=== PATIENT | female | born 1945 | race Caucasian/White ===

== ENCOUNTER → 2017-02-06 | Outpatient (CLI) | payer OTHER ==
[~2017-02-06] MED LIST: ACET-1138 PO; ACET-1487 PO; AMLO5TAB2 PO; ATOR-24 PO; BUPRTAB PO; BUPRTAB51 PO; CALC600T9 PO; CHOL2000 PO; DONE1TAB11 PO; ESCI10TA17 PO; GLUC10007 PO; GLUCTAB7 PO; IBUP-103 PO; LAMO200T38 PO; LDDP5 TD; LEVO125T57 PO; LSN5 PO; METR0.7514 PV; MULT-506 PO; NCYSR50 PO; POTA-331 PO; PRLSR20 PO; RBX750 PO; RXC5 PO; SPIR50TA2 PO; TRAZ50TA35 PO
[2017-02-06 12:46] LABS: ALT/SGPT 30 U/L (12-78); BLOOD UREA NITROGEN 23 mg/dl (7-18); BUN/CREATININE RATIO 20.9 (10-20); CALCIUM 9.5 mg/dl (8.5-10.1); CARBON DIOXIDE 28 mmol/L (21-32); CHLORIDE 104 mmol/L (98-107); CHOLESTEROL 176 mg/dl (0-200); GLUCOSE 92 mg/dl (70-99); SODIUM 140 mmol/L (136-145); TRIGLYCERIDES 84 mg/dl (0-150); VERY LOW DENSITY LIPOPROT CALC 17 mg/dl
[2017-02-06 12:57] LABS: ALB/GLOB RATIO 1.1 (0.9-2); ALKALINE PHOSPHATASE 100 U/L (45-117); AST/SGOT 19 U/L (15-37); CHOLESTEROL/HDL RATIO 3.2; HDL CHOLESTEROL 55 mg/dl; LDL CHOLESTEROL CALCULATED 104 mg/dl
--- NOTE | 2017-02-13 08:12 | CODING QUERY MEDICAL NECESSITY ---
SUPPORTING DIAGNOSIS NEEDED Dr. Reyna, A supporting diagnosis is required for the test/procedure performed on this patient in order for us to be reimbursed by the patient's insurance. Please provide a supporting diagnosis for the following test/procedure listed below next to the test name along with your signature. *If there is no additional diagnosis for this patient that would support the following test/procedure please document that below next to the test/procedure. Test(s)/Procedure(s) that require a supporting diagnosis: * ([id number]) VITAMIN D ASSAY DIAGNOSIS: DATE OF SERVICE: 02/06/17 Provider Signature: Date: Thank you [facility] Information Management Once completed, please kindly fax back to [phone] For questions please call [phone]
== END | disposition home or self-care (01) ==
LOC: C.LABPVFM 09:37
PROVIDERS: ATTEND Family Medicine
DX: I10 Essential (primary) hypertension (principal); E78.5 Hyperlipidemia, unspecified; E03.9 Hypothyroidism, unspecified; K21.0 Gastro-esophageal reflux disease with esophagitis; F32.9 Major depressive disorder, single episode, unspecified; E55.9 Vitamin D deficiency, unspecified

== ENCOUNTER → 2017-06-01 | Outpatient (CLI) | payer OTHER | END | disposition home or self-care (01) | LOC: C.LABPVFM 12:27 | PROVIDERS: ATTEND Nurse Practitioner | DX: N39.0 Urinary tract infection, site not specified (principal) ==

== ENCOUNTER 2017-06-25 06:58 | Inpatient (IN) | payer OTHER ==
[2017-06-15 09:54] VITALS: BMI 48.0
--- NOTE | 2017-06-15 10:33 | PAT Medication Instructions ---
Service Date Jun 15, 2017. Current Home Medication List Acetaminophen (Tylenol Arthritis Ext Rel), 1,300 MG PO TID PRN for RN Amlodipine Besylate (Norvasc), 5 MG PO QAM Atorvastatin (Lipitor), 40 MG PO HS Bupropion Hcl (Wellbutrin Xl), 150 MG PO QAM Bupropion Hcl (Wellbutrin Xl), 300 MG PO QAM Calcium Carbonate-Vitamin D (Calcium + D), 600 MG PO QPM Cholecalciferol (Vitamin D3), 1 CAP PO QPM Donepezil Hydrochloride (Donepezil Hcl), 1 TAB PO QAM Escitalopram (Lexapro), 15 MG PO QAM Qkfjrustesn-Gmtfmpmzjkq-Nov C- (Glucosamine Chondroitin), 1 TAB PO BID Ibuprofen Tab (Advil), 400 MG PO BID Lamotrigine (Lamictal), 200 MG PO HS Levothyroxine (Levoxyl), 0.125 MG PO QAM Multivitamin (Multivitamin), 1 TAB PO QAM Omeprazole (Prilosec), 20 MG PO BID Spironolactone (Aldactone), 50 MG PO BID Trazodone Hcl (Trazodone), 50 MG PO HS Medication Instructions For Your Scheduled Surgery Ibuprofen Tab (Advil), 400 MG PO BID (check with surgeon for instructions) - Hold the following medications starting 06/15/17: Skvlkurtfvd-Ikdrvjkhqhi-Vik C- (Glucosamine Chondroitin), 1 TAB PO BID - Hold the following medications the morning of surgery: Spironolactone (Aldactone), 50 MG PO BID Multivitamin (Multivitamin), 1 TAB PO QAM - Take the following medications the morning of surgery with a sip of water: Omeprazole (Prilosec), 20 MG PO BID Levothyroxine (Levoxyl), 0.125 MG PO QAM Escitalopram (Lexapro), 15 MG PO QAM Bupropion Hcl (Wellbutrin Xl), 150 MG PO QAM Bupropion Hcl (Wellbutrin Xl), 300 MG PO QAM Amlodipine Besylate (Norvasc), 5 MG PO QAM Acetaminophen (Tylenol Arthritis Ext Rel), 1,300 MG PO TID PRN for RN (if needed ) Donepezil Hydrochloride (Donepezil Hcl), 1 TAB PO QAM - Take the following medications as scheduled the night before surgery: Spironolactone (Aldactone), 50 MG PO BID Trazodone Hcl (Trazodone), 50 MG PO HS Omeprazole (Prilosec), 20 MG PO BID Calcium Carbonate-Vitamin D (Calcium + D), 600 MG PO QPM Cholecalciferol (Vitamin D3), 1 CAP PO QPM Atorvastatin (Lipitor), 40 MG PO HS Acetaminophen (Tylenol Arthritis Ext Rel), 1,300 MG PO TID PRN for RN (if needed ) Lamotrigine (Lamictal), 200 MG PO HS If you have any questions please call us at [phone] or [phone] or [phone]
[2017-06-15 11:30] LABS: BASO % 0.9 %; BASO ABS # 0.07 K/uL (0-0.2); COMPLETE YES; EOS % 2.2 %; HEMATOCRIT 40.4 % (37-47); IG% 0.3 %; LYMPH % 31.1 %; LYMPH ABS # 2.44 K/uL (1.2-3.4); MEAN CELL VOLUME 93.7 fL (80-100); MEAN CORPUSCULAR HEMOGLOBIN 31.8 pg (25-34); MEAN CORPUSCULAR HGB CONC 33.9 g/dl (32-36); MEAN PLATELET VOLUME 10.4 fL (7.4-10.4); MONO % 7.8 %; NEUT % 57.7 %; PLATELET COUNT 260 K/uL (130-400); RED BLOOD COUNT 4.31 M/uL (4.2-5.4); WHITE BLOOD COUNT 7.85 K/uL (4.8-10.8)
--- NOTE | 2017-06-15 11:31 | DIAGNOSTIC IMAGING REPORT ---
CHEST PREADMISSION(PA/LAT) CLINICAL HISTORY: Preoperative chest COMPARISON STUDY: 03/23/2016 FINDINGS: The cardiac and mediastinal contours are normal. There is no evidence of focal pulmonary consolidation. There is no evidence of failure. No pleural effusions are visualized.[ There are postsurgical changes of a reverse total right shoulder arthroplasty. IMPRESSION: No active disease in the chest. Electronically signed by: Broderick Knox M.D. 06/15/2017 11:29 AM Dictated Date/Time: 06/15/2017 11:29 AM
[2017-06-15 11:33] LABS: URINE APPEARANCE CLOUDY (CLEAR); URINE BILIRUBIN NEG (NEG); URINE COLOR YELLOW; URINE EPITHELIAL CELL AUTO >30 /lpf (0-5); URINE NITRITE NEG (NEG); URINE SPECIFIC GRAVITY 1.026 (1.000-1.030); UROBILINOGEN NEG (NEG)
[2017-06-15 11:36] LABS: MANUAL MICROSCOPIC REQUIRED? NO; REVIEW REQ? NO
[2017-06-15 11:42] LABS: INR 0.9 (0.9-1.1); PARTIAL THROMBOPLASTIN RATIO 1.1; PROTHROMBIN TIME (PATIENT) 9.9 SECONDS (9.0-12.0)
[2017-06-15 11:48] LABS: BUN/CREATININE RATIO 21.2 (10-20); CALCIUM 9.2 mg/dl (8.5-10.1); CREATININE 1.2 mg/dl (0.60-1.20); POTASSIUM 4.7 mmol/L (3.5-5.1)
--- NOTE | 2017-06-21 09:37 | HISTORY & PHYSICAL EXAMINATION ---
DATE OF ADMISSION: 06/25/2017 CHIEF COMPLAINT: Cuff arthropathy of the left shoulder. HISTORY OF PRESENT ILLNESS: Sara is a pleasant 72-year-old female whom I did a right reverse shoulder arthroplasty on in May 2014. She did very well with that. Unfortunately, she had been noticing pain and weakness in her left shoulder similar symptoms to her contralateral side. X-rays were diagnostic for cuff arthropathy of the shoulder. After failing extensive conservative treatment, she elected to proceed with reverse shoulder arthroplasty. PAST MEDICAL HISTORY: Significant for hyperlipidemia, hypertension, sleep apnea, chronic kidney disease stage III, GERD, depression, osteoarthritis, hypothyroidism, insomnia. SURGICAL HISTORY: Significant for total knee arthroplasty by Dr. Siu and a history of a hysterectomy and a reverse right shoulder arthroplasty in May [address] Lizarraga. SOCIAL HISTORY: Denies any tobacco, alcohol or IV drug use. ALLERGIES: None. MEDICATIONS: Include Norvasc 5 mg daily, Lipitor 40 mg at night, Wellbutrin 450 mg in the morning, calcium 600 mg daily, vitamin D3 2000 units daily, donepezil 1 tab daily, Lexapro 15 mg daily, Lamictal 200 mg at night, Levoxyl 0.125 mg daily, Prilosec 20 mg twice a day, Aldactone 50 mg twice a day, trazodone 50 mg at night. FAMILY HISTORY: Noncontributory. SOCIAL HISTORY: She is , lives alone. She has 2 kids. Denies any tobacco, alcohol or IV drug use. She has little activity. REVIEW OF SYSTEMS: She complains of left shoulder pain and weakness. All other pertinent review of systems are negative. PHYSICAL EXAMINATION: GENERAL: She is awake, alert and orient x3. She is in no apparent distress. She is very pleasant. HEAD, EYES, EARS, NOSE, AND THROAT: Pupils are equal, round and reactive to light. Extraocular motion intact. Oral mucosa is pink and moist. HEART: Regular rate per radial pulse. LUNGS: Katherine symmetrically bilaterally with no audible breath sounds. ABDOMEN: Soft, nontender, nondistended. MUSCULOSKELETAL: On physical examination of the left shoulder, she has significantly decreased range of motion with about 90 degrees of forward elevation, 80 degrees of abduction. Passively I can get a little bit further. She has a lot of pain. She has diffuse tenderness to palpation throughout her shoulder. She has 3/5 strength to full can testing and 3/5 strength with external rotation. Negative belly press test and negative bear hug test. X-rays of the shoulder do show osteoarthritis with a small inferior osteophyte formation. The humeral head is generally well located in the glenoid but there is a lot of blunting of the greater tuberosity indicative of a large cuff tear. IMPRESSION: Cuff arthropathy of the left shoulder. PLAN: We will proceed with a Biomet comprehensive reverse left total shoulder arthroplasty. Postoperatively, she will be placed in an arm sling and kept overnight for postoperative medical management.
[2017-06-25] VITALS (7 sets, daily range): BP systolic 101–188; BP diastolic 66–81; PULSE 54–73; TEMP 36.4–36.9; O2SAT 90–97; Ht 154.9 cm; Wt 114.2 kg
[~2017-06-25] VITALS: Ht 154.9 cm; Wt 114.2 kg
[~2017-06-25 06:58] MED LIST changes: -ACET-1138 PO; +ACETAMINOPHEN 500 MG TAB PO SCH; +CEFAZOLIN 2000 MG/60 ML D5W 60 ML IV SCH; -GLUC10007 PO; +LACTATED RINGER'S 1000ML 1,000 ML IV SCH; +LACTATED RINGER'S 1000ML IV SCH; -LDDP5 TD; -LSN5 PO; -METR0.7514 PV; -NCYSR50 PO; -POTA-331 PO; -RBX750 PO; +ROPIVACAINE 5MG/ML 30 ML 150 MG, BUPIVACAINE/EPINEPHR 0.5% MPF 30 ML, KETOROLAC TROMETH... INFIL SCH; -RXC5 PO
[2017-06-25] MEDS ORDERED: HYDROmorphone INJ 2 MG/ML SYR/VIAL IV PRN (07:30)
[2017-06-25] MEDS ORDERED: ATROPINE SULFATE 0.1 MG/ML 5ML SYR IV PRN (07:30)
[2017-06-25] MEDS ORDERED: PHENYLEPHRINE 100MCG/ML 5ML SYR IV PRN (07:30)
[2017-06-25] MEDS ORDERED: ONDANSETRON INJ 2 MG/ML 2 ML VIAL IV PRN ×2 (07:30→11:45)
[2017-06-25] MEDS ORDERED: LABETALOL HCL IV 5 MG/ML 20ML IV PRN (07:30)
[2017-06-25] MEDS ORDERED: MEPERIDINE HCL 25 MG/ML CARP IV PRN (07:30)
[2017-06-25] MEDS ORDERED: EpHEDrine SULFATE INJ 50 MG/ML AMP IV PRN (07:30)
[2017-06-25] MEDS ORDERED: FENTANYL CITRATE INJ 50 MCG/1 ML 2 ML VIAL IV PRN (07:30)
[2017-06-25] MEDS ORDERED: NALOXONE HCL 0.4 MG/1 ML VIAL/CARP IV PRN ×2 (07:30→11:45)
[2017-06-25] MEDS ORDERED: FLUMAZENIL 0.1 MG/1 ML 10 ML VIAL IV PRN (07:30)
[2017-06-25] MEDS ORDERED: ROPIVACAINE 0.5% 5 MG/ML 30 ML VIAL ONE (07:51)
[2017-06-25] MEDS ORDERED: CLONIDINE HCL 100 MCG/ML SYRINGE ONE (07:52)
[2017-06-25] MEDS ORDERED: BUPIVACAINE/EPINEPHRINE 0.25% 10 ML VIAL ONE (07:52)
[2017-06-25] MEDS ORDERED: ROCURONIUM BROMIDE 10 MG/ML 5 ML VIAL IV ONE (08:41)
[2017-06-25] MEDS ORDERED: LIDOCAINE HCL 2% 2 ML VIAL (20MG/ML) ONE (08:41)
[2017-06-25] MEDS ORDERED: NEOSTIGMINE METHYLSULFATE 5 MG/5 ML SYR ONE (08:41)
[2017-06-25] MEDS ORDERED: PROPOFOL IV EMULSION 10 MG/ML 20 ML VIAL IV ONE (08:41)
[2017-06-25] MEDS ORDERED: ONDANSETRON INJ 2 MG/ML 2 ML VIAL ONE (08:41)
[2017-06-25] MEDS ORDERED: MIDAZOLAM HCL 1 MG/ML 2ML VIAL ONE ×2 (08:41→08:42)
[2017-06-25] MEDS ORDERED: GLYCOPYRROLATE INJ 0.2 MG/ML VIAL ONE (08:41)
[2017-06-25] MEDS ORDERED: DEXAMETHASONE SOD INJ 4 MG/ML VIAL ONE (08:41)
[2017-06-25] MEDS ORDERED: FENTANYL CITRATE INJ 50 MCG/1 ML 2 ML VIAL ONE ×2 (08:42→10:39)
--- NOTE | 2017-06-25 09:24 | History & Physical Bridge Note ---
H&P Re-Evaluation Bridge Note: I have examined the patient, reviewed the History & Physical and in the interval since the performance of the History & Physical I have noted the following changes of clinical significance: No changes noted
[2017-06-25] MEDS ORDERED: BACITRACIN 50000 UNIT VIAL ONE (09:40)
[2017-06-25] MEDS ORDERED: ORTHO JOINT ANESTHETIC ONE (09:40)
--- NOTE | 2017-06-25 11:31 | [facility] Post Operative Brief Note ---
Immediate Operative Summary Operative Date Jun 25, 2017. Pre-Operative Diagnosis Cuff Arthropathy Left Shoulder Post-Operative Diagnosis Cuff Arthropathy Left Shoulder Procedure(s) Performed Left Reverse Total Shoulder Arthroplasty--Uncemented Surgeon Dr. Lizarraga Electromechanical Assembler Surgeon(s) SHEEBA Mendes Estimated Blood Loss 250 ml Findings as above Specimens A. Portion of Left Humeral Head Complication(s) None Disposition Recovery Room / PACU
[2017-06-25] MEDS ORDERED: MAGNESIUM HYDROXIDE SUSP 30 ML UDC PO PRN (11:45)
[2017-06-25] MEDS ORDERED: BISACODYL 10 MG SUPP PR PRN (11:45)
[2017-06-25] MEDS ORDERED: OXYCODONE HCL IR 5 MG TAB (IMMEDIATE RELEASE) PO PRN (11:45)
[2017-06-25] MEDS ORDERED: MoRPHine SULFATE 2 MG/ML CARP IV PRN (11:45)
[2017-06-25] MEDS ORDERED: METOCLOPRAMIDE HCL INJ 5 MG/ML 2 ML VIAL IV PRN (11:45)
[2017-06-25] MEDS ORDERED: SOD PHOSPHATE/SOD BIPHOSPHATE ENEMA 132 ML BTL PR PRN (11:45)
--- NOTE | 2017-06-25 11:53 | OPERATIVE REPORT ---
DATE OF OPERATION: 06/25/2017 PREOPERATIVE DIAGNOSIS: Rotator cuff arthropathy of the left shoulder. POSTOPERATIVE DIAGNOSIS: Same. PROCEDURE: Left reverse total shoulder arthroplasty. SURGEON: Dr. Oscar Lizarraga. TEMPLATE STORAGE CLERK: Jorge Mahoney PA-C, whose assistance was necessary for retraction and positioning the arm. ANESTHESIA: General with a left interscalene nerve block. COMPLICATIONS: None. CONDITION: Stable to PACU. INDICATIONS: Sara is a pleasant 72-year-old female who we did a right reverse shoulder arthroplasty on 2013. She has done well with that. Unfortunately, she has developed cuff arthropathy of the left shoulder. After failing extensive conservative treatment, she elected to undergo a left reverse shoulder arthroplasty. DESCRIPTION OF PROCEDURE: On 06/25/2017, she arrived at [facility] for the above procedure. She was seen in the preoperative holding area and the operative extremity was identified and signed. She was given a preoperative antibiotic and a left interscalene nerve block. She was taken back to the operating room, laid on the table in the supine position and put under general anesthesia. She was then put into the beachchair position. The left shoulder was prepped and draped in sterile fashion. Time-out was done and the patient and operative extremity was properly identified. A deltopectoral approach was used. Dissection was taken down through the fascia and the anterior shoulder was exposed. The long head of the biceps tendon was already ruptured. The subscapularis was completely ruptured and there was an absent supraspinatus. The infraspinatus was intact. The shoulder was dislocated out of the wound. Sequential reaming up to a size 9 reamer was done. Off that reamer, a proximal humeral resection guide was placed and the proximal humerus was resected at 135 degrees of inclination and 20 degrees of retroversion. The glenoid was then exposed. Time was spent doing a complete circumferential capsular and labral release. The guide was placed in the bottom portion of the glenoid and a guidepin was placed at 10 degrees of inclination. A 25-mm mini baseplate was then reamed and impacted into place. A single 40-mm central screw was placed followed by a superior and inferior locking screw. A 36-mm standard eccentric glenosphere was then impacted into place. The proximal humerus was once again exposed. Sequential broaching up to a size 9 broach was done. Off that broach, a standard humeral tray was trialed, the shoulder was reduced, brought through a full range of motion and felt to be stable. The broach was removed. The final size 9 implant was impacted into place and the humeral bearing was snapped onto the humeral tray and the ring lock mechanism was engaged. The humeral tray was then placed on the humeral stem. The shoulder was reduced, brought through a full range of motion and felt to be stable. There was no subscapularis to reattach. The wound was irrigated with 3 liters of normal saline solution with bacitracin. Surrounding soft tissues were injected with orthopedic pain control cocktail. A drain was placed. Skin was then closed with 2-0 Vicryl, 0 Prolene suture and a Prineo dressing. She was then placed in a large arm sling, extubated, transferred to a litter and taken to the postanesthesia care unit in stable condition. She tolerated the procedure well. IMPLANTS USED: I used a Biomet comprehensive reverse shoulder arthroplasty system with a size 25-mm mini baseplate with a 40-mm central screw, 2 peripheral locking screws, a 9-mm mini stem, and a 36-mm standard eccentric glenosphere. No cement was used during the case. I attest to the content of the Intraoperative Record and any orders documented therein. Any exception s are noted below.
--- NOTE | 2017-06-25 12:47 | DIAGNOSTIC IMAGING REPORT ---
LEFT SHOULDER MIN 2 VIEWS ROUTINE HISTORY: 72 years-old Female Post shoulder surgery COMPARISON: Left shoulder radiographs 06/11/2017 TECHNIQUE: 3 views of the left shoulder were obtained postoperatively FINDINGS: There has been recent total reverse shoulder arthroplasty on the left. Fixation screws into the glenoid appear to be intact. Alignment is satisfactory without periprosthetic fracture or malalignment. Expected postsurgical soft tissue swelling and deep tissue air is seen about the shoulder with a surgical drain in place. Degenerative changes with marginal spurring are seen within the AC joint. There is left lung mukherjee appear hypoinflated with hazy left basilar opacity suggesting atelectasis. Degenerative changes are also seen throughout the cervical spine. IMPRESSION: Status post total reverse left shoulder arthroplasty without complication identified. The above report was generated using voice recognition software. It may contain grammatical, syntax or spelling errors. Electronically signed by: Cm Jiménez M.D. 06/25/2017 12:45 PM Dictated Date/Time: 06/25/2017 12:43 PM
--- NOTE | 2017-06-25 12:47 | Anesthesiology Progress Note ---
Anesthesia Post Op Note Date & Time Jun 25, 2017 at 12:47 Vital Signs Pain Intensity: 0 Vital Signs Past 12 Hours Date Time Temp Pulse Resp B/P (MAP) Pulse Ox O2 Delivery O2 Flow Rate FiO2 06/25/17 11:55 36 80 16 155/99 98 Mask 10 06/25/17 09:46 62 14 161/95 (117) 99 Mask 10 06/25/17 07:22 36.4 67 18 188/80 (116) 97 Room Air 06/25/17 07:22 36.4 67 18 188/80 (116) 97 Room Air Notes Mental Status: alert / awake / arousable, participated in evaluation Pt Amnestic to Procedure: Yes Nausea / Vomiting: adequately controlled Pain: adequately controlled Airway Patency, RR, SpO2: stable & adequate BP & HR: stable & adequate Hydration State: stable & adequate Anesthetic Complications: no major complications apparent
[2017-06-25] MEDS: POTASSIUM CHLORIDE INJ 10 MEQ in SODIUM CHLORIDE 0.9% 1000ML 1,000 ML IV SCH (15:06)
[2017-06-25] MEDS ORDERED: NURSING VERBAL MED ORDER ONE (15:15)
[2017-06-25] MEDS ORDERED: COUGH DROP (SUGAR FREE) LOZ 24 LOZ/1 BOX PO PRN (15:30)
[2017-06-25] MEDS: ACETAMINOPHEN IV 1,000 MG in EMPTY BAG 0 ML IV SCH (16:07)
[2017-06-25] MEDS: KETOROLAC TROMETHAMINE 15 MG/ML VIAL IV. SCH (16:09)
[2017-06-25] MEDS: SPIRONOLACTONE 100 MG TAB PO SCH (17:40)
[2017-06-25] MEDS: CEFAZOLIN IV 2,000 MG in DEXTROSE 5% 50ML 50 ML IV SCH (17:41)
[2017-06-25] MEDS ORDERED: SENNA 8.6 MG TAB PO SCH (21:00)
[2017-06-25] MEDS ORDERED: CHOLECALCIFEROL 1000 INTER.UNIT TAB PO SCH (21:00)
[2017-06-25] MEDS ORDERED: CALCIUM 600MG + VIT D 400 IU TAB PO SCH (21:00)
[2017-06-25] MEDS ORDERED: ATORVASTATIN 40 MG TAB PO SCH (21:00)
[2017-06-25] MEDS ORDERED: TRAZODONE HCL 50 MG TAB PO SCH (21:00)
[2017-06-26] MEDS: DOCUSATE SODIUM 100 MG CAP PO SCH ×2 (00:32→08:55)
[2017-06-26] MEDS: KETOROLAC TROMETHAMINE 15 MG/ML VIAL IV. SCH ×3 (00:34→10:26)
[2017-06-26] MEDS: ACETAMINOPHEN IV 1,000 MG in EMPTY BAG 0 ML IV SCH ×2 (00:34→08:48)
[2017-06-26] MEDS: POTASSIUM CHLORIDE INJ 10 MEQ in SODIUM CHLORIDE 0.9% 1000ML 1,000 ML IV SCH ×2 (00:35→10:30)
[2017-06-26] MEDS: CEFAZOLIN IV 2,000 MG in DEXTROSE 5% 50ML 50 ML IV SCH (02:11)
[2017-06-26 03:00] VITALS: BP 120/68; PULSE 68; TEMP 36.6; O2SAT 99
[2017-06-26 05:52] LABS: HEMATOCRIT 31.2 % (37-47); MEAN CORPUSCULAR HEMOGLOBIN 31.9 pg (25-34); MEAN CORPUSCULAR HGB CONC 34.6 g/dl (32-36); MEAN PLATELET VOLUME 10.5 fL (7.4-10.4); PLATELET COUNT 228 K/uL (130-400); RED BLOOD COUNT 3.39 M/uL (4.2-5.4); WHITE BLOOD COUNT 12.54 K/uL (4.8-10.8)
[2017-06-26] MEDS ORDERED: LEVOTHYROXINE 125 MCG TAB PO SCH (06:00)
[2017-06-26 06:35] LABS: BUN/CREATININE RATIO 23.9 (10-20); CALCIUM 8.1 mg/dl (8.5-10.1); CREATININE 1.2 mg/dl (0.60-1.20); POTASSIUM 4.1 mmol/L (3.5-5.1)
[2017-06-26] MEDS ORDERED: RXC5 PO (06:56)
--- NOTE | 2017-06-26 06:57 | Discharge Instructions ---
Discharge Instructions Date of Service Jun 26, 2017. Admission Reason for Admission: Left Shoulder Full Thickness Rotator Cuff Tear Discharge Discharge Diagnosis / Problem: Left reverse total shoulder Discharge Goals Goal(s): Decrease discomfort, Improve function Activity Recommendations Activity Limitations: as noted below . Instructions / Follow-Up Instructions / Follow-Up Activity and Therapy Recommendations: * Wear your sling for 3 weeks, unless otherwise instructed. You may remove your sling to shower and to dress, but otherwise, you should be in your sling at all times, including while sleeping * The shoulder replacement is very stable and you can use your hand while in the sling * Physical Therapy should start about 3-5 days from your day of surgery. Therapy will last about 8-12 weeks * You were shown a series of exercises in the hospital. Do these exercises daily including the exercises you were shown in physical therapy. Medications: * Narcotic You will likely be sent home from the hospital with a prescription for the narcotic pain medication that worked best throughout your stay. * Other medications may be prescribed for specific circumstances. If you have any questions, please call the office at . * Resume previous home medications unless otherwise instructed Dressing Care: You will likely have a Prineo dressing covering your incision. This looks like a glued on clear mesh dressing. Do not remove this dressing until you follow- up in my office in 2-3 weeks. Its pretty hard to peel it off. You may leave the Prineo dressing uncovered or cover it if it is draining a little bit. No further dressing care is required Showering: You may shower 3 days from the day of surgery. Leave the Prineo dressing intact and let the soapy shower water run over it. Do not scrub or soak the dressing or the incision. Things To Watch For: * Drainage from the incision site that occurs more than one week after your surgery. * Increased redness at the incision site. * Fever above 102 degrees Fahrenheit. * Unusual chest pain or shortness of breath. * Call [facility] at with any of the above problems Follow-Up Visit: Follow-up with Dr. Lizarraga 2-3 weeks after your day of surgery. An appointment was probably scheduled when you signed-up for surgery in the office. If you have any questions call Office Instructions: More detailed instructions as well as Frequently Asked Questions were provided in a folder by our office when you signed-up for surgery. Please review these instructions when you get home. If you have any further questions or concerns, please feel free to call the office at [phone] Current Hospital Diet Patient's current hospital diet: Regular Diet Discharge Diet Recommended Diet: Regular Diet Procedures Procedures Performed: Left Reverse Total Shoulder Arthroplasty--Uncemented Pending Studies Studies pending at discharge: no Medical Emergencies . Who to Call and When: Medical Emergencies: If at any time you feel your situation is an emergency, please call 911 immediately. . Non-Emergent Contact Non-Emergency issues call your: Surgeon Call Non-Emergent contact if: wound has increased drainage, wound has increased redness . "Provider Documentation" section prepared by Oscar Lizarraga. . VTE Core Measure Inpt VTE Proph given/why not?: Treatment not indicated
--- NOTE | 2017-06-26 07:15 | PROGRESS NOTE ---
DATE: 06/26/2017 CHIEF COMPLAINT: Status post reverse left shoulder arthroplasty postop day #1. PROGRESS: Sara was seen and examined at bedside today. Overall, she is doing fairly well. She does not have much pain in her left shoulder. She says she still has some tingling in her fingers, but she has full motion. No other complaints. PHYSICAL EXAMINATION: LEFT SHOULDER: The dressing is clean and dry and the drain is to suction. She is wearing her arm sling as instructed. Her radial, median and ulnar nerves were checked and intact at her wrist. Her axillary nerve was not definitively checked yet. LABORATORY DATA: She has an H&H today of 10.8 and 31.2. Her glucose is 122. VITAL SIGNS: All stable on room air and she is wearing a BIPAP at night and she is voiding on her own. IMAGING: X-rays postoperatively of the left shoulder show the prosthesis to be in anatomical alignment without any evidence of fracture, dislocation or loosening. IMPRESSION: Status post reverse left shoulder arthroplasty postop day #1. PLAN: At this point, she is doing well and happy with her progress. She will be seen by physical therapy today to do hand, wrist, elbow and pendulum exercises. The nursing staff can change the dressing and pull the drain. Will discharge her to home later this morning.
[2017-06-26 07:28] VITALS: BP 126/67; PULSE 55; TEMP 36.6; O2SAT 93
--- NOTE | 2017-06-26 07:33 | DISCHARGE SUMMARY ---
DISCHARGE DIAGNOSIS: Rotator cuff arthropathy of the left shoulder. PROCEDURE: Left reverse shoulder arthroplasty on 06/25/[address] Oscar Lizarraga. DISCHARGE INSTRUCTIONS: 1. Oxycodone 5-10 mg every 4 hours as needed for pain. 2. Tylenol 650 mg 3 times a day as needed. 3. Norvasc 5 mg daily. 4. Lipitor 40 mg at night. 5. Wellbutrin 450 mg daily. 6. Calcium 600 mg daily. 7. Vitamin D 2000 units daily. 8. Donepezil 5 mg daily. 9. Lexapro 50 mg daily. 10. Advil 400 mg twice a day as needed. 11. Lamictal 200 mg at night. 12. Levoxyl 0.125 mg daily. 13. Daily multivitamin. 14. Prilosec 20 mg twice a day. 15. Aldactone 50 mg twice a day. 16. Trazodone 50 mg at night. 17. Left arm sling for 3 weeks. 18. Follow up with Dr. Lizarraga in 2 weeks. 19. Call the office of Dr. Lizarraga with any questions or concerns. HOSPITAL COURSE: Sara is a pleasant 72-year-old female who presented to my office with chronic pain and weakness of her left shoulder. X-rays and clinical examination were diagnostic for rotator cuff arthropathy of the left shoulder. After failing conservative treatment, she elected to undergo a reverse shoulder arthroplasty. On 06/25/2017 she arrived at [facility] and underwent a reverse left shoulder arthroplasty without complications. She had a general anesthetic and a left interscalene nerve block. Postoperatively, she was discharged to general orthopedic floor. Her hospital course was uneventful. On postop day #1 her H&H was stable at 10.8 and 31.2. She was neurovascularly intact. She worked well with physical therapy. The nursing staff changed the dressing and pulled the drain. Subsequently discharged her to home with the above instructions.
[2017-06-26] MEDS: SPIRONOLACTONE 100 MG TAB PO SCH (08:54)
[2017-06-26] MEDS ORDERED: MULTIVITAMIN TAB PO SCH (09:00)
[2017-06-26] MEDS ORDERED: ESCITALOPRAM OXALATE 10 MG TAB PO SCH (09:00)
[2017-06-26] MEDS ORDERED: BuPROPion XL 150 MG TABCR PO SCH (09:00)
[2017-06-26] MEDS ORDERED: BuPROPion XL 300 MG TABCR PO SCH (09:00)
[2017-06-26] MEDS ORDERED: AMLODIPINE BESYLATE 5 MG TAB PO SCH (09:00)
[2017-06-26] MEDS ORDERED: PANTOprazole SOD 40 MG TAB PO SCH (09:00)
[2017-06-26] MEDS ORDERED: DONEPEZIL HCL 5 MG TAB PO SCH (09:00)
[2017-06-26 10:39] VITALS: BP 126/67; PULSE 55; TEMP 36.6; O2SAT 93
[2017-06-26 11:20] VITALS: BP 129/51; PULSE 67; TEMP 37.2; O2SAT 95
== END 2017-06-26 13:30 | disposition home or self-care (01) | DRG 483 ==
LOC: C.ACU 06:58 → C.3E 11:36 → ENRESERV 12:30
PROVIDERS: ADMIT Orthopaedic Surgery; ATTEND Orthopaedic Surgery
PROC: 0RRK00Z Replacement of Left Shoulder Joint with Reverse Ball and Socket Synthetic Substitute, Open Approach (ICD-10-PCS; principal; 2017-06-25 09:40)
DX: M75.102 Unspecified rotator cuff tear or rupture of left shoulder, not specified as traumatic (principal); I12.9 Hypertensive chronic kidney disease with stage 1 through stage 4 chronic kidney disease, or unspecified chronic kidney disease; N18.3 Chronic kidney disease, stage 3 (moderate); E78.5 Hyperlipidemia, unspecified; E03.9 Hypothyroidism, unspecified; K21.9 Gastro-esophageal reflux disease without esophagitis; G47.30 Sleep apnea, unspecified; G47.00 Insomnia, unspecified; F32.9 Major depressive disorder, single episode, unspecified; Z96.611 Presence of right artificial shoulder joint; Z96.659 Presence of unspecified artificial knee joint; Z79.899 Other long term (current) drug therapy

== ENCOUNTER → 2017-12-04 | Outpatient (CLI) | payer OTHER ==
[~2017-12-04] VITALS: Ht 154.9 cm; Wt 245.1 kg
[~2017-12-04] MED LIST changes: -ACETAMINOPHEN 500 MG TAB PO SCH; -CEFAZOLIN 2000 MG/60 ML D5W 60 ML IV SCH; -LACTATED RINGER'S 1000ML 1,000 ML IV SCH; -LACTATED RINGER'S 1000ML IV SCH; +LAMO200T35 PO; -LAMO200T38 PO; -ROPIVACAINE 5MG/ML 30 ML 150 MG, BUPIVACAINE/EPINEPHR 0.5% MPF 30 ML, KETOROLAC TROMETH... INFIL SCH; +RXC5 PO
[2017-12-04 15:13] VITALS: BP 164/87; PULSE 88; Ht 154.9 cm; Wt 245.1 kg
== END | disposition home or self-care (01) ==
LOC: C.NEUR 14:25
PROVIDERS: ATTEND Internal Medicine Pulmonary Disease
DX: G47.33 Obstructive sleep apnea (adult) (pediatric) (principal); R10.31 Right lower quadrant pain; M19.90 Unspecified osteoarthritis, unspecified site; R26.89 Other abnormalities of gait and mobility; F03.90 Unspecified dementia, unspecified severity, without behavioral disturbance, psychotic disturbance, mood disturbance, and anxiety; R42 Dizziness and giddiness; K21.9 Gastro-esophageal reflux disease without esophagitis; R32 Unspecified urinary incontinence; E55.9 Vitamin D deficiency, unspecified; N39.0 Urinary tract infection, site not specified; Z79.899 Other long term (current) drug therapy

== ENCOUNTER → 2018-02-12 | Outpatient (CLI) | payer OTHER ==
[~2018-02-12] MED LIST changes: -DONE1TAB11 PO; +DONE5TAB26 PO
[2018-02-12 14:39] LABS: ALBUMIN 3.8 gm/dl (3.4-5.0); ALT/SGPT 27 U/L (12-78); AST/SGOT 17 U/L (15-37); BLOOD UREA NITROGEN 23 mg/dl (7-18); CALCIUM 9.4 mg/dl (8.5-10.1); CARBON DIOXIDE 28 mmol/L (21-32); CREATININE 1.33 mg/dl (0.60-1.20); GLUCOSE 95 mg/dl (70-99); POTASSIUM 3.8 mmol/L (3.5-5.1); SODIUM 138 mmol/L (136-145)
[2018-02-12 14:51] LABS: ALKALINE PHOSPHATASE 110 U/L (45-117)
[2018-02-14 11:40] LABS: ANA SCREEN TC 249X NEGATIVE (NEGATIVE)
== END | disposition home or self-care (01) ==
LOC: C.LABPVFM 11:41
PROVIDERS: ATTEND Family Medicine
DX: M19.90 Unspecified osteoarthritis, unspecified site (principal); I10 Essential (primary) hypertension; E03.9 Hypothyroidism, unspecified; K21.0 Gastro-esophageal reflux disease with esophagitis; F32.9 Major depressive disorder, single episode, unspecified; E55.9 Vitamin D deficiency, unspecified; E83.42 Hypomagnesemia

== ENCOUNTER → 2018-03-07 | Outpatient (CLI) | payer OTHER ==
--- NOTE | 2018-03-07 12:21 | DIAGNOSTIC IMAGING REPORT ---
L HAND MIN 3 VIEWS ROUTINE, R HAND MIN 3 VIEWS ROUTINE HISTORY: 73 years-old Female M15.9, M79.641 chronic bilateral hand pain COMPARISON: None available TECHNIQUE: 3 views of the bilateral hands FINDINGS: LEFT: Severe joint space narrowing is noted within the first carpometacarpal, first through third metacarpophalangeal and within several interphalangeal joints, notably within the second and third digits with associated subcortical cystic changes and marginal osteophytosis. Mild subluxation of the second and third PIP joints. Subcortical lucencies involving the metacarpophalangeal and interphalangeal joints may reflect subcortical cystic changes or erosive pathology. No acute fracture identified. RIGHT: Severe joint space narrowing is noted with the first carpal metacarpal and second through fourth digit interphalangeal joints with moderate joint space narrowing and marginal spurring about the metacarpophalangeal joints. Subcortical lucencies are noted within these distributions as well. No acute fracture. IMPRESSION: 1. No acute fracture or dislocation identified. 2. Left greater than right multidigit joint space narrowing with subchondral sclerosis, marginal osteophytosis and subcortical cystic changes suggest advanced osteoarthritis. Subarticular and marginal subcortical lucencies within several of the digits are noted, likely also reflecting subcortical cystic changes with subtle erosions associated with erosive osteoarthritis thought to be less likely. The above report was generated using voice recognition software. It may contain grammatical, syntax or spelling errors. Electronically signed by: Cm Jiménez M.D. 03/07/2018 12:20 PM Dictated Date/Time: 03/07/2018 12:15 PM
[2018-03-07 13:42] LABS: URIC ACID 4.9 mg/dl (2.6-7.2)
== END | disposition home or self-care (01) ==
LOC: C.LAB1850 11:11
PROVIDERS: ATTEND Internal Medicine Rheumatology
DX: M15.9 Polyosteoarthritis, unspecified (principal); M79.641 Pain in right hand; M79.642 Pain in left hand; N18.3 Chronic kidney disease, stage 3 (moderate)

== ENCOUNTER 2020-07-07 06:02 | Inpatient (IN) ==
[2020-07-07] MEDS ORDERED: ONDANSETRON INJ 2 MG/ML 2 ML VIAL IV STA (06:21)
[2020-07-07] MEDS ORDERED: ACETAMINOPHEN 500 MG TAB PO STA (06:21)
[2020-07-07] MEDS ORDERED: PIPERACILLIN/TAZOBACTAM 4.5 GM/120 ML BAG IV ONE (06:28)
[2020-07-07] MEDS ORDERED: PIPERACILL/TAZOBAC CONSULT ACTIVE PRN (06:28)
[2020-07-07] MEDS ORDERED: SODIUM CHLORIDE 0.9% 1000ML 1,000 ML IV SCH (06:30)
--- NOTE | 2020-07-07 06:41 | XRay Report ---
XR chest 1V portable HISTORY: 75 years-old Female weakness acute weakness COMPARISON: Chest radiograph 06/18/2019, CTA chest 06/19/2019 TECHNIQUE: Portable AP view of the chest FINDINGS: Cardiac silhouette is upper limits of normal in size. Ill-defined right suprahilar opacity is likely secondary to summation density. The previously described pulmonary nodules are better seen on compari son CTA of the chest. There is no pneumothorax, pleural effusion, overt pulmonary edema or airspace c onsolidation typical for pneumonia. Degenerative changes of the spine. Reverse bilateral shoulder tot al joint arthroplasties. IMPRESSION: No acute process. ACT 112: Negative or not required by law. The above report was generated using voice recognition software. It may contain grammatical, syntax o r spelling errors. Electronically signed by: Cm Jiménez M.D. 07/07/2020 6:40 AM
[2020-07-07 06:43] LABS: Basophils # (auto) 0.05 K/uL (0-0.2); Basophils % (auto) 0.3 %; Hematocrit (blood only) 41.2 % (37-47); Hemoglobin 13.9 g/dL (12.0-16.0); Immature Granulocytes # (auto) 0.09 K/uL (0.00-0.02); Immature Granulocytes % (auto) 0.5 %; Lymphocytes # (auto) 2.01 K/uL (1.2-3.4); Lymphocytes % (auto) 10.4 %; Mean Corpuscular Hemoglobin 31.4 pg (25-34); Mean Corpuscular Hgb Conc 33.7 g/dL (32-36); Mean Platelet Volume 10.3 fL (7.4-10.4); Monocytes # (auto) 2.11 K/uL (0.11-0.59); Monocytes % (auto) 10.9 %; Neutrophils # (auto) 15.15 K/uL (1.4-6.5); Neutrophils % (auto) 77.9 %; Platelet Count 282 K/uL (130-400); RDW Coefficient of Variation 13.4 % (11.5-14.5); RDW Standard Deviation 46.2 fL (36.4-46.3); Red Blood Count 4.43 M/uL (4.2-5.4); White Blood Count 19.41 K/uL (4.8-10.8)
[2020-07-07 06:47] LABS: Appearance Urine Turbid (Clear); Bacteria Urine Automated 4+ (Negative); Bilirubin Urine Negative (Negative); Blood Urine 2+ (Negative); Color Urine Dark Yellow; Epithelial Cell Urine Auto >30 /lpf (0-5); Glucose Urine UA Negative (Negative); Ketones Urine Trace (Negative); Leukocyte Esterase Urine 3+ (Negative); Nitrite Urine Positive (Negative); Protein Urine 2+ (Negative); Specific Gravity Urine 1.019 (1.000-1.030); Urobilinogen Urine Negative (Negative); WBC Urine Automated >30 /hpf (0-5)
--- NOTE | 2020-07-07 06:48 | Emergency Department Note ---
Impression & Plan Acute pyelonephritis, Weakness, Nausea, Fever, Hypomagnesemia ED Provider Note NAME: DEBBIE THOMPSON AGE: 75 SEX: F : 1945 ARRIVES VIA: Ambulance INFORMANT: Patient, the prehospital personnel ED PROVIDER(S): Norris Mayer DO CHIEF COMPLAINT: Weakness HPI: The patient is a 75-year-old female who presented to the emergency department via ambulance for generalized weakness. The patient states that she went to get out of bed and had a fall where she slipped down onto her bottom. She states that she did not hurt herself. She called the ambulance last evening for similar episode because she thought she just needed help getting in the bed. The patient presents to the emergency department again this morning after calling 911. The patient was found to be febrile upon arrival to the emergency department. She complains of nausea and chills. She states that she did not check her temperature but thought she had a subjective fever. She denies having any headache or cough. She denies having any recent traveling or COVID-19 exposures. The patient's daughter states that she has had similar episodes in the past with UTI. She denies any lower extremity swelling or redness. She denies having any headache or loss of consciousness. ROS: See above HPI for pertinent positives & negatives. A total of 10 systems reviewed and were otherwise negative. PAST MEDICAL HISTORY: See Below PAST SURGICAL HISTORY: See Below FAMILY HISTORY: See Below SOCIAL HISTORY: See Below HOME MEDICATIONS: See Below ALLERGIES: See Below VITALS: See Below PHYSICAL EXAMINATION: GENERAL: The patient is awake and alert. She is somewhat anxious appearing but overall comfortable. EYES: The conjunctivae are clear. The pupils are round and reactive. EARS, NOSE, MOUTH AND THROAT: The nose is without any evidence of any deformity. Mucous membranes are moist. Tongue is midline. NECK: The neck is nontender and supple. RESPIRATORY: Diminished breath sounds are noted in the right base. There is no tachypnea or conversational dyspnea. CARDIOVASCULAR: Tachycardic rate with regular rhythm was noted. There is no definite murmur. GASTROINTESTINAL: The abdomen was mildly distended but soft. There is no specific guarding rigidity. MUSCULOSKELETAL/EXTREMITIES: There is no evidence of gross deformity full range of motion is noted in the hips and shoulders. SKIN: There is no obvious evidence of any rash. Pedal edema was noted bilaterally. NEUROLOGIC: Patient is awake alert and oriented x3. Strength was symmetric. MEDICAL DECISION MAKING: The patient is a 75-year-old female who presented to the emergency department for an evaluation of generalized weakness after trying to get out of bed and sliding to the ground. She was found to have a fever. Her work-up appears to be consistent with urinary tract infection. She continues to have significant nausea. She was treated with IV fluids IV antiemetics Tylenol and IV antibiotics. She was reevaluated. She was feeling somewhat improved but given her findings I feel she may require further inpatient management with IV antibiotics. I discussed the patient's laboratory and radiographic studies with her. I discussed her case with the on-call [facility] hospitalist. Previous cultures were reviewed. She did have a previous urine infection with an organism resistant to Rocephin. She was given Zosyn in the emergency department. Triage Nursing notes reviewed. Prior medical records reviewed Vital Signs: reviewed and remarkable for elevated blood pressure and fever. Differential diagnosis: Infection, dehydration, metabolic abnormality, hypo/hyperglycemia, electrolyte disturbance, anemia, hypoxia, cardiac sources, intracerebral event, toxicologic, neurologic, as well as other pathologies. ER treatment provided: See below Diagnostics interpreted by me: ECG: EKG was obtained in the emergency department. My interpretation is normal sinus rhythm at 84 bpm. There is no ectopy. LVH was noted by voltage criteria. This was compared to a tracing from 06/18/2019. No significant changes were noted. Cardiac Monitoring: An order was placed for continuous cardiac monitoring. The monitor shows a rate of 95 bpm with sinus rhythm. Laboratory studies: As stated above and show below. Imaging studies: See below Consultation(s): 5120: I discussed this case with Dr. Morgan who is on-call for the [facility]. ED COURSE: Procedures: none PDMP:reviewed and no issues Critical Care: None Past Med/Surg History Medical History Hernia, incisional History of kidney stones Hypokalemia Hypomagnesemia Hypophosphatemia Osteoarthritis Surgical History History of bilateral cataract extraction History of bilateral tubal ligation History of colon surgery abscess removal @ [facility] History of colonoscopy History of cystoscopy History of dilatation and curettage History of repair of left rotator cuff History of repair of right rotator cuff History of total hysterectomy with bilateral salpingo-oophorectomy (BSO) History of total left knee replacement (TKR) History of total right knee replacement (TKR) History of wisdom tooth extraction Hx of cholecystectomy Family History Father Family history of diabetes mellitus Myocardial infarction Grandmother (Paternal) Family history of diabetes mellitus Other Cancer Coronary heart disease Family history non-contributory No family history of adverse response to anesthesia Social History Smoking Status: Never smoker Second Hand Exposure: Yes ( smoked); Hx Alcohol Use: No Hx Substance Use: No Preferred Language: Citizen Of [place] Communication Ability: Effective Configurator Required: No Beliefs That Will Affect Care: None marital status: / Current Living Situation: Alone current occupational status: retired Feels Safe at Home: Yes caffeine: Yes Dental Care, Regularly: Yes Physical Activity Frequency: Does not Exercise Seatbelt Use: always Sunscreen Use: No Allergies Allergies Allergy/AdvReac Type Severity Reaction Status Date / Time baclofen Allergy Mild FLUSHED Verified 07/07/20 06:45 FACE Home Meds Home Medications Medication Instructions Recorded Confirmed bupropion HCl 150 mg PO QAM 12/01/18 07/07/20 multivitamin 1 tab PO QAM 12/01/18 07/07/20 cholecalciferol (vitamin D3) 25 2,000 units PO QPM cap 04/08/19 07/07/20 mcg (1,000 unit) capsule omega-3 fatty acids 1,000 mg 1,000 mg PO QPM 07/16/19 07/07/20 capsule lamotrigine 200 mg tablet 200 mg PO HS tab 09/18/19 07/07/20 bupropion HCl 300 mg PO QAM 11/28/19 07/07/20 escitalopram oxalate 10 mg PO DAILY 07/07/20 07/07/20 nystatin 1 applic TOPICAL UD 07/07/20 07/07/20 oxybutynin chloride 5 mg PO HS 07/07/20 07/07/20 spironolactone 50 mg PO Q12 07/07/20 07/07/20 Previous Rx's Medication Instructions Recorded metoprolol tartrate 25 mg tablet 25 mg PO BID #180 tab 02/16/20 amlodipine 10 mg tablet 10 mg PO QAM #90 tab 02/24/20 atorvastatin 40 mg tablet 40 mg PO QAM #90 tab 02/24/20 levothyroxine 125 mcg tablet 125 mcg PO QAM #90 tab 02/24/20 quetiapine 25 mg tablet 25 mg PO DAILY #30 tab 04/27/20 donepezil 5 mg tablet 5 mg PO QPM #90 tab 05/24/20 pantoprazole 40 mg tablet,delayed 40 mg PO BID #60 tab 06/01/20 release Results & Data (ED) Vital Signs Vital Signs - 24 hr 07/07/20 06:02 07/07/20 06:50 07/07/20 06:52 Temperature 38.4 C H Temperature Source Oral Pulse Rate 91 H Pulse Rate [Right Finger] 82 Pulse Rhythm Regular Pulse Strength Normal Respiratory Rate 22 18 Respiratory Effort / Characteristics Spontaneous Non-Labored Spontaneous Respiratory Depth Normal Normal Respiratory Pattern Regular Blood Pressure 164/97 H Blood Pressure [Right Arm] 164/97 H Blood Pressure Mean 119 Blood Pressure Mean [Right Arm] 119 Blood Pressure Position Sitting Blood Pressure Position [Right Arm] Lying Pulse Oximetry 92 89 L 95 Oxygen Delivery Method Room Air Room Air Nasal Cannula Oxygen Flow Rate 2 Sepsis Recent Fever Within 48 Hours Yes Sepsis New/Unexplained Change in Mental Status No Sepsis Action Taken by Nursing No Action Required 07/07/20 07:51 Temperature 37.7 C H Temperature Source Oral Pulse Rate Pulse Rate [Right Finger] 83 Pulse Rhythm Pulse Strength Respiratory Rate 20 Respiratory Effort / Characteristics Respiratory Depth Respiratory Pattern Blood Pressure Blood Pressure [Right Arm] 149/81 H Blood Pressure Mean Blood Pressure Mean [Right Arm] 103 Blood Pressure Position Blood Pressure Position [Right Arm] Pulse Oximetry 93 Oxygen Delivery Method Room Air Oxygen Flow Rate Sepsis Recent Fever Within 48 Hours Sepsis New/Unexplained Change in Mental Status Sepsis Action Taken by [place] Medications Current Medication List: was personally reviewed by me Laboratory Data Attestation: I reviewed the patient's lab results. Result diagrams: 07/07/20 06:25 07/07/20 06:25 Lab Results 07/07/20 07/07/20 07/07/20 Range/Units 06:25 06:25 06:25 WBC 19.41 H (4.8-10.8) K/uL RBC 4.43 (4.2-5.4) M/uL Hgb 13.9 (12.0-16.0) g/dL Hct 41.2 (37-47) % MCV 93.0 (80-100) fL MCH 31.4 (25-34) pg MCHC 33.7 (32-36) g/dL RDW Std Deviation 46.2 (36.4-46.3) fL RDW Coeff of Randy 13.4 (11.5-14.5) % Plt Count 282 (130-400) K/uL MPV 10.3 (7.4-10.4) fL Immature Gran % (Auto) 0.5 % Neut % (Auto) 77.9 % Lymph % (Auto) 10.4 % [place] % (Auto) 10.9 % Eos % (Auto) 0.0 % Baso % (Auto) 0.3 % Neut # (Auto) 15.15 H (1.4-6.5) K/uL Lymph # (Auto) 2.01 (1.2-3.4) K/uL [place] # (Auto) 2.11 H (0.11-0.59) K/uL Eos # (Auto) 0.00 (0-0.5) K/uL Baso # (Auto) 0.05 (0-0.2) K/uL Immature Gran # (Auto) 0.09 H (0.00-0.02) K/uL ESR 80 H (0-21) mm/hr PT (9.0-12.0) Seconds INR (0.9-1.1) APTT (21.0-31.0) Seconds PTT Ratio Sodium 132 L (136-145) mmol/L Potassium 3.9 (3.5-5.1) mmol/L Chloride 98 (98-107) mmol/L Carbon Dioxide 26 (21-32) mmol/L Anion Gap 8.0 (3-11) BUN 20 H (7-18) mg/dl Creatinine 1.43 H (0.6-1.2) mg/dl Est Cr Clr Drug Dosing 39.2 ml/min Est GFR ( Amer) 40.8 Est GFR (Non-Af Amer) 35.2 BUN/Creatinine Ratio 14.0 (10-20) Glucose 127 H (70-99) mg/dl Calcium 9.3 (8.5-10.1) mg/dl Magnesium 1.6 L (1.8-2.4) mg/dl Total Bilirubin 1.6 H (0.2-1) mg/dl Direct Bilirubin 0.4 H (0-0.2) mg/dl AST 15 (15-37) U/L ALT 24 (12-78) U/L Alkaline Phosphatase 132 H (45-117) U/L Troponin I < 0.015 (0-0.045) ng/ml C-Reactive Protein 13.40 H (0-0.29) mg/dl Total Protein 8.2 (6.4-8.2) gm/dl Albumin 3.2 L (3.4-5.0) gm/dl Globulin 5.0 H (2.5-4.0) gm/dl Albumin/Globulin Ratio 0.6 L (0.9-2) TSH 1.480 (0.300-4.500) uIu/ml Urine Color Urine Appearance (Clear) Urine pH (4.5-7.5) Ur Specific [place] (1.000-1.030) Urine Protein (Negative) Urine Glucose (UA) (Negative) Urine Ketones (Negative) Urine Blood (Negative) Urine Nitrite (Negative) Urine Bilirubin (Negative) Urine Urobilinogen (Negative) Ur Leukocyte Esterase (Negative) Urine WBC (Auto) (0-5) /hpf Urine RBC (Auto) (0-4) /hpf U Hyaline Cast (Auto) (0-5) /lpf U Epithel Cells (Auto) (0-5) /lpf Urine Bacteria (Auto) (Negative) 07/07/20 07/07/20 Range/Units 06:25 06:25 WBC (4.8-10.8) K/uL RBC (4.2-5.4) M/uL Hgb (12.0-16.0) g/dL Hct (37-47) % MCV (80-100) fL MCH (25-34) pg MCHC (32-36) g/dL RDW Std Deviation (36.4-46.3) fL RDW Coeff of Randy (11.5-14.5) % Plt Count (130-400) K/uL MPV (7.4-10.4) fL Immature Gran % (Auto) % Neut % (Auto) % Lymph % (Auto) % [place] % (Auto) % Eos % (Auto) % Baso % (Auto) % Neut # (Auto) (1.4-6.5) K/uL Lymph # (Auto) (1.2-3.4) K/uL [place] # (Auto) (0.11-0.59) K/uL Eos # (Auto) (0-0.5) K/uL Baso # (Auto) (0-0.2) K/uL Immature Gran # (Auto) (0.00-0.02) K/uL ESR (0-21) mm/hr PT 11.3 (9.0-12.0) Seconds INR 1.1 (0.9-1.1) APTT 37.9 H (21.0-31.0) Seconds PTT Ratio 1.4 Sodium (136-145) mmol/L Potassium (3.5-5.1) mmol/L Chloride (98-107) mmol/L Carbon Dioxide (21-32) mmol/L Anion Gap (3-11) BUN (7-18) mg/dl Creatinine (0.6-1.2) mg/dl Est Cr Clr Drug Dosing ml/min Est GFR ( Amer) Est GFR (Non-Af Amer) BUN/Creatinine Ratio (10-20) Glucose (70-99) mg/dl Calcium (8.5-10.1) mg/dl Magnesium (1.8-2.4) mg/dl Total Bilirubin (0.2-1) mg/dl Direct Bilirubin (0-0.2) mg/dl AST (15-37) U/L ALT (12-78) U/L Alkaline Phosphatase (45-117) U/L Troponin I (0-0.045) ng/ml C-Reactive Protein (0-0.29) mg/dl Total Protein (6.4-8.2) gm/dl Albumin (3.4-5.0) gm/dl Globulin (2.5-4.0) gm/dl Albumin/Globulin Ratio (0.9-2) TSH (0.300-4.500) uIu/ml Urine Color Dark Yellow Urine Appearance Turbid A (Clear) Urine pH 5.0 (4.5-7.5) Ur Specific [place] 1.019 (1.000-1.030) Urine Protein 2+ H (Negative) Urine Glucose (UA) Negative (Negative) Urine Ketones Trace H (Negative) Urine Blood 2+ H (Negative) Urine Nitrite Positive A (Negative) Urine Bilirubin Negative (Negative) Urine Urobilinogen Negative (Negative) Ur Leukocyte Esterase 3+ H (Negative) Urine WBC (Auto) >30 H (0-5) /hpf Urine RBC (Auto) 5-10 H (0-4) /hpf U Hyaline Cast (Auto) 1-5 (0-5) /lpf U Epithel Cells (Auto) >30 H (0-5) /lpf Urine Bacteria (Auto) 4+ H (Negative) Administered Medications Miscellaneous Information (Piperacill/Tazobac Consult Active) 1 ea N/A UD PRN PRN Reason: Consult Stop: 08/06/20 06:27 Last Admin: 07/07/20 06:50 Dose: 1 ea Documented by: [id number] Discontinued Medications Acetaminophen (Acetaminophen 500 Mg Tab) 1,000 mg PO NOW STA Stop: 07/07/20 06:22 Last Admin: 07/07/20 06:37 Dose: 1,000 mg Documented by: [id number] Sodium Chloride (Nss 1000ml) 1,000 mls @ 999 mls/hr IV .Q1H1M NOHEMY Stop: 07/07/20 07:30 Last Infusion: 07/07/20 07:18 Dose: 0 mls/hr Documented by: [id number] Admin: 07/07/20 06:37 Dose: 999 mls/hr Documented by: [id number] Piperacillin Sod/Tazobactam Sod (Zosyn) 4.5 gm in 120 mls @ 240 mls/hr IV NOW ONE Stop: 07/07/20 06:57 Last Infusion: 07/07/20 07:18 Dose: 0 mls/hr Documented by: [id number] Admin: 07/07/20 06:50 Dose: 240 mls/hr Documented by: [id number] Ondansetron HCl (Ondansetron Inj 2 Mg/Ml 2 Ml Vial) 4 mg IV NOW STA Stop: 07/07/20 06:22 Last Admin: 07/07/20 06:37 Dose: 4 mg Documented by: [id number] Imaging Data Radiologist's Impression: XR chest 1V portable HISTORY: 75 years-old Female weakness acute weakness COMPARISON: Chest radiograph 06/18/2019, CTA chest 06/19/2019 TECHNIQUE: Portable AP view of the chest FINDINGS: Cardiac silhouette is upper limits of normal in size. Ill-defined right suprahilar opacity is likely secondary to summation density. The previously described pulmonary nodules are better seen on comparison CTA of the chest. There is no pneumothorax, pleural effusion, overt pulmonary edema or airspace consolidation typical for pneumonia. Degenerative changes of the spine. Reverse bilateral shoulder total joint arthroplasties. IMPRESSION: No acute process. ACT 112: Negative or not required by law. The above report was generated using voice recognition software. It may contain grammatical, syntax or spelling errors. Electronically signed by: Cm Jiménez M.D. 07/07/2020 6:40 AM Dictated: 07/07/20638 Transcribed: 07/07/20638 CT SCAN OF THE ABDOMEN AND PELVIS WITHOUT CONTRAST CLINICAL HISTORY: Fever COMPARISON STUDY: 06/19/2019 TECHNIQUE: CT scan of the abdomen and pelvis was performed from the lung bases to the proximal femurs. Images are reviewed in the axial, sagittal, and coronal planes. IV contrast was not administered for this examination. A dose lowering technique was utilized adhering to the principles of ALARA. CT DOSE: 1538.29 mGy.cm FINDINGS: Lower chest: There are minor right basilar atelectatic changes. There is small hiatal hernia Liver: The unenhanced liver is normal in size, contour, and attenuation. There is no intrahepatic biliary ductal dilatation. Gallbladder: Surgically absent Spleen: Normal in size and attenuation. Pancreas: Unremarkable. Adrenal glands: Unremarkable. Kidneys: No renal, ureteral, or bladder calculi are visualized. There is 77 mm lower pole left renal cyst. Bowel: There are no transition zones indicate bowel obstruction. There is colonic diverticulosis. There is no evidence of acute diverticulitis. The appendix appears normal. Peritoneum: There is no intraperitoneal free air or abdominal ascites. Vasculature: The abdominal aorta is normal in course and caliber. Adenopathy: None. Pelvic viscera: The uterus is surgically absent. Skeletal structures: No destructive lesions are visualized. There is bilateral L5 spondylolysis. There is grade 2/4 spondylolisthesis of L5 on S1. There are multilevel degenerative changes present in the cervical spine with multilevel spinal stenosis. There is ankylosis of the thoracic spine. IMPRESSION: 1. No evidence of bowel obstruction. No evidence of free air 2. No evidence of acute appendicitis. No evidence of acute diverticulitis. 3. No renal, ureteral, or bladder calculi identified 4. Large left renal cyst 5. Surgically absent gallbladder and uterus ACT 112: Negative or not required by law. Electronically signed by: Broderick Knox M.D. 07/07/2020 7:55 AM Dictated: 07/07/20750 Transcribed: 07/07/20750 Blood Pressure Blood Pressure Findings: Elevated blood pressure Blood Pressure Disposition: further management by hospitalist Discharge Plan Visit Data Chief Complaint: Fall Stated Complaint: FALL ED Provider: Norris Mayer Discharge Problem: Acute pyelonephritis, Weakness, Nausea, Fever, Hypomagnesemia Patient Disposition: Being Evaluated by Hospitalist Condition: Good Forms Stand Alone Forms: [facility] goCatch Prescriptions Prescriptions: No Action metoprolol tartrate 25 mg tablet 25 mg PO BID Qty: 180 RF: 1 amlodipine 10 mg tablet 10 mg PO QAM Qty: 90 RF: 0 atorvastatin 40 mg tablet 40 mg PO QAM Qty: 90 RF: 0 levothyroxine 125 mcg tablet 125 mcg PO QAM Qty: 90 RF: 0 donepezil 5 mg tablet 5 mg PO QPM Qty: 90 RF: 1 pantoprazole 40 mg tablet,delayed release (DR/EC) 40 mg PO BID Qty: 60 RF: 0 lamotrigine 200 mg tablet 200 mg PO HS RF: 0 quetiapine [Seroquel] 25 mg tablet 25 mg PO DAILY Qty: 30 RF: 2 cholecalciferol (vitamin D3) [Vitamin D3] 1,000 unit capsule 2,000 units PO QPM RF: 0 omega-3 fatty acids [Fish Oil Concentrate] 1,000 mg capsule 1,000 mg PO QPM RF: 0 multivitamin Tablet 1 tab PO QAM RF: 0 bupropion HCl 150 mg tablet extended release 24 hr 150 mg PO QAM RF: 0 bupropion HCl 300 mg tablet extended release 24 hr 300 mg PO QAM RF: 0 escitalopram oxalate 10 mg tablet 10 mg PO DAILY RF: 0 oxybutynin chloride 5 mg tablet 5 mg PO HS RF: 0 nystatin 100,000 unit/gram cream 1 applic TOPICAL UD RF: 0 spironolactone 50 mg tablet 50 mg PO Q12 RF: 0 Referrals Referrals: Alexy Mathur DO [Primary Care Provider] - Discharge Problem: Fever Qualifiers: Fever type: unspecified Qualified Code(s): R50.9 - Fever, unspecified
[2020-07-07 06:53] LABS: INR 1.1 (0.9-1.1); Partial Thromboplastin Ratio 1.4; Partial Thromboplastin Time 37.9 Seconds (21.0-31.0); Prothrombin Time 11.3 Seconds (9.0-12.0)
[2020-07-07 07:00] LABS: Albumin Level 3.2 gm/dl (3.4-5.0); Bilirubin Direct 0.4 mg/dl (0-0.2); Blood Urea Nitrogen 20 mg/dl (7-18); Calcium 9.3 mg/dl (8.5-10.1); Carbon Dioxide 26 mmol/L (21-32); Chloride 98 mmol/L (98-107); Creatinine Clr Calc Pharmacy 39.2 ml/min; Est GFR (African American) 40.8; Est GFR (Non-African American) 35.2; Glucose 127 mg/dl (70-99); Magnesium 1.6 mg/dl (1.8-2.4); Potassium 3.9 mmol/L (3.5-5.1); Sodium 132 mmol/L (136-145)
[2020-07-07 07:09] LABS: Alanine Aminotransferase 24 U/L (12-78); Albumin Globulin Ratio 0.6 (0.9-2); Alkaline Phosphatase 132 U/L (45-117); Aspartate Aminotransferase 15 U/L (15-37); Bilirubin,Total 1.6 mg/dl (0.2-1); Total Protein 8.2 gm/dl (6.4-8.2); Troponin I < 0.015 ng/ml (0-0.045)
--- NOTE | 2020-07-07 07:56 | CT Scan Report ---
CT SCAN OF THE ABDOMEN AND PELVIS WITHOUT CONTRAST CLINICAL HISTORY: Fever COMPARISON STUDY: 06/19/2019 TECHNIQUE: CT scan of the abdomen and pelvis was performed from the lung bases to the proximal femurs . Images are reviewed in the axial, sagittal, and coronal planes. IV contrast was not administered fo r this examination. A dose lowering technique was utilized adhering to the principles of ALARA. CT DOSE: 1538.29 mGy.cm FINDINGS: Lower chest: There are minor right basilar atelectatic changes. There is small hiatal hernia Liver: The unenhanced liver is normal in size, contour, and attenuation. There is no intrahepatic portillo iary ductal dilatation. Gallbladder: Surgically absent Spleen: Normal in size and attenuation. Pancreas: Unremarkable. Adrenal glands: Unremarkable. Kidneys: No renal, ureteral, or bladder calculi are visualized. There is 77 mm lower pole left renal cyst. Bowel: There are no transition zones indicate bowel obstruction. There is colonic diverticulosis. The re is no evidence of acute diverticulitis. The appendix appears normal. Peritoneum: There is no intraperitoneal free air or abdominal ascites. Vasculature: The abdominal aorta is normal in course and caliber. Adenopathy: None. Pelvic viscera: The uterus is surgically absent. Skeletal structures: No destructive lesions are visualized. There is bilateral L5 spondylolysis. Ther e is grade 2/4 spondylolisthesis of L5 on S1. There are multilevel degenerative changes present in th e cervical spine with multilevel spinal stenosis. There is ankylosis of the thoracic spine. IMPRESSION: 1. No evidence of bowel obstruction. No evidence of free air 2. No evidence of acute appendicitis. No evidence of acute diverticulitis. 3. No renal, ureteral, or bladder calculi identified 4. Large left renal cyst 5. Surgically absent gallbladder and uterus ACT 112: Negative or not required by law. Electronically signed by: Broderick Knox M.D. 07/07/2020 7:55 AM
[2020-07-07] MEDS: MAGNESIUM SULFATE / D5W 1 GM/100 ML BAG IV SCH ×2 (08:21→09:49)
[2020-07-07] MEDS ORDERED: ONDANSETRON INJ 2 MG/ML 2 ML VIAL IV PRN (08:54)
[2020-07-07] MEDS ORDERED: QUETIAPINE FUMARATE 25 MG TABLET PO SCH (09:00)
[2020-07-07] MEDS: SODIUM CHLORIDE 0.9% 1000ML 1,000 ML IV SCH ×2 (09:49→22:44)
[2020-07-07] MEDS: METOPROLOL TARTRATE 25 MG TAB PO SCH ×2 (11:17→20:31)
[2020-07-07] MEDS: LEVOTHYROXINE SODIUM 125 MCG TABLET PO SCH (11:17)
[2020-07-07] MEDS: BuPROPion XL 150 MG TABCR PO SCH (11:18)
[2020-07-07] MEDS: BuPROPion XL 300 MG TABCR PO SCH (11:18)
[2020-07-07] MEDS: PANTOprazole 40 MG TAB PO SCH ×2 (11:19→20:33)
[2020-07-07] MEDS: NYSTATIN CR 15 GM TUBE EXT SCH ×2 (11:19→20:32)
[2020-07-07] MEDS: ESCITALOPRAM OXALATE 10 MG TAB PO SCH (11:19)
--- NOTE | 2020-07-07 11:37 | History & Physical Report ---
Date of Service July 07, 2020 Assessment & Plan (1) Acute pyelonephritis: Patient found to have complicated UTI and started on Zosyn (day #1) Await culture No gross hematuria No abdominal pain Admit patient to medical telemetry and monitor for SIRS (2) SIRS (systemic inflammatory response syndrome): Patient presents with urinary tract infection Febrile with a T-max of 38.4 Tachycardic Hypertensive Elevated ESR and CRP Urine cultures pending Blood cultures are pending Continue treatment with Zosyn and IV fluids Follow on medical telemetry Follow supportively (3) Moderate obstructive sleep apnea: Patient states that she is on CPAP nightly with no supplemental oxygen bleeding. She believes that her setting is a 5 cm of water but is unsure Equipment currently at [facility] patient for service for the past 2 weeks We will continue CPAP while inpatient using [employer] equipment (4) Hypothyroidism: Acquired hypothyroidism Continue levothyroxine TSH 1.48 (5) Acid reflux disease: Continue PPI No current symptoms (6) HTN (hypertension): Treat underlying pyelonephritis Continue usual home meds Dobutamine stress echo 07/2019 * Negative for induced ischemia * Resting echo showed moderate concentric left ventricular hypertrophy * Preserved left ventricular ejection fraction of 60% with no evidence of wall motion abnormalities Follow on telemetry (7) Electrolyte imbalance: Na+ 132 * Continue gentle IV hydration MG 1.6 * 2 g of magnesium sulfate administered K+ 3.9 Follow serial labs (8) DVT prophylaxis: Continue heparin subcutaneously 7500 units every 8 hours Please refer to Dr. Morgan's addendum for further recommendations Admission and Anticipated Discharge Date Admission Date: July 07, 2020 History of Present Illness Primary Care Provider: Alexy Mathur DO Attending: Dr. Morgan This is a 75-year-old female with a past medical history including hypertension, obstructive sleep apnea, hyperlipidemia, morbid obesity, acquired hypothyroidism, GERD, chronic diarrhea, rectocele, urinary incontinence, lumbar discitis history, depression, depression/anxiety. She was in her normal state of health until yesterday when she began having increased weakness. She had 2 falls last night and called EMS for both. The first time she refused transport and just needed help in the bed. The second fall she slid onto her bottom with no injury but called 911 and was transported to the emergency department for further evaluation treatment. On examination she was found to have pyelonephritis and SIRS. Blood pressure was elevated as well as patient being tachycardic. She had a fever with a T-max of 38.4. Urinalysis revealed turbid urine with a specific gravity of 1.019. She also had 2+ urine protein trace ketones 2+ blood, positive nitrate, and positive esterase. Urine white blood cells were greater than 30 with elevated urine bacteria. Patient was started on Zosyn. CT abdomen pelvis showed no acute findings. Patient did receive IV hydration in the emergency department. She was seen in room 262-2 and states that she feels significantly improved. Patient denies any syncope or presyncope. She had no lightheadedness or dizziness at the time of her fall. She has no significant cardiac disease or pulmonary disease other than her hypertension. She has no other acute complaints. Allergies Allergy/AdvReac Type Severity Reaction Status Date / Time baclofen Allergy Mild FLUSHED Verified 07/07/20 06:45 FACE Home Medications Home Medications Medication Instructions Recorded Confirmed Type bupropion HCl 150 mg PO QAM 12/01/18 07/07/20 History multivitamin 1 tab PO QAM 12/01/18 07/07/20 History cholecalciferol (vitamin D3) 25 2,000 units PO QPM cap 04/08/19 07/07/20 History mcg (1,000 unit) capsule omega-3 fatty acids 1,000 mg 1,000 mg PO QPM 07/16/19 07/07/20 History capsule lamotrigine 200 mg tablet 200 mg PO HS tab 09/18/19 07/07/20 History bupropion HCl 300 mg PO QAM 11/28/19 07/07/20 History metoprolol tartrate 25 mg tablet 25 mg PO BID #180 tab 02/16/20 07/07/20 Rx amlodipine 10 mg tablet 10 mg PO QAM #90 tab 02/24/20 07/07/20 Rx atorvastatin 40 mg tablet 40 mg PO QAM #90 tab 02/24/20 07/07/20 Rx levothyroxine 125 mcg tablet 125 mcg PO QAM #90 tab 02/24/20 07/07/20 Rx quetiapine 25 mg tablet 25 mg PO DAILY #30 tab 04/27/20 07/07/20 Rx donepezil 5 mg tablet 5 mg PO QPM #90 tab 05/24/20 07/07/20 Rx pantoprazole 40 mg tablet,delayed 40 mg PO BID #60 tab 06/01/20 07/07/20 Rx release escitalopram oxalate 10 mg PO DAILY 07/07/20 07/07/20 History nystatin 1 applic TOPICAL UD 07/07/20 07/07/20 History oxybutynin chloride 5 mg PO HS 07/07/20 07/07/20 History spironolactone 50 mg PO Q12 07/07/20 07/07/20 History Past Med/Surg History Medical History (Updated 07/07/20 @ 11:29 by Da Leavitt PA-C) Acid reflux disease Depression Hernia, incisional History of kidney stones Hyperlipemia Hypokalemia Hypomagnesemia Hypophosphatemia Hypothyroidism Moderate obstructive sleep apnea Morbid obesity Osteoarthritis Surgical History History of bilateral cataract extraction History of bilateral tubal ligation History of colon surgery abscess removal @ [facility] History of colonoscopy History of cystoscopy History of dilatation and curettage History of repair of left rotator cuff History of repair of right rotator cuff History of total hysterectomy with bilateral salpingo-oophorectomy (BSO) History of total left knee replacement (TKR) History of total right knee replacement (TKR) History of wisdom tooth extraction Hx of cholecystectomy Family History Father Family history of diabetes mellitus Myocardial infarction Grandmother (Paternal) Family history of diabetes mellitus Other Cancer Coronary heart disease Family history non-contributory No family history of adverse response to anesthesia Social History Smoking Status: Never smoker Second Hand Exposure: No; Do You Dip or Chew Tobacco: No; Tobacco Cessation Education Requested by Patient: No Hx Alcohol Use: No Hx Substance Use: No Preferred Language: Singaporean Communication Ability: Effective Wash House Supervisor Required: No Beliefs That Will Affect Care: None marital status: / Current Living Situation: Family Current Living Situation Comment: grandson lives with her current occupational status: retired Other Information That Helps Us Care for You: No Feels Safe at Home: Yes Safety Concerns: Feels Safe At This Time caffeine: Yes Dental Care, Regularly: Yes Physical Activity Frequency: Does not Exercise Seatbelt Use: always Sunscreen Use: No Review of Systems Review of Systems: All systems reviewed & are unremarkable except as noted in HPI & below Physical Exam Physical Exam: GENERAL : No acute distress EYES: No icterus, gaze conjugate NOSE: No evidence of epistaxis MOUTH: No lesions or candidiasis NECK: Supple LUNGS: CTA B/L, no wheezes, rales or rhonchi HEART: Regular, rate controlled ABDOMEN: Soft, NT, ND, BS Present EXTREMITIES: No LE edema, pedal pulses intact NEURO: A&OX3 Results & Data Results & Data ([facility]) Vital Signs (Past 12 Hours) Vital Signs Temp Pulse Pulse Resp BP BP Pulse Ox 07/07/20 11:15 37.0 C 77 18 162/72 H 96 07/07/20 08:54 37.0 C 92 H 78 20 160/66 H 93 07/07/20 07:51 37.7 C H 83 20 149/81 H 93 07/07/20 06:52 95 07/07/20 06:50 82 18 164/97 H 89 L 07/07/20 06:02 38.4 C H 91 H 22 164/97 H 92 Laboratory Results 07/07/20 06:25 07/07/20 06:25 INR 1.1 (0.9-1.1) 07/07/20 06:25 Diagnostic Findings XR chest 1V portable HISTORY: 75 years-old Female weakness acute weakness COMPARISON: Chest radiograph 06/18/2019, CTA chest 06/19/2019 TECHNIQUE: Portable AP view of the chest FINDINGS: Cardiac silhouette is upper limits of normal in size. Ill-defined right suprahilar opacity is likely secondary to summation density. The previously described pulmonary nodules are better seen on comparison CTA of the chest. There is no pneumothorax, pleural effusion, overt pulmonary edema or airspace c onsolidation typical for pneumonia. Degenerative changes of the spine. Reverse bilateral shoulder total joint arthroplasties. IMPRESSION: No acute process. ACT 112: Negative or not required by law. The above report was generated using voice recognition software. It may contain grammatical, syntax or spelling errors. Electronically signed by: Cm Jiménez M.D. 07/07/2020 6:[address] SCAN OF THE ABDOMEN AND PELVIS WITHOUT CONTRAST CLINICAL HISTORY: Fever COMPARISON STUDY: 06/19/2019 TECHNIQUE: CT scan of the abdomen and pelvis was performed from the lung bases to the proximal femurs. Images are reviewed in the axial, sagittal, and coronal planes. IV contrast was not administered for this examination. A dose lowering technique was utilized adhering to the principles of ALARA. CT DOSE: 1538.29 mGy.cm FINDINGS: Lower chest: There are minor right basilar atelectatic changes. There is small hiatal hernia Liver: The unenhanced liver is normal in size, contour, and attenuation. There is no intrahepatic biliary ductal dilatation. Gallbladder: Surgically absent Spleen: Normal in size and attenuation. Pancreas: Unremarkable. Adrenal glands: Unremarkable. Kidneys: No renal, ureteral, or bladder calculi are visualized. There is 77 mm lower pole left renal cyst. Bowel: There are no transition zones indicate bowel obstruction. There is colonic diverticulosis. There is no evidence of acute diverticulitis. The appendix appears normal. Peritoneum: There is no intraperitoneal free air or abdominal ascites. Vasculature: The abdominal aorta is normal in course and caliber. Adenopathy: None. Pelvic viscera: The uterus is surgically absent. Skeletal structures: No destructive lesions are visualized. There is bilateral L5 spondylolysis. There is grade 2/4 spondylolisthesis of L5 on S1. There are multilevel degenerative changes present in the cervical spine with multilevel spinal stenosis. There is ankylosis of the thoracic spine. IMPRESSION: 1. No evidence of bowel obstruction. No evidence of free air 2. No evidence of acute appendicitis. No evidence of acute diverticulitis. 3. No renal, ureteral, or bladder calculi identified 4. Large left renal cyst 5. Surgically absent gallbladder and uterus ACT 112: Negative or not required by law. Electronically signed by: Broderick Knox M.D. 07/07/2020 7:55 AM Code Status & VTE Plan VTE Prophylaxis Plan VTE Prophylaxis will be ordered: Yes Supervising Physician Co-Signing Physician Notes Patient seen and examined with Da ALY. I agree with his exam findings, review of systems, assessment and plan. I personally reviewed the lab work and imaging as well. patient feeling better this afternoon after IV fluids and Zosyn IV she did have a recurrent fever, responded to Tylenol eating and drinking a little bit explained that we would continue the Zosyn until urine, blood cultures back - UTI with sepsis, possible pyelonephritis Zosyn IV, NSS at 100cc/hr follow up urine and blood cultures BP elevated, no evidence of septic shock repeat lab work in the morning for full details see the H&P PG Care Time/CCT Total # of Minutes Spent Total Time Spent with Patient: Total time spent is greater than 50% in coordination of care (as documented) at patient's floor/unit and/or counseling patient: 50 minutes Coding Level of Care Code 04207 Initial Inpt Care Lvl 3 Diagnoses Acute pyelonephritis N10 SIRS (systemic inflammatory response syndrome) R65.10 Moderate obstructive sleep apnea G47.33 Hypothyroidism E03.9 Acid reflux disease K21.9 HTN (hypertension) I10 Electrolyte imbalance E87.8 DVT prophylaxis Z29.9
[2020-07-07] MEDS ORDERED: PIPERACILLIN/TAZOBACTAM 3.375 GM in DEXTROSE 5% 100 ML IV SCH (12:00)
[2020-07-07] MEDS: PIPERACILLIN/TAZOBACTAM 4.5 GM in DEXTROSE 5% 100 ML IV SCH ×2 (12:01→20:22)
[2020-07-07] MEDS: HEPARIN SOD 5,000 UNIT/0.5 ML VIAL SQ SCH ×2 (13:13→20:34)
[2020-07-07] MEDS: ACETAMINOPHEN 325 MG TAB PO PRN (15:55)
[2020-07-07] MEDS: lamoTRIgine 100 MG TAB PO SCH (20:31)
[2020-07-07] MEDS: DONEPEZIL HCL 5 MG TAB PO SCH (20:31)
[2020-07-07] MEDS: OXYBUTYNIN CHLORIDE 5 MG TAB PO SCH (20:33)
--- NOTE | 2020-07-07 22:47 | Electrocardiogram Report ---
Test Reason : Blood Pressure : / mmHG Vent. Rate : 088 BPM Atrial Rate : 088 BPM P-R Int : 130 ms QRS Dur : 084 ms QT Int : 374 ms P-R-T Axes : 010 060 007 degrees QTc Int : 452 ms Normal sinus rhythm Nonspecific ST abnormality Abnormal ECG When compared with ECG of 18-JUN-2019 21:36, Questionable change in QRS axis Confirmed by Ab Ramesh ([id number]) on 07/07/2020 10:46:34 PM Referred By: Confirmed By:Ab Ramesh
[2020-07-07] MEDS ORDERED: Nursing to Pharmacy Communication SCH (23:30)
[2020-07-08] MEDS: PIPERACILLIN/TAZOBACTAM 4.5 GM in DEXTROSE 5% 100 ML IV SCH ×3 (04:14→19:50)
[2020-07-08] MEDS: SODIUM CHLORIDE 0.9% 1000ML 1,000 ML IV SCH ×3 (05:05→23:33)
[2020-07-08 06:13] LABS: Basophils # (auto) 0.03 K/uL (0-0.2); Basophils % (auto) 0.2 %; Eosinophils # (auto) 0.01 K/uL (0-0.5); Eosinophils % (auto) 0.1 %; Hematocrit (blood only) 35.7 % (37-47); Hemoglobin 12.1 g/dL (12.0-16.0); Immature Granulocytes # (auto) 0.03 K/uL (0.00-0.02); Immature Granulocytes % (auto) 0.2 %; Lymphocytes # (auto) 1.93 K/uL (1.2-3.4); Lymphocytes % (auto) 14.1 %; Mean Corpuscular Hemoglobin 30.9 pg (25-34); Mean Corpuscular Hgb Conc 33.9 g/dL (32-36); Mean Corpuscular Volume 91.1 fL (80-100); Mean Platelet Volume 10.2 fL (7.4-10.4); Monocytes # (auto) 1.44 K/uL (0.11-0.59); Monocytes % (auto) 10.5 %; Neutrophils # (auto) 10.23 K/uL (1.4-6.5); Neutrophils % (auto) 74.9 %; Platelet Count 239 K/uL (130-400); RDW Coefficient of Variation 13.5 % (11.5-14.5); RDW Standard Deviation 44.7 fL (36.4-46.3); Red Blood Count 3.92 M/uL (4.2-5.4); White Blood Count 13.67 K/uL (4.8-10.8)
[2020-07-08] MEDS: HEPARIN SOD 5,000 UNIT/0.5 ML VIAL SQ SCH ×3 (06:31→21:27)
[2020-07-08] MEDS: LEVOTHYROXINE SODIUM 125 MCG TABLET PO SCH (06:31)
[2020-07-08 06:45] LABS: Albumin Level 2.6 gm/dl (3.4-5.0); BUN Creatinine Ratio 16.2 (10-20); Calcium 8.3 mg/dl (8.5-10.1); Creatinine Clr Calc Pharmacy 47.9 ml/min; Est GFR (African American) 52.1; Est GFR (Non-African American) 44.9; Potassium 3.7 mmol/L (3.5-5.1)
--- NOTE | 2020-07-08 06:46 | Electrocardiogram Report ---
Test Reason : Blood Pressure : / mmHG Vent. Rate : 084 BPM Atrial Rate : 084 BPM P-R Int : 154 ms QRS Dur : 074 ms QT Int : 374 ms P-R-T Axes : 051 004 049 degrees QTc Int : 441 ms Poor data quality, interpretation may be adversely affected Normal sinus rhythm Minimal voltage criteria for LVH, may be normal variant Nonspecific ST and T wave abnormality Abnormal ECG When compared with ECG of 07-JUL-2020 06:10, Questionable change in QRS axis Confirmed by Ab Ramesh ([id number]) on 07/08/2020 6:45:28 AM Referred By: REFERRED SELF Confirmed By:Ab Ramesh
[2020-07-08 06:48] LABS: Albumin Globulin Ratio 0.6 (0.9-2); Bilirubin,Total 1.2 mg/dl (0.2-1); Globulin 4.5 gm/dl (2.5-4.0); Total Protein 7.1 gm/dl (6.4-8.2)
[2020-07-08] MEDS: METOPROLOL TARTRATE 25 MG TAB PO SCH ×2 (07:58→19:56)
[2020-07-08] MEDS: ESCITALOPRAM OXALATE 10 MG TAB PO SCH (07:58)
[2020-07-08] MEDS: BuPROPion XL 300 MG TABCR PO SCH (07:59)
[2020-07-08] MEDS: PANTOprazole 40 MG TAB PO SCH ×2 (07:59→19:56)
[2020-07-08] MEDS: NYSTATIN CR 15 GM TUBE EXT SCH ×2 (07:59→19:54)
[2020-07-08] MEDS: BuPROPion XL 150 MG TABCR PO SCH (07:59)
--- NOTE | 2020-07-08 09:55 | Hospitalist Progress Note ---
Date of Service July 08, 2020 Assessment & Plan (1) Acute pyelonephritis: Patient with complicated UTI Started on Zosyn 07/07/2020 (day #2) Blood cultures x2 with no growth to date Urine culture with gram-negative bacilli * Await speciation and sensitivities No gross hematuria No abdominal pain Continue to monitor patient on medical telemetry secondary to positive urine culture and SIRS (2) SIRS (systemic inflammatory response syndrome): Patient presents with urinary tract infection Febrile with a T-max of 38.4 with most recent temperature being 38.2 C Tachycardia is resolved Continues with elevated systolic blood pressure -we will restart amlodipine Elevated ESR and CRP Urine cultures with gram-negative bacilli Blood cultures are negative for growth to date Continue treatment with Zosyn (day #2) Follow on medical telemetry (3) Moderate obstructive sleep apnea: Patient states that she is on CPAP nightly with no supplemental oxygen bleeding. Follows with Dr. Harper from sleep medicine. Settings are auto PEEP from 5 to 15 cm of water CPAP ordered here at 15 cmH2O HS Equipment currently at [facility] patient for service for the past 2 weeks Need to coordinate return of patient's home CPAP machine on discharge from [facility] patient (4) Hypothyroidism: Acquired hypothyroidism Continue levothyroxine at home dose TSH 1.48 (5) Acid reflux disease: Continue PPI No current symptoms (6) HTN (hypertension): Treat underlying pyelonephritis Restarted amlodipine 10 mg p.o. daily this morning Continue with home dose of Lopressor 25 mg p.o. twice daily No chest pain or tightness Dobutamine stress echo 07/2019 * Negative for induced ischemia * Resting echo showed moderate concentric left ventricular hypertrophy * Preserved left ventricular ejection fraction of 60% with no evidence of wall motion abnormalities Follow on telemetry (7) Electrolyte imbalance: Na+ 132 on admission and now 133 * Continue gentle IV hydration MG 1.6 on admission * Received 2 g of magnesium sulfate * Check repeat magnesium this morning K+ 3.97 Follow serial labs (8) Physical deconditioning: Secondary to acute illness Physical therapy evaluation yesterday with need for continued treatment Occupational Therapy assessment is pending Continue to encourage out of bed to chair Encourage ambulation as tolerated (9) DVT prophylaxis: Continue heparin subcutaneously 7500 units every 8 hours Please refer to Dr. Morgan's addendum for further recommendations Admission and Anticipated Discharge Date Admission Date: July 07, 2020 Subjective Attending: Dr. Morgan This is a 75-year-old female that was admitted 07/07/2020 weakness and falls. On evaluation in the emergency department she was found to have pyelonephritis. She continues to spike fevers and this morning had a T-max of 38.2 C. Blood cultures so far no growth to date. Urine culture is growing gram-negative bacilli. She is day 2 of Zosyn. She continues to be weak and this morning has some nausea but no vomiting. She has no abdominal pain. No chest pain. She is not aware of any arrhythmias or palpitations. Aside from the nausea and generalized weakness, she has no acute complaints. Review of Systems Review of Systems: All systems reviewed & are unremarkable except as noted in HPI & below Physical Exam Physical Exam: GENERAL : No acute distress EYES: No icterus, gaze conjugate NOSE: No evidence of epistaxis MOUTH: No lesions or candidiasis NECK: Supple LUNGS: CTA B/L, no wheezes, rales or rhonchi HEART: Regular, rate controlled ABDOMEN: Soft, NT, ND, BS Present EXTREMITIES: No LE edema, pedal pulses intact NEURO: A&OX3 Results & Data Results & Data ([facility]) Vital Signs (Past 12 Hours) Vital Signs Temp Pulse Pulse Resp BP Pulse Ox 07/08/20 07:27 77 07/08/20 07:18 38.2 C H 84 18 161/69 H 90 07/08/20 03:50 37.4 C 85 18 160/83 H 95 07/08/20 00:00 82 07/07/20 23:00 38.3 C H 73 18 175/70 H 97 Laboratory Results 07/08/20 05:47 07/08/20 05:47 Diagnostic Findings No additional diagnostic imaging since admission PG Care Time/CCT Total # of Minutes Spent Total Time Spent with Patient: Total time spent is greater than 50% in coordination of care (as documented) at patient's floor/unit and/or counseling patient: 25 minutes Coding Level of Care Code 24105 Subseq Hosp Care Lvl 2 Diagnoses Acute pyelonephritis N10 SIRS (systemic inflammatory response syndrome) R65.10 Moderate obstructive sleep apnea G47.33 Hypothyroidism E03.9 Acid reflux disease K21.9 HTN (hypertension) I10 Electrolyte imbalance E87.8 Physical deconditioning R53.81 DVT prophylaxis Z29.9 Time Spent (min) 25
[2020-07-08] MEDS: AMLODIPINE BESYLATE 5 MG TAB PO SCH (10:04)
[2020-07-08] MEDS: ACETAMINOPHEN 325 MG TAB PO PRN (19:51)
[2020-07-08] MEDS: OXYBUTYNIN CHLORIDE 5 MG TAB PO SCH (19:55)
[2020-07-08] MEDS: lamoTRIgine 100 MG TAB PO SCH (19:56)
[2020-07-08] MEDS: DONEPEZIL HCL 5 MG TAB PO SCH (19:56)
[2020-07-08] MEDS: QUETIAPINE FUMARATE 25 MG TABLET PO SCH (21:26)
[2020-07-09] MEDS: PIPERACILLIN/TAZOBACTAM 4.5 GM in DEXTROSE 5% 100 ML IV SCH (05:00)
[2020-07-09] MEDS: LEVOTHYROXINE SODIUM 125 MCG TABLET PO SCH (05:32)
[2020-07-09] MEDS: HEPARIN SOD 5,000 UNIT/0.5 ML VIAL SQ SCH ×3 (05:34→21:48)
[2020-07-09] MEDS: ESCITALOPRAM OXALATE 10 MG TAB PO SCH (07:33)
[2020-07-09] MEDS: AMLODIPINE BESYLATE 5 MG TAB PO SCH (07:33)
[2020-07-09] MEDS: PANTOprazole 40 MG TAB PO SCH ×2 (07:33→20:14)
[2020-07-09] MEDS: BuPROPion XL 300 MG TABCR PO SCH (07:33)
[2020-07-09] MEDS: METOPROLOL TARTRATE 25 MG TAB PO SCH ×2 (07:33→20:22)
[2020-07-09] MEDS: BuPROPion XL 150 MG TABCR PO SCH (07:33)
[2020-07-09] MEDS: NYSTATIN CR 15 GM TUBE EXT SCH ×2 (07:34→20:14)
[2020-07-09] MEDS: cefTRIAXone SODIUM 2,000 MG in DEXTROSE 5% 50 ML IV SCH (08:27)
--- NOTE | 2020-07-09 09:35 | Hospitalist Progress Note ---
Date of Service July 09, 2020 Assessment & Plan (1) Acute pyelonephritis: Patient with complicated UTI Started on Zosyn 07/07/2020 (day #3) Blood cultures x2 with no growth to date Urine culture with Klebsiella, only resistant to Nitrofurantoin will change Zosyn to Rocephin, plan for Keflex on discharge No gross hematuria No abdominal pain Continue to monitor patient on medical telemetry secondary to positive urine culture and SIRS WBC trending down, low grade temperature but no true fever (2) SIRS (systemic inflammatory response syndrome): Patient presents with urinary tract infection Febrile with a T-max of 38.4, now with low grade temp but no fever Tachycardia is resolved with fluids Urine cultures with Klebsiella Blood cultures are negative for growth to date Continue treatment with Zosyn (day #3) -- change to Rocephin (3) Moderate obstructive sleep apnea: Patient states that she is on CPAP nightly with no supplemental oxygen bleeding. Follows with Dr. Harper from sleep medicine. Settings are auto PEEP from 5 to 15 cm of water CPAP ordered here at 15 cmH2O HS Equipment currently at [facility] patient for service for the past 2 weeks Need to coordinate return of patient's home CPAP machine on discharge from [facility] patient (4) Hypothyroidism: Acquired hypothyroidism Continue levothyroxine at home dose TSH 1.48 (5) Acid reflux disease: Continue PPI No current symptoms (6) HTN (hypertension): Treat underlying pyelonephritis amlodipine 10 mg p.o. daily Continue with home dose of Lopressor 25 mg p.o. twice daily No chest pain or tightness Dobutamine stress echo 07/2019 * Negative for induced ischemia * Resting echo showed moderate concentric left ventricular hypertrophy * Preserved left ventricular ejection fraction of 60% with no evidence of wall motion abnormalities Follow on telemetry (7) Electrolyte imbalance: low sodium, low mag on admission replaced and now normal continue to follow (8) Physical deconditioning: Secondary to acute illness PT and OT recommend rehab patient plans on going to [facility] tomorrow (9) DVT prophylaxis: Continue heparin subcutaneously 7500 units every 8 hours Admission and Anticipated Discharge Date Admission Date: July 07, 2020 Subjective patient feeling better but still very fatigued she is feeling short of breath on exertion, not so much at rest she is trying to eat more reviewed labs, WBC coming down, Cr and electrolytes stable discussed with CM, she has been accepted to [facility], plan to go tomorrow Review of Systems Review of Systems: All systems reviewed & are unremarkable except as noted in Subjective Constitutional: + fatigue and + weakness; no fever, no chills and no sweats Respiratory: + dyspnea on exertion; no cough and no dyspnea Cardiovascular: no chest pain and no edema Gastrointestinal: + early satiety; no abdominal pain, no nausea, no vomiting, no constipation and no diarrhea/loose stools Physical Exam Constitutional: well developed, + obese and comfortable; no acute distress Eyes: PERRL, conjunctivae normal, anicteric sclerae ENMT: external ear and nose normal, oropharynx normal Neck: trachea midline, no thyromegaly Respiratory: normal respiratory effort, lungs clear to auscultation Auscultation: + diminished lung sounds (bases) Cardiovascular: RRR, no murmur, no edema Gastrointestinal (Abdomen): normal bowel sounds, soft, nontender, no hepatosplenomegaly Musculoskeletal: no cyanosis or clubbing, extremities motor strength 5/5 Skin: no rashes, warm and dry Neurologic: patellar DTR's 2+ bilat, sensation intact and PERRL, EOMI, accommodation nl, no face palsy, no dysarthria Psychiatric: A+Ox3, euthymic affect Lymphatic: no cervical or axillary lymphadenopathy Results & Data Results & Data ([facility]) Vital Signs (Past 12 Hours) Vital Signs Temp Pulse Pulse Pulse Resp BP BP 07/09/20 08:07 37.4 C 76 18 172/74 H 07/09/20 07:20 74 07/09/20 03:59 36.9 C 79 20 141/97 H 07/09/20 00:30 62 07/08/20 22:54 37 C 61 18 104/63 Pulse Ox 07/09/20 08:07 96 07/09/20 07:20 07/09/20 03:59 96 07/09/20 00:30 07/08/20 22:54 94 PG Care Time/CCT Total # of Minutes Spent Total Time Spent with Patient: Total time spent is greater than 50% in coordination of care (as documented) at patient's floor/unit and/or counseling patient: Coding Level of Care Code 12803 Subseq Hosp Care Lvl 2 Diagnoses Acute pyelonephritis N10 SIRS (systemic inflammatory response syndrome) R65.10 Moderate obstructive sleep apnea G47.33 Hypothyroidism E03.9 Acid reflux disease K21.9 HTN (hypertension) I10 Electrolyte imbalance E87.8 Physical deconditioning R53.81 DVT prophylaxis Z29.9
[2020-07-09 09:53] LABS: Basophils # (auto) 0.04 K/uL (0-0.2); Basophils % (auto) 0.3 %; Eosinophils # (auto) 0.04 K/uL (0-0.5); Eosinophils % (auto) 0.3 %; Hemoglobin 11.6 g/dL (12.0-16.0); Immature Granulocytes # (auto) 0.03 K/uL (0.00-0.02); Immature Granulocytes % (auto) 0.3 %; Lymphocytes # (auto) 1.29 K/uL (1.2-3.4); Mean Corpuscular Hemoglobin 31.2 pg (25-34); Mean Corpuscular Hgb Conc 34.1 g/dL (32-36); Mean Corpuscular Volume 91.4 fL (80-100); Mean Platelet Volume 9.9 fL (7.4-10.4); Monocytes # (auto) 1.27 K/uL (0.11-0.59); Monocytes % (auto) 10.8 %; Neutrophils % (auto) 77.3 %; Platelet Count 233 K/uL (130-400); RDW Coefficient of Variation 13.7 % (11.5-14.5); RDW Standard Deviation 45.4 fL (36.4-46.3); Red Blood Count 3.72 M/uL (4.2-5.4); White Blood Count 11.77 K/uL (4.8-10.8)
[2020-07-09 10:25] LABS: BUN Creatinine Ratio 15.2 (10-20); Calcium 8.5 mg/dl (8.5-10.1); Creatinine Clr Calc Pharmacy 49.7 ml/min; Est GFR (African American) 53.7; Est GFR (Non-African American) 46.3; Potassium 4.1 mmol/L (3.5-5.1)
[2020-07-09] MEDS: DONEPEZIL HCL 5 MG TAB PO SCH (20:15)
[2020-07-09] MEDS: OXYBUTYNIN CHLORIDE 5 MG TAB PO SCH (20:15)
[2020-07-09] MEDS: lamoTRIgine 100 MG TAB PO SCH (20:15)
[2020-07-09] MEDS: QUETIAPINE FUMARATE 25 MG TABLET PO SCH (21:48)
[2020-07-09] MEDS: ACETAMINOPHEN 325 MG TAB PO PRN (23:36)
[2020-07-10] MEDS: HEPARIN SOD 5,000 UNIT/0.5 ML VIAL SQ SCH (06:09)
[2020-07-10] MEDS: LEVOTHYROXINE SODIUM 125 MCG TABLET PO SCH (06:09)
[2020-07-10 08:12] LABS: Basophils # (auto) 0.05 K/uL (0-0.2); Basophils % (auto) 0.4 %; Eosinophils # (auto) 0.06 K/uL (0-0.5); Eosinophils % (auto) 0.5 %; Hematocrit (blood only) 35.9 % (37-47); Hemoglobin 11.7 g/dL (12.0-16.0); Immature Granulocytes # (auto) 0.07 K/uL (0.00-0.02); Immature Granulocytes % (auto) 0.6 %; Lymphocytes # (auto) 1.76 K/uL (1.2-3.4); Lymphocytes % (auto) 14.2 %; Mean Corpuscular Hemoglobin 30.1 pg (25-34); Mean Corpuscular Hgb Conc 32.6 g/dL (32-36); Mean Corpuscular Volume 92.3 fL (80-100); Mean Platelet Volume 9.9 fL (7.4-10.4); Monocytes # (auto) 1.54 K/uL (0.11-0.59); Monocytes % (auto) 12.4 %; Neutrophils # (auto) 8.95 K/uL (1.4-6.5); Neutrophils % (auto) 71.9 %; Platelet Count 285 K/uL (130-400); RDW Coefficient of Variation 13.9 % (11.5-14.5); RDW Standard Deviation 47.3 fL (36.4-46.3); Red Blood Count 3.89 M/uL (4.2-5.4); White Blood Count 12.43 K/uL (4.8-10.8)
[2020-07-10] MEDS: cefTRIAXone SODIUM 2,000 MG in DEXTROSE 5% 50 ML IV SCH (08:47)
[2020-07-10 08:48] LABS: BUN Creatinine Ratio 15.4 (10-20); Calcium 8.7 mg/dl (8.5-10.1); Creatinine Clr Calc Pharmacy 60.1 ml/min; Est GFR (African American) 67.8; Est GFR (Non-African American) 58.5; Potassium 3.8 mmol/L (3.5-5.1)
[2020-07-10] MEDS: METOPROLOL TARTRATE 25 MG TAB PO SCH (08:48)
[2020-07-10] MEDS: BuPROPion XL 150 MG TABCR PO SCH (08:48)
[2020-07-10] MEDS: PANTOprazole 40 MG TAB PO SCH (08:48)
[2020-07-10] MEDS: BuPROPion XL 300 MG TABCR PO SCH (08:48)
[2020-07-10] MEDS: ESCITALOPRAM OXALATE 10 MG TAB PO SCH (08:48)
[2020-07-10] MEDS: AMLODIPINE BESYLATE 5 MG TAB PO SCH (08:49)
[2020-07-10] MEDS: NYSTATIN CR 15 GM TUBE EXT SCH (09:23)
--- NOTE | 2020-07-11 20:32 | Discharge Summary ---
Date of Service July 10, 2020 Admission HPI Per Admitting Provider Attending: Dr. Morgan This is a 75-year-old female with a past medical history including hypertension, obstructive sleep apnea, hyperlipidemia, morbid obesity, acquired hypothyroidism, GERD, chronic diarrhea, rectocele, urinary incontinence, lumbar discitis history, depression, depression/anxiety. She was in her normal state of health until yesterday when she began having increased weakness. She had 2 falls last night and called EMS for both. The first time she refused transport and just needed help in the bed. The second fall she slid onto her bottom with no injury but called 911 and was transported to the emergency department for further evaluation treatment. On examination she was found to have pyelonephritis and SIRS. Blood pressure was elevated as well as patient being tachycardic. She had a fever with a T-max of 38.4. Urinalysis revealed turbid urine with a specific gravity of 1.019. She also had 2+ urine protein trace ketones 2+ blood, positive nitrate, and positive esteras e. Urine white blood cells were greater than 30 with elevated urine bacteria. Patient was started on Zosyn. CT abdomen pelvis showed no acute findings. Patient did receive IV hydration in the emergency department. She was seen in room 262-2 and states that she feels significantly improved. Patient denies any syncope or presyncope. She had no lightheadedness or dizziness at the time of her fall. She has no significant cardiac disease or pulmonary disease other than her hypertension. She has no other acute complaints. Principal Diagnosis Complicated UTI, suspected pyelonephritis, causing sepsis Discharge Exam Constitutional well developed, + obese and comfortable; no acute distress Eyes PERRL, conjunctivae normal, anicteric sclerae ENMT external ear and nose normal, oropharynx normal Neck trachea midline, no thyromegaly Respiratory normal respiratory effort, lungs clear to auscultation Auscultation: + diminished lung sounds (bases) Cardiovascular RRR, no murmur, no edema Gastrointestinal (Abdomen) normal bowel sounds, soft, nontender, no hepatosplenomegaly Musculoskeletal no cyanosis or clubbing, extremities motor strength 5/5 Skin no rashes, warm and dry Neurologic patellar DTR's 2+ bilat, sensation intact and PERRL, EOMI, accommodation nl, no face palsy, no dysarthria Psychiatric A+Ox3, euthymic affect Lymphatic no cervical or axillary lymphadenopathy Discharge Data Allergies Allergy/AdvReac Type Severity Reaction Status Date / Time baclofen Allergy Mild FLUSHED Verified 07/07/20 06:45 FACE Consultations 07/07/20 07:18 ED Decision to Admit Stat 07/07/20 08:54 Consult Case Management - Discharge Planning Routine Ordered Studies 07/07/20 06:21 CT abd pelvis wo con Stat Hospital Course (1) Acute pyelonephritis: Patient with complicated UTI, suspected pyelonephritis bases on intense systemic symptoms Started on Zosyn 07/07, changed to Rocephin on 07/09 Blood cultures x2 with no growth to date Urine culture with Klebsiella, only resistant to Nitrofurantoin will change to Keflex on discharge, complete 14 days total treatment No gross hematuria No abdominal pain WBC trending down although still slightly elevated, on differential PMN only in 70's no fever for over 24 hours discharge to [facility] on Keflex for rehab (2) SIRS (systemic inflammatory response syndrome): Patient presents with urinary tract infection Febrile with a T-max of 38.4, now with low grade temp but no fever Tachycardia is resolved with fluids Urine cultures with Klebsiella Blood cultures are negative for growth to date treated with Zosyn -- changed to Rocephin based on culture, now discharge on Keflex 500mg bid (3) Dyspnea: patient did have some mild hypoxia but on day of discharge she is 92% room air at rest can use oxygen as needed at [facility] lungs are clear on exam, CXR was clear on admission suspect combination of atelectasis, not using CPAP for several days and deconditioning provided patient with incentive spirometer, encouraged deep breathing (4) Moderate obstructive sleep apnea: Patient states that she is on CPAP nightly with no supplemental oxygen bleeding. Follows with Dr. Harper from sleep medicine. Settings are auto PEEP from 5 to 15 cm of water CPAP ordered here at 15 cmH2O HS Equipment currently at [facility] patient for service for the past 2 weeks Need to coordinate return of patient's home CPAP machine on discharge from [facility] patient (5) Hypothyroidism: Acquired hypothyroidism Continue levothyroxine at home dose TSH 1.48 (6) Acid reflux disease: Continue PPI No current symptoms (7) HTN (hypertension): Treat underlying pyelonephritis amlodipine 10 mg p.o. daily Continue with home dose of Lopressor 25 mg p.o. twice daily No chest pain or tightness Dobutamine stress echo 07/2019 * Negative for induced ischemia * Resting echo showed moderate concentric left ventricular hypertrophy * Preserved left ventricular ejection fraction of 60% with no evidence of wall motion abnormalities Follow on telemetry (8) Electrolyte imbalance: low sodium, low mag on admission replaced and now normal continue to follow (9) Physical deconditioning: Secondary to acute illness PT and OT recommend rehab patient plans on going to [facility] tomorrow (10) DVT prophylaxis: Continue heparin subcutaneously 7500 units every 8 hours Total Time Total Time Spent Total Time Spent (In Minutes): 32 minutes Total Time Includes: Examination of the Patient, Discharge Planning and Medication Reconciliation Discharge Plan Discharge Items Patient Disposition: Transfer Inpatient Rehab Fac Reason For Visit: UTI WITH SEPSIS Discharge Diagnosis: UTI with sepsis, Klebsiella on urine culture Hypertension Weakness/deconditioning Condition on Discharge: Good Goals: complete course of Keflex, 11 more days improve strength and mobility at rehab stay well hydrated, well nourished Activity: Resume your previous activity Non-emergency contact: Primary Care Provider Call non-emergency contact if: you have any medication questions, your symptoms worsen and you have a fever Follow-up/Referrals: Alexy Mathur DO [Primary Care Provider] - (one week after discharge from rehab) Diet: Regular Addtl Attending Provider Instructions: Medications: - CEPHALEXIN: 500mg twice a day for 11 more days to complete 14 days total for pyelonephritis and sepsis Sepsis due to pyelonephritis urine culture grew out Klebsiella, no resistance blood cultures show no growth at over 48 hours no fever for 24 hours treated with IV fluids, Zosyn initially, then transitioned to Rocephin based on culture will change to Keflex 500mg BID to complete 11 more days Patient weak, deconditioned, will need acute rehab to improve strength and get back to baseline Pending Studies at Discharge: No Stand-Alone Forms: My [facility] Skilled Items Patient informed of condition?: Yes DNR: No Discharge Level of Care: Acute rehab Communicable Disease: No Discharge Prognosis: Improving Lines: None Urinary Catheter: No Medications and DC Order Prescriptions: New cephalexin [Keflex] 500 mg capsule 500 mg PO BID 11 Days Qty: 22 RF: 0 Continued metoprolol tartrate 25 mg tablet 25 mg PO BID Qty: 180 RF: 1 amlodipine 10 mg tablet 10 mg PO QAM Qty: 90 RF: 0 atorvastatin 40 mg tablet 40 mg PO QAM Qty: 90 RF: 0 levothyroxine 125 mcg tablet 125 mcg PO QAM Qty: 90 RF: 0 donepezil 5 mg tablet 5 mg PO QPM Qty: 90 RF: 1 pantoprazole 40 mg tablet,delayed release (DR/EC) 40 mg PO BID Qty: 60 RF: 0 lamotrigine 200 mg tablet 200 mg PO HS RF: 0 quetiapine [Seroquel] 25 mg tablet 25 mg PO DAILY Qty: 30 RF: 2 cholecalciferol (vitamin D3) [Vitamin D3] 1,000 unit capsule 2,000 units PO QPM RF: 0 omega-3 fatty acids [Fish Oil Concentrate] 1,000 mg capsule 1,000 mg PO QPM RF: 0 multivitamin Tablet 1 tab PO QAM RF: 0 bupropion HCl 150 mg tablet extended release 24 hr 150 mg PO QAM RF: 0 bupropion HCl 300 mg tablet extended release 24 hr 300 mg PO QAM RF: 0 escitalopram oxalate 10 mg tablet 10 mg PO DAILY RF: 0 oxybutynin chloride 5 mg tablet 5 mg PO HS RF: 0 nystatin 100,000 unit/gram cream 1 applic TOPICAL UD RF: 0 spironolactone 50 mg tablet 50 mg PO Q12 RF: 0 Discharge Orders: Discharge Order (Routine); Ordered 07/10/20 Ordered By: Calvin Morgan Admission Data Admit Date/Time: 07/07/20 07:24 Attending Provider: Calvin Morgan Admit Provider: Calvin Morgan Primary Care Provider: Alexy Mathur Other Providers: [facility] ; Calvin Morgan Other Interventions: Discharge Summary Assessment (RN) Last Done: 07/10/20 12:54 Coding Level of Care Code D/C Day Management >30 mins Diagnoses Acute pyelonephritis N10 SIRS (systemic inflammatory response syndrome) R65.10 Dyspnea R06.00 Moderate obstructive sleep apnea G47.33 Hypothyroidism E03.9 Acid reflux disease K21.9 HTN (hypertension) I10 Electrolyte imbalance E87.8 Physical deconditioning R53.81 DVT prophylaxis Z29.9
== END 2020-07-10 13:06 | DRG 872 ==
LOC: ED 06:02 → 2W 07:24

== ENCOUNTER 2021-12-12 13:01 | Inpatient (IN) ==
[2021-12-12] MEDS ORDERED: ALBUTEROL HFA 8 GM INHALER INH ONE (13:29)
--- NOTE | 2021-12-12 13:58 | XRay Report ---
XR chest 1V portable CLINICAL HISTORY: cough. COMPARISON STUDY: 07/08/2020 TECHNIQUE: 1 view of the chest FINDINGS: Single frontal view of the chest demonstrates the cardiomediastinal silhouette to be within normal li mits. Patchy interstitial and alveolar opacities are present bilaterally. The findings are most dulce cteristic of a viral type pneumonitis. Covid 19 pneumonia should be excluded. There is no evidence fo r pleural effusion. There is no evidence for vascular congestion. There is no acute osseous pathology . IMPRESSION: Patchy interstitial and alveolar opacities bilaterally characteristic of a viral type pne umonitis and probable Covid 19 pneumonia. ACT 112: Negative or not required by law. Electronically signed by: Miller Lorenzo M.D. 12/12/2021 1:57 PM
[2021-12-12 14:24] LABS: Troponin I < 0.03 ng/ml (0-0.04)
[2021-12-12 14:30] LABS: Alanine Aminotransferase 18 U/L (7-52); Albumin Globulin Ratio 1.1 (0.9-2); Albumin Level 3.6 gm/dl (3.4-5.0); Alkaline Phosphatase 96 U/L (34-104); Anion Gap 9 (3-11); Aspartate Aminotransferase 25 U/L (13-39); Bilirubin,Total 0.9 mg/dl (0.2-1.0); Blood Urea Nitrogen 26 mg/dl (6-23); Carbon Dioxide 25 mmol/L (21-32); Chloride 103 mmol/L (98-107); Creatinine Clr Calc Pharmacy 43.2 ml/min; Est GFR (African American) 45.5 ml/min; Est GFR (Non-African American) 39.3 ml/min; Globulin 3.3 gm/dl (2.5-4.0); Glucose 108 mg/dl (70-99(Fasting)); Potassium 4.1 mmol/L (3.5-5.1); Sodium 137 mmol/L (136-145); Total Protein 6.9 gm/dl (6.0-8.3)
--- NOTE | 2021-12-12 14:42 | Emergency Department Note ---
History of Present Illness General Chief complaint: Cough Time Seen by Provider: 12/12/21 13:22 History of Present Illness 76-year-old female who presents to the ED with a chief complaint of a cough for about a week. The patient states that her cough is nonproductive. She has a little shortness of breath especially with exertion. Denies any other specific complaints. Home Medications Medication Instructions Recorded Confirmed Type bupropion HCl 150 mg 24 hr tablet, 150 mg PO QAM 12/01/18 11/18/21 History extended release multivitamin 1 tab PO QAM 12/01/18 11/18/21 History omega-3 fatty acids 1,000 mg 1,000 mg PO QPM 07/16/19 11/18/21 History capsule (Fish Oil Concentrate) lamotrigine 200 mg tablet 200 mg PO HS tab 09/18/19 11/18/21 History bupropion HCl 300 mg 24 hr tablet, 300 mg PO QAM 11/28/19 11/18/21 History extended release quetiapine 25 mg tablet (Seroquel) 25 mg PO DAILY #30 tab 04/27/20 11/18/21 Rx escitalopram oxalate 10 mg tablet 10 mg PO DAILY 07/07/20 11/18/21 History Lactobacillus acidoph-L.bulgaricus 1 tab PO BID tab 07/20/20 11/18/21 History 1 million cell tablet pantoprazole 40 mg tablet,delayed 40 mg PO BID #180 tab 10/21/20 11/18/21 Rx release atorvastatin 40 mg tablet 40 mg PO QAM #90 tab 01/13/21 11/18/21 Rx spironolactone 50 mg tablet 50 mg PO Q12 #180 tab 03/10/21 11/18/21 Rx cholecalciferol (vitamin D3) 25 5,000 unit PO QPM cap 06/06/21 11/18/21 History mcg (1,000 unit) capsule (Vitamin D3) donepezil 5 mg tablet 5 mg PO QPM #90 tab 08/17/21 11/18/21 Rx metoprolol tartrate 25 mg tablet 25 mg PO BID #180 tab 10/20/21 11/18/21 Rx nystatin 100,000 unit/gram topical 1 applic TOPICAL BID #4 tube 10/20/21 11/18/21 Rx cream oxybutynin chloride 5 mg tablet 5 mg PO BID PRN #180 tab 10/20/21 11/18/21 Rx amlodipine 10 mg tablet 10 mg PO HS #90 tab 10/24/21 11/18/21 Rx levothyroxine 125 mcg tablet 125 mcg PO QAM #90 tab 10/24/21 11/18/21 Rx cephalexin 500 mg capsule 500 mg PO BID #14 cap 11/18/21 11/18/21 Rx Allergies Allergy/AdvReac Type Severity Reaction Status Date / Time baclofen Allergy Mild FLUSHED Verified 11/18/21 13:34 FACE Past Med/Surg History Medical History Acid reflux disease Anxiety Depression Fever Hernia, incisional History of kidney stones Hyperlipemia Hypokalemia Hypomagnesemia Hypomagnesemia Hypophosphatemia Hypothyroidism Moderate obstructive sleep apnea Morbid obesity Nausea Osteoarthritis Surgical History History of bilateral cataract extraction History of bilateral tubal ligation History of colon surgery abscess removal @ [facility] History of colonoscopy History of cystoscopy History of dilatation and curettage History of repair of left rotator cuff History of repair of right rotator cuff History of total hysterectomy with bilateral salpingo-oophorectomy (BSO) History of total left knee replacement (TKR) History of total right knee replacement (TKR) History of wisdom tooth extraction Hx of cholecystectomy Family History Father Family history of diabetes mellitus Myocardial infarction Grandmother (Paternal) Family history of diabetes mellitus Other Cancer Coronary heart disease Family history non-contributory No family history of adverse response to anesthesia Denies family history of Ovarian cancer Prostate cancer Breast cancer Colorectal cancer Social History Smoking Status: Never smoker Second Hand Exposure: No; Hx Alcohol Use: No Hx Substance Use: No Preferred Language: [place] Communication Ability: Effective Cloth Shearer Required: No Beliefs That Will Affect Care: None marital status: / Current Living Situation: Family Current Living Situation Comment: grandson lives with her current occupational status: retired Feels Safe at Home: Yes caffeine: Yes Dental Care, Regularly: Yes Physical Activity Frequency: Does not Exercise Seatbelt Use: always Sunscreen Use: No Assistive Devices: Oxygen - Continuous and Walker Review of Systems A total of 10 systems reviewed and were otherwise negative Physical Exam Vital Signs Vital Signs - 24 hr 12/12/21 13:11 12/12/21 13:13 12/12/21 13:30 Temperature 36.9 C Temperature Source Oral Pulse Rate 72 67 72 Pulse Rate from SpO2 Sensor 67 73 Respiratory Rate 22 17 17 Blood Pressure 207/96 H 184/93 H Blood Pressure Mean 133 123 Pulse Oximetry 90 96 91 Oxygen Delivery Method Room Air Oxygen Flow Rate Sepsis Recent Fever Within 48 Hours No Sepsis New/Unexplained Change in Mental Status No Sepsis Action Taken by Nursing No Action Required 12/12/21 13:58 12/12/21 14:00 12/12/21 14:43 Temperature Temperature Source Pulse Rate 66 Pulse Rate from SpO2 Sensor 67 Respiratory Rate 13 Blood Pressure Blood Pressure Mean Pulse Oximetry 92 90 88 L Oxygen Delivery Method Room Air Room Air Room Air Oxygen Flow Rate Sepsis Recent Fever Within 48 Hours Sepsis New/Unexplained Change in Mental Status Sepsis Action Taken by Nursing 12/12/21 14:44 Temperature Temperature Source Pulse Rate Pulse Rate from SpO2 Sensor Respiratory Rate Blood Pressure Blood Pressure Mean Pulse Oximetry 93 Oxygen Delivery Method Nasal Cannula Oxygen Flow Rate 2 Sepsis Recent Fever Within 48 Hours Sepsis New/Unexplained Change in Mental Status Sepsis Action Taken by Nursing CONSTITUTIONAL/VITAL SIGNS: Reviewed / noted above. GENERAL: Non-toxic in appearance. INTEGUMENTARY: Warm, dry, and Kite. HEAD: Normocephalic. EYES: without scleral icterus or trauma. ENT/OROPHARYNX: clear and moist. LYMPHADENOPATHY/NECK: Is supple without lymphadenopathy or meningismus. RESPIRATORY: Rhonchi to auscultation bilaterally. Scattered expiratory wheeze. No increased work of breathing. CARDIOVASCULAR: Regular rate and rhythm. GI/ABDOMEN: Soft and nontender. No organomegaly or pulsatile mass. EXTREMITIES: Warm and well perfused. BACK: No CVA tenderness. NEUROLOGICAL: Intact without focal deficits. PSYCHIATRIC: normal affect. MUSCULOSKELETAL: Normally developed with good muscle tone. TRIAGE NURSING DOCUMENTATION REVIEWED. Course Administered Medications Discontinued Medications Albuterol (Albuterol Hfa 8 Gm Inhaler) 2 puffs INH NOW ONE Stop: 12/12/21 13:30 Last Admin: 12/12/21 14:22 Dose: 2 puffs Documented by: [id number] Medical Decision Making Differential Diagnosis The differential was considered includes acute myocardial infarction, acute coronary syndrome, myocarditis, pericarditis, pericardial effusions /tamponad, esophageal perforation, pulmonary embolism, pneumonia, pneumothorax, cardiomyopathy, congestive heart, anemia , COPD/asthma exacerbation. Medical Records Attestation: I reviewed the patient's medical records. Home Medications Current Medication List: was personally reviewed by me Laboratory Data Attestation: I reviewed the patient's lab results. Result diagrams: 12/12/21 13:50 Lab Results 12/12/21 12/12/21 Range/Units 13:50 13:50 Sodium 137 (136-145) mmol/L Potassium 4.1 (3.5-5.1) mmol/L Chloride 103 (98-107) mmol/L Carbon Dioxide 25 (21-32) mmol/L Anion Gap 9 (3-11) BUN 26 H (6-23) mg/dl Creatinine 1.30 H (0.6-1.2) mg/dl Est Cr Clr Drug Dosing 43.2 ml/min Est GFR ( Amer) 45.5 ml/min Est GFR (Non-Af Amer) 39.3 ml/min BUN/Creatinine Ratio 20.0 (10-20) Glucose 108 H (70-99(Fasting)) mg/dl Calcium 9.0 (8.5-10.1) mg/dl Total Bilirubin 0.9 (0.2-1.0) mg/dl AST 25 (13-39) U/L ALT 18 (7-52) U/L Alkaline Phosphatase 96 (34-104) U/L Troponin I < 0.03 (0-0.04) ng/ml Total Protein 6.9 (6.0-8.3) gm/dl Albumin 3.6 (3.4-5.0) gm/dl Globulin 3.3 (2.5-4.0) gm/dl Albumin/Globulin Ratio 1.1 (0.9-2) SARS-CoV-2, RNA, NAAT POSITIVE A* (NEGATIVE) Imaging Data Radiologist's Impression: Chest X-Ray 12/12/21 13:27 XR chest 1V portable CLINICAL HISTORY: cough. COMPARISON STUDY: 07/08/2020 TECHNIQUE: 1 view of the chest FINDINGS: Single frontal view of the chest demonstrates the cardiomediastinal silhouette to be within normal limits. Patchy interstitial and alveolar opacities are present bilaterally. The findings are most characteristic of a viral type pneumonitis. Covid 19 pneumonia should be excluded. There is no evidence for pleural effusion. There is no evidence for vascular congestion. There is no acute osseous pathology. IMPRESSION: Patchy interstitial and alveolar opacities bilaterally characteristic of a viral type pneumonitis and probable Covid 19 pneumonia. ACT 112: Negative or not required by law. Electronically signed by: Miller Lorenzo M.D. 12/12/2021 1:57 PM ECG Data Attestation: I personally reviewed and interpreted this ECG as follows: Additional Comments: Twelve-lead EKG: Per my interpretation there is a normal sinus rhythm at a rate of 65. No ST elevation. No PVCs. Normal QTC. MDM Narrative 76-year-old female presents with a cough for a week. She has a chest x-ray suggestive of bilateral viral type pneumonia. Her Covid test is positive. EKG shows normal sinus rhythm. Vital signs reveal room air oxygen saturations of 87%. Exam reveals bilateral rhonchi. Chest x-ray reveals bilateral pneumonia viral-like appearing. Covid test is positive. Chemistry panel did not reveal any concerning abnormalities. The patient was given some empiric IV antibiotics. She was given IV Decadron. She was given albuterol inhaler which she states made her cough worse. She will be seen by the hospitalist for further inpatient evaluation and care. The patient requires about 2 L of oxygen to maintain oxygen saturation in the low 90s. No current respiratory distress. Impression & Plan COVID-19, Hypoxia Discharge Plan Visit Data Chief Complaint: Cough ED Provider: Hill Morgan Discharge Problem: COVID-19, Hypoxia Patient Disposition: Being Evaluated by Hospitalist Forms Stand Alone Forms: My [facility] Prescriptions Prescriptions: No Action pantoprazole 40 mg tablet,delayed release (DR/EC) 40 mg PO BID Qty: 180 RF: 3 atorvastatin 40 mg tablet 40 mg PO QAM Qty: 90 RF: 3 spironolactone 50 mg tablet 50 mg PO Q12 Qty: 180 RF: 3 cholecalciferol (vitamin D3) [Vitamin D3] 25 mcg (1,000 unit) capsule 5,000 unit PO QPM RF: 0 donepezil 5 mg tablet 5 mg PO QPM Qty: 90 RF: 3 amlodipine 10 mg tablet 10 mg PO HS Qty: 90 RF: 3 levothyroxine 125 mcg tablet 125 mcg PO QAM Qty: 90 RF: 3 lamotrigine 200 mg tablet 200 mg PO HS RF: 0 cephalexin 500 mg capsule 500 mg PO BID Qty: 14 RF: 0 nystatin 100,000 unit/gram cream 1 applic TOPICAL BID Qty: 4 RF: 5 oxybutynin chloride 5 mg tablet 5 mg PO BID PRN (Reason: bladder spasms) Qty: 180 RF: 3 metoprolol tartrate 25 mg tablet 25 mg PO BID Qty: 180 RF: 3 quetiapine [Seroquel] 25 mg tablet 25 mg PO DAILY Qty: 30 RF: 2 omega-3 fatty acids [Fish Oil Concentrate] 1,000 mg capsule 1,000 mg PO QPM RF: 0 Lactobacillus acidoph-L.bulgar 1 million cell tablet 1 tab PO BID RF: 0 multivitamin Tablet 1 tab PO QAM RF: 0 bupropion HCl 150 mg tablet extended release 24 hr 150 mg PO QAM RF: 0 bupropion HCl 300 mg tablet extended release 24 hr 300 mg PO QAM RF: 0 escitalopram oxalate 10 mg tablet 10 mg PO DAILY RF: 0 Referrals Referrals: Alexy Mathur DO [Primary Care Provider] -
[2021-12-12] MEDS ORDERED: dexAMETHasone**PF** 10 MG/ML VIAL IV ONE (14:48)
[2021-12-12] MEDS ORDERED: cefTRIAXone SODIUM 1,000 MG/50 ML BAG IV STA (14:48)
[2021-12-12] MEDS ORDERED: AZITHROMYCIN 500 MG in DEXTROSE 5% 250 ML IV STA (14:48)
[2021-12-12 15:13] LABS: Basophils # (auto) 0.02 K/uL (0-0.2); Basophils % (auto) 0.2 %; Eosinophils # (auto) 0.02 K/uL (0-0.5); Eosinophils % (auto) 0.2 %; Hematocrit (blood only) 41.9 % (37-47); Hemoglobin 13.8 g/dL (12.0-16.0); Immature Granulocytes # (auto) 0.02 K/uL (0.00-0.02); Immature Granulocytes % (auto) 0.2 %; Lymphocytes # (auto) 1.46 K/uL (1.2-3.4); Lymphocytes % (auto) 14.2 %; Mean Corpuscular Hemoglobin 30.2 pg (25-34); Mean Corpuscular Hgb Conc 32.9 g/dL (32-36); Mean Corpuscular Volume 91.7 fL (80-100); Mean Platelet Volume 11.1 fL (7.4-10.4); Monocytes # (auto) 0.97 K/uL (0.11-0.59); Monocytes % (auto) 9.4 %; Neutrophils # (auto) 7.82 K/uL (1.4-6.5); Neutrophils % (auto) 75.8 %; Platelet Count 221 K/uL (130-400); RDW Coefficient of Variation 14.1 % (11.5-14.5); RDW Standard Deviation 47.3 fL (36.4-46.3); Red Blood Count 4.57 M/uL (4.2-5.4); White Blood Count 10.31 K/uL (4.8-10.8)
[2021-12-12] MEDS ORDERED: REMDESIVIR 200 MG in SODIUM CHLORIDE 0.9% 210 ML IV STA (15:32)
--- NOTE | 2021-12-12 15:43 | History & Physical Report ---
Date of Service December 12, 2021 Assessment & Plan (1) Acute respiratory failure with hypoxia: Plan: 2nd to COVID-19 pneumonia. Continue NC o2. Pulmonary toilet with flutter valve & incentive spirometry. Side positioning or prone positioning discussed. No evidence of complicating CHF at this time. (2) Pneumonia due to COVID-19 virus: Plan: Mild-moderate. Received dexamethasone 6mg IV x 1 in the ER. Will continue such upon admission for up to an additional 9 days. She is about 6-7 days into her illness; thus, she is a Remdesivir candidate. Remdesivir 200mg x 1 now, then 100mg daily x 4 more days. Check ast/alt/Cr daily while on Remdesivir. CRP is only mildly elevated, and O2 requirement is modest - thus, not a candidate for Baricitinib or Tocilizumab at the present time. Procal is negative; suspicion for bacterial superinfection is low - defer on abx. Patient has severe cough - start: * atrovent HFA only - 2 puffs q6h (patient states the albuterol made her feel worse - she received the albuterol in the ER - thus will stop) * tessalon pearles - 100mg TID scheduled * mucinex 1200mg BiD scheduled * if she needs additional cough suppression - hycodan or guaitussin ac prn * steroids (3) Moderate obstructive sleep apnea: Plan: Pt is on CPAP at home. I asked her family to retrieve such and bring to the hospital if possible. (4) Morbid obesity: Plan: BMI 48 (5) Anxiety and depression: Plan: Continue home meds EXCEPT wellbutrin. EMR shows she takes 450mg daily? Place on hold for now. Will need to contact her pharmacy tomorrow to verify her dose. The wellbutrin is not on the external medication history. (6) Hypothyroidism: Plan: TSH mildly high today. Was high on last check as well. Increase synthroid to 137mcg daily. Repeat TSH as outpatient in 6 weeks. (7) Acid reflux disease: Plan: Cont PPI (8) HTN (hypertension): Plan: Cont home meds - amlodipine, metoprolol, and aldactone. (9) Dementia: Plan: Cont aricept (10) Chronic renal failure, stage 3a: Plan: Baseline CrCl 40s BMP in am for stability (11) DVT prophylaxis: Plan: lovenox 40mg BID (given her morbid obesity will use higher dose) History of Present Illness Chief Complaint: cough Primary Care Provider: Alexy Mathur, 76yo female with history of JESSI on CPAP, morbid obesity, hypothyroidism, HTN, and dementia presents from home with ~7 days of severe cough, b/l eye irritation, loss of taste/smell, fatigue, mild dyspnea on exertion, wheezing, and fever. She is unvaccinated against COVID, although she had clinical COVID several months ago (during that previous illness she also lost her taste/smell). Granddaughter is at bedside and states "she has bronchitis every year about this time." While in the ER she had episodes of hypoxia to <90% and NC O2 was applied. Allergies Allergy/AdvReac Type Severity Reaction Status Date / Time baclofen Allergy Mild FLUSHED Verified 12/12/21 15:00 FACE Home Medications Medication Instructions Recorded Confirmed Type bupropion HCl 150 mg 24 hr tablet, 150 mg PO QAM 12/01/18 12/12/21 History extended release multivitamin 1 tab PO QAM 12/01/18 12/12/21 History lamotrigine 200 mg tablet 200 mg PO HS tab 09/18/19 12/12/21 History bupropion HCl 300 mg 24 hr tablet, 300 mg PO QAM 11/28/19 12/12/21 History extended release quetiapine 25 mg tablet (Seroquel) 25 mg PO DAILY #30 tab 04/27/20 12/12/21 Rx escitalopram oxalate 10 mg tablet 10 mg PO DAILY 07/07/20 12/12/21 History Lactobacillus acidoph-L.bulgaricus 1 tab PO BID tab 07/20/20 12/12/21 History 1 million cell tablet pantoprazole 40 mg tablet,delayed 40 mg PO BID #180 tab 10/21/20 12/12/21 Rx release atorvastatin 40 mg tablet 40 mg PO QAM #90 tab 01/13/21 12/12/21 Rx spironolactone 50 mg tablet 50 mg PO Q12 #180 tab 03/10/21 12/12/21 Rx cholecalciferol (vitamin D3) 25 5,000 unit PO QPM cap 06/06/21 12/12/21 History mcg (1,000 unit) capsule (Vitamin D3) donepezil 5 mg tablet 5 mg PO QPM #90 tab 08/17/21 12/12/21 Rx metoprolol tartrate 25 mg tablet 25 mg PO BID #180 tab 10/20/21 12/12/21 Rx nystatin 100,000 unit/gram topical 1 applic TOPICAL BID #4 tube 10/20/21 12/12/21 Rx cream oxybutynin chloride 5 mg tablet 5 mg PO BID PRN #180 tab 10/20/21 12/12/21 Rx amlodipine 10 mg tablet 10 mg PO HS #90 tab 10/24/21 12/12/21 Rx levothyroxine 125 mcg tablet 125 mcg PO QAM #90 tab 10/24/21 12/12/21 Rx omega-3 fatty acids 1,000 mg 1,000 mg PO DAILY 12/12/21 12/12/21 History capsule Past Med/Surg History Medical History Acid reflux disease Anxiety Depression Fever Hernia, incisional History of kidney stones Hyperlipemia Hypokalemia Hypomagnesemia Hypomagnesemia Hypophosphatemia Hypothyroidism Moderate obstructive sleep apnea Morbid obesity Nausea Osteoarthritis Surgical History History of bilateral cataract extraction History of bilateral tubal ligation History of colon surgery abscess removal @ [facility] History of colonoscopy History of cystoscopy History of dilatation and curettage History of repair of left rotator cuff History of repair of right rotator cuff History of total hysterectomy with bilateral salpingo-oophorectomy (BSO) History of total left knee replacement (TKR) History of total right knee replacement (TKR) History of wisdom tooth extraction Hx of cholecystectomy Family History Father , hepatocellular cancer? Family history of diabetes mellitus Myocardial infarction Cancer Grandmother (Paternal) Family history of diabetes mellitus Other Coronary heart disease Family history non-contributory No family history of adverse response to anesthesia Denies family history of Ovarian cancer Prostate cancer Breast cancer Colorectal cancer Social History (Updated 12/12/21 @ 23:37 by Irineo Pryor) Smoking Status: Never smoker Second Hand Exposure: No; Hx Alcohol Use: No Hx Substance Use: No Preferred Language: Peruvian Communication Ability: Effective Inspecting And Testing Lead Hand Required: No Beliefs That Will Affect Care: None marital status: / Current Living Situation: Alone current occupational status: retired How many Children do You have: 2 Feels Safe at Home: Yes Safety Concerns: Feels Safe At This Time caffeine: Yes Dental Care, Regularly: Yes Physical Activity Frequency: Does not Exercise Seatbelt Use: always Sunscreen Use: No Assistive Devices: Oxygen - Continuous and Walker Review of Systems Review of Systems: Gen - no fevers or chills; mild appetite loss; +fatigue eyes - no loss of vision, but eyes have been irritated for several days HENT - no ear pain, no sore throat; +loss of taste/smell CV - no chest pain or orthopnea pulm - no sputum; SEVERE cough; wheezing present; mild dyspnea on exertion GI - no vomiting or diarrhea - no dysuria musculo - some myalgias neuro - no focal motor weakness skin - no rash psych - denies mood changes lymph - denies presence of lymph nodes Physical Exam Physical Exam: gen - severe, bronchial sounding cough; no respiratory distress; awake, alert; obese eyes - PERRL mouth - MMM, no lesions neck - no obvious JVD heart - RRR, s1 s2, no murmur lungs - end-exp wheezes; bibasilar rales, much worse on left; no increased work of breathing abd - soft NT ND BS+ ext - <1+ edema, pulses 2+ b/l neuro - strength 5/5 x 4 exts psych - awake, alert, oriented to person/place skin - no generalized rash lymph - no cervical lymph nodes Results & Data Results & Data ([facility]) Vital Signs (Past 12 Hours) Vital Signs Temp Pulse Resp BP Pulse Ox 12/12/21 14:44 93 12/12/21 14:43 88 L 12/12/21 14:00 66 13 90 12/12/21 13:58 92 12/12/21 13:30 72 17 184/93 H 91 12/12/21 13:13 67 17 96 12/12/21 13:11 36.9 C 72 22 207/96 H 90 Laboratory Results Laboratory Results - last 24 hr 12/12/21 12/12/21 12/12/21 13:50 13:50 13:50 WBC 10.31 RBC 4.57 Hgb 13.8 Hct 41.9 MCV 91.7 MCH 30.2 MCHC 32.9 RDW Std Deviation 47.3 H RDW Coeff of Randy 14.1 Plt Count 221 MPV 11.1 H Immature Gran % (Auto) 0.2 Neut % (Auto) 75.8 Lymph % (Auto) 14.2 Kimble % (Auto) 9.4 Eos % (Auto) 0.2 Baso % (Auto) 0.2 Neut # (Auto) 7.82 H Lymph # (Auto) 1.46 Kimble # (Auto) 0.97 H Eos # (Auto) 0.02 Baso # (Auto) 0.02 Immature Gran # (Auto) 0.02 Sodium 137 Potassium 4.1 Chloride 103 Carbon Dioxide 25 Anion Gap 9 BUN 26 H Creatinine 1.30 H Est Cr Clr Drug Dosing 43.2 Est GFR ( Amer) 45.5 Est GFR (Non-Af Amer) 39.3 BUN/Creatinine Ratio 20.0 Glucose 108 H Calcium 9.0 Total Bilirubin 0.9 AST 25 ALT 18 Alkaline Phosphatase 96 Troponin I < 0.03 C-Reactive Protein Total Protein 6.9 Albumin 3.6 Globulin 3.3 Albumin/Globulin Ratio 1.1 Procalcitonin TSH SARS-CoV-2, RNA, NAAT POSITIVE A* 12/12/21 12/12/21 12/12/21 13:50 13:50 15:41 WBC RBC Hgb Hct MCV MCH MCHC RDW Std Deviation RDW Coeff of Randy Plt Count MPV Immature Gran % (Auto) Neut % (Auto) Lymph % (Auto) Kimble % (Auto) Eos % (Auto) Baso % (Auto) Neut # (Auto) Lymph # (Auto) Kimble # (Auto) Eos # (Auto) Baso # (Auto) Immature Gran # (Auto) Sodium Potassium Chloride Carbon Dioxide Anion Gap BUN Creatinine Est Cr Clr Drug Dosing Est GFR ( Amer) Est GFR (Non-Af Amer) BUN/Creatinine Ratio Glucose Calcium Total Bilirubin AST ALT Alkaline Phosphatase Troponin I C-Reactive Protein 2.03 H Cancelled Total Protein Albumin Globulin Albumin/Globulin Ratio Procalcitonin < 0.05 TSH SARS-CoV-2, RNA, NAAT 12/12/21 15:41 WBC RBC Hgb Hct MCV MCH MCHC RDW Std Deviation RDW Coeff of Randy Plt Count MPV Immature Gran % (Auto) Neut % (Auto) Lymph % (Auto) Kimble % (Auto) Eos % (Auto) Baso % (Auto) Neut # (Auto) Lymph # (Auto) Kimble # (Auto) Eos # (Auto) Baso # (Auto) Immature Gran # (Auto) Sodium Potassium Chloride Carbon Dioxide Anion Gap BUN Creatinine Est Cr Clr Drug Dosing Est GFR ( Amer) Est GFR (Non-Af Amer) BUN/Creatinine Ratio Glucose Calcium Total Bilirubin AST ALT Alkaline Phosphatase Troponin I C-Reactive Protein Total Protein Albumin Globulin Albumin/Globulin Ratio Procalcitonin TSH 7.032 H SARS-CoV-2, RNA, NAAT Diagnostic Findings Chest X-Ray 12/12/21 13:27 XR chest 1V portable CLINICAL HISTORY: cough. COMPARISON STUDY: 07/08/2020 TECHNIQUE: 1 view of the chest FINDINGS: Single frontal view of the chest demonstrates the cardiomediastinal silhouette to be within normal limits. Patchy interstitial and alveolar opacities are present bilaterally. The findings are most characteristic of a viral type pneumonitis. Covid 19 pneumonia should be excluded. There is no evidence for pleural effusion. There is no evidence for vascular congestion. There is no acute osseous pathology. IMPRESSION: Patchy interstitial and alveolar opacities bilaterally characteristic of a viral type pneumonitis and probable Covid 19 pneumonia. ACT 112: Negative or not required by law. Electronically signed by: Miller Lorenzo M.D. 12/12/2021 1:57 PM EKG - my reading - NSR, LVH by voltage criteria; ST flattening III, AVF; no other ST changes Code Status & VTE Plan Code Status conditional code VTE Prophylaxis Plan VTE Prophylaxis will be ordered: Yes PG Care Time/CCT Total # of Minutes Spent Total Time Spent with Patient: Total time spent is greater than 50% in coordination of care (as documented) at patient's floor/unit and/or counseling patient: Coding Level of Care Code 65541 Initial Inpt Care Lvl 3 Diagnoses Acute respiratory failure with hypoxia J96.01 Pneumonia due to COVID-19 virus U07.1; J12.82 Moderate obstructive sleep apnea G47.33 Morbid obesity E66.01 Anxiety and depression F41.9; F32.9 Hypothyroidism E03.9 Acid reflux disease K21.9 HTN (hypertension) I10 Dementia F03.90 DVT prophylaxis Z29.9 Chronic renal failure, stage 3a N18.31
[2021-12-12] MEDS ORDERED: NITROGLYCERIN SL 0.4 MG/TAB TAB SL PRN (18:41)
[2021-12-12] MEDS ORDERED: OXYBUTYNIN CHLORIDE 5 MG TAB PO PRN (18:41)
[2021-12-12] MEDS ORDERED: ACETAMINOPHEN 325 MG TAB PO PRN (18:41)
[2021-12-12] MEDS ORDERED: ONDANSETRON INJ 2 MG/ML 2 ML VIAL IV PRN (18:41)
[2021-12-12] MEDS: amLODIPine BESYLATE 5 MG TAB PO SCH (20:14)
[2021-12-12] MEDS: guaiFENesin 600 MG TABCR PO SCH (20:16)
[2021-12-12] MEDS: lamoTRIgine 100 MG TAB PO SCH (20:17)
[2021-12-12] MEDS: METOPROLOL TARTRATE 25 MG TAB PO SCH (20:18)
[2021-12-12] MEDS: PANTOprazole 40 MG TAB PO SCH (20:19)
[2021-12-12] MEDS: BENZONATATE 100 MG CAPSULE PO SCH (20:19)
[2021-12-12] MEDS: CHOLECALCIFEROL 5,000 UNITS 125 MCG TAB PO SCH (20:19)
[2021-12-12] MEDS: SPIRONOLACTONE 25 MG TAB PO SCH (20:19)
[2021-12-12] MEDS: ENOXAPARIN INJ 40 MG/0.4 ML SYR SQ SCH (20:20)
[2021-12-12] MEDS: ADVANCED PROBIOTIC 1250 MG CAPSULE PO SCH (20:20)
[2021-12-12] MEDS: NYSTATIN CR 15 GM TUBE EXT SCH (20:21)
[2021-12-12] MEDS: IPRATROPIUM BROMIDE HFA INHALER INH SCH ×2 (20:56→22:20)
[2021-12-12] MEDS ORDERED: HYDROcodone/HOMATROPINE SYRUP 5MG/1.5MG 5ML UDP PO PRN (21:30)
[2021-12-13] MEDS ORDERED: ALBUT/IPRATROP 3MG/0.5MG NEB 3 ML VIAL NEB STA (03:41)
[2021-12-13] MEDS: QUEtiapine FUMARATE 25 MG TABLET PO SCH ×2 (04:16→21:34)
[2021-12-13] MEDS: LEVOTHYROXINE SODIUM 137 MCG TABLET PO SCH (06:24)
[2021-12-13] MEDS ORDERED: LEVOTHYROXINE SODIUM 125 MCG TABLET PO SCH (06:30)
--- NOTE | 2021-12-13 06:45 | Electrocardiogram Report ---
Test Reason : Blood Pressure : / mmHG Vent. Rate : 065 BPM Atrial Rate : 065 BPM P-R Int : 166 ms QRS Dur : 080 ms QT Int : 428 ms P-R-T Axes : 050 000 035 degrees QTc Int : 445 ms Normal sinus rhythm Possible Left atrial enlargement Left ventricular hypertrophy Nonspecific T wave abnormality Abnormal ECG When compared with ECG of 07-JUL-2020 06:45, No significant change was found Confirmed by Ab Ramesh ([id number]) on 12/13/2021 6:44:42 AM Referred By: ED Confirmed By:Ab Ramesh
[2021-12-13 07:22] LABS: BUN Creatinine Ratio 24.3 (10-20); C Reactive Protein 2.78 mg/dl (0-0.5); Calcium 8.3 mg/dl (8.5-10.1); Creatinine Clr Calc Pharmacy 40.6 ml/min; Est GFR (African American) 43.1 ml/min; Est GFR (Non-African American) 37.2 ml/min
[2021-12-13] MEDS: IPRATROPIUM BROMIDE HFA INHALER INH SCH ×4 (07:30→19:08)
--- NOTE | 2021-12-13 08:22 | Hospitalist Progress Note ---
Date of Service December 13, 2021 Assessment & Plan (1) Acute respiratory failure with hypoxia: Plan: 2nd to COVID-19 pneumonia. Continue NC o2. Pulmonary toilet with flutter valve & incentive spirometry. Side positioning or prone positioning discussed. No evidence of complicating CHF at this time. (2) Pneumonia due to COVID-19 virus: Plan: Mild-moderate. Received dexamethasone 6mg IV x 1 in the ER. Will continue such upon admission for up to an additional 9 days. She is about 6-7 days into her illness; thus, she is a Remdesivir candidate. Remdesivir Check ast/alt/Cr daily while on Remdesivir. CRP is only mildly elevated, and O2 requirement is modest - thus, not a candidate for Baricitinib or Tocilizumab at the present time. Procal is negative; suspicion for bacterial superinfection is low - defer on abx. Patient has severe cough - start: * atrovent HFA only - 2 puffs q6h (patient states the albuterol made her feel worse - she received the albuterol in the ER - thus will stop) * tessalon pearles - 100mg TID scheduled * mucinex 1200mg BiD scheduled * if she needs additional cough suppression - hycodan or guaitussin ac prn * steroids (3) Moderate obstructive sleep apnea: Plan: Pt is on CPAP at home. I asked her family to retrieve such and bring to the hospital if possible. (4) Morbid obesity: Plan: BMI 48 (5) Anxiety and depression: Plan: Continue home meds EXCEPT wellbutrin. EMR shows she takes 450mg daily? Place on hold for now. Will need to contact her pharmacy tomorrow to verify her dose. The wellbutrin is not on the external medication history. (6) Hypothyroidism: Plan: TSH mildly high today. Was high on last check as well. Increase synthroid to 137mcg daily. Repeat TSH as outpatient in 6 weeks. (7) Acid reflux disease: Plan: Cont PPI (8) HTN (hypertension): Plan: Cont home meds - amlodipine, metoprolol, and aldactone. (9) Dementia: Plan: Cont aricept (10) Chronic renal failure, stage 3a: Plan: Baseline CrCl 40s BMP in am for stability (11) DVT prophylaxis: Plan: lovenox 40mg BID (given her morbid obesity will use higher dose) Admission and Anticipated Discharge Date Admission Date: December 12, 2021 Subjective this pt is pleasant, sleeping, has mild distress, some non productive coughing Review of Systems Review of Systems: Moderate distress and fatigue no headache, no visual changes no speech or swallowing issues no chest pain, pressure or palpitations Continue shortness of breath, nonproductive cough or wheezes no abdominal pain, nausea or vomiting, no diarrhea no dysuria, hematuria or frequency no focal joint pain or swelling no back pain, CVA tenderness or radicular pain no bruising, bleeding or rashes no focal signs of weakness or numbness or altered sensation no complaints of anxiety or depression.. Physical Exam Physical Exam: The patient appeared mild to moderate respiratory distress Vital signs as documented. Head exam is normocephalic atraumatic Neck is without JVD, thyromegaly, or carotid bruits. Lungs are coarse bilaterally in all lung mukherjee tachypnea Cardiac exam, Rhythm is regular.. No murmurs, rubs or gallops. Abdominal exam reveals normal bowel sounds, soft non tender, no masses Extremities are nonedematous and both pedal pulses are present Neurologic exam is alert and oriented, no focal loss of strength or sensation Skin is without bruises or rashes Psychologically is without concerns for anxiety or depression.. Results & Data Results & Data ([facility]) Vital Signs (Past 12 Hours) Vital Signs Temp Pulse Pulse Resp BP Pulse Ox 12/13/21 07:31 71 18 95 12/13/21 07:30 98.1 F 63 20 176/97 H 95 12/13/21 07:22 72 12/13/21 04:06 68 18 93 12/13/21 03:11 98.2 F 68 20 154/80 H 90 12/12/21 22:51 98.4 F 66 22 146/79 H 91 12/12/21 22:30 68 12/12/21 21:30 69 151/80 H PG Care Time/CCT Total # of Minutes Spent Total Time Spent with Patient: Total time spent is greater than 50% in coordination of care (as documented) at patient's floor/unit and/or counseling patient: Coding Level of Care Code 44135 Subseq Hosp Care Lvl 2 Diagnoses Acute respiratory failure with hypoxia J96.01 Pneumonia due to COVID-19 virus U07.1; J12.82 Moderate obstructive sleep apnea G47.33 Morbid obesity E66.01 Anxiety and depression F41.9; F32.9 Hypothyroidism E03.9 Acid reflux disease K21.9 HTN (hypertension) I10 Dementia F03.90 Chronic renal failure, stage 3a N18.31 DVT prophylaxis Z29.9
[2021-12-13] MEDS ORDERED: buPROPion XL 300 MG TABCR PO SCH (09:00)
[2021-12-13] MEDS ORDERED: buPROPion XL 150 MG TABCR PO SCH (09:00)
[2021-12-13] MEDS ORDERED: QUEtiapine FUMARATE 25 MG TABLET PO SCH (09:00)
[2021-12-13] MEDS: ATORVASTATIN 40 MG TAB PO SCH (09:29)
[2021-12-13] MEDS: MULTIVITAMIN TAB PO SCH (09:29)
[2021-12-13] MEDS: dexAMETHasone 6 MG in SYRINGE 0 ML IV SCH (09:29)
[2021-12-13] MEDS: METOPROLOL TARTRATE 25 MG TAB PO SCH ×2 (09:30→21:30)
[2021-12-13] MEDS: BENZONATATE 100 MG CAPSULE PO SCH ×3 (09:30→21:36)
[2021-12-13] MEDS: OMEGA-3 (PURIFIED FISH OIL) 1 GM CAP PO SCH (09:30)
[2021-12-13] MEDS: SPIRONOLACTONE 25 MG TAB PO SCH ×2 (09:30→21:37)
[2021-12-13] MEDS: ADVANCED PROBIOTIC 1250 MG CAPSULE PO SCH (09:30)
[2021-12-13] MEDS: PANTOprazole 40 MG TAB PO SCH ×2 (09:30→21:38)
[2021-12-13] MEDS: ESCITALOPRAM OXALATE 10 MG TAB PO SCH (09:30)
[2021-12-13] MEDS: ENOXAPARIN INJ 40 MG/0.4 ML SYR SQ SCH ×2 (09:31→21:33)
[2021-12-13] MEDS: guaiFENesin 600 MG TABCR PO SCH ×2 (09:31→21:35)
[2021-12-13] MEDS: NYSTATIN CR 15 GM TUBE EXT SCH ×2 (09:31→21:37)
[2021-12-13] MEDS: REMDESIVIR 100 MG in SODIUM CHLORIDE 0.9% 230 ML IV SCH (11:56)
[2021-12-13] MEDS: amLODIPine BESYLATE 5 MG TAB PO SCH (21:30)
[2021-12-13] MEDS: lamoTRIgine 100 MG TAB PO SCH (21:35)
[2021-12-13] MEDS: CHOLECALCIFEROL 5,000 UNITS 125 MCG TAB PO SCH (21:36)
[2021-12-14] MEDS: LEVOTHYROXINE SODIUM 137 MCG TABLET PO SCH (05:46)
[2021-12-14] MEDS ORDERED: IPRATROPIUM BROMIDE HFA INHALER INH PRN (07:25)
[2021-12-14] MEDS: METOPROLOL TARTRATE 25 MG TAB PO SCH ×2 (08:32→20:21)
--- NOTE | 2021-12-14 08:41 | Hospitalist Progress Note ---
Date of Service December 14, 2021 Assessment & Plan (1) Acute respiratory failure with hypoxia: Plan: 2nd to COVID-19 pneumonia. Continue NC o2. Pulmonary toilet with flutter valve & incentive spirometry. Side positioning or prone positioning discussed. No evidence of complicating CHF at this time. (2) Pneumonia due to COVID-19 virus: Plan: Mild-moderate. Received dexamethasone 6mg IV x 1 in the ER. Will continue such upon admission for up to an additional 9 days. She is about 6-7 days into her illness; thus, she is a Remdesivir candidate. Remdesivir CRP is only mildly elevated, and O2 requirement is modest - thus, not a candidate for Baricitinib or Tocilizumab at the present time. Procal is negative; suspicion for bacterial superinfection is low - defer on abx. no diuretics at this time Patient has severe cough - start: * tessalon pearles - 100mg TID scheduled * mucinex 1200mg BiD scheduled * if she needs additional cough suppression - hycodan or guaitussin ac prn * steroids (3) Moderate obstructive sleep apnea: Plan: Pt is on CPAP at home, family did bring to the hospital if possible. (4) Morbid obesity: Plan: BMI 48 (5) Anxiety and depression: Plan: Continue home meds EXCEPT wellbutrin. (6) Hypothyroidism: Plan: TSH mildly high today. Was high on last check as well. Increase synthroid to 137mcg daily. Repeat TSH as outpatient in 6 weeks. (7) Acid reflux disease: Plan: Cont PPI (8) HTN (hypertension): Plan: Cont home meds - amlodipine, metoprolol, and aldactone. (9) Dementia: Plan: Cont aricept (10) Chronic renal failure, stage 3a: Plan: Baseline CrCl 40s BMP in am for stability (11) DVT prophylaxis: Plan: lovenox 40mg BID (given her morbid obesity will use higher dose) Admission and Anticipated Discharge Date Admission Date: December 12, 2021 Subjective this pt is pleasant, is much more awake, she is very tired and weakened but not having significant hypoxia, but having coughing Review of Systems Review of Systems: Moderate distress and fatigue no headache, no visual changes no speech or swallowing issues no chest pain, pressure or palpitations Continue shortness of breath, nonproductive cough or wheezes no abdominal pain, nausea or vomiting, no diarrhea no dysuria, hematuria or frequency no focal joint pain or swelling no back pain, CVA tenderness or radicular pain no bruising, bleeding or rashes no focal signs of weakness or numbness or altered sensation no complaints of anxiety or depression.. Physical Exam Physical Exam: The patient appeared mild to moderate respiratory distress Vital signs as documented. Head exam is normocephalic atraumatic Neck is without JVD, thyromegaly, or carotid bruits. Lungs are coarse bilaterally in all lung mukherjee tachypnea Cardiac exam, Rhythm is regular.. No murmurs, rubs or gallops. Abdominal exam reveals normal bowel sounds, soft non tender, no masses Extremities are nonedematous and both pedal pulses are present Neurologic exam is alert and oriented, no focal loss of strength or sensation Skin is without bruises or rashes Psychologically is without concerns for anxiety or depression.. Results & Data Results & Data ([facility]) Vital Signs (Past 12 Hours) Vital Signs Temp Pulse Pulse Resp BP Pulse Ox 12/14/21 08:19 98.2 F 60 24 182/73 H 90 12/14/21 03:00 97.5 F L 48 L 24 158/88 H 92 12/14/21 00:33 61 12/13/21 23:00 98.1 F 68 20 136/72 92 PG Care Time/CCT Total # of Minutes Spent Total Time Spent with Patient: Total time spent is greater than 50% in coordination of care (as documented) at patient's floor/unit and/or counseling patient: Coding Level of Care Code 77019 Subseq Hosp Care Lvl 2 Diagnoses Acute respiratory failure with hypoxia J96.01 Pneumonia due to COVID-19 virus U07.1; J12.82 Moderate obstructive sleep apnea G47.33 Morbid obesity E66.01 Anxiety and depression F41.9; F32.9 Hypothyroidism E03.9 Acid reflux disease K21.9 HTN (hypertension) I10 Dementia F03.90 Chronic renal failure, stage 3a N18.31 DVT prophylaxis Z29.9
[2021-12-14] MEDS: BENZONATATE 100 MG CAPSULE PO SCH ×3 (09:09→20:16)
[2021-12-14] MEDS: OMEGA-3 (PURIFIED FISH OIL) 1 GM CAP PO SCH (09:10)
[2021-12-14] MEDS: ESCITALOPRAM OXALATE 10 MG TAB PO SCH (09:10)
[2021-12-14] MEDS: SPIRONOLACTONE 25 MG TAB PO SCH ×2 (09:10→20:14)
[2021-12-14] MEDS: MULTIVITAMIN TAB PO SCH (09:11)
[2021-12-14] MEDS: guaiFENesin 600 MG TABCR PO SCH ×2 (09:11→20:17)
[2021-12-14] MEDS: ATORVASTATIN 40 MG TAB PO SCH (09:12)
[2021-12-14] MEDS: PANTOprazole 40 MG TAB PO SCH ×2 (09:12→20:16)
[2021-12-14] MEDS: ADVANCED PROBIOTIC 1250 MG CAPSULE PO SCH (09:12)
[2021-12-14] MEDS: ENOXAPARIN INJ 40 MG/0.4 ML SYR SQ SCH ×2 (09:13→20:15)
[2021-12-14] MEDS: NYSTATIN CR 15 GM TUBE EXT SCH ×2 (09:13→20:17)
[2021-12-14] MEDS: dexAMETHasone 6 MG in SYRINGE 0 ML IV SCH (09:13)
[2021-12-14 09:51] LABS: Creatinine Clr Calc Pharmacy 37.9 ml/min; Est GFR (African American) 39.5 ml/min; Est GFR (Non-African American) 34.1 ml/min
[2021-12-14] MEDS: buPROPion XL 150 MG TABCR PO SCH (10:17)
[2021-12-14] MEDS: REMDESIVIR 100 MG in SODIUM CHLORIDE 0.9% 230 ML IV SCH (12:25)
[2021-12-14] MEDS: lamoTRIgine 100 MG TAB PO SCH (20:15)
[2021-12-14] MEDS: CHOLECALCIFEROL 5,000 UNITS 125 MCG TAB PO SCH (20:16)
[2021-12-14] MEDS: amLODIPine BESYLATE 5 MG TAB PO SCH (20:16)
[2021-12-14] MEDS: QUEtiapine FUMARATE 25 MG TABLET PO SCH (20:17)
[2021-12-15] MEDS: LEVOTHYROXINE SODIUM 137 MCG TABLET PO SCH (05:57)
[2021-12-15] MEDS: METOPROLOL TARTRATE 25 MG TAB PO SCH ×2 (07:49→20:14)
[2021-12-15 08:41] LABS: Creatinine Clr Calc Pharmacy 41.1 ml/min; Est GFR (African American) 43.9 ml/min; Est GFR (Non-African American) 37.9 ml/min
[2021-12-15] MEDS: BENZONATATE 100 MG CAPSULE PO SCH ×3 (08:48→20:15)
[2021-12-15] MEDS: ENOXAPARIN INJ 40 MG/0.4 ML SYR SQ SCH ×2 (08:48→20:10)
[2021-12-15] MEDS: buPROPion XL 150 MG TABCR PO SCH (08:49)
[2021-12-15] MEDS: OMEGA-3 (PURIFIED FISH OIL) 1 GM CAP PO SCH (08:49)
[2021-12-15] MEDS: MULTIVITAMIN TAB PO SCH (08:49)
[2021-12-15] MEDS: dexAMETHasone 6 MG in SYRINGE 0 ML IV SCH (08:50)
[2021-12-15] MEDS: ATORVASTATIN 40 MG TAB PO SCH (08:50)
[2021-12-15] MEDS: ADVANCED PROBIOTIC 1250 MG CAPSULE PO SCH (08:51)
[2021-12-15] MEDS: ESCITALOPRAM OXALATE 10 MG TAB PO SCH (08:52)
[2021-12-15] MEDS: guaiFENesin 600 MG TABCR PO SCH ×2 (08:52→20:12)
[2021-12-15] MEDS: SPIRONOLACTONE 25 MG TAB PO SCH ×2 (08:52→20:15)
[2021-12-15] MEDS: NYSTATIN CR 15 GM TUBE EXT SCH ×2 (08:53→20:16)
[2021-12-15] MEDS: PANTOprazole 40 MG TAB PO SCH ×2 (08:55→20:16)
[2021-12-15] MEDS: REMDESIVIR 100 MG in SODIUM CHLORIDE 0.9% 230 ML IV SCH (11:11)
--- NOTE | 2021-12-15 16:19 | Hospitalist Progress Note ---
Date of Service December 15, 2021 Assessment & Plan (1) Acute respiratory failure with hypoxia: Plan: 2nd to COVID-19 pneumonia. Continue NC o2. Pulmonary toilet with flutter valve & incentive spirometry. Side positioning or prone positioning discussed. No evidence of complicating CHF at this time. (2) Pneumonia due to COVID-19 virus: Plan: Mild-moderate. Received dexamethasone 6mg IV x 1 in the ER. Will continue such upon admission for up to an additional 9 days. She is about 6-7 days into her illness; thus, she is a Remdesivir candidate. Remdesivir CRP is only mildly elevated, and O2 requirement is modest - thus, not a candidate for Baricitinib or Tocilizumab at the present time. Procal is negative; suspicion for bacterial superinfection is low - defer on abx. no diuretics at this time Patient has severe cough - start: * tessalon pearles - 100mg TID scheduled * mucinex 1200mg BiD scheduled * if she needs additional cough suppression - hycodan or guaitussin ac prn * steroids (3) Moderate obstructive sleep apnea: Plan: Pt is on CPAP at home, family did bring to the hospital if possible. (4) Morbid obesity: Plan: BMI 48 (5) Anxiety and depression: Plan: Continue home meds EXCEPT wellbutrin. (6) Hypothyroidism: Plan: TSH mildly high today. Was high on last check as well. Increase synthroid to 137mcg daily. Repeat TSH as outpatient in 6 weeks. (7) Acid reflux disease: Plan: Cont PPI (8) HTN (hypertension): Plan: Cont home meds - amlodipine, metoprolol, and aldactone. (9) Dementia: Plan: Cont aricept (10) Chronic renal failure, stage 3a: Plan: Baseline CrCl 40s BMP in am for stability (11) DVT prophylaxis: Plan: lovenox 40mg BID (given her morbid obesity will use higher dose) Admission and Anticipated Discharge Date Admission Date: December 12, 2021 Subjective this pt is pleasant, is much more awake, continues with hypoxia, having coughing and significant fatigue. Review of Systems Review of Systems: Moderate distress and fatigue no headache, no visual changes no speech or swallowing issues no chest pain, pressure or palpitations Continue shortness of breath, nonproductive cough or wheezes no abdominal pain, nausea or vomiting, no diarrhea no dysuria, hematuria or frequency no focal joint pain or swelling no back pain, CVA tenderness or radicular pain no bruising, bleeding or rashes no focal signs of weakness or numbness or altered sensation no complaints of anxiety or depression.. Physical Exam Physical Exam: The patient appeared mild to moderate respiratory distress Vital signs as documented. Head exam is normocephalic atraumatic Neck is without JVD, thyromegaly, or carotid bruits. Lungs are coarse bilaterally in all lung mukherjee tachypnea Cardiac exam, Rhythm is regular.. No murmurs, rubs or gallops. Abdominal exam reveals normal bowel sounds, soft non tender, no masses Extremities are nonedematous and both pedal pulses are present Neurologic exam is alert and oriented, no focal loss of strength or sensation Skin is without bruises or rashes Psychologically is without concerns for anxiety or depression.. Results & Data Results & Data ([facility]) Vital Signs (Past 12 Hours) Vital Signs Temp Pulse Pulse Resp BP Pulse Ox 12/15/21 16:11 98.2 F 64 20 179/80 H 97 12/15/21 14:14 62 12/15/21 11:48 98.1 F 56 L 20 166/78 H 94 12/15/21 09:49 160/75 H 12/15/21 08:57 179/82 H 12/15/21 07:44 98.2 F 59 L 20 187/93 H 94 12/15/21 06:28 71 PG Care Time/CCT Total # of Minutes Spent Total Time Spent with Patient: Total time spent is greater than 50% in coordination of care (as documented) at patient's floor/unit and/or counseling patient: Coding Level of Care Code 47692 Subseq Hosp Care Lvl 2 Diagnoses Acute respiratory failure with hypoxia J96.01 Pneumonia due to COVID-19 virus U07.1; J12.82 Moderate obstructive sleep apnea G47.33 Morbid obesity E66.01 Anxiety and depression F41.9; F32.9 Hypothyroidism E03.9 Acid reflux disease K21.9 HTN (hypertension) I10 Dementia F03.90 Chronic renal failure, stage 3a N18.31 DVT prophylaxis Z29.9
[2021-12-15] MEDS: QUEtiapine FUMARATE 25 MG TABLET PO SCH (20:12)
[2021-12-15] MEDS: lamoTRIgine 100 MG TAB PO SCH (20:13)
[2021-12-15] MEDS: CHOLECALCIFEROL 5,000 UNITS 125 MCG TAB PO SCH (20:14)
[2021-12-15] MEDS: amLODIPine BESYLATE 5 MG TAB PO SCH (20:14)
[2021-12-16] MEDS ORDERED: hydrALAZINE HCL 20 MG/ML VIAL IV ONE (03:28)
[2021-12-16] MEDS: LEVOTHYROXINE SODIUM 137 MCG TABLET PO SCH (06:09)
[2021-12-16] MEDS: METOPROLOL TARTRATE 25 MG TAB PO SCH ×2 (07:16→20:37)
[2021-12-16] MEDS: NYSTATIN CR 15 GM TUBE EXT SCH ×2 (07:17→20:40)
[2021-12-16] MEDS: ESCITALOPRAM OXALATE 10 MG TAB PO SCH (09:19)
[2021-12-16] MEDS: OMEGA-3 (PURIFIED FISH OIL) 1 GM CAP PO SCH (09:19)
[2021-12-16] MEDS: buPROPion XL 150 MG TABCR PO SCH (09:19)
[2021-12-16] MEDS: guaiFENesin 600 MG TABCR PO SCH ×2 (09:19→20:38)
[2021-12-16] MEDS: ENOXAPARIN INJ 40 MG/0.4 ML SYR SQ SCH ×2 (09:20→20:38)
[2021-12-16] MEDS: MULTIVITAMIN TAB PO SCH (09:21)
[2021-12-16] MEDS: PANTOprazole 40 MG TAB PO SCH ×2 (09:21→20:36)
[2021-12-16] MEDS: SPIRONOLACTONE 25 MG TAB PO SCH ×2 (09:22→20:35)
[2021-12-16] MEDS: ADVANCED PROBIOTIC 1250 MG CAPSULE PO SCH (09:22)
[2021-12-16] MEDS: BENZONATATE 100 MG CAPSULE PO SCH ×3 (09:23→20:36)
[2021-12-16] MEDS: dexAMETHasone 6 MG in SYRINGE 0 ML IV SCH (09:23)
[2021-12-16] MEDS: ATORVASTATIN 40 MG TAB PO SCH (09:23)
[2021-12-16 09:35] LABS: Creatinine Clr Calc Pharmacy 43.1 ml/min; Est GFR (African American) 47.3 ml/min; Est GFR (Non-African American) 40.8 ml/min
[2021-12-16] MEDS: REMDESIVIR 100 MG in SODIUM CHLORIDE 0.9% 230 ML IV SCH (11:28)
[2021-12-16] MEDS: CHOLECALCIFEROL 5,000 UNITS 125 MCG TAB PO SCH (20:35)
[2021-12-16] MEDS: amLODIPine BESYLATE 5 MG TAB PO SCH (20:35)
[2021-12-16] MEDS: QUEtiapine FUMARATE 25 MG TABLET PO SCH (20:37)
[2021-12-16] MEDS: lamoTRIgine 100 MG TAB PO SCH (20:40)
[2021-12-17] MEDS: LEVOTHYROXINE SODIUM 137 MCG TABLET PO SCH (06:03)
[2021-12-17] MEDS: OMEGA-3 (PURIFIED FISH OIL) 1 GM CAP PO SCH (07:34)
[2021-12-17] MEDS: SPIRONOLACTONE 25 MG TAB PO SCH (07:34)
[2021-12-17] MEDS: ATORVASTATIN 40 MG TAB PO SCH (07:34)
[2021-12-17] MEDS: PANTOprazole 40 MG TAB PO SCH (07:34)
[2021-12-17] MEDS: ADVANCED PROBIOTIC 1250 MG CAPSULE PO SCH (07:34)
[2021-12-17] MEDS: MULTIVITAMIN TAB PO SCH (07:35)
[2021-12-17] MEDS: NYSTATIN CR 15 GM TUBE EXT SCH (07:35)
[2021-12-17] MEDS: METOPROLOL TARTRATE 25 MG TAB PO SCH (07:35)
[2021-12-17] MEDS: ESCITALOPRAM OXALATE 10 MG TAB PO SCH (07:35)
[2021-12-17] MEDS: buPROPion XL 150 MG TABCR PO SCH (07:35)
[2021-12-17] MEDS: ENOXAPARIN INJ 40 MG/0.4 ML SYR SQ SCH (07:35)
[2021-12-17] MEDS: BENZONATATE 100 MG CAPSULE PO SCH (07:35)
[2021-12-17] MEDS: guaiFENesin 600 MG TABCR PO SCH (07:35)
[2021-12-17 07:54] LABS: Creatinine Clr Calc Pharmacy 46.2 ml/min; Est GFR (African American) 52.2 ml/min; Est GFR (Non-African American) 45.1 ml/min
[2021-12-17] MEDS: dexAMETHasone 6 MG in SYRINGE 0 ML IV SCH (10:13)
--- NOTE | 2021-12-17 17:17 | Discharge Summary ---
Date of Service December 17, 2021 Admission HPI Per Admitting Provider 76yo female with history of JESSI on CPAP, morbid obesity, hypothyroidism, HTN, and dementia presents from home with ~7 days of severe cough, b/l eye irritation, loss of taste/smell, fatigue, mild dyspnea on exertion, wheezing, and fever. She is unvaccinated against COVID, although she had clinical COVID several months ago (during that previous illness she also lost her taste/smell). Granddaughter is at bedside and states "she has bronchitis every year about this time." While in the ER she had episodes of hypoxia to <90% and NC O2 was applied. Principal Diagnosis COVID-19 positive test (U07.1, COVID-19) with Acute Pneumonia (J12.89, Other viral pneumonia) (If respiratory failure or sepsis present, add as separate assessment) Acute hypoxic respiratory failure Discharge Exam The patient appeared stable Vital signs as documented. Lungs are basilar crackles Cardiac exam, Rhythm is regular.. No murmurs, rubs or gallops. Abdominal exam reveals normal bowel sounds, soft non tender, no masses Extremities are nonedematous and both pedal pulses are normal. Neurologic exam is alert and oriented, no focal loss of strength or sensation Skin is without bruises or rashes Psychologically is without concerns for anxiety or depression. Discharge Data Allergies Allergy/AdvReac Type Severity Reaction Status Date / Time baclofen Allergy Mild FLUSHED Verified 12/12/21 15:00 FACE Consultations 12/12/21 15:04 ED Decision to Admit Stat Hospital Course (1) Acute respiratory failure with hypoxia: 2nd to COVID-19 pneumonia. Patient on after 2 step suggest 2 L of oxygen with exertion not at rest (2) Pneumonia due to COVID-19 virus: Mild-moderate. Received dexamethasone 6mg IV oral dexamethasone for 10-day total course She is about 6-7 days into her illness; thus, she is a Remdesivir candidate. Remdesivir completed infusion CRP is only mildly elevated, and O2 requirement is modest - thus, not a candidate for Baricitinib or Tocilizumab at the present time. Procal is negative; suspicion for bacterial superinfection is low - defer on abx. no diuretics at this time Coughing is all but resolved she may use [id number] antitussive agents (3) Moderate obstructive sleep apnea: Pt is on CPAP at home, family did bring to the hospital if possible. (4) Morbid obesity: BMI 48 (5) Anxiety and depression: Continue home meds return to home dosing of Wellbutrin wellbutrin. (6) Hypothyroidism: TSH mildly high today. Was high on last check as well. Repeat TSH as outpatient in 6 weeks. TSH abnormalities could be from illness (7) Acid reflux disease: Cont PPI (8) HTN (hypertension): Cont home meds - amlodipine, metoprolol, and aldactone. (9) Dementia: Cont aricept (10) Chronic renal failure, stage 3a: Baseline CrCl 40s BMP in am for stability Total Time Total Time Spent Total Time Spent (In Minutes): It required greater than 30 minutes to prepare this patient for discharge Discharge Plan Discharge Items Patient Disposition: Home - Self-Care Reason For Visit: COVID-19 PNEUMONIA;ACUTE HYPOXIC RESPIRATORY FAILU Discharge Diagnosis: Covid pneumonia low oxygen level Activity: Per Instructions section Activity Comment: please increase oxygen slowly Non-emergency contact: Primary Care Provider Call non-emergency contact if: you have any medication questions, your symptoms worsen and you have a fever Follow-up/Referrals: Alexy Mathur DO [Primary Care Provider] - Diet: Regular Addtl Attending Provider Instructions: You have been diagnosed with covid infection, it would be recommended that you quarantine yourself for 10 days from your first test or first symptoms, and if at the 10th day you have no symptoms the you can come off quarantine but use common sense precautions. Quarantine means attempting to stay away from people who have not had an active covid infection in the past, and if you have to be around others to wear a mask even if you are indoors, do not share a room to sleep in with others until you are out of quarantine. If you still have symptoms at the 10th day, continue to quarantine until you are symptom free for 48 hours wear oxygen when you are up and walking around and as needed at rest follow up wiht your primary care doctor to help determine when you need to stop the oxygen Pending Studies at Discharge: No Stand-Alone Forms: My [facility] [employer], Smoking Cessation Medications and DC Order Prescriptions: New dexamethasone [Decadron] 6 mg tablet 6 mg PO DAILY Qty: 6 RF: 0 (DME) Oxygen Home Liters Per Minute See Rx Instructions .ROUTE Qty: 2 RF: 0 Continued pantoprazole 40 mg tablet,delayed release (DR/EC) 40 mg PO BID Qty: 180 RF: 3 atorvastatin 40 mg tablet 40 mg PO QAM Qty: 90 RF: 3 spironolactone 50 mg tablet 50 mg PO Q12 Qty: 180 RF: 3 cholecalciferol (vitamin D3) [Vitamin D3] 25 mcg (1,000 unit) capsule 5,000 unit PO QPM RF: 0 donepezil 5 mg tablet 5 mg PO QPM Qty: 90 RF: 3 amlodipine 10 mg tablet 10 mg PO HS Qty: 90 RF: 3 levothyroxine 125 mcg tablet 125 mcg PO QAM Qty: 90 RF: 3 lamotrigine 200 mg tablet 200 mg PO HS RF: 0 nystatin 100,000 unit/gram cream 1 applic TOPICAL BID Qty: 4 RF: 5 oxybutynin chloride 5 mg tablet 5 mg PO BID PRN (Reason: bladder spasms) Qty: 180 RF: 3 metoprolol tartrate 25 mg tablet 25 mg PO BID Qty: 180 RF: 3 quetiapine [Seroquel] 25 mg tablet 25 mg PO DAILY Qty: 30 RF: 2 Lactobacillus acidoph-L.bulgar 1 million cell tablet 1 tab PO BID RF: 0 multivitamin Tablet 1 tab PO QAM RF: 0 bupropion HCl 150 mg tablet extended release 24 hr 150 mg PO QAM RF: 0 bupropion HCl 300 mg tablet extended release 24 hr 300 mg PO QAM RF: 0 escitalopram oxalate 10 mg tablet 10 mg PO DAILY RF: 0 omega-3 fatty acids 1,000 mg Capsule 1,000 mg PO DAILY RF: 0 Discharge Orders: Discharge Order (Routine); Ordered 12/17/21 Ordered By: Eddie Coles/Other Patient Handouts: Understanding Oxygen Therapy, Using Oxygen Safely, Traveling with Oxygen, Using an Oxygen Tank at Home, Oxygen Supplemental Admission Data Admit Date/Time: 12/12/21 15:37 Attending Provider: Eddie Amezquita Admit Provider: Irineo Pryor Primary Care Provider: Alexy Mathur Other Providers: Irineo Pryor Other Interventions: *Hourly Rounding Last Done: 12/17/21 16:00 *Nursing Shift Assessment Last Done: 12/17/21 13:59 Discharge Summary Assessment (RN) Last Done: 12/17/21 13:59 Coding Level of Care Code D/C DAY MANAGEMENT >30 MINS Diagnoses Acute respiratory failure with hypoxia J96.01 Pneumonia due to COVID-19 virus U07.1; J12.82 Moderate obstructive sleep apnea G47.33 Morbid obesity E66.01 Anxiety and depression F41.9; F32.9 Hypothyroidism E03.9 Acid reflux disease K21.9 HTN (hypertension) I10 Dementia F03.90 Chronic renal failure, stage 3a N18.31
== END 2021-12-17 16:06 | disposition home or self-care (01) | DRG 177 ==
LOC: ED 13:01 → 2S 15:37 → SUATTDRO 15:37 → 2S 18:36
DX: J12.82 Pneumonia due to coronavirus disease 2019; F41.8 Other specified anxiety disorders; F03.90 Unspecified dementia, unspecified severity, without behavioral disturbance, psychotic disturbance, mood disturbance, and anxiety; K21.9 Gastro-esophageal reflux disease without esophagitis; Z83.3 Family history of diabetes mellitus; Z96.653 Presence of artificial knee joint, bilateral; I12.9 Hypertensive chronic kidney disease with stage 1 through stage 4 chronic kidney disease, or unspecified chronic kidney disease; Z79.890 Hormone replacement therapy; G47.33 Obstructive sleep apnea (adult) (pediatric); E03.9 Hypothyroidism, unspecified; E66.01 Morbid (severe) obesity due to excess calories; Z88.8 Allergy status to other drugs, medicaments and biological substances; U07.1 COVID-19; J96.01 Acute respiratory failure with hypoxia; Z68.42 Body mass index [BMI] 45.0-49.9, adult; N18.31 Chronic kidney disease, stage 3a

== ENCOUNTER 2023-03-19 00:25 | Inpatient (IN) ==
[2023-03-19] MEDS ORDERED: fentaNYL citrate PF 100 MCG/2 ML VIAL IV STA ×2 (00:34→01:31)
--- NOTE | 2023-03-19 00:51 | Emergency Department Note ---
History of Present Illness General Chief complaint: Fall Stated complaint: FALL/rt. ANKLE PAIN AND SWELLING History of Present Illness Maximum Pain Intensity: 8 78-year-old female presents emergency department via EMS reportedly she states that she was trying to get into her car she fell backwards landing on her right ankle. Patient did not hit her head. This occurred around 7 PM this evening. Patient states that she has been walking on her leg since the event. Patient then had increased pain at home and called EMS. Patient states pain is moderate increases with any motion of her ankle. There are no other mitigating or alleviating factors. There is no other reported trauma. Patient has seen Dr. Siu from orthopedics in the past. Home Medications Medication Instructions Recorded Confirmed Type bupropion HCl 150 mg 24 hr tablet, 150 mg PO QAM 12/01/18 03/19/23 History extended release multivitamin 1 tab PO QAM 12/01/18 03/19/23 History lamotrigine 200 mg tablet 200 mg PO HS 09/18/19 03/19/23 History bupropion HCl 300 mg 24 hr tablet, 300 mg PO QAM 11/28/19 03/19/23 History extended release quetiapine 25 mg tablet (Seroquel) 25 mg PO DAILY #30 tabs 04/27/20 03/19/23 Rx Lactobacillus acidoph-L.bulgaricus 1 tab PO BID 07/20/20 03/19/23 History 1 million cell tablet cholecalciferol (vitamin D3) 25 5,000 unit PO QPM 06/06/21 03/19/23 History mcg (1,000 unit) capsule (Vitamin D3) omega-3 fatty acids 1,000 mg 1,000 mg PO DAILY 12/12/21 03/19/23 History capsule escitalopram oxalate 10 mg tablet 10 mg PO DAILY #90 tabs 02/22/22 03/19/23 Rx amlodipine 10 mg tablet 10 mg PO HS #90 tabs 11/16/22 03/19/23 Rx atorvastatin 40 mg tablet 40 mg PO QAM #90 tabs 12/25/22 03/19/23 Rx metoprolol tartrate 25 mg tablet 25 mg PO BID #180 tabs 12/25/22 03/19/23 Rx donepezil 5 mg tablet 5 mg PO QPM #90 tabs 02/14/23 03/19/23 Rx spironolactone 50 mg tablet 50 mg PO Q12 #180 tabs 02/14/23 03/19/23 Rx pantoprazole 40 mg tablet,delayed 40 mg PO BID #180 tabs 03/06/23 03/19/23 Rx release levothyroxine 125 mcg tablet 125 mcg PO DAILY #90 tabs 03/14/23 03/19/23 Rx cranberry fruit 450 mg tablet 450 mg PO DAILY 03/19/23 03/19/23 History (cranberry) nystatin 100,000 unit/gram topical 1 applic topical BID PRN yeast 03/19/23 03/19/23 History cream oxybutynin chloride 5 mg tablet 5 mg PO BID 03/19/23 03/19/23 History Allergies Allergy/AdvReac Type Severity Reaction Status Date / Time baclofen Allergy Mild FLUSHED Verified 02/22/23 13:49 FACE Past Med/Surg History Medical History Electrolyte imbalance Fever Hernia, incisional History of kidney stones Hypokalemia Hypomagnesemia Hypophosphatemia Nausea Osteoarthritis Pneumonia due to COVID-19 virus SIRS (systemic inflammatory response syndrome) Surgical History History of bilateral cataract extraction History of bilateral tubal ligation History of colon surgery abscess removal @ [facility] History of colonoscopy History of cystoscopy History of dilatation and curettage History of repair of left rotator cuff History of repair of right rotator cuff History of total hysterectomy with bilateral salpingo-oophorectomy (BSO) History of total left knee replacement (TKR) History of total right knee replacement (TKR) History of wisdom tooth extraction Hx of cholecystectomy Family History Father , hepatocellular cancer? Family history of diabetes mellitus Myocardial infarction Cancer Grandmother (Paternal) Family history of diabetes mellitus Other Coronary heart disease Family history non-contributory No family history of adverse response to anesthesia Denies family history of Ovarian cancer Prostate cancer Breast cancer Colorectal cancer Social History Smoking Status: Never smoker Second Hand Exposure: No; Do You Dip or Chew Tobacco: No; Hx Alcohol Use: No Hx Substance Use: No Preferred Language: Citizen [place] Communication Ability: Effective Visual Impairment: Limited Hearing Ability: Normal Epoxy Specialist Required: No Beliefs That Will Affect Care: None marital status: / Current Living Situation: Alone current occupational status: retired How many Children do You have: 2 Feels Safe at Home: Yes Childhood Exposure to Second-Hand Smoke: No Diet: low salt caffeine: Yes during the past year weight has: remained stable Dental Care, Regularly: Yes Physical Activity Frequency: Does not Exercise Seatbelt Use: never Sunscreen Use: No Assistive Devices: Cane and Walker Review of Systems A total of 10 systems reviewed and were otherwise negative Musculoskeletal: + joint pain, + deformity and + limited range of motion Physical Exam Vital Signs Vital Signs - 24 hr 03/19/23 00:30 03/19/23 00:30 03/19/23 00:35 Temperature 36.9 C Temperature Source Temporal Artery Scan Pulse Rate 73 68 Pulse Rate [Finger] 70 Respiratory Rate 20 20 Respiratory Effort / Characteristics Non-Labored Spontaneous Respiratory Depth Normal Blood Pressure 177/82 H Blood Pressure [Right Arm] 177/82 H Blood Pressure Mean 113 Blood Pressure Mean [Right Arm] 113 Pulse Oximetry 97 97 96 Oxygen Delivery Method Room Air Room Air Sepsis Recent Fever Within 48 Hours No Sepsis New/Unexplained Change in Mental Status N/A Sepsis Action Taken by Nursing No Action Required 03/19/23 00:50 Temperature Temperature Source Pulse Rate 64 Pulse Rate [Finger] Respiratory Rate Respiratory Effort / Characteristics Respiratory Depth Blood Pressure Blood Pressure [Right Arm] Blood Pressure Mean Blood Pressure Mean [Right Arm] Pulse Oximetry Oxygen Delivery Method Sepsis Recent Fever Within 48 Hours Sepsis New/Unexplained Change in Mental Status Sepsis Action Taken by Nursing GENERAL: Patient is awake alert in no acute distress patient is resting comfortably and showing no signs of anxiety EYES: The conjunctivae are clear. The pupils are round and reactive. EARS, NOSE, MOUTH AND THROAT: The nose is without any evidence of any deformity. Mucous membranes are moist. Tongue is midline. NECK: The neck is nontender and supple. RESPIRATORY: Normal respiratory effort is noted there is no evidence of wheezing rhonchi or rales CARDIOVASCULAR: Regular rate and rhythm noted there no murmurs rubs or gallops normal S1 normal S2. GASTROINTESTINAL: The abdomen is soft. Abdomen is nontender. PELVIS: The Pelvis is stable. No tenderness to palpation is noted. BACK: No midline tenderness or or step-off noted range of motion in flexion extension as well as rotation no signs of muscle spasm noted MUSCULOSKELETAL/EXTREMITIES: There is no evidence of gross deformity full range of motion is noted in the hips and shoulders. Patient has an obvious deformity of the right ankle with ecchymosis and edema that circumferential. Patient has tenderness in the anterior ankle, patient is neurovascularly intact distally SKIN: There is no obvious evidence of any rash. There are no petechiae, pallor or cyanosis noted. NEUROLOGIC: Patient is awake alert and oriented x3 strength is symmetric Procedures Orthopedic Fracture Reduction Fracture #1: Time Out Performed: Yes Side: right Fracture Reduction Location: fibula and other (ankle) Analgesia: none Technique: direct manipulation Post Reduction X-rays Demonstrate: anatomical reduction Post-reduction neuro exam: intact Post-reduction vascular exam: intact Splint Applied: Yes Patient Tolerated Procedure: well Additional Comments: Patient was given IV fentanyl, patient had reduction of the by mouth fracture with mortise disruption. Patient was neurovascularly intact distally. Patient was placed in a splint by the drivability technician and was intact after the splint application Course Reevaluation(s) Reevaluation #1: Patient was given 2 doses of IV fentanyl, patient was placed in a splint by the drivability technician. Patient is in no current distress. Time: 02:20 Consultations Consultation #1: Case was discussed with the [facility] hospitalist for admission Time: 02:20 Administered Medications Discontinued Medications Fentanyl Citrate (Fentanyl Citrate Pf 100 Mcg/2 Ml Vial) 50 mcg IV NOW STA Stop: 03/19/23 00:35 Last Admin: 03/19/23 00:38 Dose: 50 mcg Documented By: SADIQ Fentanyl Citrate (Fentanyl Citrate Pf 100 Mcg/2 Ml Vial) 50 mcg IV NOW STA Stop: 03/19/23 01:32 Last Admin: 03/19/23 02:03 Dose: 50 mcg Documented By: SADIQ Medical Decision Making Medical Records Attestation: I reviewed the patient's medical records. Home Medications Current Medication List: was personally reviewed by me Laboratory Data Attestation: I reviewed the patient's lab results. 03/19/23 00:35 03/19/23 00:35 Lab Results 03/19/23 03/19/23 03/19/23 Range/Units 00:35 00:35 00:35 WBC 11.60 H (4.8-10.8) K/ul RBC 4.60 (4.20-5.40) M/uL Hgb 14.4 (12.0-16.0) g/dl Hct 42.2 (37.0-47.0) % MCV 91.7 (80.0-100.0) fL MCH 31.3 (25.0-34.0) pg MCHC 34.1 (32.0-36.0) g/dL RDW Std Deviation 44.3 (36.4-46.3) fL RDW Coeff of Randy 13.1 (11.5-14.5) % Plt Count 268 (130-400) K/uL MPV 10.7 (9.4-12.4) fL Immature Gran % (Auto) 0.2 % Neut % (Auto) 69.9 % Lymph % (Auto) 20.9 % Elliott % (Auto) 7.7 % Eos % (Auto) 0.5 % Baso % (Auto) 0.8 % Neut # (Auto) 8.11 H (1.40-6.50) K/uL Lymph # (Auto) 2.43 (1.2-3.4) K/uL Elliott # (Auto) 0.89 H (0.11-0.59) K/uL Eos # (Auto) 0.06 (0-0.50) K/uL Baso # (Auto) 0.09 (0-0.2) K/uL Immature Gran # (Auto) 0.02 (0.01-0.20) K/uL PT 10.3 (9.0-12.0) Seconds INR 0.9 (0.9-1.1) Sodium 137 (136-145) mmol/L Potassium 5.1 (3.5-5.1) mmol/L Chloride 104 (98-107) mmol/L Carbon Dioxide 24 (21-32) mmol/L Anion Gap 9 (3-11) BUN 36 H (6-23) mg/dl Creatinine 2.06 H (0.6-1.2) mg/dl Est Cr Clr Drug Dosing 26.2 ml/min Est GFR ( Amer) 25.7 ml/min Est GFR (Non-Af Amer) 22.2 ml/min BUN/Creatinine Ratio 17.5 (10-20) Glucose 150 H (70-99(Fasting)) mg/dl Calcium 9.2 (8.6-10.3) mg/dl Total Bilirubin 0.6 (0.2-1.0) mg/dl AST 20 (13-39) U/L ALT 22 (7-52) U/L Alkaline Phosphatase 115 H (34-104) U/L Total Protein 7.3 (6.0-8.3) gm/dl Albumin 4.0 (3.4-5.0) gm/dl Globulin 3.3 (2.5-4.0) gm/dl Albumin/Globulin Ratio 1.2 (0.9-2) Imaging Data Attestation: I personally reviewed and interpreted this imaging study as amaury ws: My Impression: Right foot and ankle x-rays interpreted by me positive for by mall fracture with mortise disruption; repeat x-ray after reduction there appears to be anatomical alignment of the mortise MDM Narrative Medical decision making differential diagnosis includes sprain strain contusion fracture fracture dislocation Plan is to check labs, x-ray Impression & Plan Bimalleolar fracture of right ankle, Fall Discharge Plan Visit Data Chief Complaint: Fall Stated Complaint: FALL/rt. ANKLE PAIN AND SWELLING ED Provider: Girish Green Discharge Problem: Bimalleolar fracture of right ankle, Fall Patient Disposition: Admitted As Inpatient Forms Stand Alone Forms: My [facility] Prescriptions Prescriptions: No Action cholecalciferol (vitamin D3) [Vitamin D3] 25 mcg (1,000 unit) capsule 5,000 unit PO QPM escitalopram oxalate 10 mg tablet 10 mg PO DAILY Qty: 90 3RF amlodipine 10 mg tablet 10 mg PO HS Qty: 90 3RF atorvastatin 40 mg tablet 40 mg PO QAM Qty: 90 0RF metoprolol tartrate 25 mg tablet 25 mg PO BID Qty: 180 0RF donepezil 5 mg tablet 5 mg PO QPM Qty: 90 3RF spironolactone 50 mg tablet 50 mg PO Q12 Qty: 180 3RF pantoprazole 40 mg tablet,delayed release (DR/EC) 40 mg PO BID Qty: 180 3RF levothyroxine 125 mcg tablet 125 mcg PO DAILY Qty: 90 3RF lamotrigine 200 mg tablet 200 mg PO HS quetiapine [Seroquel] 25 mg tablet 25 mg PO DAILY Qty: 30 2RF Lactobacillus acidoph-L.bulgar 1 million cell tablet 1 tab PO BID Rx Instructions: administer with food or milk multivitamin Tablet 1 tab PO QAM bupropion HCl 150 mg tablet extended release 24 hr 150 mg PO QAM bupropion HCl 300 mg tablet extended release 24 hr 300 mg PO QAM omega-3 fatty acids 1,000 mg Capsule 1,000 mg PO DAILY cranberry 450 mg Tablet 450 mg PO DAILY Rx Instructions: administer with a meal nystatin 100,000 unit/gram cream 1 applic TOPICAL BID PRN (Reason: yeast) oxybutynin chloride 5 mg tablet 5 mg PO BID Referrals Referrals: Alexy Mathur DO [Primary Care Provider] -
[2023-03-19 00:55] LABS: Basophils # (auto) 0.09 K/uL (0-0.2); Basophils % (auto) 0.8 %; Eosinophils # (auto) 0.06 K/uL (0-0.50); Eosinophils % (auto) 0.5 %; Hematocrit (blood only) 42.2 % (37.0-47.0); Hemoglobin 14.4 g/dl (12.0-16.0); Immature Granulocytes # (auto) 0.02 K/uL (0.01-0.20); Immature Granulocytes % (auto) 0.2 %; Lymphocytes # (auto) 2.43 K/uL (1.2-3.4); Lymphocytes % (auto) 20.9 %; Mean Corpuscular Hemoglobin 31.3 pg (25.0-34.0); Mean Corpuscular Hgb Conc 34.1 g/dL (32.0-36.0); Mean Corpuscular Volume 91.7 fL (80.0-100.0); Mean Platelet Volume 10.7 fL (9.4-12.4); Monocytes # (auto) 0.89 K/uL (0.11-0.59); Monocytes % (auto) 7.7 %; Neutrophils # (auto) 8.11 K/uL (1.40-6.50); Neutrophils % (auto) 69.9 %; Platelet Count 268 K/uL (130-400); RDW Coefficient of Variation 13.1 % (11.5-14.5); RDW Standard Deviation 44.3 fL (36.4-46.3)
[2023-03-19 01:30] LABS: INR 0.9 (0.9-1.1); Prothrombin Time 10.3 Seconds (9.0-12.0)
[2023-03-19 01:38] LABS: Albumin Globulin Ratio 1.2 (0.9-2); BUN Creatinine Ratio 17.5 (10-20); Bilirubin,Total 0.6 mg/dl (0.2-1.0); Calcium 9.2 mg/dl (8.6-10.3); Creatinine Clr Calc Pharmacy 26.2 ml/min; Est GFR (African American) 25.7 ml/min; Est GFR (Non-African American) 22.2 ml/min; Globulin 3.3 gm/dl (2.5-4.0); Total Protein 7.3 gm/dl (6.0-8.3)
[2023-03-19 01:40] LABS: Potassium 5.1 mmol/L (3.5-5.1)
--- NOTE | 2023-03-19 02:58 | Emergency Department Note ---
ED Visit Note I assisted my attending with the reduction of the ankle dislocation. With the knee flexed, the ankle was reduced with inline traction and postreduction films show improved alignment. Patient was splinted and admitted to the medical service. Neurovascular status was rechecked after procedure and is intact. Patient tolerated procedure well. .
[2023-03-19] MEDS: SODIUM CHLORIDE 0.9% 1000ML 1,000 ML IV SCH (03:58)
--- NOTE | 2023-03-19 04:09 | History & Physical Report ---
Date of Service March 19, 2023 Assessment & Plan (1) Bimalleolar fracture of right ankle: (2) Fall: (3) Chronic renal failure, stage 3a: (4) Anxiety and depression: (5) Acid reflux disease: (6) Hypothyroidism: (7) Moderate obstructive sleep apnea: (8) Hyperlipemia: (9) Morbid obesity: (10) HTN (hypertension): (11) Insomnia: Plan Closed bimalleolar fracture of right ankle- Reduced in the ED NPO except medications Acetaminophen 650 mg every 6 hours as needed for mild pain or fever Viola 5/325, 1 every 4 hours as needed for moderate pain Dilaudid 0.25 mg IV every 3 hours as needed for severe pain Zofran 4 mg IV every 6 hours as needed NSS at 80 mils per hour Consult orthopedic surgery Acute kidney injury on CKD stage IIIa- Creatinine 2.06 on admission, with base 1.84 Placed on normal saline at 80 mils per hour Hold spironolactone Recheck laboratories in a.m. Hypertension- Continue amlodipine, metoprolol tartrate Hold spironolactone Anxiety and depression/dementia- Continue bupropion, donepezil, escitalopram, lamotrigine and Seroquel Hyperlipidemia- Continue atorvastatin GERD- Continue pantoprazole Hypothyroidism- Continue levothyroxine History of Present Illness Chief Complaint: The patient reports that she was getting into her car, fell backwards, landing on her right ankle, developed some pain, but continued to walk on it for several hours, and when the pain became too severe, she came to the ED for assessment Primary Care Provider: Alexy Mathur DO The patient is an 78-year-old female with a past medical history including CKD stage IIIa, acute respiratory failure with hypoxia, UTI, orthostatic hypotension, anxiety and depression, GERD, hypothyroidism, moderate JESSI, hyperlipidemia, morbid obesity, hypertension, rectocele, lumbar discitis, insomnia, dementia, proteinuria and chronic lumbar pain. Patient presents to the emergency department as noted above. X-rays in emergency department showed a closed displaced bimalleolar left ankle fracture Allergies Allergy/AdvReac Type Severity Reaction Status Date / Time baclofen Allergy Mild FLUSHED Verified 02/22/23 13:49 FACE Home Medications Medication Instructions Recorded Confirmed Type bupropion HCl 150 mg 24 hr tablet, 150 mg PO QAM 12/01/18 03/19/23 History extended release multivitamin 1 tab PO QAM 12/01/18 03/19/23 History lamotrigine 200 mg tablet 200 mg PO HS 09/18/19 03/19/23 History bupropion HCl 300 mg 24 hr tablet, 300 mg PO QAM 11/28/19 03/19/23 History extended release quetiapine 25 mg tablet (Seroquel) 25 mg PO DAILY #30 tabs 04/27/20 03/19/23 Rx Lactobacillus acidoph-L.bulgaricus 1 tab PO BID 07/20/20 03/19/23 History 1 million cell tablet cholecalciferol (vitamin D3) 25 5,000 unit PO QPM 06/06/21 03/19/23 History mcg (1,000 unit) capsule (Vitamin D3) omega-3 fatty acids 1,000 mg 1,000 mg PO DAILY 12/12/21 03/19/23 History capsule escitalopram oxalate 10 mg tablet 10 mg PO DAILY #90 tabs 02/22/22 03/19/23 Rx amlodipine 10 mg tablet 10 mg PO HS #90 tabs 11/16/22 03/19/23 Rx atorvastatin 40 mg tablet 40 mg PO QAM #90 tabs 12/25/22 03/19/23 Rx metoprolol tartrate 25 mg tablet 25 mg PO BID #180 tabs 12/25/22 03/19/23 Rx donepezil 5 mg tablet 5 mg PO QPM #90 tabs 02/14/23 03/19/23 Rx spironolactone 50 mg tablet 50 mg PO Q12 #180 tabs 02/14/23 03/19/23 Rx pantoprazole 40 mg tablet,delayed 40 mg PO BID #180 tabs 03/06/23 03/19/23 Rx release levothyroxine 125 mcg tablet 125 mcg PO DAILY #90 tabs 03/14/23 03/19/23 Rx cranberry fruit 450 mg tablet 450 mg PO DAILY 03/19/23 03/19/23 History (cranberry) nystatin 100,000 unit/gram topical 1 applic topical BID PRN yeast 03/19/23 03/19/23 History cream oxybutynin chloride 5 mg tablet 5 mg PO BID 03/19/23 03/19/23 History Past Med/Surg History Medical History Electrolyte imbalance Fever Hernia, incisional History of kidney stones Hypokalemia Hypomagnesemia Hypophosphatemia Nausea Osteoarthritis Pneumonia due to COVID-19 virus SIRS (systemic inflammatory response syndrome) Surgical History History of bilateral cataract extraction History of bilateral tubal ligation History of colon surgery abscess removal @ [facility] History of colonoscopy History of cystoscopy History of dilatation and curettage History of repair of left rotator cuff History of repair of right rotator cuff History of total hysterectomy with bilateral salpingo-oophorectomy (BSO) History of total left knee replacement (TKR) History of total right knee replacement (TKR) History of wisdom tooth extraction Hx of cholecystectomy Family History Father , hepatocellular cancer? Family history of diabetes mellitus Myocardial infarction Cancer Grandmother (Paternal) Family history of diabetes mellitus Other Coronary heart disease Family history non-contributory No family history of adverse response to anesthesia Denies family history of Ovarian cancer Prostate cancer Breast cancer Colorectal cancer Social History Smoking Status: Never smoker Second Hand Exposure: No; Do You Dip or Chew Tobacco: No; Hx Alcohol Use: No Hx Substance Use: No Preferred Language: Greenlandic Communication Ability: Effective Visual Impairment: Limited Hearing Ability: Normal Swimming Instructor Required: No Beliefs That Will Affect Care: None marital status: / Current Living Situation: Alone current occupational status: retired How many Children do You have: 2 Feels Safe at Home: Yes Childhood Exposure to Second-Hand Smoke: No Diet: low salt caffeine: Yes during the past year weight has: remained stable Dental Care, Regularly: Yes Physical Activity Frequency: Does not Exercise Seatbelt Use: never Sunscreen Use: No Assistive Devices: Cane and Walker Review of Systems Review of Systems: The patient denies chest pain, palpitations, shortness of breath, dyspnea on exertion, cough, lower extremity swelling, sore throat, fevers, chills, sweats, weight change, fatigue, nausea, vomiting, diarrhea , constipation, abdominal pain, pelvic pain, blood in urine or stool, dysuria, urinary frequency or urgency, lightheadedness, dizziness, headache, memory loss, loss of consciousness, rash, abnormal bruising or bleeding, focal or generalized weakness, numbness or tingling in arms or left leg, generalized arthralgias or myalgias, neck pain, or night sweats. The review of systems is otherwise negative other than for that already noted above, and at least 10 systems have been reviewed. Physical Exam Physical Exam: The patient is awake, alert and oriented 3, well developed and well nourished, normocephalic and atraumatic, lying in bed and in no acute distress. HEENT--PERRL, EOMI, mucous membranes and oropharynx dry. Neck--supple. No JVD. No bruits. Thyroid normal, trachea midline, no adenopathy. Heart--normal S1 and S2. No murmurs, rubs or gallops. Lungs--clear bilaterally, no respiratory distress, no accessory muscle use. Abdomen--normal bowel sounds and soft. Nontender. Nondistended. Morbidly obese Extremities--no cyanosis or clubbing. Right ankle and leg below knee immobil ized Dermatologic--normal skin turgor, normal color, no abnormal lymph nodes, no rash. Neurologic--cranial nerves II through XII grossly intact. Rheumatologic--normal range of motion except for right lower extremity/ankle Psychiatric--normal affect. Results & Data Results & Data Vital Signs (Past 12 Hours) Vital Signs Temp Pulse Pulse Resp BP BP Pulse Ox 03/19/23 02:47 73 20 166/76 H 94 03/19/23 00:50 64 03/19/23 00:35 68 96 03/19/23 00:30 70 20 177/82 H 97 03/19/23 00:30 36.9 C 73 20 177/82 H 97 O2 Del Method 03/19/23 02:47 Room Air 03/19/23 00:50 03/19/23 00:35 03/19/23 00:30 Room Air 03/19/23 00:30 Room Air Laboratory Results Laboratory Results WBC 11.60 K/ul (4.8-10.8) H 03/19/23 00:35 RBC 4.60 M/uL (4.20-5.40) 03/19/23 00:35 Hgb 14.4 g/dl (12.0-16.0) 03/19/23 00:35 Hct 42.2 % (37.0-47.0) 03/19/23 00:35 MCV 91.7 fL (80.0-100.0) 03/19/23 00:35 MCH 31.3 pg (25.0-34.0) 03/19/23 00:35 MCHC 34.1 g/dL (32.0-36.0) 03/19/23 00:35 RDW Std Deviation 44.3 fL (36.4-46.3) 03/19/23 00:35 RDW Coeff of Randy 13.1 % (11.5-14.5) 03/19/23 00:35 Plt Count 268 K/uL (130-400) 03/19/23 00:35 MPV 10.7 fL (9.4-12.4) 03/19/23 00:35 Immature Gran % (Auto) 0.2 % 03/19/23 00:35 Neut % (Auto) 69.9 % 03/19/23 00:35 Lymph % (Auto) 20.9 % 03/19/23 00:35 [place] % (Auto) 7.7 % 03/19/23 00:35 Eos % (Auto) 0.5 % 03/19/23 00:35 Baso % (Auto) 0.8 % 03/19/23 00:35 Neut # (Auto) 8.11 K/uL (1.40-6.50) H 03/19/23 00:35 Lymph # (Auto) 2.43 K/uL (1.2-3.4) 03/19/23 00:35 [place] # (Auto) 0.89 K/uL (0.11-0.59) H 03/19/23 00:35 Eos # (Auto) 0.06 K/uL (0-0.50) 03/19/23 00:35 Baso # (Auto) 0.09 K/uL (0-0.2) 03/19/23 00:35 Immature Gran # (Auto) 0.02 K/uL (0.01-0.20) 03/19/23 00:35 PT 10.3 Seconds (9.0-12.0) 03/19/23 00:35 INR 0.9 (0.9-1.1) 03/19/23 00:35 Sodium 137 mmol/L (136-145) 03/19/23 00:35 Potassium 5.1 mmol/L (3.5-5.1) 03/19/23 00:35 Chloride 104 mmol/L (98-107) 03/19/23 00:35 Carbon Dioxide 24 mmol/L (21-32) 03/19/23 00:35 Anion Gap 9 (3-11) 03/19/23 00:35 BUN 36 mg/dl (6-23) H 03/19/23 00:35 Creatinine 2.06 mg/dl (0.6-1.2) H 03/19/23 00:35 Est Cr Clr Drug Dosing 26.2 ml/min 03/19/23 00:35 Est GFR ( Amer) 25.7 ml/min 03/19/23 00:35 Est GFR (Non-Af Amer) 22.2 ml/min 03/19/23 00:35 BUN/Creatinine Ratio 17.5 (10-20) 03/19/23 00:35 Glucose 150 mg/dl (70-99(Fasting)) H 03/19/23 00:35 Calcium 9.2 mg/dl (8.6-10.3) 03/19/23 00:35 Total Bilirubin 0.6 mg/dl (0.2-1.0) 03/19/23 00:35 AST 20 U/L (13-39) 03/19/23 00:35 ALT 22 U/L (7-52) 03/19/23 00:35 Alkaline Phosphatase 115 U/L (34-104) H 03/19/23 00:35 Total Protein 7.3 gm/dl (6.0-8.3) 03/19/23 00:35 Albumin 4.0 gm/dl (3.4-5.0) 03/19/23 00:35 Globulin 3.3 gm/dl (2.5-4.0) 03/19/23 00:35 Albumin/Globulin Ratio 1.2 (0.9-2) 03/19/23 00:35 SARS-CoV-2, RNA, NAAT NEGATIVE (NEGATIVE) 03/19/23 02:02 Code Status & VTE Plan Code Status Full code VTE Prophylaxis Plan VTE Prophylaxis will be ordered: Yes PG Care Time/CCT Total # of Minutes Spent Total Time Spent with Patient: Total time spent is greater than 50% in coordination of care (as documented) at patient's floor/unit and/or counseling patient: Coding Level of Care Code 45237 INT INP/OBS CARE 3/75MIN Diagnoses Bimalleolar fracture of right ankle S82.841A Fall W19.XXXA Chronic renal failure, stage 3a N18.31 Anxiety and depression F41.9; F32.9 Acid reflux disease K21.9 Hypothyroidism E03.9 Moderate obstructive sleep apnea G47.33 Hyperlipemia E78.5 Morbid obesity E66.01 HTN (hypertension) I10 Insomnia G47.00
[2023-03-19] MEDS ORDERED: HYDROmorphone INJ 0.5 MG/0.5 ML SYR IV PRN (04:50)
[2023-03-19] MEDS: LEVOTHYROXINE SODIUM 125 MCG TABLET PO SCH (06:04)
--- NOTE | 2023-03-19 07:25 | XRay Report ---
RIGHT ANKLE 2 VIEWS CLINICAL HISTORY: Right ankle injury and deformity. FINDINGS: Crosstable AP and lateral views of the right ankle are obtained. No prior studies are avail able for comparison at the time of dictation. The skeletal structures are osteopenic. There is a comm inuted and displaced spiral fracture of the distal fibula with overriding of fragments. The largest f ragments are displaced laterally by up to 5 mm. There is also fracture at the articular surface of th e distal tibia with displaced bony fragments. There is dislocation of the ankle joint. The talus is d islocated laterally by approximately 2 cm and dorsally by approximately 1 cm. There is an associated joint effusion, with significant soft tissue edema around the ankle. There are large dorsal and plant ar heel spurs. Calcification is seen along the distal Achilles tendon. There is degenerative spurring along the dorsal aspect of the tarsal bones. IMPRESSION: Fracture/dislocation at the right ankle joint as above. Electronically signed by: Da Bhardwaj M.D. 03/19/2023 7:23 AM
--- NOTE | 2023-03-19 07:38 | XRay Report ---
RIGHT FOOT 2 VIEWS CLINICAL HISTORY: Right foot injury. FINDINGS: Crosstable AP and lateral views of the right foot are obtained. No prior studies are availa ble for comparison at the time of dictation. The skeletal structures are osteopenic. There are distal tibial and fibular fractures with dislocation at the ankle joint. No additional fracture is seen thr oughout the right foot. Moderate osteoarthritic change is seen throughout the foot. There are large d orsal and plantar heel spurs. Calcification is seen along the course of the Achilles tendon. Spurring is noted along the dorsal aspect of the tarsal bones. Diffuse soft tissue edema is present throughou t the foot and ankle. IMPRESSION: 1. Fracture/dislocation at the ankle joint. 2. No additional fracture is seen throughout the foot. 3. Osteopenia with arthritic change and large heel spurs as above. Electronically signed by: Da Bhardwaj M.D. 03/19/2023 7:36 AM
--- NOTE | 2023-03-19 08:02 | XRay Report ---
RIGHT ANKLE 2 VIEWS CLINICAL HISTORY: Postreduction examination. FINDINGS: AP and crosstable lateral views of the right ankle are compared to study performed earlier the same day 03/19/2023. The examination is performed through a splint, obscuring fine bony detail. Th e skeletal structures are osteopenic. Alignment at the dislocated ankle joint as significantly improv ed. There is only minimal residual anterior subluxation of the talus. Again seen is a mildly displace d and comminuted spiral fracture of the distal fibular shaft. Fragments are offset by about 2 4 mm. T here is also fracture of the distal tibia at the articular surface with displaced fragments. There is a joint effusion. Significant soft tissue edema is seen around the ankle. Large heel spurs are again noted. IMPRESSION: Significant improved postreduction alignment of distal tibial and fibular fractures as ab ove. Electronically signed by: Da Bhardwaj M.D. 03/19/2023 7:59 AM
--- NOTE | 2023-03-19 08:30 | Orthopedic Consultation ---
Date of Service March 19, 2023 Assessment & Plan (1) Bimalleolar fracture of right ankle: We discussed diagnosis and treatment options at bedside. I recommended open reduction internal fixation of the right ankle. She understands the risk, benefits, and alternatives to procedure elected to proceed. Questions were answered. Time was spent scribing the procedure and postop expectations. The decision was made to proceed with surgery. She is currently NPO. We plan on doing the procedure later this afternoon. History of Present Illness Reason for Consultation: Right bimalleolar ankle fracture. Requesting Physician: . Attending Physician: Dejan Frances MD Sara is a pleasant 78-year-old female who was getting out of her car yesterday when she fell backwards. She twisted her right ankle. She was able to walk on it for a little bit but the ankle pain became too severe. She came to the emergency room and radiographs demonstrated a displaced bimalleolar ankle fracture. She had a closed reduction in the emergency room. She was admitted to the medical service. Orthopedics was consulted to evaluate and treat.. Allergies Allergy/AdvReac Type Severity Reaction Status Date / Time baclofen Allergy Mild FLUSHED Verified 02/22/23 13:49 FACE Home Medications Medication Instructions Recorded Confirmed Type bupropion HCl 150 mg 24 hr tablet, 150 mg PO QAM 12/01/18 03/19/23 History extended release multivitamin 1 tab PO QAM 12/01/18 03/19/23 History lamotrigine 200 mg tablet 200 mg PO HS 09/18/19 03/19/23 History bupropion HCl 300 mg 24 hr tablet, 300 mg PO QAM 11/28/19 03/19/23 History extended release quetiapine 25 mg tablet (Seroquel) 25 mg PO DAILY #30 tabs 04/27/20 03/19/23 Rx Lactobacillus acidoph-L.bulgaricus 1 tab PO BID 07/20/20 03/19/23 History 1 million cell tablet cholecalciferol (vitamin D3) 25 5,000 unit PO QPM 06/06/21 03/19/23 History mcg (1,000 unit) capsule (Vitamin D3) omega-3 fatty acids 1,000 mg 1,000 mg PO DAILY 12/12/21 03/19/23 History capsule escitalopram oxalate 10 mg tablet 10 mg PO DAILY #90 tabs 02/22/22 03/19/23 Rx amlodipine 10 mg tablet 10 mg PO HS #90 tabs 11/16/22 03/19/23 Rx atorvastatin 40 mg tablet 40 mg PO QAM #90 tabs 12/25/22 03/19/23 Rx metoprolol tartrate 25 mg tablet 25 mg PO BID #180 tabs 12/25/22 03/19/23 Rx donepezil 5 mg tablet 5 mg PO QPM #90 tabs 02/14/23 03/19/23 Rx spironolactone 50 mg tablet 50 mg PO Q12 #180 tabs 02/14/23 03/19/23 Rx pantoprazole 40 mg tablet,delayed 40 mg PO BID #180 tabs 03/06/23 03/19/23 Rx release levothyroxine 125 mcg tablet 125 mcg PO DAILY #90 tabs 03/14/23 03/19/23 Rx cranberry fruit 450 mg tablet 450 mg PO DAILY 03/19/23 03/19/23 History (cranberry) nystatin 100,000 unit/gram topical 1 applic topical BID PRN yeast 03/19/23 03/19/23 History cream oxybutynin chloride 5 mg tablet 5 mg PO BID 03/19/23 03/19/23 History Past Med/Surg History Medical History Electrolyte imbalance Fever Hernia, incisional History of kidney stones Hypokalemia Hypomagnesemia Hypophosphatemia Nausea Osteoarthritis Pneumonia due to COVID-19 virus SIRS (systemic inflammatory response syndrome) Surgical History History of bilateral cataract extraction History of bilateral tubal ligation History of colon surgery abscess removal @ [facility] History of colonoscopy History of cystoscopy History of dilatation and curettage History of repair of left rotator cuff History of repair of right rotator cuff History of total hysterectomy with bilateral salpingo-oophorectomy (BSO) History of total left knee replacement (TKR) History of total right knee replacement (TKR) History of wisdom tooth extraction Hx of cholecystectomy Family History Father , hepatocellular cancer? Family history of diabetes mellitus Myocardial infarction Cancer Grandmother (Paternal) Family history of diabetes mellitus Other Coronary heart disease Family history non-contributory No family history of adverse response to anesthesia Denies family history of Ovarian cancer Prostate cancer Breast cancer Colorectal cancer Social History Smoking Status: Never smoker Second Hand Exposure: No; Do You Dip or Chew Tobacco: No; Hx Alcohol Use: No Hx Substance Use: No Preferred Language: Greek Communication Ability: Effective Visual Impairment: Limited Hearing Ability: Normal Flight Engineer Performance Qualified Required: No Beliefs That Will Affect Care: None marital status: / Current Living Situation: Alone current occupational status: retired How many Children do You have: 2 Feels Safe at Home: Yes Childhood Exposure to Second-Hand Smoke: No Diet: low salt caffeine: Yes during the past year weight has: remained stable Dental Care, Regularly: Yes Physical Activity Frequency: Does not Exercise Seatbelt Use: never Sunscreen Use: No Assistive Devices: Cane Review of Systems All systems reviewed & are unremarkable except as noted in HPI & below. Physical Exam On physical examination of the right ankle, she has a trauma splint in place. She has active motion of her toes.. Constitutional WD/WN, vitals as above Eyes PERRL, conjunctivae normal, anicteric sclerae ENMT external ear and nose normal, oropharynx normal Neck trachea midline, no thyromegaly Respiratory normal respiratory effort, lungs clear to auscultation Cardiovascular RRR, no murmur, no edema Gastrointestinal (Abdomen) normal bowel sounds, soft, nontender, no hepatosplenomegaly Skin no rashes, warm and dry Psychiatric A+Ox3, euthymic affect Results & Data Results & Data Laboratory Results . Diagnostic Findings X-rays of the right ankle show a bimalleolar right ankle fracture. There is a very small fracture of the tip of the medial malleolus. There is a displaced fracture of the distal fibula.. PG Care Time/CCT Total # of Minutes Spent Total Time Spent with Patient: Total time spent is greater than 50% in coordination of care (as documented) at patient's floor/unit and/or counseling patient: Coding Level of Care Code 46805 IN/OBS CONSULT LVL 4,60M (57 - DECISION FOR SURGERY) Diagnoses Bimalleolar fracture of right ankle S82.841A
[2023-03-19] MEDS: oxyBUTYnin chloride 5 MG TAB PO SCH ×2 (08:43→21:48)
[2023-03-19] MEDS: ATORVASTATIN 40 MG TAB PO SCH (08:43)
[2023-03-19] MEDS: buPROPion XL 300 MG TABCR PO SCH (08:43)
[2023-03-19] MEDS: METOPROLOL TARTRATE 25 MG TAB PO SCH ×2 (08:44→21:50)
[2023-03-19] MEDS: ESCITALOPRAM OXALATE 10 MG TAB PO SCH (08:44)
[2023-03-19] MEDS: buPROPion XL 150 MG TABCR PO SCH (08:44)
[2023-03-19] MEDS: QUEtiapine FUMARATE 25 MG TABLET PO SCH (08:45)
[2023-03-19] MEDS: PANTOprazole 40 MG TAB PO SCH ×2 (08:45→21:48)
[2023-03-19] MEDS ORDERED: HEPARIN SOD 5,000 UNIT/0.5 ML VIAL SQ SCH (09:00)
--- NOTE | 2023-03-19 10:43 | Anesthesiology Consultation ---
Date of Service March 19, 2023 Assessment & Plan (1) Encounter for pre-operative examination: Chart Review Chart Review: Acceptable Risk for Surgery and Patient NOT seen in Pre Admission Testing Consults Requested none History Surgery Operation Date: 03/19/23 14:30 Proposed Procedures p Left Open Reduction Internal Fixation [place] - Oscar Lizarraga, Height/Weight Height: 5 ft Weight: 118.8 kg Allergies Allergy/AdvReac Type Severity Reaction Status Date / Time baclofen Allergy Mild FLUSHED Verified 02/22/23 13:49 FACE Medications Home Medications Medication Instructions Recorded Confirmed Last Taken bupropion HCl 150 mg 24 hr tablet, 150 mg PO QAM 12/01/18 03/19/23 12/11/21 extended release multivitamin 1 tab PO QAM 12/01/18 03/19/23 12/11/21 lamotrigine 200 mg tablet 200 mg PO HS 09/18/19 03/19/23 12/11/21 bupropion HCl 300 mg 24 hr tablet, 300 mg PO QAM 11/28/19 03/19/23 12/11/21 extended release quetiapine 25 mg tablet (Seroquel) 25 mg PO DAILY #30 tabs 04/27/20 03/19/23 12/11/21 Lactobacillus acidoph-L.bulgaricus 1 tab PO BID 07/20/20 03/19/23 12/11/21 1 million cell tablet cholecalciferol (vitamin D3) 25 5,000 unit PO QPM 06/06/21 03/19/23 12/11/21 mcg (1,000 unit) capsule (Vitamin D3) omega-3 fatty acids 1,000 mg 1,000 mg PO DAILY 12/12/21 03/19/23 12/11/21 capsule amlodipine 10 mg tablet 10 mg PO HS #90 tabs 11/16/22 03/19/23 Unknown atorvastatin 40 mg tablet 40 mg PO QAM #90 tabs 12/25/22 03/19/23 Unknown metoprolol tartrate 25 mg tablet 25 mg PO BID #180 tabs 12/25/22 03/19/23 Unknown donepezil 5 mg tablet 5 mg PO QPM #90 tabs 02/14/23 03/19/23 Unknown spironolactone 50 mg tablet 50 mg PO Q12 #180 tabs 02/14/23 03/19/23 Unknown pantoprazole 40 mg tablet,delayed 40 mg PO BID #180 tabs 03/06/23 03/19/23 Unknown release levothyroxine 125 mcg tablet 125 mcg PO DAILY #90 tabs 03/14/23 03/19/23 Unknown cranberry fruit 450 mg tablet 450 mg PO DAILY 03/19/23 03/19/23 Unknown (cranberry) escitalopram oxalate 10 mg tablet 10 mg PO DAILY #90 tabs 03/19/23 Unknown nystatin 100,000 unit/gram topical 1 applic topical BID PRN yeast 03/19/23 03/19/23 Unknown cream oxybutynin chloride 5 mg tablet 5 mg PO BID 03/19/23 03/19/23 Unknown Active Medications Generic Name Dose Route Start Last Admin Trade Name Freq PRN Reason Stop Dose Admin Atorvastatin Calcium 40 mg 03/19/23 09:00 03/19/23 08:43 Atorvastatin 40 Mg Tab PO 04/18/23 08:59 40 mg QAM NOHEMY Administration Bupropion HCl 300 mg 03/19/23 09:00 03/19/23 08:43 Bupropion Xl 300 Mg Tabcr PO 04/18/23 08:59 300 mg QAM NOHEMY Administration Bupropion HCl 150 mg 03/19/23 09:00 03/19/23 08:44 Bupropion Xl 150 Mg Tabcr PO 04/18/23 08:59 150 mg QAM NOHEMY Administration Escitalopram Oxalate 10 mg 03/19/23 09:00 03/19/23 08:44 Escitalopram Oxalate 10 Mg Tab PO 04/18/23 08:59 10 mg DAILY NOHEMY Administration Heparin Sodium (Porcine) 7,500 units 03/19/23 09:00 03/19/23 08:39 Heparin Sod 5,000 Unit/0.5 Ml Vial SQ 04/18/23 08:59 7,500 units Q12 NOHEMY Administration Sodium Chloride 1,000 mls @ 80 mls/hr 03/19/23 03:15 03/19/23 03:58 Nss 1000ml IV 04/18/23 03:14 80 mls/hr .[id number] NOHEMY Administration Levothyroxine Sodium 125 mcg 03/19/23 06:30 03/19/23 06:04 Levothyroxine Sodium 125 Mcg Tablet PO 04/18/23 06:29 125 mcg DAILYBB NOHEMY Administration Metoprolol Tartrate 25 mg 03/19/23 09:00 03/19/23 08:44 Metoprolol Tartrate 25 Mg Tab PO 04/18/23 08:59 25 mg BID NOHEMY Administration Oxybutynin Chloride 5 mg 03/19/23 09:00 03/19/23 08:43 Oxybutynin Chloride 5 Mg Tab PO 04/18/23 08:59 5 mg BID NOHEMY Administration Pantoprazole Sodium 40 mg 03/19/23 09:00 03/19/23 08:45 Pantoprazole 40 Mg Tab PO 04/18/23 08:59 40 mg BID NOHEMY Administration Quetiapine Fumarate 25 mg 03/19/23 09:00 03/19/23 08:45 Quetiapine Fumarate 25 Mg Tablet PO 04/18/23 08:59 25 mg DAILY NOHEMY Administration Past Medical History Medical History Electrolyte imbalance Fever Hernia, incisional History of kidney stones Hypokalemia Hypomagnesemia Hypophosphatemia Nausea Osteoarthritis Pneumonia due to COVID-19 virus SIRS (systemic inflammatory response syndrome) Past Family History Family History Father , hepatocellular cancer? Family history of diabetes mellitus Myocardial infarction Cancer Grandmother (Paternal) Family history of diabetes mellitus Other Coronary heart disease Family history non-contributory No family history of adverse response to anesthesia Denies family history of Ovarian cancer Prostate cancer Breast cancer Colorectal cancer Past Surgical History Surgical History History of bilateral cataract extraction History of bilateral tubal ligation History of colon surgery abscess removal @ [facility] History of colonoscopy History of cystoscopy History of dilatation and curettage History of repair of left rotator cuff History of repair of right rotator cuff History of total hysterectomy with bilateral salpingo-oophorectomy (BSO) History of total left knee replacement (TKR) History of total right knee replacement (TKR) History of wisdom tooth extraction Hx of cholecystectomy Social History Smoking Status: Never smoker Do You Dip or Chew Tobacco: No Hx Alcohol Use: No Hx Substance Use: No substance use type: does not use Physical Exam Vital Signs Last Vital Signs Temp 97.7 F 03/19/23 07:08 Pulse 63 03/19/23 07:08 Resp 18 03/19/23 07:08 BP 156/78 H 03/19/23 07:08 Pulse Ox 95 03/19/23 07:08 O2 Del Method Room Air 03/19/23 07:08 Testing Laboratory Results 03/19/23 00:35 03/19/23 00:35 PT 10.3 Seconds (9.0-12.0) 03/19/23 00:35 INR 0.9 (0.9-1.1) 03/19/23 00:35 Electrocardiogram Date: 03/19/23 Findings: + NSR @ (57) Nonspecific T wave abnormality
[2023-03-19] MEDS ORDERED: ATROPINE SULFATE 0.1 MG/ML 10ML SYR IV PRN (14:28)
[2023-03-19] MEDS ORDERED: fentaNYL citrate PF 100 MCG/2 ML VIAL IV PRN (14:28)
[2023-03-19] MEDS ORDERED: PROMETHAZINE HCL 6.25 MG in SODIUM CHLORIDE 0.9% 50 ML IV PRN (14:28)
[2023-03-19] MEDS ORDERED: ePHEDrine sulfate 50 MG/ML AMP IV PRN (14:28)
[2023-03-19] MEDS ORDERED: ROPIVACAINE 0.5% 5 MG/ML 30 ML VIAL ONE (14:43)
[2023-03-19] MEDS ORDERED: fentaNYL citrate PF 100 MCG/2 ML VIAL ONE (15:14)
[2023-03-19] MEDS ORDERED: MIDAZOLAM HCL 1 MG/ML 2ML VIAL ONE (15:14)
[2023-03-19] MEDS ORDERED: ceFAZolin 2000MG 2,000 MG/15 ML SYR IV ONE (15:43)
[2023-03-19] MEDS ORDERED: ceFAZolin 2,000 MG/15 ML IV PUSH IV ONE (15:45)
--- NOTE | 2023-03-19 15:58 | Hospitalist Progress Note ---
Date of Service March 19, 2023 Assessment & Plan (1) Bimalleolar fracture of right ankle: Plan: Appreciate orthopedic consultation and recommendations. Pain control measures. Open reduction internal fixation later today, March 19. (2) Fall: Plan: Supportive care. Postoperative OT and PT assessments (3) Chronic renal failure, stage 3a: Plan: Monitor intake and output. Serial labs (4) Anxiety and depression: Plan: Stable. Continue current medical management (5) Acid reflux disease: Plan: Stable. Continue current medical management (6) Hypothyroidism: Plan: Stable. Continue thyroid replacement therapy (7) Moderate obstructive sleep apnea: Plan: Stable. No intervention necessary at this time (8) Hyperlipemia: Plan: Stable. Continue statin therapy (9) Morbid obesity: Plan: BMI greater than 30. Weight loss recommended (10) HTN (hypertension): Plan: Stable. Continue current medical management (11) Insomnia: Plan: Sedative hypnotic nightly as needed Plan Anticipate eventual discharge to home or rehab facility postoperatively. Admission and Anticipated Discharge Date Admission Date: March 19, 2023 Subjective Alert and oriented. No acute distress. Vital signs are stable. She is awaiting open reduction internal fixation left ankle fracture later today, March 19. Review of Systems Review of Systems: Constitutional-no fever or chills ENT-no blurred vision, no double vision, no epistaxis, no sore throat Respiratory-no cough, no wheezing, no shortness of breath Cardiac-no palpitations, no chest pain, no syncope GI-no nausea, vomiting, diarrhea, melena, hematochezia -no urinary retention, no urinary incontinence, no dysuria, no hematuria Musculoskeletal-mild left ankle discomfort from underlying fracture Skin-no bruising, no rashes, no pruritus Neuro-no isolated weakness, no paresthesia, no weakness Psych-no depression, no anxiety Physical Exam Physical Exam: General-alert and oriented x3, no fevers, no chills HEENT-head atraumatic and normocephalic, pupils equal and reactive to light, extraocular muscles intact Neck-no lymphadenopathy or thyromegaly, trachea midline Chest-clear to auscultation percussion. No rales wheezing or rhonchi Cardiac-regular rate and rhythm, normal S1 and S2 Abdomen-normal bowel sounds, nontender, no hepatosplenomegaly Extremities-left ankle fracture is immobilized Neuro-cranial nerves II through XII intact, motor and sensory function within normal limits, strength symmetrical , no focal deficits Psych-normal affect, normal mood Results & Data Results & Data Vital Signs (Past 12 Hours) Vital Signs Temp Pulse Resp BP Pulse Ox O2 Del Method 03/19/23 14:28 149/88 H 95 Room Air 03/19/23 14:17 36.8 C 58 L 16 Room Air 03/19/23 07:08 36.5 C 63 18 156/78 H 95 Room Air 03/19/23 04:56 36.7 C 72 14 170/79 H 96 Room Air 03/19/23 04:00 70 20 175/89 H 92 Room Air Laboratory Results 03/19/23 00:35 03/19/23 00:35 PG Care Time/CCT Total # of Minutes Spent Total Time Spent with Patient: Total time spent is greater than 50% in coordination of care (as documented) at patient's floor/unit and/or counseling patient: Coding Level of Care Code 90201 SUB INP/OBS CARE 3/50MIN Diagnoses Bimalleolar fracture of right ankle S82.841A Fall W19.XXXA Chronic renal failure, stage 3a N18.31 Anxiety and depression F41.9; F32.9 Acid reflux disease K21.9 Hypothyroidism E03.9 Moderate obstructive sleep apnea G47.33 Hyperlipemia E78.5 Morbid obesity E66.01 HTN (hypertension) I10 Insomnia G47.00
--- NOTE | 2023-03-19 16:44 | History & Physical Bridge Note ---
Date of Service March 19, 2023 History & Physical Bridge Note I have examined the patient, reviewed the History & Physical and in the interval since the performance of the History & Physical I have noted the following changes of clinical significance: no changes noted
[2023-03-19] MEDS ORDERED: BUPIVACAINE/EPINEPHRINE 0.5% MPF 1:200,000 30 ML VIAL ONE (17:01)
--- NOTE | 2023-03-19 17:02 | Electrocardiogram Report ---
Test Reason : Blood Pressure : / mmHG Vent. Rate : 057 BPM Atrial Rate : 057 BPM P-R Int : 176 ms QRS Dur : 088 ms QT Int : 468 ms P-R-T Axes : 062 009 085 degrees QTc Int : 455 ms Sinus bradycardia Nonspecific ST and T wave abnormality Abnormal ECG When compared with ECG of 19-MAR-2023 10:01, (unconfirmed) Previous ECG has undetermined rhythm, needs review Confirmed by Evin Ly ([id number]) on 03/19/2023 5:02:19 PM Referred By: REFERRED SELF Confirmed By:Khari Ly
[2023-03-19] MEDS ORDERED: ceFAZolin 330 MG/ML 1 GM VIAL ONE (17:37)
--- NOTE | 2023-03-19 18:27 | Operative Report ---
PG Post Operative Report Pre & Post Diagnosis Operation Date: 03/19/23 14:30 Pre-Op Diagnosis: Bimalleolar equivalent right ankle fracture Post-Op Diagnosis: Bimalleolar equivalent right ankle fracture I identified the patient and participated in the time-out.: Yes Procedure Operation Date: 03/19/23 14:30 Actual Procedures p Right Open Reduction Internal Fixation bimalleolar equivalent ankle fracture with fixation of the distal fibula (Right) - Oscar Lizarraga DO Surgeon Oscar Lizarraga DO [employer] Oscar Belle PA-C Estimated Blood Loss 10 Findings Consistent with Post-Op Diagnosis Specimens None Description of Procedure On March 19, 2023 Sara was brought down from her hospital room to the preoperative holding area. The operative extremity identified and signed. She was given a preoperative antibiotic and a nerve block. She was taken back to the operating room and laid on the table in supine position. She was put under general anesthesia. The right ankle was prepped and draped in sterile fashion. A timeout was done. The patient and the operative extremity was properly identified. A longitudinal incision was made over the distal fibula. Dissection was taken down through the fascia with care not to disrupt the intermediate branch of the peroneal nerve. The fibula and the fracture was exposed. Time was spent removing any incarcerated soft tissue. The fracture was then reduced with a reduction clamp. A Synthes 6 hole distal fibular locking plate was then placed. A locking screw was placed distally and proximally. Fluoroscopic images showed anatomic alignment of the fracture and good alignment of the plate. The ankle mortise is well-maintained. The remaining of the distal locking screws and proximal locking screws were placed under fluoroscopy to ensure appropriate length. Final fluoroscopic images showed anatomic alignment of the fracture and good alignment of the hardware. The wound was then irrigated. The skin was closed with 2-0 Vicryl and jaiden. She was then placed in a trauma splint. She was then extubated and transferred to a hospital bed. She was taken to the postanesthesia care unit in stable condition. She tolerated the procedure well. Oscar Belle PA-C, was present for the entire procedure. He was critical for patient positioning, prepping, draping, retraction exposure, wound closure and application of sterile dressing. I attest to the content of the Intraoperative Record and any orders documented therein. Any exceptions are noted below.
--- NOTE | 2023-03-19 19:22 | Anesthesiology Progress Note ---
Date of Service March 19, 2023 Anesthesia Post Procedure Vital Signs Vital Signs: Temp Pulse Pulse Pulse Resp BP BP 03/19/23 18:55 81 12 167/72 H 03/19/23 19:20 36.9 C 76 19 160/82 H 03/19/23 19:05 77 13 161/73 H 03/19/23 18:45 84 17 102/75 03/19/23 18:38 36.3 C L 88 10 L 181/101 H 03/19/23 14:28 149/88 H 03/19/23 14:17 36.8 C 58 L 16 03/19/23 07:08 36.5 C 63 18 156/78 H 03/19/23 04:56 36.7 C 72 14 170/79 H 03/19/23 04:00 70 20 175/89 H 03/19/23 02:47 73 20 166/76 H 03/19/23 00:50 64 03/19/23 00:35 68 03/19/23 00:30 70 20 177/82 H 03/19/23 00:30 36.9 C 73 20 177/82 H Pulse Ox O2 Del Method O2 Flow Rate 03/19/23 18:55 95 Room Air 03/19/23 19:20 94 Room Air 03/19/23 19:05 94 Room Air 03/19/23 18:45 97 Oxymask 3 03/19/23 18:38 100 Oxymask 5 03/19/23 14:28 95 Room Air 03/19/23 14:17 Room Air 03/19/23 07:08 95 Room Air 03/19/23 04:56 96 Room Air 03/19/23 04:00 92 Room Air 03/19/23 02:47 94 Room Air 03/19/23 00:50 03/19/23 00:35 96 03/19/23 00:30 97 Room Air 03/19/23 00:30 97 Room Air Pain Intensity Right Ankle: Pain Intensity: 0 Transfer of Care Handoff Completed per policy Notes Mental Status: alert / awake / arousable Patient Amnestic to Procedure: Yes Nausea / Vomiting: adequately controlled Pain: adequately controlled Airway Patency, RR, SpO2: stable & adequate BP & HR: stable & adequate Hydration State: stable & adequate Anesthetic Complications: no major complications apparent
[2023-03-19] MEDS: CHOLECALCIFEROL 5,000 UNITS 125 MCG TAB PO SCH (21:47)
[2023-03-19] MEDS: amLODIPine BESYLATE 5 MG TAB PO SCH (21:47)
[2023-03-19] MEDS: DONEPEZIL HCL 5 MG TAB PO SCH (21:49)
[2023-03-19] MEDS: lamoTRIgine 100 MG TAB PO SCH (21:50)
[2023-03-19] MEDS: APIXABAN 2.5 MG TAB PO SCH (21:50)
[2023-03-19] MEDS: MELATONIN 3 MG TAB PO PRN (21:54)
[2023-03-20] MEDS: LEVOTHYROXINE SODIUM 125 MCG TABLET PO SCH (05:35)
--- NOTE | 2023-03-20 07:11 | Orthopedic Progress Note ---
Date of Service March 20, 2023 Assessment & Plan (1) Bimalleolar fracture of right ankle: Overall she is doing fairly well. She is not having too much pain in the right ankle at this time. She is on Eliquis 2.5 mg twice a day for 6 weeks for DVT prophylaxis. She is to be nonweightbearing on her right ankle. She will be seen by physical therapy today. She is orthopedically stable for discharge when medically ready. Full orthopedic discharge instructions were placed in the discharge summary. Subjective Sara was seen and examined at bedside this morning. Overall she is doing fairly well. She is not having too much pain in the right ankle. Her right ankle is elevated. She has no complaints.. Review of Systems All systems reviewed & are unremarkable except as noted in HPI & below. Physical Exam On physical examination the right ankle, the trauma splint is clean and dry and intact. Her right ankle is elevated. She has active motion of her toes.. Results & Data Results & Data Laboratory Results . Diagnostic Findings . PG Care Time/CCT Total # of Minutes Spent Total Time Spent with Patient: Total time spent is greater than 50% in coordination of care (as documented) at patient's floor/unit and/or counseling patient: Coding Level of Care Code 75075 Post Operative Follow-Up Diagnoses Bimalleolar fracture of right ankle S82.841A
[2023-03-20] MEDS: SODIUM CHLORIDE 0.9% 1000ML 1,000 ML IV SCH ×2 (07:30→09:41)
[2023-03-20] MEDS: APIXABAN 2.5 MG TAB PO SCH ×2 (08:20→21:05)
[2023-03-20] MEDS: PANTOprazole 40 MG TAB PO SCH ×2 (08:20→21:07)
[2023-03-20] MEDS: oxyBUTYnin chloride 5 MG TAB PO SCH ×2 (08:20→21:07)
[2023-03-20] MEDS: METOPROLOL TARTRATE 25 MG TAB PO SCH ×2 (08:21→21:06)
[2023-03-20] MEDS: buPROPion XL 300 MG TABCR PO SCH (08:21)
[2023-03-20] MEDS: QUEtiapine FUMARATE 25 MG TABLET PO SCH (08:21)
[2023-03-20] MEDS: ATORVASTATIN 40 MG TAB PO SCH (08:21)
[2023-03-20] MEDS: ESCITALOPRAM OXALATE 10 MG TAB PO SCH (08:21)
[2023-03-20] MEDS: buPROPion XL 150 MG TABCR PO SCH (08:21)
[2023-03-20 08:39] LABS: Basophils # (auto) 0.08 K/uL (0-0.2); Basophils % (auto) 0.7 %; Eosinophils # (auto) 0.05 K/uL (0-0.50); Eosinophils % (auto) 0.5 %; Hematocrit (blood only) 38.7 % (37.0-47.0); Hemoglobin 13.3 g/dl (12.0-16.0); Immature Granulocytes # (auto) 0.03 K/uL (0.01-0.20); Immature Granulocytes % (auto) 0.3 %; Lymphocytes % (auto) 22.9 %; Mean Corpuscular Hemoglobin 31.6 pg (25.0-34.0); Mean Corpuscular Hgb Conc 34.4 g/dL (32.0-36.0); Mean Corpuscular Volume 91.9 fL (80.0-100.0); Mean Platelet Volume 10.8 fL (9.4-12.4); Monocytes # (auto) 1.23 K/uL (0.11-0.59); Monocytes % (auto) 11.3 %; Neutrophils # (auto) 7.03 K/uL (1.40-6.50); Neutrophils % (auto) 64.3 %; Platelet Count 228 K/uL (130-400); RDW Coefficient of Variation 13.2 % (11.5-14.5); RDW Standard Deviation 44.4 fL (36.4-46.3); Red Blood Count 4.21 M/uL (4.20-5.40); White Blood Count 10.92 K/ul (4.8-10.8)
[2023-03-20 08:59] LABS: BUN Creatinine Ratio 18.3 (10-20); Calcium 9.2 mg/dl (8.6-10.3); Creatinine Clr Calc Pharmacy 34.6 ml/min; Est GFR (African American) 36.8 ml/min; Est GFR (Non-African American) 31.8 ml/min; Potassium 4.9 mmol/L (3.5-5.1)
--- NOTE | 2023-03-20 10:00 | Fluoroscopy Report ---
FL ankle RT min 3V RTN CLINICAL HISTORY: RT ORIF TECHNIQUE: 3 views were obtained with the C-arm in the OR with the above procedure. Total fluoroscopy time was 18.3 seconds. Radiation dose was 0.52 mGy. Comparison: Comparison is made to ankle radiograph 03/19/2023 FINDINGS/IMPRESSION: Intraoperative images were obtained of open reduction internal fixation of the r ight ankle fracture. Please correlate with intraoperative fluoroscopy and operative report. ACT 112: Negative or not required by law. Electronically signed by: Calvin Blood M.D. 03/20/2023 9:58 AM
[2023-03-20] MEDS: HYDROCODONE/ACETAMOPHEN 5/325MG TAB PO PRN ×2 (11:56→17:08)
--- NOTE | 2023-03-20 15:48 | Hospitalist Progress Note ---
Date of Service March 20, 2023 Assessment & Plan (1) Bimalleolar fracture of right ankle: Plan: Appreciate orthopedic consultation and recommendations. Pain control measures. Open reduction internal fixation right ankle fracture completed on March 19. Postoperative day #1 (2) Fall: Plan: Supportive care. She is nonweightbearing on the right ankle fracture repair. She will need SNF placement (3) Chronic renal failure, stage 3a: Plan: Monitor intake and output. Serial labs. Mild acute exacerbation. We will follow (4) Anxiety and depression: Plan: Stable. Continue current medical management (5) Acid reflux disease: Plan: Stable. Continue current medical management (6) Hypothyroidism: Plan: Stable. Continue thyroid replacement therapy (7) Moderate obstructive sleep apnea: Plan: Stable. No intervention necessary at this time (8) Hyperlipemia: Plan: Stable. Continue statin therapy (9) Morbid obesity: Plan: BMI greater than 30. Weight loss recommended (10) HTN (hypertension): Plan: Stable. Continue current medical management (11) Insomnia: Plan: Sedative hypnotic nightly as needed Plan Probable discharge to [facility] care. Hopefully tomorrow, March 21 Admission and Anticipated Discharge Date Admission Date: March 19, 2023 Subjective Alert and oriented. No acute distress. She is nonweightbearing on the right ankle after open reduction internal fixation right ankle fracture. Postoperative day 1. She will need SNF placement. She is on Eliquis low-dose DVT prophylaxis Review of Systems Review of Systems: Constitutional-no fever or chills ENT-no blurred vision, no double vision, no epistaxis, no sore throat Respiratory-no cough, no wheezing, no shortness of breath Cardiac-no palpitations, no chest pain, no syncope GI-no nausea, vomiting, diarrhea, melena, hematochezia -no urinary retention, no urinary incontinence, no dysuria, no hematuria Musculoskeletal-mild right ankle discomfort postoperatively Skin-no bruising, no rashes, no pruritus Neuro-no isolated weakness, no paresthesia, no weakness Psych-no depression, no anxiety Physical Exam Physical Exam: General-alert and oriented x3, no fevers, no chills HEENT-head atraumatic and normocephalic, pupils equal and reactive to light, ext raocular muscles intact Neck-no lymphadenopathy or thyromegaly, trachea midline Chest-clear to auscultation percussion. No rales wheezing or rhonchi Cardiac-regular rate and rhythm, normal S1 and S2 Abdomen-normal bowel sounds, nontender, no hepatosplenomegaly Extremities-right ankle is wrapped and immobilized postoperatively Neuro-cranial nerves II through XII intact, motor and sensory function within normal limits, strength symmetrical , no focal deficits Psych-normal affect, normal mood Results & Data Results & Data Vital Signs (Past 12 Hours) Vital Signs Temp Pulse Resp BP Pulse Ox O2 Del Method O2 Flow Rate 03/20/23 15:38 36.8 C 66 16 137/66 95 Room Air 03/20/23 11:57 37.2 C 66 16 145/73 H 94 Room Air 03/20/23 07:45 Nasal Cannula 2 03/20/23 07:16 37.3 C 64 16 157/71 H 96 Room Air 03/20/23 04:51 37.2 C 63 18 133/73 98 Nasal Cannula Laboratory Results 03/20/23 07:52 03/20/23 07:52 PG Care Time/CCT Total # of Minutes Spent Total Time Spent with Patient: Total time spent is greater than 50% in coordination of care (as documented) at patient's floor/unit and/or counseling patient: Coding Level of Care Code 23273 SUB INP/OBS CARE 3/50MIN Diagnoses Bimalleolar fracture of right ankle S82.841A Fall W19.XXXA Chronic renal failure, stage 3a N18.31 Anxiety and depression F41.9; F32.9 Acid reflux disease K21.9 Hypothyroidism E03.9 Moderate obstructive sleep apnea G47.33 Hyperlipemia E78.5 Morbid obesity E66.01 HTN (hypertension) I10 Insomnia G47.00
[2023-03-20] MEDS: lamoTRIgine 100 MG TAB PO SCH (21:05)
[2023-03-20] MEDS: DONEPEZIL HCL 5 MG TAB PO SCH (21:06)
[2023-03-20] MEDS: amLODIPine BESYLATE 5 MG TAB PO SCH (21:06)
[2023-03-20] MEDS: CHOLECALCIFEROL 5,000 UNITS 125 MCG TAB PO SCH (21:06)
[2023-03-21] MEDS: LEVOTHYROXINE SODIUM 125 MCG TABLET PO SCH (06:08)
[2023-03-21] MEDS: oxyBUTYnin chloride 5 MG TAB PO SCH ×2 (09:01→21:13)
[2023-03-21] MEDS: PANTOprazole 40 MG TAB PO SCH ×2 (09:01→21:14)
[2023-03-21] MEDS: ATORVASTATIN 40 MG TAB PO SCH (09:01)
[2023-03-21] MEDS: buPROPion XL 150 MG TABCR PO SCH (09:01)
[2023-03-21] MEDS: APIXABAN 2.5 MG TAB PO SCH ×2 (09:01→21:13)
[2023-03-21] MEDS: buPROPion XL 300 MG TABCR PO SCH (09:01)
[2023-03-21] MEDS: METOPROLOL TARTRATE 25 MG TAB PO SCH ×2 (09:02→21:14)
[2023-03-21] MEDS: ESCITALOPRAM OXALATE 10 MG TAB PO SCH (09:02)
[2023-03-21] MEDS: QUEtiapine FUMARATE 25 MG TABLET PO SCH (09:02)
[2023-03-21 09:18] LABS: Basophils # (auto) 0.07 K/uL (0-0.2); Basophils % (auto) 0.6 %; Eosinophils # (auto) 0.08 K/uL (0-0.50); Eosinophils % (auto) 0.7 %; Hematocrit (blood only) 36.7 % (37.0-47.0); Hemoglobin 12.5 g/dl (12.0-16.0); Immature Granulocytes # (auto) 0.07 K/uL (0.01-0.20); Immature Granulocytes % (auto) 0.6 %; Lymphocytes # (auto) 3.07 K/uL (1.2-3.4); Mean Corpuscular Hemoglobin 31.3 pg (25.0-34.0); Mean Corpuscular Hgb Conc 34.1 g/dL (32.0-36.0); Mean Platelet Volume 10.7 fL (9.4-12.4); Monocytes # (auto) 1.43 K/uL (0.11-0.59); Monocytes % (auto) 13.1 %; Neutrophils # (auto) 6.23 K/uL (1.40-6.50); Platelet Count 217 K/uL (130-400); RDW Standard Deviation 43.6 fL (36.4-46.3); Red Blood Count 3.99 M/uL (4.20-5.40); White Blood Count 10.95 K/ul (4.8-10.8)
[2023-03-21 09:32] LABS: BUN Creatinine Ratio 20.1 (10-20); Calcium 9.3 mg/dl (8.6-10.3); Creatinine Clr Calc Pharmacy 38.1 ml/min; Est GFR (African American) 41.4 ml/min; Est GFR (Non-African American) 35.7 ml/min; Potassium 4.3 mmol/L (3.5-5.1)
--- NOTE | 2023-03-21 13:56 | Hospitalist Progress Note ---
Date of Service March 21, 2023 Assessment & Plan (1) Bimalleolar fracture of right ankle: Plan: Appreciate orthopedic consultation and recommendations. Pain control measures. Open reduction internal fixation right ankle fracture completed on March 19. Postoperative day #2. Healing uneventfully so far (2) Fall: Plan: Supportive care. She is nonweightbearing on the right ankle fracture repair. She will need SNF or IPR placement (3) Chronic renal failure, stage 3a: Plan: Monitor intake and output. Serial labs. Mild acute exacerbation on admission. Now resolved. Serial labs (4) Anxiety and depression: Plan: Stable. Continue current medical management (5) Acid reflux disease: Plan: Stable. Continue current medical management (6) Hypothyroidism: Plan: Stable. Continue thyroid replacement therapy (7) Moderate obstructive sleep apnea: Plan: Stable. No intervention necessary at this time (8) Hyperlipemia: Plan: Stable. Continue statin therapy (9) Morbid obesity: Plan: BMI greater than 30. Weight loss recommended (10) HTN (hypertension): Plan: Stable. Continue current medical management (11) Insomnia: Plan: Sedative hypnotic nightly as needed Plan Eventual discharge to SNF or IPR. Hopefully tomorrow, March 22 Admission and Anticipated Discharge Date Admission Date: March 19, 2023 Subjective Alert and oriented. No new problems. Postoperative day #2 after open reduction internal fixation of the right ankle fracture. Awaiting eventual discharge to either SNF or IPR hopefully tomorrow, March 22 Review of Systems Review of Systems: Constitutional-no fever or chills ENT-no blurred vision, no double vision, no epistaxis, no sore throat Respiratory-no cough, no wheezing, no shortness of breath Cardiac-no palpitations, no chest pain, no syncope GI-no nausea, vomiting, diarrhea, melena, hematochezia -no urinary retention, no urinary incontinence, no dysuria, no hematuria Musculoskeletal-mild right ankle discomfort postoperatively. Skin-no bruising, no rashes, no pruritus Neuro-no isolated weakness, no paresthesia, no weakness Psych-no depression, no anxiety Physical Exam Physical Exam: General-alert and oriented x3, no fevers, no chills HEENT-head atraumatic and normocephalic, pupils equal and reactive to light, extraocular muscles intact Neck-no lymphadenopathy or thyromegaly, trachea midline Chest-clear to auscultation percussion. No rales wheezing or rhonchi Cardiac-regular rate and rhythm, normal S1 and S2 Abdomen-normal bowel sounds, nontender, no hepatosplenomegaly Extremities-right ankle is wrapped and immobilized postoperatively Neuro-cranial nerves II through XII intact, motor and sensory function within normal limits, strength symmetrical , no focal deficits Psych-normal affect, normal mood Results & Data Results & Data Vital Signs (Past 12 Hours) Vital Signs Temp Pulse Resp BP Pulse Ox O2 Del Method 03/21/23 08:00 Room Air 03/21/23 07:38 36.9 C 71 16 154/68 H 93 CPAP Laboratory Results 03/21/23 08:25 03/21/23 08:25 PG Care Time/CCT Total # of Minutes Spent Total Time Spent with Patient: Total time spent is greater than 50% in coordination of care (as documented) at patient's floor/unit and/or counseling patient: Coding Level of Care Code 28891 SUB INP/OBS CARE 2/35MIN Diagnoses Bimalleolar fracture of right ankle S82.841A Fall W19.XXXA Chronic renal failure, stage 3a N18.31 Anxiety and depression F41.9; F32.9 Acid reflux disease K21.9 Hypothyroidism E03.9 Moderate obstructive sleep apnea G47.33 Hyperlipemia E78.5 Morbid obesity E66.01 HTN (hypertension) I10 Insomnia G47.00
[2023-03-21] MEDS: amLODIPine BESYLATE 5 MG TAB PO SCH (21:13)
[2023-03-21] MEDS: CHOLECALCIFEROL 5,000 UNITS 125 MCG TAB PO SCH (21:14)
[2023-03-21] MEDS: DONEPEZIL HCL 5 MG TAB PO SCH (21:14)
[2023-03-21] MEDS: lamoTRIgine 100 MG TAB PO SCH (21:15)
[2023-03-21] MEDS: MELATONIN 3 MG TAB PO PRN (23:07)
[2023-03-22] MEDS: LEVOTHYROXINE SODIUM 125 MCG TABLET PO SCH (06:02)
[2023-03-22] MEDS: ESCITALOPRAM OXALATE 10 MG TAB PO SCH (08:42)
[2023-03-22] MEDS: buPROPion XL 150 MG TABCR PO SCH (08:42)
[2023-03-22] MEDS: METOPROLOL TARTRATE 25 MG TAB PO SCH (08:42)
[2023-03-22] MEDS: oxyBUTYnin chloride 5 MG TAB PO SCH (08:43)
[2023-03-22] MEDS: QUEtiapine FUMARATE 25 MG TABLET PO SCH (08:43)
[2023-03-22] MEDS: APIXABAN 2.5 MG TAB PO SCH (08:43)
[2023-03-22] MEDS: PANTOprazole 40 MG TAB PO SCH (08:43)
[2023-03-22] MEDS: ATORVASTATIN 40 MG TAB PO SCH (08:43)
[2023-03-22] MEDS: buPROPion XL 300 MG TABCR PO SCH (08:43)
[2023-03-22 09:35] LABS: BUN Creatinine Ratio 19.3 (10-20); Calcium 9.4 mg/dl (8.6-10.3); Creatinine Clr Calc Pharmacy 35.3 ml/min; Est GFR (African American) 37.7 ml/min; Est GFR (Non-African American) 32.6 ml/min; Potassium 4.2 mmol/L (3.5-5.1)
--- NOTE | 2023-03-22 11:25 | Discharge Summary ---
Date of Service March 22, 2023 Admission HPI Per Admitting Provider The patient is an 78-year-old female with a past medical history including CKD stage IIIa, acute respiratory failure with hypoxia, UTI, orthostatic hypotension, anxiety and depression, GERD, hypothyroidism, moderate JESSI, hyperlipidemia, morbid obesity, hypertension, rectocele, lumbar discitis, insomnia, dementia, proteinuria and chronic lumbar pain. Patient presents to the emergency department as noted above. X-rays in emergency department showed a closed displaced bimalleolar left ankle fracture Principal Diagnosis Mechanical fall, right ankle fracture Discharge Exam General-alert and oriented x3, no fevers, no chills HEENT-head atraumatic and normocephalic, pupils equal and reactive to light, extraocular muscles intact Neck-no lymphadenopathy or thyromegaly, trachea midline Chest-clear to auscultation percussion. No rales wheezing or rhonchi Cardiac-regular rate and rhythm, normal S1 and S2 Abdomen-normal bowel sounds, nontender, no hepatosplenomegaly Extremities-right ankle is wrapped and immobilized postoperatively Neuro-cranial nerves II through XII intact, motor and sensory function within normal limits, strength symmetrical , no focal deficits Psych-normal affect, normal mood Discharge Data Allergies Allergy/AdvReac Type Severity Reaction Status Date / Time baclofen Allergy Mild FLUSHED Verified 02/22/23 13:49 FACE Procedures Performed Operation Date: 03/19/23 14:30 Actual Procedures p Right Open Reduction Internal Fixation Ankle(Right) - Oscar Lizarraga DO Ordered Studies 03/19/23 13:30 FL ankle RT min 3V RTN Routine 03/19/23 14:27 US - OR guided needle placemen Routine Hospital Course (1) Bimalleolar fracture of right ankle: Appreciate orthopedic consultation and recommendations. Pain control measures. Open reduction internal fixation right ankle fracture completed on March 19. Postoperative day #3. Healing uneventfully so far (2) Fall: Supportive care. She is nonweightbearing on the right ankle fracture repair. She will need SNF at discharge (3) Chronic renal failure, stage 3a: Monitor intake and output. Serial labs. Stable (4) Anxiety and depression: Stable. Continue current medical management (5) Acid reflux disease: Stable. Continue current medical management (6) Hypothyroidism: Stable. Continue thyroid replacement therapy (7) Moderate obstructive sleep apnea: Stable. No intervention necessary at this time (8) Hyperlipemia: Stable. Continue statin therapy (9) Morbid obesity: BMI greater than 30. Weight loss recommended (10) HTN (hypertension): Stable. Continue current medical management (11) Insomnia: Sedative hypnotic nightly as needed Plan Anticipate discharge to [facility] care later today, March 22 Total Time Total Time Spent Total Time Spent (In Minutes): 45 minutes Discharge Plan Discharge Items Patient Disposition: Transfer [facility] Living Fac Reason For Visit: RIGHT ANKLE FRACTURE Discharge Diagnosis: Mechanical fall, right ankle fracture Activity: As commented below Activity Comment: Nonweightbearing right ankle until cleared by orthopedics Non-emergency contact: Primary Care Provider Call non-emergency contact if: you have any medication questions and your symptoms worsen Follow-up/Referrals: Alexy Mathur DO [Primary Care Provider] - Diet: Regular and Heart Healthy Addtl Attending Provider Instructions: Nonweightbearing on the right ankle until cleared by orthopedics. You will remain on Eliquis for 6 weeks. Follow-up with orthopedic surgery in the office in 4 weeks Addtl Fur Nailer Provider Instructions: ORTHOPEDIC INSTRUCTIONS Activity Recommendations: Nonweightbearing on right leg Medications: Eliquis 2.5 mg twice a day for 6 weeks for DVT prophylaxis. Narcotic pain medications as needed for pain. Dressing Care: Keep the trauma splint clean and dry. Do not remove the splint. Showering: Do not shower with the splint in place. Please keep the splint dry. Follow-Up Visit: Follow-up with Dr. Lizarraga's PA (Oscar Belle) 2-3 weeks after your day of surgery. He will remove your jaiden and answer any questions. If you have any additional questions or concerns, Dr Lizarraga is usually in the office at the same time and will be available Please call the office to make an appointment for a time that works for you. Pending Studies at Discharge: No Stand-Alone Forms: My [facility] [employer] Skilled Items Patient informed of condition?: Yes DNR: Yes Discharge Level of Care: Skilled Communicable Disease: No Discharge Prognosis: Stable Lines: None Urinary Catheter: No Medications and DC Order Prescriptions: New hydrocodone-acetaminophen 5-325 mg Tablet 1 tab PO Q4H PRN (Reason: pain) Qty: 10 0RF melatonin 3 mg Tablet 3 mg PO HS PRNQty: 0 0RF Continued cholecalciferol (vitamin D3) [Vitamin D3] 25 mcg (1,000 unit) capsule 5,000 unit PO QPM amlodipine 10 mg tablet 10 mg PO HS Qty: 90 3RF atorvastatin 40 mg tablet 40 mg PO QAM Qty: 90 0RF metoprolol tartrate 25 mg tablet 25 mg PO BID Qty: 180 0RF donepezil 5 mg tablet 5 mg PO QPM Qty: 90 3RF spironolactone 50 mg tablet 50 mg PO Q12 Qty: 180 3RF pantoprazole 40 mg tablet,delayed release (DR/EC) 40 mg PO BID Qty: 180 3RF levothyroxine 125 mcg tablet 125 mcg PO DAILY Qty: 90 3RF escitalopram oxalate 10 mg tablet 10 mg PO DAILY Qty: 90 3RF lamotrigine 200 mg tablet 200 mg PO HS quetiapine [Seroquel] 25 mg tablet 25 mg PO DAILY Qty: 30 2RF Lactobacillus acidoph-L.bulgar 1 million cell tablet 1 tab PO BID Rx Instructions: administer with food or milk multivitamin Tablet 1 tab PO QAM bupropion HCl 150 mg tablet extended release 24 hr 150 mg PO QAM bupropion HCl 300 mg tablet extended release 24 hr 300 mg PO QAM omega-3 fatty acids 1,000 mg Capsule 1,000 mg PO DAILY cranberry 450 mg Tablet 450 mg PO DAILY Rx Instructions: administer with a meal nystatin 100,000 unit/gram cream 1 applic TOPICAL BID PRN (Reason: yeast) oxybutynin chloride 5 mg tablet 5 mg PO BID Discharge Orders: Discharge Order (Routine); Ordered 03/22/23 Ordered By: Dejan Frances Admission Data Admit Date/Time: 03/19/23 02:51 Attending Provider: Dejan Frances Admit Provider: Romulo Howell Primary Care Provider: Alexy Mathur Other Providers: [facility] ; [place] Coding Level of Care Code 19712 INP/OBS DISCH >30 MIN Diagnoses Bimalleolar fracture of right ankle S82.841A Fall W19.XXXA Chronic renal failure, stage 3a N18.31 Anxiety and depression F41.9; F32.9 Acid reflux disease K21.9 Hypothyroidism E03.9 Moderate obstructive sleep apnea G47.33 Hyperlipemia E78.5 Morbid obesity E66.01 HTN (hypertension) I10 Insomnia G47.00
== END 2023-03-22 16:08 | DRG 493 ==
LOC: ED 00:25 → 3N 02:51 → SUATTDRO 02:51 → 3N 04:22

== ENCOUNTER 2023-09-24 14:07 | Inpatient (IN) ==
--- NOTE | 2023-09-24 14:41 | Emergency Department Note ---
History of Present Illness General Chief complaint: Fall Stated complaint: FALL, RIGHT LOWER LEG PAIN Time Seen by Provider: 09/24/23 14:20 History of Present Illness Maximum Pain Intensity: 8 78-year-old female with who presents to the emergency department via EMS for evaluation status post fall. Patient reports chronic weakness in her right lower extremity from history of back problems and CVA and states she was getting into the car earlier this afternoon and was unable to lift her right leg up high enough causing her to fall backwards onto her buttocks. She denies hitting her head or loss of consciousness. She notes pain in her right lower leg/ankle. She reports fracturing this ankle in March. She denies back or hip pain, pain in the left lower extremity. She was able to get up and ambulate with assistance following the accident. Denies feeling dizzy/lightheaded prior to her fall, chest pain, shortness of breath, abdominal pain. Patient reports living alone and does not have anyone to care for her and feels that she will need rehab placement. She has not taken anything for her symptoms. Home Medications Medication Instructions Recorded Confirmed Type bupropion HCl 150 mg 24 hr tablet, 150 mg PO QAM 12/01/18 09/24/23 History extended release multivitamin 1 tab PO QAM 12/01/18 09/24/23 History bupropion HCl 300 mg 24 hr tablet, 300 mg PO QAM 11/28/19 09/24/23 History extended release cholecalciferol (vitamin D3) 25 5,000 unit PO QPM 06/06/21 09/24/23 History mcg (1,000 unit) capsule (Vitamin D3) omega-3 fatty acids 1,000 mg 1,000 mg PO QAM 12/12/21 09/24/23 History capsule amlodipine 10 mg tablet 10 mg PO HS #90 tabs 11/16/22 09/24/23 Rx donepezil 5 mg tablet 5 mg PO QPM #90 tabs 02/14/23 09/24/23 Rx spironolactone 50 mg tablet 50 mg PO Q12 #180 tabs 02/14/23 09/24/23 Rx pantoprazole 40 mg tablet,delayed 40 mg PO BID #180 tabs 03/06/23 09/24/23 Rx release cranberry fruit 450 mg tablet 450 mg PO QAM 03/19/23 09/24/23 History (cranberry) metoprolol tartrate 25 mg tablet 25 mg PO BID #180 tabs 06/04/23 09/24/23 Rx oxybutynin chloride 5 mg tablet 5 mg PO BID #180 tabs 06/04/23 09/24/23 Rx Saccharomyces boulardii 250 mg 250 mg PO BID #20 caps 06/29/23 09/24/23 Rx capsule (Florastor) atorvastatin 40 mg tablet 40 mg PO QAM #90 tabs 08/27/23 09/24/23 Rx nystatin 100,000 unit/gram topical 1 applic topical BID PRN yeast 08/27/23 09/24/23 Rx cream #120 grams escitalopram oxalate 10 mg tablet 10 mg PO QAM 09/24/23 09/24/23 History levothyroxine 125 mcg tablet 125 mcg PO QAM 09/24/23 09/24/23 History melatonin 3 mg tablet 3 mg PO HS PRN Sleep 09/24/23 09/24/23 History quetiapine 25 mg tablet (Seroquel) 25 mg PO HS 09/24/23 09/24/23 History Allergies Allergy/AdvReac Type Severity Reaction Status Date / Time baclofen Allergy Mild FLUSHED Verified 09/24/23 17:03 FACE Past Med/Surg History Medical History History of fracture of right ankle Chronic renal failure, stage 3a Pneumonia due to COVID-19 virus Anxiety and depression Electrolyte imbalance SIRS (systemic inflammatory response syndrome) Fever Nausea Osteoarthritis History of kidney stones Hyperlipemia Hernia, incisional Hypokalemia Hypomagnesemia Hypophosphatemia Insomnia Moderate obstructive sleep apnea Hypothyroidism Acid reflux disease HTN (hypertension) Surgical History History of total hysterectomy with bilateral salpingo-oophorectomy (BSO) History of dilatation and curettage History of bilateral tubal ligation History of repair of right rotator cuff History of repair of left rotator cuff History of total right knee replacement (TKR) History of total left knee replacement (TKR) History of cystoscopy History of colonoscopy History of wisdom tooth extraction History of bilateral cataract extraction History of colon surgery abscess removal @ [facility] Hx of cholecystectomy Family History Father , hepatocellular cancer? Family history of diabetes mellitus Myocardial infarction Cancer Grandmother (Paternal) Family history of diabetes mellitus Other Coronary heart disease Family history non-contributory No family history of adverse response to anesthesia Denies family history of Ovarian cancer Prostate cancer Breast cancer Colorectal cancer Social History Smoking Status: Never smoker Second Hand Exposure: No; Do You Dip or Chew Tobacco: No; Hx Alcohol Use: No Hx Substance Use: No Preferred Language: French Communication Ability: Effective Visual Impairment: Limited Hearing Ability: Normal Senior Sql Server Developer Required: No Beliefs That Will Affect Care: None marital status: / Current Living Situation: Alone current occupational status: retired How many Children do You have: 2 Feels Safe at Home: Yes Childhood Exposure to Second-Hand Smoke: No Diet: low salt caffeine: Yes during the past year weight has: remained stable Dental Care, Regularly: Yes Physical Activity Frequency: Does not Exercise Seatbelt Use: never Sunscreen Use: No Assistive Devices: Cane, Walker and Other Physical Exam Vital Signs Vital Signs - 24 hr 09/24/23 14:11 Pulse Rate 60 Respiratory Rate 18 Respiratory Effort / Characteristics Non-Labored Spontaneous Respiratory Depth Normal Respiratory Pattern Regular Blood Pressure 126/103 H Blood Pressure Mean 110 Pulse Oximetry 95 Oxygen Delivery Method Room Air Sepsis Recent Fever Within 48 Hours No Sepsis New/Unexplained Change in Mental Status N/A Sepsis Action Taken by Nursing No Action Required Constitutional: alert and oriented x3. no acute distress. nontoxic HEENT: normocephalic, atraumatic. No facial trauma. No scalp tenderness or hematoma. Normal conjunctiva.PERRLA. EOM's grossly intact. TMs pearly aguiar without effusion. Pharynx pink without exudate. Tonsils nonenlarged. Mucus membranes moist Neck: neck is supple, nontender. Midline C-spine nontender Respiratory: lungs are clear to auscultation without wheezes, rhonchi, or rales bilaterally. equal chest rise. normal respiratory effort, no accessory muscle use. Cardiovascular: normal heart sounds without murmur. regular rate and rhythm. GI: abdomen is soft, nontender. No palpable masses. No rebound tenderness or guarding. MSK: Mild tenderness to the right anterior distal huitron. No right hip, knee, ankle or foot tenderness. No open wounds, abrasions, ecchymosis, erythema. No midline thoracic or lumbar spinal tenderness. Left lower extremity unremarkable. Peripheral vascular: Lower extremities warm and well perfused with palpable pedal pulses. Brisk capillary refill of all digits. Sensation grossly intact Neuro: without focal neuro deficits. GCS 15. Answers questions poorly, follows commands. CNII-XII intact. Speech clear, tongue midline, without facial droop. Strength equal throughout all for extremities. Psych:appropriate mood and affect. Medical Decision Making Differential Diagnosis Fracture, subluxation, dislocation, contusion, ligamentous injury, neurovascular, compartment syndrome, rhabdomyolysis, as well as other pathologies. Laboratory Data 09/24/23 18:10 09/24/23 18:10 Imaging Data My Impression: Tib-fib x-ray per my interpretation demonstrates an acute trimalleolar ankle fracture Radiologist's Impression: Foot X-Ray 09/24/23 14:35 XR foot RT min 3V routine CLINICAL HISTORY: dorsal pain fall TECHNIQUE: 3 views of the right foot were obtained. Comparison: Comparison is made to right ankle radiographs 03/19/2023 FINDINGS: Plate and screw fixation hardware about the fibula is seen. Degenerative changes are seen. Achilles and plantar enthesophytes are seen with calcific densities associated. Soft tissue swelling is seen most prominent about the dorsal foot. IMPRESSION: Soft tissue swelling is seen about the dorsal foot without acute abnormalities. Degenerative changes are seen in the foot. ACT 112: Negative or not required by law. Electronically signed by: Calvin Blood M.D. 09/24/2023 3:05 PM Tibia/Fibula X-Ray 09/24/23 15:07 XR tibia fibula RT 2V CLINICAL HISTORY: fall. Right lower leg pain. COMPARISON STUDY: None. FINDINGS: Soft tissue edema/swelling seen within the right lower leg. There is an acute spiral fracture involving the distal shaft of the right fibula. This demonstrates up to 1 cm of lateral displacement. This results in deformity of the overlying cortical plate. Comminuted fractures of the medial malleolus is also noted. There is widening of the ankle mortise with up to 8 mm of lateral displacement/dislocation of the talus in relation to the distal tibia. The proximal tibia and proximal fibula appear intact. There is a right total knee arthroplasty noted. Plantar and posterior calcaneal spurs are present. Probable small fracture involving the posterior malleolus. IMPRESSION: There is an acute trimalleolar right ankle fracture with associated lateral dislocation/subluxation at the tibiotalar joint. ACT 112: Negative or not required by law. Electronically signed by: Daniel Bryant M.D. 09/24/2023 3:30 PM MDM Narrative 78-year-old female presents to the emergency department via EMS status post mechanical fall with right lower extremity pain. Review of pertinent visits and past medical history performed. Vital signs in ED stable, afebrile. Patient was seen and evaluated as above. She declined need for pain medication while in the ED. X-rays of the right foot and tip/fib were obtained and compared to x- rays obtained in March. Xrays demonstrate an acute trimalleolar ankle fracture with associated lateral dislocation/subluxation at the tibiotalar joint. Given complexity of fracture, case was discussed with patient's orthopedic surgeon, Dr. Lizarraga who performed her initial surgery in March. He reviewed imaging and advised additional surgery to repair her fracture. He recommended referral to Dr. Marquez, shade hanger for second opinion. Case was discussed with Dr. aMrquez and x-ray images were provided. Dr. Marquez came to evaluate patient at bedside and is planning surgery tomorrow morning. Patient lives alone and is requesting rehab placement. I discussed with hospitalist, Dr. Jara who graciously accepted patient to his service for further medical management. She was admitted in stable condition. Impression & Plan Closed trimalleolar fracture of ankle, Fall from slip, trip, or stumble Discharge Plan Visit Data Chief Complaint: Fall Stated Complaint: FALL, RIGHT LOWER LEG PAIN ED Provider: Levon Gonzalez ED Midlevel Provider: Aliyah Fay Discharge Problem: Closed trimalleolar fracture of ankle, Fall from slip, trip, or stumble Patient Disposition: Admitted As Inpatient Forms Stand Alone Forms: My [facility] [employer] Prescriptions Prescriptions: No Action cholecalciferol (vitamin D3) [Vitamin D3] 25 mcg (1,000 unit) capsule 5,000 unit PO QPM amlodipine 10 mg tablet 10 mg PO HS Qty: 90 3RF donepezil 5 mg tablet 5 mg PO QPM Qty: 90 3RF spironolactone 50 mg tablet 50 mg PO Q12 Qty: 180 3RF pantoprazole 40 mg tablet,delayed release (DR/EC) 40 mg PO BID Qty: 180 3RF metoprolol tartrate 25 mg tablet 25 mg PO BID Qty: 180 3RF oxybutynin chloride 5 mg tablet 5 mg PO BID Qty: 180 3RF nystatin 100,000 unit/gram cream 1 applic TOPICAL BID PRN (Reason: yeast) Qty: 120 5RF atorvastatin 40 mg tablet 40 mg PO QAM Qty: 90 3RF multivitamin Tablet 1 tab PO QAM bupropion HCl 150 mg tablet extended release 24 hr 150 mg PO QAM Rx Instructions: Take w/ 300mg tablet to equal 450mg by mouth once in the morning bupropion HCl 300 mg tablet extended release 24 hr 300 mg PO QAM Rx Instructions: Take w/ 150mg tablet to equal 450mg by mouth once in the morning omega-3 fatty acids 1,000 mg Capsule 1,000 mg PO QAM cranberry 450 mg Tablet 450 mg PO QAM Rx Instructions: administer with a meal Saccharomyces boulardii [Florastor] 250 mg capsule 250 mg PO BID Qty: 20 0RF Rx Instructions: swallow whole quetiapine [Seroquel] 25 mg tablet 25 mg PO HS melatonin 3 mg tablet 3 mg PO HS PRN (Reason: Sleep) levothyroxine 125 mcg tablet 125 mcg PO QAM escitalopram oxalate 10 mg tablet 10 mg PO QAM Referrals Referrals: Alexy Mathur DO [Primary Care Provider] -
--- NOTE | 2023-09-24 15:06 | XRay Report ---
XR foot RT min 3V routine CLINICAL HISTORY: dorsal pain fall TECHNIQUE: 3 views of the right foot were obtained. Comparison: Comparison is made to right ankle radiographs 03/19/2023 FINDINGS: Plate and screw fixation hardware about the fibula is seen. Degenerative changes are seen. Achilles a nd plantar enthesophytes are seen with calcific densities associated. Soft tissue swelling is seen mo st prominent about the dorsal foot. IMPRESSION: Soft tissue swelling is seen about the dorsal foot without acute abnormalities. Degenerative changes are seen in the foot. ACT 112: Negative or not required by law. Electronically signed by: Calvin Blood M.D. 09/24/2023 3:05 PM
--- NOTE | 2023-09-24 15:32 | XRay Report ---
XR tibia fibula RT 2V CLINICAL HISTORY: fall. Right lower leg pain. COMPARISON STUDY: None. FINDINGS: Soft tissue edema/swelling seen within the right lower leg. There is an acute spiral fractu re involving the distal shaft of the right fibula. This demonstrates up to 1 cm of lateral displaceme nt. This results in deformity of the overlying cortical plate. Comminuted fractures of the medial mal leolus is also noted. There is widening of the ankle mortise with up to 8 mm of lateral displacement/ dislocation of the talus in relation to the distal tibia. The proximal tibia and proximal fibula appe ar intact. There is a right total knee arthroplasty noted. Plantar and posterior calcaneal spurs are present. Probable small fracture involving the posterior malleolus. IMPRESSION: There is an acute trimalleolar right ankle fracture with associated lateral dislocation/ subluxation at the tibiotalar joint. ACT 112: Negative or not required by law. Electronically signed by: Daniel Bryant M.D. 09/24/2023 3:30 PM
--- NOTE | 2023-09-24 18:13 | History & Physical Report ---
Date of Service September 24, 2023 Assessment & Plan (1) Closed trimalleolar fracture of ankle: Plan: Patient's leg gave out while she was getting in the car, and she collapsed on her right ankle No LOC; not on blood thinners; no dizziness; reports her leg just "gave out" Hx of bimalleolar fracture and repair with Dr. Lizarraga on 03/19/2023 Tibial/fibula x-ray showed an acute trimalleolar right ankle fracture Ortho consulted Preop EKG, CXR, type and screen, labs ordered, pending N.p.o. at midnight Hold chemical DVT PPx for now Right LE nonweightbearing Acetaminophen 650 mg p.o. q6h as needed for pain Hold amlodipine and spironolactone tonight; can restart 09/24 Plan is to go to the OR with Dr. Sukhdeep Marquez (Podiatry) on 09/25 A.m. CBC, BMP (2) Anxiety and depression: Plan: Continue bupropion, escitalopram (3) HTN (hypertension): Plan: Continue metoprolol Restart amlodipine 09/25 (4) JESSI on CPAP: Plan: Patient declined CPAP; reports she has not been using in the past 6 months since her first ankle injury Plan Disposition: Obs -admit to [facility] Full code AHA diet (n.p.o. at midnight) Hold VTE PPx prior to surgery; reevaluate postop History of Present Illness Chief Complaint: Fall Primary Care Provider: Alexy Mathur DO Sara is an 78-year-old female with PMH of bimalleolar right ankle fracture, dementia, JESSI, and LBP. She presented for a fall with right ankle injury on 09/24. Patient was previously following with Dr. Lizarraga for a bimalleolar fracture that was fixed 6 months ago; however, tibia/tibial x-ray today showed new trimalleolar right ankle fracture associated with lateral dislocation/subluxation after the fall. Patient declines pain medication and reports she did not take anything at home for pain. Pain in the right ankle. Radiates from the ankle to the mid-way point between ankle and knee. She describes it as a dull achy pain that is worse with movement. 0/10 pain at present. She did not hear a "pop" when she fell. Patient exhibits mild hypertension on arrival; vitals otherwise stable. ROS: Patient endorses RLE pain/soreness, numbness/tingling from knee to ankle, and frequent urination. Patient denies fever, chills, night-sweats, CP, SOB, abdominal pain, burning with urination. No PMH of MT, DVT/PE, diabetes, cancer Allergies Allergy/AdvReac Type Severity Reaction Status Date / Time baclofen Allergy Mild FLUSHED Verified 09/24/23 17:03 FACE Home Medications Medication Instructions Recorded Confirmed Type bupropion HCl 150 mg 24 hr tablet, 150 mg PO QAM 12/01/18 09/24/23 History extended release multivitamin 1 tab PO QAM 12/01/18 09/24/23 History bupropion HCl 300 mg 24 hr tablet, 300 mg PO QAM 11/28/19 09/24/23 History extended release cholecalciferol (vitamin D3) 25 5,000 unit PO QPM 06/06/21 09/24/23 History mcg (1,000 unit) capsule (Vitamin D3) omega-3 fatty acids 1,000 mg 1,000 mg PO QAM 12/12/21 09/24/23 History capsule amlodipine 10 mg tablet 10 mg PO HS #90 tabs 11/16/22 09/24/23 Rx donepezil 5 mg tablet 5 mg PO QPM #90 tabs 02/14/23 09/24/23 Rx spironolactone 50 mg tablet 50 mg PO Q12 #180 tabs 02/14/23 09/24/23 Rx pantoprazole 40 mg tablet,delayed 40 mg PO BID #180 tabs 03/06/23 09/24/23 Rx release cranberry fruit 450 mg tablet 450 mg PO QAM 03/19/23 09/24/23 History (cranberry) metoprolol tartrate 25 mg tablet 25 mg PO BID #180 tabs 06/04/23 09/24/23 Rx oxybutynin chloride 5 mg tablet 5 mg PO BID #180 tabs 06/04/23 09/24/23 Rx Saccharomyces boulardii 250 mg 250 mg PO BID #20 caps 06/29/23 09/24/23 Rx capsule (Florastor) atorvastatin 40 mg tablet 40 mg PO QAM #90 tabs 08/27/23 09/24/23 Rx nystatin 100,000 unit/gram topical 1 applic topical BID PRN yeast 08/27/23 09/24/23 Rx cream #120 grams escitalopram oxalate 10 mg tablet 10 mg PO QAM 09/24/23 09/24/23 History levothyroxine 125 mcg tablet 125 mcg PO QAM 09/24/23 09/24/23 History melatonin 3 mg tablet 3 mg PO HS PRN Sleep 09/24/23 09/24/23 History quetiapine 25 mg tablet (Seroquel) 25 mg PO HS 09/24/23 09/24/23 History Past Med/Surg History Medical History (Updated 09/24/23 @ 18:58 by Daniel Connell PA-C) HTN (hypertension) Anxiety and depression History of fracture of right ankle Chronic renal failure, stage 3a Pneumonia due to COVID-19 virus Electrolyte imbalance SIRS (systemic inflammatory response syndrome) Fever Nausea Osteoarthritis History of kidney stones Hyperlipemia Hernia, incisional Hypokalemia Hypomagnesemia Hypophosphatemia Insomnia Moderate obstructive sleep apnea Hypothyroidism Acid reflux disease Surgical History History of total hysterectomy with bilateral salpingo-oophorectomy (BSO) History of dilatation and curettage History of bilateral tubal ligation History of repair of right rotator cuff History of repair of left rotator cuff History of total right knee replacement (TKR) History of total left knee replacement (TKR) History of cystoscopy History of colonoscopy History of wisdom tooth extraction History of bilateral cataract extraction History of colon surgery abscess removal @ [facility] Hx of cholecystectomy Family History Father , hepatocellular cancer? Family history of diabetes mellitus Myocardial infarction Cancer Grandmother (Paternal) Family history of diabetes mellitus Other Coronary heart disease Family history non-contributory No family history of adverse response to anesthesia Denies family history of Ovarian cancer Prostate cancer Breast cancer Colorectal cancer Social History Smoking Status: Never smoker Second Hand Exposure: No; Do You Dip or Chew Tobacco: No; Hx Alcohol Use: No Hx Substance Use: No Preferred Language: Azerbaijani Communication Ability: Effective Visual Impairment: Limited Hearing Ability: Normal Geomorphology Teacher Required: No Beliefs That Will Affect Care: None marital status: / Current Living Situation: Alone current occupational status: retired How many Children do You have: 2 Other Information That Helps Us Care for You: No Feels Safe at Home: Yes Safety Concerns: Feels Safe At This Time Childhood Exposure to Second-Hand Smoke: No Diet: low salt caffeine: Yes during the past year weight has: remained stable Dental Care, Regularly: Yes Physical Activity Frequency: Does not Exercise Seatbelt Use: never Sunscreen Use: No Assistive Devices: Glasses and Walker Assistive Devices Comment: reading glasses not with Review of Systems Review of Systems: See HPI above Physical Exam Physical Exam: General: no acute distress; non-toxic appearing; well-nourished; cooperative HEENT: normocephalic, atraumatic; no scleral icterus; PERRLA w/ EOMs intact; moist mucus membrane; vision and hearing grossly intact Neck: supple; no lymphadenopathy; trachea midline Skin: warm, dry without signs of tenting; no cyanosis; no rashes, bruising, lesions, or erythema noted CV: chest wall NTP; RRR; S1/S2 normal; no murmurs/rubs/gallops; pulses intact and symmetric at radial, DP, and PT Lungs: no acute respiratory distress; symmetrical chest wall expansion; clear breath sounds across all lung mukherjee w/o adventitious sounds; no wheezing ABD: Soft, NTP; BS present; no rebound/guarding; no ascites; no distention RLE: Decreased sensation on the dorsal aspect of the right foot; bruising on the right anterior ankle; indentation at the right lateral malleolus; patient demonstrates ability to wiggle toes, and bend at the ankle, and bend at the knee MSK: no tics or fasciculations; significant edema on the dorsal aspect of the feet B/L Neuro: A&Ox3; normal mood and affect; fluent speech; no focal deficits Results & Data Results & Data Vital Signs (Past 12 Hours) Vital Signs Pulse Resp BP Pulse Ox O2 Del Method 09/24/23 14:11 60 18 126/103 H 95 Room Air Laboratory Results Abnormal lab results 09/24/23 Range/Units 18:10 RDW Std Deviation 47.0 H (36.4-46.3) fL [place] # (Auto) 0.73 H (0.11-0.59) K/uL BUN 29 H (6-23) mg/dl Creatinine 1.73 H (0.6-1.2) mg/dl Glucose 100 H (70-99(Fasting)) mg/dl Diagnostic Findings Foot X-Ray 09/24/23 14:35 XR foot RT min 3V routine CLINICAL HISTORY: dorsal pain fall TECHNIQUE: 3 views of the right foot were obtained. Comparison: Comparison is made to right ankle radiographs 03/19/2023 FINDINGS: Plate and screw fixation hardware about the fibula is seen. Degenerative changes are seen. Achilles and plantar enthesophytes are seen with calcific densities associated. Soft tissue swelling is seen most prominent about the dorsal foot. IMPRESSION: Soft tissue swelling is seen about the dorsal foot without acute abnormalities. Degenerative changes are seen in the foot. ACT 112: Negative or not required by law. Electronically signed by: Calvin Blood M.D. 09/24/2023 3:05 PM Tibia/Fibula X-Ray 09/24/23 15:07 XR tibia fibula RT 2V CLINICAL HISTORY: fall. Right lower leg pain. COMPARISON STUDY: None. FINDINGS: Soft tissue edema/swelling seen within the right lower leg. There is an acute spiral fracture involving the distal shaft of the right fibula. This demonstrates up to 1 cm of lateral displacement. This results in deformity of the overlying cortical plate. Comminuted fractures of the medial malleolus is also noted. There is widening of the ankle mortise with up to 8 mm of lateral displacement/dislocation of the talus in relation to the distal tibia. The proximal tibia and proximal fibula appear intact. There is a right total knee arthroplasty noted. Plantar and posterior calcaneal spurs are present. Probable small fracture involving the posterior malleolus. IMPRESSION: There is an acute trimalleolar right ankle fracture with associated lateral dislocation/subluxation at the tibiotalar joint. ACT 112: Negative or not required by law. Electronically signed by: Daniel Bryant M.D. 09/24/2023 3:30 PM Code Status & VTE Plan Code Status Full code VTE Prophylaxis Plan VTE Prophylaxis will be ordered: No Supervising Physician Co-Signing Physician Notes I personally saw and examined the patient. I independently reviewed the labs, imaging, problem list, medication list, past medical history and family history. I verified all brandon points and agree with Daniel Connell PA-C with the following exceptions and/or additions: 78 year old female presents to the ER due to fall with right ankle pain. She reports longstanding right leg weakness due to prior radiculopathy from her back. She tried to get into her car standing on her right leg alone as she swung her left leg into the car and collapsed. Repeat ankle fracture on XR. ER provider discussed with Dr Lizarraga who recommend Dr Smith or Jimmy to see patient. O/E HS RRR, no murmurs, Chest CTAB, right ankle wrapped and not examined as already seen by podiatry earlier today per patient, b/l 1+ edema equal A/P Closed trimalleolar fracture - consult orthopedics, NPO after midnight, hold amlodipine and spironolactone pre-operatively Fall - appears mechanical from longstanding right leg weakness. No further workup of this required. PG Care Time/CCT Total # of Minutes Spent Total Time Spent with Patient: Total time spent is greater than 50% in coordination of care (as documented) at patient's floor/unit and/or counseling patient: Coding [place] [address] INT INP/OBS CARE 2/55MIN Patient Type Established Medical Decision Making Moderate Complexity Diagnoses Closed trimalleolar fracture of ankle S82.853A Anxiety and depression F41.9; F32.9 HTN (hypertension) I10 JESSI on CPAP G47.33
[2023-09-24 18:31] LABS: Basophils # (auto) 0.06 K/uL (0.00-0.20); Basophils % (auto) 0.6 %; Eosinophils # (auto) 0.07 K/uL (0.00-0.50); Eosinophils % (auto) 0.7 %; Hematocrit (blood only) 39.5 % (37.0-47.0); Hemoglobin 13.5 g/dl (12.0-16.0); Immature Granulocytes # (auto) 0.02 K/uL (0.01-0.20); Immature Granulocytes % (auto) 0.2 %; Lymphocytes # (auto) 2.59 K/uL (1.20-3.40); Lymphocytes % (auto) 27.1 %; Mean Corpuscular Hemoglobin 30.8 pg (25.0-34.0); Mean Corpuscular Hgb Conc 34.2 g/dL (32.0-36.0); Mean Corpuscular Volume 90.2 fL (80.0-100.0); Mean Platelet Volume 10.4 fL (9.4-12.4); Monocytes # (auto) 0.73 K/uL (0.11-0.59); Monocytes % (auto) 7.6 %; Neutrophils # (auto) 6.08 K/uL (1.40-6.50); Neutrophils % (auto) 63.8 %; Platelet Count 233 K/uL (130-400); Red Blood Count 4.38 M/uL (4.20-5.40); White Blood Count 9.55 K/ul (4.8-10.8)
[2023-09-24 18:49] LABS: Albumin Globulin Ratio 1.3 (0.9-2); BUN Creatinine Ratio 16.8 (10-20); Calcium 10.2 mg/dl (8.6-10.3); Creatinine Clr Calc Pharmacy 32.5 ml/min; Est GFR (African American) 31.8 ml/min; Est GFR (Non-African American) 27.4 ml/min; Globulin 3.1 gm/dl (2.5-4.0); Potassium 4.6 mmol/L (3.5-5.1); Total Protein 7.1 gm/dl (6.0-8.3)
--- NOTE | 2023-09-24 18:51 | XRay Report ---
XR chest 1V portable CLINICAL HISTORY: pre-op TECHNIQUE: Single frontal radiograph of the chest was obtained. Comparison: Comparison is made to chest radiograph 06/29/2023 FINDINGS: Bilateral stable total shoulder arthroplasties. Cardiomegaly is noted. The lungs are clear. No eviden ce of pleural effusion or pneumothorax. IMPRESSION: No acute chest disease. Cardiomegaly is noted. ACT 112: Negative or not required by law. Electronically signed by: Calvin Blood M.D. 09/24/2023 6:50 PM
[2023-09-24 19:06] LABS: Prothrombin Time 10.5 Seconds (9.0-12.0)
[2023-09-24 19:14] LABS: Magnesium 1.7 mg/dl (1.7-2.4)
--- NOTE | 2023-09-24 19:23 | Emergency Department Note ---
ED Visit Note I was consulted by the Advanced Practice Provider Roxane Fay PA-C. I saw the patient personally and performed a substantive portion of the visit. This includes aspects of the HPI, MDM, diagnostic interpretations, and disposition/plan. Patient presented after a fall and suffered a trimalleolar fracture. Patient was seen by Dr. Marquez. Patient does have pulses present and is pending operative fixation tomorrow. Patient admitted to the medicine service. .
[2023-09-24] MEDS ORDERED: ACETAMINOPHEN 325 MG TAB PO PRN (19:57)
[2023-09-24] MEDS ORDERED: amLODIPine BESYLATE 5 MG TAB PO SCH (21:00)
[2023-09-24] MEDS ORDERED: SPIRONOLACTONE 25 MG TAB PO SCH (21:00)
[2023-09-24] MEDS: oxyBUTYnin chloride 5 MG TAB PO SCH (23:09)
[2023-09-24] MEDS: PANTOprazole 40 MG TAB PO SCH (23:09)
[2023-09-24] MEDS: DONEPEZIL HCL 5 MG TAB PO SCH (23:10)
[2023-09-24] MEDS: SACCHAROMYCES BOULARDII 250 MG CAP PO SCH (23:10)
[2023-09-24] MEDS: QUEtiapine FUMARATE 25 MG TABLET PO SCH (23:10)
[2023-09-24] MEDS: METOPROLOL TARTRATE 25 MG TAB PO SCH (23:10)
[2023-09-25] MEDS: LACTATED RINGER'S 1,000 ML IV SCH ×2 (01:11→14:15)
[2023-09-25 05:53] LABS: Basophils # (auto) 0.07 K/uL (0.00-0.20); Basophils % (auto) 0.9 %; Eosinophils % (auto) 1.2 %; Hematocrit (blood only) 36.3 % (37.0-47.0); Hemoglobin 12.2 g/dl (12.0-16.0); Immature Granulocytes # (auto) 0.02 K/uL (0.01-0.20); Immature Granulocytes % (auto) 0.2 %; Lymphocytes # (auto) 3.07 K/uL (1.20-3.40); Lymphocytes % (auto) 37.3 %; Mean Corpuscular Hemoglobin 30.7 pg (25.0-34.0); Mean Corpuscular Hgb Conc 33.6 g/dL (32.0-36.0); Mean Corpuscular Volume 91.2 fL (80.0-100.0); Mean Platelet Volume 10.7 fL (9.4-12.4); Monocytes # (auto) 0.87 K/uL (0.11-0.59); Monocytes % (auto) 10.6 %; Neutrophils # (auto) 4.09 K/uL (1.40-6.50); Neutrophils % (auto) 49.8 %; Platelet Count 211 K/uL (130-400); RDW Standard Deviation 47.4 fL (36.4-46.3); Red Blood Count 3.98 M/uL (4.20-5.40); White Blood Count 8.22 K/ul (4.8-10.8)
[2023-09-25] MEDS: LEVOTHYROXINE SODIUM 125 MCG TABLET PO SCH (05:58)
[2023-09-25 06:48] LABS: Calcium 9.4 mg/dl (8.6-10.3); Potassium 4.3 mmol/L (3.5-5.1)
[2023-09-25 06:54] LABS: BUN Creatinine Ratio 18.9 (10-20); Creatinine Clr Calc Pharmacy 35.3 ml/min; Est GFR (African American) 35.2 ml/min; Est GFR (Non-African American) 30.3 ml/min
[2023-09-25] MEDS: SACCHAROMYCES BOULARDII 250 MG CAP PO SCH ×2 (09:25→20:22)
[2023-09-25] MEDS: buPROPion XL 150 MG TABCR PO SCH (09:25)
[2023-09-25] MEDS: ATORVASTATIN 40 MG TAB PO SCH (09:25)
[2023-09-25] MEDS: METOPROLOL TARTRATE 25 MG TAB PO SCH ×2 (09:26→20:22)
[2023-09-25] MEDS: buPROPion XL 300 MG TABCR PO SCH (09:26)
[2023-09-25] MEDS: ESCITALOPRAM OXALATE 10 MG TAB PO SCH (09:26)
[2023-09-25] MEDS: PANTOprazole 40 MG TAB PO SCH ×2 (09:27→20:22)
[2023-09-25] MEDS: oxyBUTYnin chloride 5 MG TAB PO SCH ×2 (09:27→20:22)
--- NOTE | 2023-09-25 09:28 | Hospitalist Progress Note ---
Date of Service September 25, 2023 Assessment & Plan (1) Closed trimalleolar fracture of ankle: Plan: - Patient's leg gave out while she was getting in the car, and she collapsed on her right ankle - No LOC or dizziness, no blood thinners - Hx of bimalleolar fracture and repair with Dr. Lizarraga on 03/19/2023 - Tibial/fibula x-ray showed an acute trimalleolar right ankle fracture - Ortho consulted - Plan is to go to the OR with Dr. Smith on 09/26 - N.p.o. at midnight - hold spironolactone Hold chemical DVT PPx for now - SCDs as tolerated Right LE nonweightbearing Acetaminophen 650 mg p.o. q6h as needed for pain A.m. CBC, BMP (2) Anxiety and depression: Plan: Continue bupropion, escitalopram (3) HTN (hypertension): Plan: Continue metoprolol Restart amlodipine 09/25 (4) JESSI on CPAP: Plan: Patient declined CPAP; reports has not been using in the past 6 months since her first ankle injury Plan Disposition: Obs -admit to [facility] Full code AHA diet (n.p.o. at midnight) Hold chemical VTE PPx prior to surgery; SCDs as tolerated Admission and Anticipated Discharge Date Admission Date: September 24, 2023 Supervising Physician Co-Signing Physician Notes Attending Attestation - Chart reviewed, care plan d/w SHEEBA Bales. I agree w/ the brandon components of her documentation. To OR tomorrow for ORIF of right ankle fracture. Vitals/labs remain stable. Irineo Pryor MD Subjective 1155 - Patient seen sitting in bed. Overall feeling well, pain in her Right ankle when she gets up/moves. Plan for OR tomorrow with Dr. Marquez. Tolerating diet well. Moving bowels without issues. Denies CP, SOB, nausea or vomiting. Review of Systems Review of Systems: All systems reviewed & are unremarkable except as noted in Subjective Physical Exam Constitutional: WD/WN, vitals as above ENMT: MMM Neck: trachea midline, no thyromegaly Respiratory: normal respiratory effort, lungs clear to auscultation Cardiovascular: RRR, no murmur, no edema Gastrointestinal (Abdomen): normal bowel sounds, soft, nontender, no hepatosplenomegaly Musculoskeletal: 1+ edema b/l lower extremities Psychiatric: A+Ox3, euthymic affect Results & Data Results & Data Vital Signs (Past 12 Hours) Vital Signs Temp Pulse Resp BP Pulse Ox O2 Del Method 09/25/23 09:01 Room Air 09/25/23 07:08 36.8 C 61 18 147/70 H 94 Room Air 09/24/23 23:05 68 18 132/63 95 Room Air 09/24/23 21:32 36.6 C 65 18 129/62 93 Room Air 09/24/23 21:30 Room Air 09/24/23 21:30 Room Air Laboratory Results Laboratory Results - last 24 hr 09/24/23 09/24/23 09/25/23 18:10 18:24 05:20 WBC 9.55 8.22 RBC 4.38 3.98 L Hgb 13.5 12.2 Hct 39.5 36.3 L MCV 90.2 91.2 MCH 30.8 30.7 MCHC 34.2 33.6 RDW Std Deviation 47.0 H 47.4 H RDW Coeff of Randy 14.0 14.0 Plt Count 233 211 MPV 10.4 10.7 Immature Gran % (Auto) 0.2 0.2 Neut % (Auto) 63.8 49.8 Lymph % (Auto) 27.1 37.3 [place] % (Auto) 7.6 10.6 Eos % (Auto) 0.7 1.2 Baso % (Auto) 0.6 0.9 Neut # (Auto) 6.08 4.09 Lymph # (Auto) 2.59 3.07 [place] # (Auto) 0.73 H 0.87 H Eos # (Auto) 0.07 0.10 Baso # (Auto) 0.06 0.07 Immature Gran # (Auto) 0.02 0.02 PT 10.5 INR 1.0 Sodium 139 139 Potassium 4.6 4.3 Chloride 105 105 Carbon Dioxide 26 26 Anion Gap 8 8 BUN 29 H 30 H Creatinine 1.73 H 1.59 H Est Cr Clr Drug Dosing 32.5 35.3 Est GFR ( Amer) 31.8 35.2 Est GFR (Non-Af Amer) 27.4 30.3 BUN/Creatinine Ratio 16.8 18.9 Glucose 100 H 86 Calcium 10.2 9.4 Magnesium 1.7 Total Bilirubin 1.0 AST 15 ALT 13 Alkaline Phosphatase 93 Total Protein 7.1 Albumin 4.0 Globulin 3.1 Albumin/Globulin Ratio 1.3 Blood Type O Positive Antibody Screen NEGATIVE Diagnostic Findings Foot X-Ray 09/24/23 14:35 XR foot RT min 3V routine CLINICAL HISTORY: dorsal pain fall TECHNIQUE: 3 views of the right foot were obtained. Comparison: Comparison is made to right ankle radiographs 03/19/2023 FINDINGS: Plate and screw fixation hardware about the fibula is seen. Degenerative changes are seen. Achilles and plantar enthesophytes are seen with calcific densities associated. Soft tissue swelling is seen most prominent about the dorsal foot. IMPRESSION: Soft tissue swelling is seen about the dorsal foot without acute abnormalities. Degenerative changes are seen in the foot. ACT 112: Negative or not required by law. Electronically signed by: Calvin Blood M.D. 09/24/2023 3:05 PM Tibia/Fibula X-Ray 09/24/23 15:07 XR tibia fibula RT 2V CLINICAL HISTORY: fall. Right lower leg pain. COMPARISON STUDY: None. FINDINGS: Soft tissue edema/swelling seen within the right lower leg. There is an acute spiral fracture involving the distal shaft of the right fibula. This demonstrates up to 1 cm of lateral displacement. This results in deformity of the overlying cortical plate. Comminuted fractures of the medial malleolus is also noted. There is widening of the ankle mortise with up to 8 mm of lateral displacement/dislocation of the talus in relation to the distal tibia. The proximal tibia and proximal fibula appear intact. There is a right total knee arthroplasty noted. Plantar and posterior calcaneal spurs are present. Probable small fracture involving the posterior malleolus. IMPRESSION: There is an acute trimalleolar right ankle fracture with associated lateral dislocation/subluxation at the tibiotalar joint. ACT 112: Negative or not required by law. Electronically signed by: Daniel Bryant M.D. 09/24/2023 3:30 PM Chest X-Ray 09/24/23 18:10 XR chest 1V portable CLINICAL HISTORY: pre-op TECHNIQUE: Single frontal radiograph of the chest was obtained. Comparison: Comparison is made to chest radiograph 06/29/2023 FINDINGS: Bilateral stable total shoulder arthroplasties. Cardiomegaly is noted. The lungs are clear. No evidence of pleural effusion or pneumothorax. IMPRESSION: No acute chest disease. Cardiomegaly is noted. ACT 112: Negative or not required by law. Electronically signed by: Calvin Blood M.D. 09/24/2023 6:50 PM PG Care Time/CCT Total # of Minutes Spent Total Time Spent with Patient: Total time spent is greater than 50% in coordination of care (as documented) at patient's floor/unit and/or counseling patient: Coding Level of Care Code 26521 SUB INP/OBS CARE 2/35MIN Diagnoses Closed trimalleolar fracture of ankle S82.853A Anxiety and depression F41.9; F32.9 HTN (hypertension) I10 JESSI on CPAP G47.33
[2023-09-25] MEDS: KETOCONAZOLE 2% CR 15 GM TUBE EXT PRN (14:57)
--- NOTE | 2023-09-25 19:06 | Orthopedic Consultation ---
Date of Consultation September 25, 2023 Assessment & Plan (1) Closed trimalleolar fracture of ankle: Patient will undergo ORIF right closed displaced trimalleolar ankle fracture dislocation, removal of hardware, autologous bone grafting at suspected nonunion site lateral malleolus, ORIF syndesmotic disruption. All potential risks, benefits, alternatives and rehab were discussed with the patient. Maintain n.p.o. after midnight. Ancef 2 g on-call to the OR tomorrow. Begin VTE prophylaxis postoperative day #1. PT/OT consultation postop day #1. Social service for discharge planning. Patient to be nonweightbearing right lower extremity for approximately 8 weeks. Thank you for the opportunity to consult in the care of this patient. Richard Smith DO [facility] [place] [phone] (2) Morbid obesity: (3) Fall from slip, trip, or stumble: History of Present Illness Reason for Consultation: Right closed trimalleolar ankle fracture dislocation. Syndesmotic disruption. Requesting Physician: Hospitalist service and Dr. Oscar Lizarraga. Attending Physician: Irineo Pryor MD History of Present Illness This pleasant 78-year-old female sustained a twisting fall on her right ankle when her right leg gave out due to chronic weakness. Patient went is unable to ambulate. She was transported to [facility] where she had x- rays to diagnose the fracture dislocation, she was stabilized and admitted to the hospitalist service for further care and management. Allergies Allergy/AdvReac Type Severity Reaction Status Date / Time baclofen Allergy Mild FLUSHED Verified 09/24/23 17:03 FACE Home Medications Medication Instructions Recorded Confirmed Type bupropion HCl 150 mg 24 hr tablet, 150 mg PO QAM 12/01/18 09/24/23 History extended release multivitamin 1 tab PO QAM 12/01/18 09/24/23 History bupropion HCl 300 mg 24 hr tablet, 300 mg PO QAM 11/28/19 09/24/23 History extended release cholecalciferol (vitamin D3) 25 5,000 unit PO QPM 06/06/21 09/24/23 History mcg (1,000 unit) capsule (Vitamin D3) omega-3 fatty acids 1,000 mg 1,000 mg PO QAM 12/12/21 09/24/23 History capsule amlodipine 10 mg tablet 10 mg PO HS #90 tabs 11/16/22 09/24/23 Rx donepezil 5 mg tablet 5 mg PO QPM #90 tabs 02/14/23 09/24/23 Rx spironolactone 50 mg tablet 50 mg PO Q12 #180 tabs 02/14/23 09/24/23 Rx pantoprazole 40 mg tablet,delayed 40 mg PO BID #180 tabs 03/06/23 09/24/23 Rx release cranberry fruit 450 mg tablet 450 mg PO QAM 03/19/23 09/24/23 History (cranberry) metoprolol tartrate 25 mg tablet 25 mg PO BID #180 tabs 06/04/23 09/24/23 Rx oxybutynin chloride 5 mg tablet 5 mg PO BID #180 tabs 06/04/23 09/24/23 Rx Saccharomyces boulardii 250 mg 250 mg PO BID #20 caps 06/29/23 09/24/23 Rx capsule (Florastor) atorvastatin 40 mg tablet 40 mg PO QAM #90 tabs 08/27/23 09/24/23 Rx nystatin 100,000 unit/gram topical 1 applic topical BID PRN yeast 08/27/23 09/24/23 Rx cream #120 grams escitalopram oxalate 10 mg tablet 10 mg PO QAM 09/24/23 09/24/23 History levothyroxine 125 mcg tablet 125 mcg PO QAM 09/24/23 09/24/23 History melatonin 3 mg tablet 3 mg PO HS PRN Sleep 09/24/23 09/24/23 History quetiapine 25 mg tablet (Seroquel) 25 mg PO HS 09/24/23 09/24/23 History Patient History Medical History (Updated 09/25/23 @ 19:01 by Richard Smith DO) HTN (hypertension) Anxiety and depression History of fracture of right ankle Chronic renal failure, stage 3a Pneumonia due to COVID-19 virus Electrolyte imbalance SIRS (systemic inflammatory response syndrome) Fever Nausea Osteoarthritis History of kidney stones Hyperlipemia Hernia, incisional Hypokalemia Hypomagnesemia Hypophosphatemia Insomnia Moderate obstructive sleep apnea Hypothyroidism Acid reflux disease Surgical History History of total hysterectomy with bilateral salpingo-oophorectomy (BSO) History of dilatation and curettage History of bilateral tubal ligation History of repair of right rotator cuff History of repair of left rotator cuff History of total right knee replacement (TKR) History of total left knee replacement (TKR) History of cystoscopy History of colonoscopy History of wisdom tooth extraction History of bilateral cataract extraction History of colon surgery abscess removal @ [facility] Hx of cholecystectomy Family History Father , hepatocellular cancer? Family history of diabetes mellitus Myocardial infarction Cancer Grandmother (Paternal) Family history of diabetes mellitus Other Coronary heart disease Family history non-contributory No family history of adverse response to anesthesia Denies family history of Ovarian cancer Prostate cancer Breast cancer Colorectal cancer Social History Smoking Status: Never smoker Second Hand Exposure: No; Do You Dip or Chew Tobacco: No; Hx Alcohol Use: No Hx Substance Use: No Preferred Language: Armenian Communication Ability: Effective Visual Impairment: Limited Hearing Ability: Normal Production Administrator Required: No Beliefs That Will Affect Care: None marital status: / Current Living Situation: Alone current occupational status: retired How many Children do You have: 2 Other Information That Helps Us Care for You: No Feels Safe at Home: Yes Safety Concerns: Feels Safe At This Time Childhood Exposure to Second-Hand Smoke: No Diet: low salt caffeine: Yes during the past year weight has: remained stable Dental Care, Regularly: Yes Physical Activity Frequency: Does not Exercise Seatbelt Use: never Sunscreen Use: No Assistive Devices: Cane, Walker and Other Assistive Devices Comment: reading glasses not with Physical Exam Constitutional: WD/WN, vitals as above Eyes: PERRL, conjunctivae normal, anicteric sclerae ENMT: external ear and nose normal, oropharynx normal Neck: trachea midline, no thyromegaly Respiratory: normal respiratory effort, lungs clear to auscultation Cardiovascular: Regular rate and rhythm. Chronic edema bilateral lower extremities. Limbs well perfused. Gastrointestinal (Abdomen): normal bowel sounds, soft, nontender, no hepatosplenomegaly Musculoskeletal: Right ankle with external rotation and valgus alignment. Tender to palpation at the lateral, medial and posterior malleoli. Ecchymosis medial and lateral ankle. Skin is intact, warm and dry. Pedal pulses are palpable. Sensation is intact bilateral lower extremities. Limited range of motion and strength silva ting due to pain and guarding right ankle. Skin: no rashes, warm and dry Neurologic: Post stroke features with right-sided weakness. No obvious dysarthria. Psychiatric: A+Ox3, euthymic affect Lymphatic: Chronic bilateral lower extremity edema. Results & Data Vital Signs (Past 12 Hours) Vital Signs Temp Pulse Resp BP Pulse Ox O2 Del Method 09/25/23 17:27 36.7 C 80 18 146/71 H 97 Room Air 09/25/23 09:01 Room Air 09/25/23 07:08 36.8 C 61 18 147/70 H 94 Room Air Diagnostic Findings Radiographs reviewed demonstrating segmental right fibula fracture with failure of hardware lateral malleolus. Concern for nonunion at original fracture site lateral malleolus. Acute Trimalleolar fracture dislocation with syndesmotic disruption. Degenerative arthritis noted at the ankle joint with marginal osteophytes, subchondral sclerosis. (1) Closed trimalleolar fracture of ankle Encounter type: initial encounter Laterality: right Qualified Code(s): S82.851A - Displaced trimalleolar fracture of right lower leg, initial encounter for closed fracture
[2023-09-25] MEDS: QUEtiapine FUMARATE 25 MG TABLET PO SCH (20:21)
[2023-09-25] MEDS: amLODIPine BESYLATE 5 MG TAB PO SCH (20:21)
[2023-09-25] MEDS: DONEPEZIL HCL 5 MG TAB PO SCH (20:22)
[2023-09-26] MEDS: LEVOTHYROXINE SODIUM 125 MCG TABLET PO SCH (05:23)
[2023-09-26 07:27] LABS: Hematocrit (blood only) 34.2 % (37.0-47.0); Hemoglobin 11.6 g/dl (12.0-16.0); Mean Corpuscular Hemoglobin 30.4 pg (25.0-34.0); Mean Corpuscular Hgb Conc 33.9 g/dL (32.0-36.0); Mean Corpuscular Volume 89.8 fL (80.0-100.0); Mean Platelet Volume 10.8 fL (9.4-12.4); Platelet Count 212 K/uL (130-400); RDW Coefficient of Variation 13.9 % (11.5-14.5); RDW Standard Deviation 45.9 fL (36.4-46.3); Red Blood Count 3.81 M/uL (4.20-5.40); White Blood Count 8.58 K/ul (4.8-10.8)
[2023-09-26] MEDS: COUGH DROP (SUGAR FREE) LOZ 24 LOZ/1 BOX BUCCAL PRN (07:28)
[2023-09-26] MEDS: ATORVASTATIN 40 MG TAB PO SCH (07:31)
[2023-09-26] MEDS: buPROPion XL 150 MG TABCR PO SCH (07:31)
[2023-09-26] MEDS: ESCITALOPRAM OXALATE 10 MG TAB PO SCH (07:31)
[2023-09-26] MEDS: buPROPion XL 300 MG TABCR PO SCH (07:31)
[2023-09-26] MEDS: METOPROLOL TARTRATE 25 MG TAB PO SCH ×2 (07:32→20:45)
[2023-09-26] MEDS: PANTOprazole 40 MG TAB PO SCH ×2 (07:32→20:45)
[2023-09-26] MEDS: SACCHAROMYCES BOULARDII 250 MG CAP PO SCH ×2 (07:32→20:45)
[2023-09-26] MEDS: oxyBUTYnin chloride 5 MG TAB PO SCH ×2 (07:32→20:45)
[2023-09-26 07:54] LABS: Albumin Globulin Ratio 1.3 (0.9-2); Albumin Level 3.6 gm/dl (3.4-5.0); BUN Creatinine Ratio 19.7 (10-20); Bilirubin,Total 0.8 mg/dl (0.2-1.0); Creatinine Clr Calc Pharmacy 32.5 ml/min; Est GFR (African American) 31.8 ml/min; Est GFR (Non-African American) 27.4 ml/min; Globulin 2.8 gm/dl (2.5-4.0); Potassium 4.2 mmol/L (3.5-5.1); Total Protein 6.4 gm/dl (6.0-8.3)
--- NOTE | 2023-09-26 12:00 | History & Physical Bridge Note ---
Date of Service September 26, 2023 History & Physical Bridge Note I have examined the patient, reviewed the History & Physical and in the interval since the performance of the History & Physical I have noted the following changes of clinical significance: no changes noted
--- NOTE | 2023-09-26 12:18 | Anesthesiology Consultation ---
Date of Service September 26, 2023 Assessment & Plan Chart Review Chart Review: Acceptable Risk for Surgery and Patient NOT seen in Pre Admission Testing Consults Requested none ASA ASA4 Proposed Anesthesia Anesthesia Type: General Regional Regional Laterality: Right Site: Popliteal and Adductor Canal History Surgery Operation Date: 09/26/23 11:15 Proposed Procedures p Right Open Reduction Internal Fixation Ankle - Richard Smith DO Height/Weight Height: 5 ft Weight: 130 kg Allergies Allergy/AdvReac Type Severity Reaction Status Date / Time baclofen Allergy Mild FLUSHED Verified 09/24/23 17:03 FACE Medications Home Medications Medication Instructions Recorded Confirmed Last Taken bupropion HCl 150 mg 24 hr tablet, 150 mg PO QAM 12/01/18 09/24/23 09/24/23 extended release multivitamin 1 tab PO QAM 12/01/18 09/24/23 09/24/23 bupropion HCl 300 mg 24 hr tablet, 300 mg PO QAM 11/28/19 09/24/23 09/24/23 extended release cholecalciferol (vitamin D3) 25 5,000 unit PO QPM 06/06/21 09/24/23 09/23/23 mcg (1,000 unit) capsule (Vitamin D3) omega-3 fatty acids 1,000 mg 1,000 mg PO QAM 12/12/21 09/24/23 09/24/23 capsule amlodipine 10 mg tablet 10 mg PO HS #90 tabs 11/16/22 09/24/23 09/23/23 donepezil 5 mg tablet 5 mg PO QPM #90 tabs 02/14/23 09/24/23 09/23/23 spironolactone 50 mg tablet 50 mg PO Q12 #180 tabs 02/14/23 09/24/23 09/24/23 pantoprazole 40 mg tablet,delayed 40 mg PO BID #180 tabs 03/06/23 09/24/23 09/24/23 release cranberry fruit 450 mg tablet 450 mg PO QAM 03/19/23 09/24/23 09/24/23 (cranberry) metoprolol tartrate 25 mg tablet 25 mg PO BID #180 tabs 06/04/23 09/24/23 09/24/23 oxybutynin chloride 5 mg tablet 5 mg PO BID #180 tabs 06/04/23 09/24/23 09/24/23 Saccharomyces boulardii 250 mg 250 mg PO BID #20 caps 06/29/23 09/24/23 09/24/23 capsule (Florastor) atorvastatin 40 mg tablet 40 mg PO QAM #90 tabs 08/27/23 09/24/23 09/24/23 nystatin 100,000 unit/gram topical 1 applic topical BID PRN yeast 08/27/23 09/24/23 Unknown cream #120 grams escitalopram oxalate 10 mg tablet 10 mg PO QAM 09/24/23 09/24/23 09/24/23 levothyroxine 125 mcg tablet 125 mcg PO QAM 09/24/23 09/24/23 09/24/23 melatonin 3 mg tablet 3 mg PO HS PRN Sleep 09/24/23 09/24/23 Unknown quetiapine 25 mg tablet (Seroquel) 25 mg PO HS 09/24/23 09/24/23 09/23/23 Active Medications Generic Name Dose Route Start Last Admin Trade Name Freq PRN Reason Stop Dose Admin Amlodipine Besylate 10 mg 09/25/23 21:00 09/25/23 20:21 Amlodipine Besylate 5 Mg Tab PO 10/25/23 20:59 10 mg HS NOHEMY Administration Atorvastatin Calcium 40 mg 09/25/23 09:00 09/26/23 07:31 Atorvastatin 40 Mg Tab PO 10/25/23 08:59 40 mg QAM NOHEMY Administration Bupropion HCl 150 mg 09/25/23 09:00 09/26/23 07:31 Bupropion Xl 150 Mg Tabcr PO 10/25/23 08:59 150 mg QAM NOHEMY Administration Bupropion HCl 300 mg 09/25/23 09:00 09/26/23 07:31 Bupropion Xl 300 Mg Tabcr PO 10/25/23 08:59 300 mg QAM NOHEMY Administration Donepezil HCl 5 mg 09/24/23 21:00 09/25/23 20:22 Donepezil Hcl 5 Mg Tab PO 10/24/23 20:59 5 mg QPM NOHEMY Administration Escitalopram Oxalate 10 mg 09/25/23 09:00 09/26/23 07:31 Escitalopram Oxalate 10 Mg Tab PO 10/25/23 08:59 10 mg QAM NOHEMY Administration Ketoconazole 1 appln 09/24/23 23:19 09/25/23 14:57 Ketoconazole 2% Cr 15 Gm Tube EXT 10/04/23 23:18 1 appln BID PRN Administration Fungal rash Levothyroxine Sodium 125 mcg 09/25/23 06:30 09/26/23 05:23 Levothyroxine Sodium 125 Mcg Tablet PO 10/25/23 06:29 125 mcg DAILYBB NOHEMY Administration Menthol 1 gay 09/25/23 22:48 09/26/23 07:28 Cough Drop (Sugar Free) Gay 24 Gay/1 Box BUCCAL 10/25/23 22:47 1 gay TID PRN Administration Sore Throat Metoprolol Tartrate 25 mg 09/24/23 21:00 09/26/23 07:32 Metoprolol Tartrate 25 Mg Tab PO 10/24/23 20:59 25 mg BID NOHEMY Administration Oxybutynin Chloride 5 mg 09/24/23 21:00 09/26/23 07:32 Oxybutynin Chloride 5 Mg Tab PO 10/24/23 20:59 5 mg BID NOHEMY Administration Pantoprazole Sodium 40 mg 09/24/23 21:00 09/26/23 07:32 Pantoprazole 40 Mg Tab PO 10/24/23 20:59 40 mg BID NOHEMY Administration Quetiapine Fumarate 25 mg 09/24/23 21:00 09/25/23 20:21 Quetiapine Fumarate 25 Mg Tablet PO 10/24/23 20:59 25 mg HS NOHEMY Administration Saccharomyces Boulardii 250 mg 09/24/23 21:00 09/26/23 07:32 Saccharomyces Boulardii 250 Mg Cap PO 10/24/23 20:59 250 mg BID NOHEMY Administration Past Medical History Medical History HTN (hypertension) Anxiety and depression History of fracture of right ankle Chronic renal failure, stage 3a Pneumonia due to COVID-19 virus Electrolyte imbalance SIRS (systemic inflammatory response syndrome) Fever Nausea Osteoarthritis History of kidney stones Hyperlipemia Hernia, incisional Hypokalemia Hypomagnesemia Hypophosphatemia Insomnia Moderate obstructive sleep apnea Hypothyroidism Acid reflux disease morbid obesity Exercise / Class Metabolic Activity II 4-5 Yardwork/Stairs/Walk up hill Past Family History Family History Father , hepatocellular cancer? Family history of diabetes mellitus Myocardial infarction Cancer Grandmother (Paternal) Family history of diabetes mellitus Other Coronary heart disease Family history non-contributory No family history of adverse response to anesthesia Denies family history of Ovarian cancer Prostate cancer Breast cancer Colorectal cancer Past Surgical History Surgical History History of total hysterectomy with bilateral salpingo-oophorectomy (BSO) History of dilatation and curettage History of bilateral tubal ligation History of repair of right rotator cuff History of repair of left rotator cuff History of total right knee replacement (TKR) History of total left knee replacement (TKR) History of cystoscopy History of colonoscopy History of wisdom tooth extraction History of bilateral cataract extraction History of colon surgery abscess removal @ [facility] Hx of cholecystectomy Past Anesthesia History No Hx of Anesthesia Complications and No Family Hx of Anesthesia Complications History of PONV No Hx of PONV and No Hx of Motion Sickness Social History Smoking Status: Never smoker Do You Dip or Chew Tobacco: No Hx Alcohol Use: No Hx Substance Use: No substance use type: does not use Physical Exam Vital Signs Last Vital Signs Temp 36.8 C 09/26/23 07:06 Pulse 68 09/26/23 07:06 Resp 18 09/26/23 07:06 BP 160/72 H 09/26/23 07:06 Pulse Ox 94 09/26/23 07:06 O2 Del Method Room Air 09/26/23 07:06 Testing Laboratory Results 09/26/23 06:32 09/26/23 06:32 PT 10.5 Seconds (9.0-12.0) 09/24/23 18:10 INR 1.0 (0.9-1.1) 09/24/23 18:10 Blood Type O Positive 09/24/23 18:24 Antibody Screen NEGATIVE 09/24/23 18:24 Electrocardiogram Date: 09/24/23 Findings: + NSR @ (@ 66;Non specific ST and T wave abnormalities) Chest X-Ray Date: 09/24/23 Findings: + NAD and + cardiomegaly Stress Test Date: 07/10/19 Type: DSE Findings: + WNL Resting EF: 60% Valvular Disease: no significant valvular disease
[2023-09-26] MEDS ORDERED: ceFAZolin 2000MG 2,000 MG/15 ML SYR IV SCH (12:25)
[2023-09-26] MEDS ORDERED: fentaNYL citrate PF 100 MCG/2 ML VIAL ONE ×3 (12:33→16:45)
[2023-09-26] MEDS ORDERED: ROPIVACAINE 0.5% 5 MG/ML 30 ML VIAL ONE (12:34)
[2023-09-26] MEDS ORDERED: EPINEPHrine INJ 1 MG/ML AMP ONE (12:34)
[2023-09-26] MEDS ORDERED: ceFAZolin 3000MG/72.5 ML BAG IV ONE (12:45)
[2023-09-26] MEDS ORDERED: BUPIVACAINE 0.5 % 5 MG/1 ML MPF 30ML VIAL ONE (13:55)
[2023-09-26] MEDS ORDERED: ONDANSETRON INJ 2 MG/ML 2 ML VIAL ONE (15:48)
[2023-09-26] MEDS ORDERED: SUGAMMADEX SODIUM 200 MG/2 ML VIAL IV ONE (15:48)
--- NOTE | 2023-09-26 16:17 | Fluoroscopy Report ---
FL ankle RT min 3V RTN CLINICAL HISTORY: RIGHT ORIF ANKLE TECHNIQUE: 5 views were obtained with the C-arm in the OR with the above procedure. Total fluoroscopy time was 61.2 seconds. Radiation dose was 4.07 mGy. Comparison: Comparison is made to right ankle radiograph 03/19/2023 FINDINGS/IMPRESSION: Intraoperative images were obtained of right ankle open reduction and internal f ixation. Please correlate with intraoperative fluoroscopy and operative report. ACT 112: Negative or not required by law. Electronically signed by: Calvin Blood M.D. 09/26/2023 4:15 PM
[2023-09-26] MEDS ORDERED: ONDANSETRON INJ 2 MG/ML 2 ML VIAL IV PRN (16:49)
[2023-09-26] MEDS ORDERED: ePHEDrine sulfate 50 MG/ML AMP IV PRN (16:49)
[2023-09-26] MEDS: fentaNYL citrate PF 100 MCG/2 ML VIAL IV PRN ×2 (16:49→16:54)
[2023-09-26] MEDS ORDERED: ATROPINE SULFATE 0.1 MG/ML 10ML SYR IV PRN (16:49)
--- NOTE | 2023-09-26 17:23 | Anesthesiology Progress Note ---
Date of Service September 26, 2023 Anesthesia Post Procedure Vital Signs Vital Signs: Temp Pulse Pulse Resp BP Pulse Ox O2 Del Method 09/26/23 17:10 97.7 F 68 17 155/68 H 95 Nasal Cannula 09/26/23 17:00 64 19 147/64 H 94 Nasal Cannula 09/26/23 16:50 62 16 157/69 H 94 Nasal Cannula 09/26/23 16:41 97.9 F 70 18 178/104 H 96 Oxymask 09/26/23 12:18 98.4 F 63 20 162/74 H 94 Room Air 09/26/23 07:06 98.2 F 68 18 160/72 H 94 Room Air 09/25/23 20:11 99.3 F 75 18 156/54 H 95 Room Air 09/25/23 20:00 Room Air 09/25/23 17:27 98.1 F 80 18 146/71 H 97 Room Air O2 Flow Rate 09/26/23 17:10 4 09/26/23 17:00 4 09/26/23 16:50 4 09/26/23 16:41 6 09/26/23 12:18 09/26/23 07:06 09/25/23 20:11 09/25/23 20:00 09/25/23 17:27 Pain Intensity Right Ankle: Pain Intensity: 5 Transfer of Care Handoff Completed per policy Notes Mental Status: alert / awake / arousable and participated in evaluation Patient Amnestic to Procedure: Yes Nausea / Vomiting: adequately controlled Pain: adequately controlled Airway Patency, RR, SpO2: stable & adequate BP & HR: stable & adequate Hydration State: stable & adequate Anesthetic Complications: no major complications apparent and Pt Satisfied with anesthetic care
--- NOTE | 2023-09-26 17:30 | Operative Report ---
Post Operative Report Pre & Post Diagnosis Operation Date: 09/26/23 11:15 Pre-Op Diagnosis: Right ankle closed trimalleolar fracture dislocation, nonunion lateral malleolus fracture, syndesmotic disruption, retained hardware ankle Post-Op Diagnosis: Right ankle closed trimalleolar fracture dislocation, nonunion lateral malleolus fracture, syndesmotic disruption, retained hardware ankle I identified the patient and participated in the time-out.: Yes Procedure Operation Date: 09/26/23 11:15 Actual Procedures p Open reduction internal fixation right closed displaced trimalleolar ankle fracture dislocation, removal of hardware, revision nonunion with autologous bone grafting lateral malleolus fracture, open reduction internal fixation syndesmotic disruption, autograft harvest right calcaneus (Right) - Richard Smith DO Surgeon Richard Smith DO Home Improvement Contractor None Estimated Blood Loss 2 Findings Consistent with Post-Op Diagnosis Specimens Failed hardware lateral malleolus nonunion Anesthesia Type General Regional Complications none Disposition Accompanied Patient To Recovery: No Indications This is a pleasant 78-year-old female who states that her leg gave out on her on 09/24/2023 causing her to twist her right ankle and fall. She was transported to [facility] where radiographs demonstrate a right ankle closed trimalleolar fracture dislocation, retained hardware, syndesmotic disruption and what appeared to be a painless nonunion of a previous fracture of the lateral malleolus. Patient was scheduled for surgery as indicated. Description of Procedure All potential risks, benefits, complications, alternatives, rehab, need for further surgery, potential for incomplete relief of symptoms, neurovascular injury, DVT, PE, , stiffness, weakness, loss of function, persistent pain, swelling, numbness, bone fracture, complications from hardware and wound complications were discussed with the patient and family. The patient and family decided to proceed with the procedure as indicated. The patient was given a popliteal block in the preop holding area and then taken to the operative suite and placed supine on the operating table. I did review the consent and identified the proper operative site. The patient was anesthetized and LMA was placed. A tourniquet was applied high on the right operative thigh over cast padding. The operative extremity was then sterilely prepped and draped in usual fashion, elevated and exsanguinated with an Esmarch bandage. The tourniquet was inflated to 350 mmHg. A 15 blade scalpel was used to make an incision over the lateral malleolus. Incision was deepened with a 15 blade into the subcutaneous tissue. Meticulous hemostasis was achieved with electro cautery. Sensory cutaneous nerves identified, these were mobilized with a Metzenbaum scissor, freed, retracted and protected with house retractors. The acute lateral malleolus fracture, the failed lateral plate and screw hardware and the previous lateral malleolus fracture nonunion was then visualized. A screwdriver was used to loosen the well-fixed screws and the bent plate was then removed with a Deidre clamp. Next a 15 blade was used to elevate the periosteum at the fracture sites. The 15 blade was used to incise the fibrous tissue within the nonunion and then mobilized soft tissue extending proximally and distally for visualization. Next the fracture nonunion was then carefully irrigated and debrided back to punctate bleeding bone. A small dental pick was used to remove fibrous tissue and clot from the fracture nonunion as well as the fresh fracture of the lateral malleolus. The fracture nonunion was then placed under traction and reduced using bone reducing forceps. Similarly the acute fracture extending to just proximal to the proximal tip of the previous plate was then also reduced and held in place with bone reducing forceps. After fluoroscopic confirmation of near-anatomic reduction was confirmed, attention w as then directed toward the lateral aspect of the calcaneus. A 15 blade scalpel used to make an oblique incision at the lateral aspect of the calcaneus. The incision was deepened to the subcutaneous tissue. Meticulous hemostasis was achieved with electrocautery. A pair of house retractors were placed in the incision to enhance visualization of the lateral calcaneus. The calcaneal periosteum was incised with a 15 blade scalpel and a 6 mm osteotome was then used to open a cortical window laterally. Next cancellous bone graft was harvested from the tuberosity of the calcaneus using a combination of curettes and forceps. After adequate volume of autograft was harvested, the incision was irrigated until clear. The lateral cortical trapdoor was closed using 2-0 Vicryl. The dermis was closed using buried interrupted 3-0 Vicryl. The skin was closed using 3-0 Monocryl. The graft was then implanted into the nonunion site of the lateral malleolus with a forcep and bone tamp. Further autograft was applied into the fresh fracture of the fibula. Final reduction was performed with bone clamps x4 to achieve near anatomic reduction and fixation of the nonunion confirmed with fluoroscopy. A single 3.5 mm lag screw was placed crossing the fresh fracture to stabilize the reduction. A second 3.5 mm lag screw was applied across the fracture nonunion. Next a Synthes 11 hole fibular locking plate was then gently contoured and then firmly affixed to the lateral aspect of the fibula using multiple bone clamps and eventually locking bone screws. The foot was held in neutral dorsiflexion and some of the locking screws were passed across the syndesmosis to stabilize the syndesmotic disruption which was confirmed with fluoroscopic stress views. After multiple locking screws were placed across the syndesmosis and also fixing the plate to the lateral malleolus stress views were performed once again noting stable fixation without widening of the ankle mortise or widening of the syndesmosis. Fluoroscopic images were then used to confirm final reduction and fixation. Next stress radiographs were performed to confirm stability of the syndesmosis. The syndesmosis was noted to be intact with both varus and valgus stress force to the ankle joint. The medial malleolus and posterior malleolar fracture fragments were also noted to be in stable alignment position without significant displacement. Next final radiographs were obtained using AP and lateral fluoroscopic views. Next the incisions were irrigated with copious amounts sterile normal saline until clear. Lateral soft tissue was then closed over the lateral plate with 2-0 Vicryl, the dermis is closed using buried interrupted 3-0 Vicryl and skin is closed using 3-0 Monocryl and Dermabond. A sterile compressive dressing and bulky Dejan Herrera plaster splint was applied overwrapped with an Gamaliel wrap. The tourniquet was released, the patient was awakened and taken to recovery in stable condition. I attest to the content of the Intraoperative Record and any orders documented therein. Any exceptions are noted below.
--- NOTE | 2023-09-26 18:09 | Hospitalist Progress Note ---
Date of Service September 26, 2023 Assessment & Plan (1) Closed trimalleolar fracture of ankle: Plan: - Patient's leg gave out while she was getting in the car, and she collapsed on her right ankle - No LOC or dizziness, no blood thinners - Hx of bimalleolar fracture and repair with Dr. Lizarraga on 03/19/2023 - Tibial/fibula x-ray showed an acute trimalleolar right ankle fracture - 09/26: ORIF R ankle for trimalleolar ankle fx with autologous bone grafting Hold chemical DVT PPx for now - SCDs as tolerated Right LE nonweightbearing Acetaminophen 650 mg p.o. and oxycodone 5mg prn for pain A.m. CBC, BMP (2) Anxiety and depression: Plan: Continue bupropion, escitalopram (3) HTN (hypertension): Plan: Continue metoprolol Restart amlodipine 09/25 (4) JESSI on CPAP: Plan: Patient declined CPAP; reports has not been using in the past 6 months since her first ankle injury Plan Disposition: continued inpatient stay Full code AHA diet (n.p.o. at midnight) VTE PPx SCDs as tolerated, likely start chemical prophylaxis tomorrow Admission and Anticipated Discharge Date Admission Date: September 25, 2023 Supervising Physician Co-Signing Physician Notes Attending Attestation - Chart reviewed, care plan d/w SHEEBA Bales. I agree w/ the brandon components of her documentation. s/p ORIF of right ankle fracture today by Dr Smith - appreciate his assistance. Vitals remain stable post-op. Irineo Pryor MD Subjective 1800 - Patient seen sitting up in bed, back for the PACU not too long ago. Currently no complaints. No pain in leg and not nauseous, taking bites of food as we are talking. Denies CP or SOB Review of Systems Review of Systems: All systems reviewed & are unremarkable except as noted in Subjective Physical Exam Physical Exam: General: WN/WD, NAD, VS as above Resp: normal respiratory effort, lungs clear to auscultation CV: RRR, no murmur, no edema Abd: normal bowel sounds, non tender, no hepatosplenomegaly Extremities: Moves all extremities, snow wrap around dressing R foot/ankle. Good pulses Neuro: A&O x3, Skin: intact, no lesions noted Results & Data Results & Data Vital Signs (Past 12 Hours) Vital Signs Temp Pulse Pulse Resp BP Pulse Ox O2 Del Method 09/26/23 17:55 36.4 C L 65 18 154/79 H 97 Room Air 09/26/23 17:30 36.4 C L 63 22 155/80 H 96 Nasal Cannula 09/26/23 17:10 36.5 C 68 17 155/68 H 95 Nasal Cannula 09/26/23 17:00 64 19 147/64 H 94 Nasal Cannula 09/26/23 16:50 62 16 157/69 H 94 Nasal Cannula 09/26/23 16:41 36.6 C 70 18 178/104 H 96 Oxymask 09/26/23 12:18 36.9 C 63 20 162/74 H 94 Room Air 09/26/23 07:06 36.8 C 68 18 160/72 H 94 Room Air O2 Flow Rate 09/26/23 17:55 09/26/23 17:30 3 09/26/23 17:10 4 09/26/23 17:00 4 09/26/23 16:50 4 09/26/23 16:41 6 09/26/23 12:18 09/26/23 07:06 Laboratory Results Laboratory Results - last 24 hr 09/26/23 06:32 WBC 8.58 RBC 3.81 L Hgb 11.6 L Hct 34.2 L MCV 89.8 MCH 30.4 MCHC 33.9 RDW Std Deviation 45.9 RDW Coeff of Randy 13.9 Plt Count 212 MPV 10.8 Sodium 139 Potassium 4.2 Chloride 105 Carbon Dioxide 27 Anion Gap 7 BUN 34 H Creatinine 1.73 H Est Cr Clr Drug Dosing 32.5 Est GFR ( Amer) 31.8 Est GFR (Non-Af Amer) 27.4 BUN/Creatinine Ratio 19.7 Glucose 91 Calcium 9.0 Total Bilirubin 0.8 AST 12 L ALT 11 Alkaline Phosphatase 77 Total Protein 6.4 Albumin 3.6 Globulin 2.8 Albumin/Globulin Ratio 1.3 PG Care Time/CCT Total # of Minutes Spent Total Time Spent with Patient: Total time spent is greater than 50% in coordination of care (as documented) at patient's floor/unit and/or counseling patient: Coding Level of Care Code 04404 SUB INP/OBS CARE 2/35MIN Diagnoses Closed trimalleolar fracture of right ankle, initial encounter S82.851A Encounter type: initial encounter Laterality: right Anxiety and depression F41.9; F32.9 HTN (hypertension) I10 JESSI on CPAP G47.33 (1) Closed trimalleolar fracture of ankle Encounter type: initial encounter Laterality: right Qualified Code(s): S82.851A - Displaced trimalleolar fracture of right lower leg, initial encounter for closed fracture
[2023-09-26] MEDS: ceFAZolin 2000MG 2,000 MG/15 ML SYR IV SCH (18:29)
--- NOTE | 2023-09-26 19:17 | XRay Report ---
RIGHT ANKLE 3 VIEWS CLINICAL HISTORY: Postoperative examination. FINDINGS: 3 views of the right ankle are correlated with radiographs of the right tibia and fibula da veena 09/24/2023. The examination is performed through a splint, obscuring fine bony detail. The skelet al structures are osteopenic. There has been buttress plate fixation of a distal fibular shaft fractu re with shinto of near-anatomic alignment. Numerous cortical lag screw transfix the plate. At le ast 4 of these screws also transfix the distal tibia. The orthopedic hardware appears intact. Overlyi ng soft tissue edema and subcutaneous gas are expected postsurgical findings. The ankle mortise is in tact. There are large dorsal and plantar heel spurs. IMPRESSION: 1. Expected postsurgical findings status post buttress plate fixation of a distal fibular fracture. 2. The orthopedic hardware appears intact. Electronically signed by: Da Bhardwaj M.D. 09/26/2023 7:15 PM
[2023-09-26] MEDS: SPIRONOLACTONE 25 MG TAB PO SCH (20:44)
[2023-09-26] MEDS: QUEtiapine FUMARATE 25 MG TABLET PO SCH (20:45)
[2023-09-26] MEDS: amLODIPine BESYLATE 5 MG TAB PO SCH (20:46)
[2023-09-26] MEDS: DONEPEZIL HCL 5 MG TAB PO SCH (20:46)
[2023-09-26] MEDS: oxyCODONE HCL IR 5 MG TAB (IMMEDIATE RELEASE) PO PRN (23:30)
[2023-09-27] MEDS: ceFAZolin 2000MG 2,000 MG/15 ML SYR IV SCH ×2 (01:15→09:11)
[2023-09-27] MEDS: LEVOTHYROXINE SODIUM 125 MCG TABLET PO SCH (04:26)
--- NOTE | 2023-09-27 06:05 | Electrocardiogram Report ---
Test Reason : Blood Pressure : / mmHG Vent. Rate : 066 BPM Atrial Rate : 066 BPM P-R Int : 170 ms QRS Dur : 080 ms QT Int : 420 ms P-R-T Axes : 060 010 059 degrees QTc Int : 440 ms Normal sinus rhythm Nonspecific ST and T wave abnormality Abnormal ECG When compared with ECG of 29-JUN-2023 15:13, No significant change Confirmed by Ab Ramesh ([id number]) on 09/27/2023 6:05:04 AM Referred By: REFERRED SELF Confirmed By:Ab Ramesh
[2023-09-27 07:05] LABS: Basophils # (auto) 0.05 K/uL (0.00-0.20); Basophils % (auto) 0.5 %; Eosinophils # (auto) 0.03 K/uL (0.00-0.50); Eosinophils % (auto) 0.3 %; Hematocrit (blood only) 37.9 % (37.0-47.0); Hemoglobin 12.9 g/dl (12.0-16.0); Immature Granulocytes # (auto) 0.03 K/uL (0.01-0.20); Immature Granulocytes % (auto) 0.3 %; Lymphocytes # (auto) 2.08 K/uL (1.20-3.40); Lymphocytes % (auto) 21.3 %; Mean Corpuscular Hemoglobin 30.7 pg (25.0-34.0); Mean Corpuscular Volume 90.2 fL (80.0-100.0); Mean Platelet Volume 11.1 fL (9.4-12.4); Monocytes # (auto) 1.14 K/uL (0.11-0.59); Monocytes % (auto) 11.7 %; Neutrophils # (auto) 6.45 K/uL (1.40-6.50); Neutrophils % (auto) 65.9 %; Platelet Count 192 K/uL (130-400); RDW Standard Deviation 46.2 fL (36.4-46.3); White Blood Count 9.78 K/ul (4.8-10.8)
[2023-09-27 07:22] LABS: BUN Creatinine Ratio 19.6 (10-20); Calcium 8.9 mg/dl (8.6-10.3); Est GFR (African American) 38.4 ml/min; Est GFR (Non-African American) 33.1 ml/min; Potassium 4.3 mmol/L (3.5-5.1)
[2023-09-27] MEDS: oxyCODONE HCL IR 5 MG TAB (IMMEDIATE RELEASE) PO PRN ×2 (07:34→14:59)
[2023-09-27] MEDS: buPROPion XL 150 MG TABCR PO SCH (08:09)
[2023-09-27] MEDS: SACCHAROMYCES BOULARDII 250 MG CAP PO SCH ×2 (08:09→20:15)
[2023-09-27] MEDS: buPROPion XL 300 MG TABCR PO SCH (08:09)
[2023-09-27] MEDS: oxyBUTYnin chloride 5 MG TAB PO SCH ×2 (08:09→20:15)
[2023-09-27] MEDS: ATORVASTATIN 40 MG TAB PO SCH (08:09)
[2023-09-27] MEDS: PANTOprazole 40 MG TAB PO SCH ×2 (08:09→20:15)
[2023-09-27] MEDS: ESCITALOPRAM OXALATE 10 MG TAB PO SCH (08:09)
[2023-09-27] MEDS: METOPROLOL TARTRATE 25 MG TAB PO SCH ×2 (08:09→20:15)
[2023-09-27] MEDS: SPIRONOLACTONE 25 MG TAB PO SCH ×2 (08:10→20:14)
[2023-09-27] MEDS ORDERED: ASPIRIN 81 MG ECTAB PO SCH (09:00)
--- NOTE | 2023-09-27 11:43 | Hospitalist Progress Note ---
Date of Service September 27, 2023 Assessment & Plan (1) Closed trimalleolar fracture of ankle: Plan: - Patient's leg gave out while she was getting in the car, and she collapsed on her right ankle - No LOC or dizziness, no blood thinners - Hx of bimalleolar fracture and repair with Dr. Lizarraga on 03/19/2023 - Tibial/fibula x-ray showed an acute trimalleolar right ankle fracture - 09/26: ORIF R ankle for trimalleolar ankle fx with autologous bone grafting DVT proph - ASA 81mg per Ortho Right LE nonweightbearing PT/OT Acetaminophen 650 mg p.o. and oxycodone 5mg prn for pain Daily miralax for bowel reigment Encouraged Incentive spirometer (2) Anxiety and depression: Plan: Continue bupropion, escitalopram (3) HTN (hypertension): Plan: Continue metoprolol Restart amlodipine 09/25 (4) JESSI on CPAP: Plan: Patient declined CPAP; reports has not been using in the past 6 months since her first ankle injury Plan Disposition: continued inpatient stay, medically stable awaiting rehab placement Full code AHA diet VTE PPx: ASA Admission and Anticipated Discharge Date Admission Date: September 25, 2023 Supervising Physician Co-Signing Physician Notes Attending Attestation - Chart reviewed, care plan d/w SHEEBA Bales. I agree w/ the brandon components of her documentation. POD #1 - s/p ORIF of right ankle fracture by Dr Smith - appreciate his assistance. Vitals and labs remain stable post-op. DVT proph - asa 81mg BID. Of note - 25 OH Vit D level in 03/2023 was 42. Thus very adequate vit D levels. Dispo planning - she will be [facility] to [facility]. SNF for rehab? other? Irineo Pryor MD Subjective 1115 - Patient lying in bed. Overall feeling okay. Reports had pain in ankle and back (hx of arthritis) but that got better after oxycodone. Appetite is improving but she has not had a bowel movement since admission. Worked with PT this morning and says it didnt go well - reports couldn't get her body to do what it was supposed to. Reports did not sleep well. Denies SOB or CP. Review of Systems Review of Systems: All systems reviewed & are unremarkable except as noted in Subjective Physical Exam Physical Exam: General: WN/WD, NAD, VS as above Resp: normal respiratory effort, crackles b/l bases CV: RRR, no murmur, no edema Abd: normal bowel sounds, non tender, no hepatosplenomegaly Extremities: Moves upper arms and left leg, difficulty move right like with snow wrap around dressing R foot/ankle. Good pulses Neuro: A&O x3, Skin: intact, no lesions noted Results & Data Results & Data Vital Signs (Past 12 Hours) Vital Signs Temp Pulse Pulse Resp BP Pulse Ox O2 Del Method 09/27/23 07:39 37.4 C 09/27/23 07:24 37.8 C H 65 18 162/70 H 94 Nasal Cannula 09/27/23 04:15 37.5 C 75 171/76 H 09/27/23 03:41 37.4 C 76 18 180/71 H 94 Nasal Cannula O2 Flow Rate 09/27/23 07:39 09/27/23 07:24 2 09/27/23 04:15 09/27/23 03:41 2 Laboratory Results CBC, BMP reviewed PG Care Time/CCT Total # of Minutes Spent Total Time Spent with Patient: Total time spent is greater than 50% in coordination of care (as documented) at patient's floor/unit and/or counseling patient: Coding Level of Care Code 17956 SUB INP/OBS CARE 235MIN Diagnoses Closed trimalleolar fracture of right ankle, initial encounter S82.851A Encounter type: initial encounter Laterality: right Anxiety and depression F41.9; F32.9 HTN (hypertension) I10 JESSI on CPAP G47.33 (1) Closed trimalleolar fracture of ankle Encounter type: initial encounter Laterality: right Qualified Code(s): S82.851A - Displaced trimalleolar fracture of right lower leg, initial encounter for closed fracture
[2023-09-27] MEDS: POLYETHYLENE (MIRALAX) 17 GM PACK PO SCH (12:09)
--- NOTE | 2023-09-27 12:18 | Orthopedic Progress Note ---
Date of Service September 27, 2023 Assessment & Plan (1) Closed trimalleolar fracture of ankle: Plan: Postoperative day #1 status post ORIF right closed displaced trimalleolar ankle fracture dislocation, removal of hardware, ORIF nonunion lateral malleolus and autologous bone grafting, ORIF syndesmotic disruption, autologous bone graft harvest calcaneus. Complete postoperative IV Ancef per protocol Apply ice to right lower extremity Continue VTE prophylaxis with aspirin 81 mg 1 p.o. twice daily x4 weeks PT/OT consultation appreciated. Social service for discharge planning. Patient to be nonweightbearing right lower extremity for approximately 8 weeks. Thank you for the opportunity to consult in the care of this patient. Richard Smith [facility] [phone] (2) Morbid obesity: (3) Fall from slip, trip, or stumble: Admission and Anticipated Discharge Date Admission Date: September 25, 2023 Subjective Patient resting in bed. Patient seen during rounds. Pain is well controlled. Patient explains that she had significant discomfort when the nerve block wore off earlier this morning. This is now been resolved. Has not had a bowel movement since admission. Medicine service aware. No new complaints. No shortness of breath or chest pain. Physical Exam Constitutional: WD/WN, vitals as above Eyes: PERRL, conjunctivae normal, anicteric sclerae ENMT: external ear and nose normal, oropharynx normal Neck: trachea midline, no thyromegaly Respiratory: normal respiratory effort, lungs clear to auscultation Gastrointestinal (Abdomen): normal bowel sounds, soft, nontender, no hepatosplenomegaly Musculoskeletal: Right lower extremity splint intact. Clean and dry without strikethrough. Toes are pink and warm and moves spontaneously upon request. Sensation intact. Compartments are soft. Skin: no rashes, warm and dry Psychiatric: A+Ox3, euthymic affect Results & Data Vital Signs (Past 12 Hours) Vital Signs Temp Pulse Pulse Resp BP Pulse Ox O2 Del Method 09/27/23 07:45 Nasal Cannula 09/27/23 07:39 37.4 C 09/27/23 07:24 37.8 C H 65 18 162/70 H 94 Nasal Cannula 09/27/23 04:15 37.5 C 75 171/76 H 09/27/23 03:41 37.4 C 76 18 180/71 H 94 Nasal Cannula O2 Flow Rate 09/27/23 07:45 2 09/27/23 07:39 09/27/23 07:24 2 09/27/23 04:15 09/27/23 03:41 2 Diagnostic Findings Postoperative radiographs reviewed. Near-anatomic alignment with hardware in place. (1) Closed trimalleolar fracture of ankle Encounter type: initial encounter Laterality: right Qualified Code(s): S82.851A - Displaced trimalleolar fracture of right lower leg, initial encounter for closed fracture
[2023-09-27] MEDS: COUGH DROP (SUGAR FREE) LOZ 24 LOZ/1 BOX BUCCAL PRN (17:50)
[2023-09-27] MEDS: DONEPEZIL HCL 5 MG TAB PO SCH (20:15)
[2023-09-27] MEDS: QUEtiapine FUMARATE 25 MG TABLET PO SCH (20:15)
[2023-09-27] MEDS: amLODIPine BESYLATE 5 MG TAB PO SCH (20:16)
[2023-09-28] MEDS: LEVOTHYROXINE SODIUM 125 MCG TABLET PO SCH (05:55)
[2023-09-28] MEDS: COUGH DROP (SUGAR FREE) LOZ 24 LOZ/1 BOX BUCCAL PRN (05:56)
[2023-09-28] MEDS: PANTOprazole 40 MG TAB PO SCH ×2 (08:23→20:11)
[2023-09-28] MEDS: METOPROLOL TARTRATE 25 MG TAB PO SCH ×2 (08:23→20:12)
[2023-09-28] MEDS: SPIRONOLACTONE 25 MG TAB PO SCH ×2 (08:23→20:13)
[2023-09-28] MEDS: ATORVASTATIN 40 MG TAB PO SCH (08:23)
[2023-09-28] MEDS: SACCHAROMYCES BOULARDII 250 MG CAP PO SCH ×2 (08:23→20:10)
[2023-09-28] MEDS: ESCITALOPRAM OXALATE 10 MG TAB PO SCH (08:23)
[2023-09-28] MEDS: buPROPion XL 150 MG TABCR PO SCH (08:23)
[2023-09-28] MEDS: ASPIRIN 81 MG ECTAB PO SCH ×2 (08:23→20:11)
[2023-09-28] MEDS: oxyBUTYnin chloride 5 MG TAB PO SCH ×2 (08:23→20:11)
[2023-09-28] MEDS: POLYETHYLENE (MIRALAX) 17 GM PACK PO SCH (08:24)
[2023-09-28] MEDS: buPROPion XL 300 MG TABCR PO SCH (08:24)
[2023-09-28] MEDS: oxyCODONE HCL IR 5 MG TAB (IMMEDIATE RELEASE) PO PRN (08:30)
--- NOTE | 2023-09-28 09:44 | Hospitalist Progress Note ---
Date of Service September 28, 2023 Assessment & Plan (1) Closed trimalleolar fracture of ankle: Plan: - Patient's leg gave out while she was getting in the car, and she collapsed on her right ankle - No LOC or dizziness, no blood thinners - Hx of bimalleolar fracture and repair with Dr. Lizarraga on 03/19/2023 - Tibial/fibula x-ray showed an acute trimalleolar right ankle fracture - 09/26: ORIF R ankle for trimalleolar ankle fx with autologous bone grafting DVT proph - ASA 81mg BID Right LE nonweightbearing PT/OT Vit D supplement started (pt reports she does take this at home) Acetaminophen 650 mg p.o. and oxycodone 5mg prn for pain Daily miralax + Senna for bowel reigment Encouraged Incentive spirometer Will obtain COVID testing given on going cough and concern for roommate. (2) Anxiety and depression: Plan: Continue bupropion, escitalopram (3) HTN (hypertension): Plan: Continue metoprolol and amlodipine - BP elevations reviewed, would not increase dose at this time (4) JESSI on CPAP: Plan: Patient declined CPAP; reports has not been using in the past 6 months since her first ankle injury Plan Disposition: continued inpatient stay, medically stable awaiting rehab placement AHA diet VTE PPx: ASA Admission and Anticipated Discharge Date Admission Date: September 25, 2023 Supervising Physician Co-Signing Physician Notes Attending Attestation - Chart reviewed, care plan d/w SHEEBA Bales. I agree with the brandon components of her documentation. Irineo Pryor MD Subjective 9612 - Patient seen sitting up in bed. Patient reports overall feeling well besides not being able to walk/move around. Minimal pain in R ankle, reports took her pain medication this morning, in hopes she could do better with therapy. Cough has improved since yesterday, using cough drops. Good appetite, has not had bowel movement yet, but drinking prune juice currently. Urinating without issue. Denies CP and SOB. Review of Systems Review of Systems: All systems reviewed & are unremarkable except as noted in Subjective Physical Exam Physical Exam: General: WN/WD, NAD, VS as above, sitting up in bed Resp: normal respiratory effort, clear to auscultation, crackles imporved CV: RRR, no murmur, no edema Abd: normal bowel sounds, non tender, no hepatosplenomegaly Extremities: Moves upper arms and left leg, difficulty move right like with snow wrap around dressing R foot/ankle. Neuro: A&O x3, Skin: intact, no lesions noted Results & Data Results & Data Vital Signs (Past 12 Hours) Vital Signs Temp Pulse Resp BP Pulse Ox O2 Del Method O2 Flow Rate 09/28/23 07:08 37.2 C 79 16 165/63 H 92 Room Air 09/27/23 23:35 37.0 C 65 18 146/78 H 95 Nasal Cannula 2 Laboratory Results Covid test pending no labs drawn today PG Care Time/CCT Total # of Minutes Spent Total Time Spent with Patient: Total time spent is greater than 50% in coordination of care (as documented) at patient's floor/unit and/or counseling patient: Coding Level of Care Code 23352 SUB INP/OBS CARE 2/35MIN Diagnoses Closed trimalleolar fracture of right ankle, initial encounter S82.851A Encounter type: initial encounter Laterality: right Anxiety and depression F41.9; F32.9 HTN (hypertension) I10 JESSI on CPAP G47.33 (1) Closed trimalleolar fracture of ankle Encounter type: initial encounter Laterality: right Qualified Code(s): S82.851A - Displaced trimalleolar fracture of right lower leg, initial encounter for closed fracture
[2023-09-28] MEDS: CHOLECALCIFEROL 5,000 UNITS 125 MCG TAB PO SCH (10:58)
[2023-09-28] MEDS: SENNA 8.6 MG TAB PO SCH (10:59)
[2023-09-28] MEDS ORDERED: bisacodyL 10 MG SUPP PR STA (14:02)
[2023-09-28] MEDS ORDERED: bisacodyL 10 MG SUPP PR PRN (14:02)
[2023-09-28] MEDS: QUEtiapine FUMARATE 25 MG TABLET PO SCH (20:10)
[2023-09-28] MEDS: DONEPEZIL HCL 5 MG TAB PO SCH (20:10)
[2023-09-28] MEDS: amLODIPine BESYLATE 5 MG TAB PO SCH (21:41)
[2023-09-29] MEDS: LEVOTHYROXINE SODIUM 125 MCG TABLET PO SCH (05:48)
[2023-09-29] MEDS: ATORVASTATIN 40 MG TAB PO SCH (08:32)
[2023-09-29] MEDS: buPROPion XL 150 MG TABCR PO SCH (08:32)
[2023-09-29] MEDS: METOPROLOL TARTRATE 25 MG TAB PO SCH ×2 (08:33→20:52)
[2023-09-29] MEDS: SPIRONOLACTONE 25 MG TAB PO SCH ×2 (08:33→20:52)
[2023-09-29] MEDS: SACCHAROMYCES BOULARDII 250 MG CAP PO SCH ×2 (08:33→20:52)
[2023-09-29] MEDS: SENNA 8.6 MG TAB PO SCH (08:33)
[2023-09-29] MEDS: oxyBUTYnin chloride 5 MG TAB PO SCH ×2 (08:33→20:52)
[2023-09-29] MEDS: ASPIRIN 81 MG ECTAB PO SCH ×2 (08:33→20:53)
[2023-09-29] MEDS: CHOLECALCIFEROL 5,000 UNITS 125 MCG TAB PO SCH (08:33)
[2023-09-29] MEDS: ESCITALOPRAM OXALATE 10 MG TAB PO SCH (08:33)
[2023-09-29] MEDS: POLYETHYLENE (MIRALAX) 17 GM PACK PO SCH (08:33)
[2023-09-29] MEDS: buPROPion XL 300 MG TABCR PO SCH (08:33)
[2023-09-29] MEDS: PANTOprazole 40 MG TAB PO SCH ×2 (08:33→20:54)
--- NOTE | 2023-09-29 10:00 | Hospitalist Progress Note ---
Date of Service September 29, 2023 Assessment & Plan (1) Closed trimalleolar fracture of ankle: Plan: - Patient's leg gave out while she was getting in the car, and she collapsed on her right ankle - No LOC or dizziness, no blood thinners - Hx of bimalleolar fracture and repair with Dr. Lizarraga on 03/19/2023 - Tibial/fibula x-ray showed an acute trimalleolar right ankle fracture - 09/26: ORIF R ankle for trimalleolar ankle fx with autologous bone grafting DVT proph - ASA 81mg BID Right LE nonweightbearing PT/OT Vit D supplement started (pt reports she does take this at home) Acetaminophen 650 mg p.o. and oxycodone 5mg prn for pain Daily miralax + Senna for bowel regiment Encouraged Incentive spirometer Covid negative 09/28 (2) Anxiety and depression: Plan: Continue bupropion, escitalopram (3) HTN (hypertension): Plan: Continue metoprolol and amlodipine - BP elevations reviewed, would not increase dose at this time (4) JESSI on CPAP: Plan: Patient declined CPAP; reports has not been using in the past 6 months since her first ankle injury - Suspect O2 needs inpatient are related to this, wean as able Plan Disposition: continued inpatient stay, medically stable awaiting rehab placement - prefer [facility] AHA diet VTE PPx: ASA Admission and Anticipated Discharge Date Admission Date: September 25, 2023 Supervising Physician Co-Signing Physician Notes Attending Attestation - Chart reviewed, care plan d/w SHEEBA Bales. I agree with the brandon components of her documentation. Dispo planning. Irineo Pryor MD Subjective 0951 - Patient lying in bed. Overall feeling well. Reports pain well controlled, takes pain medication prior to PT/OT - which states went better for yesterday. Waiting placement, [facility]. Cough improved has not had to use cough drops overnight. Hard stool last night, but no abdominal pain. Good appetite. Patient currently wearing O2 - states she has not worn CPAP for last 6 months, was discharged from [facility] with home O2. Would wear to bed and wake up and it would not be connected so she just stopped wearing this. Denies CP and SOB. Review of Systems Review of Systems: All systems reviewed & are unremarkable except as noted in Subjective Physical Exam Physical Exam: General: WN/WD, NAD, VS as above, sitting up in bed Resp: normal respiratory effort, clear to auscultation CV: RRR, no murmur, no edema Abd: normal bowel sounds, non tender, no hepatosplenomegaly Extremities: Moves upper arms and left leg, difficulty move right like with snow wrap around dressing R foot/ankle. Neuro: A&O x3, Skin: intact, small eythema lesion on chest consistent with scratching Results & Data Results & Data Vital Signs (Past 12 Hours) Vital Signs Temp Pulse Resp BP Pulse Ox O2 Del Method O2 Flow Rate 09/29/23 06:58 36.9 C 65 18 159/73 H 98 Room Air 09/28/23 21:58 Nasal Cannula 2 Laboratory Results COVID swab reviewed PG Care Time/CCT Total # of Minutes Spent Total Time Spent with Patient: Total time spent is greater than 50% in coordination of care (as documented) at patient's floor/unit and/or counseling patient: Coding Level of Care Code 90437 SUB INP/OBS CARE 2/35MIN Diagnoses Closed trimalleolar fracture of right ankle, initial encounter S82.851A Encounter type: initial encounter Laterality: right Anxiety and depression F41.9; F32.9 HTN (hypertension) I10 JESSI on CPAP G47.33 (1) Closed trimalleolar fracture of ankle Encounter type: initial encounter Laterality: right Qualified Code(s): S82.851A - Displaced trimalleolar fracture of right lower leg, initial encounter for closed fracture
[2023-09-29] MEDS: KETOCONAZOLE 2% CR 15 GM TUBE EXT PRN (15:28)
[2023-09-29] MEDS: QUEtiapine FUMARATE 25 MG TABLET PO SCH (20:52)
[2023-09-29] MEDS: amLODIPine BESYLATE 5 MG TAB PO SCH (20:53)
[2023-09-29] MEDS: DONEPEZIL HCL 5 MG TAB PO SCH (21:27)
[2023-09-30] MEDS: LEVOTHYROXINE SODIUM 125 MCG TABLET PO SCH (06:16)
[2023-09-30] MEDS: POLYETHYLENE (MIRALAX) 17 GM PACK PO SCH (08:15)
[2023-09-30] MEDS: ASPIRIN 81 MG ECTAB PO SCH ×2 (08:15→20:58)
[2023-09-30] MEDS: CHOLECALCIFEROL 5,000 UNITS 125 MCG TAB PO SCH (08:15)
[2023-09-30] MEDS: oxyBUTYnin chloride 5 MG TAB PO SCH ×2 (08:16→20:58)
[2023-09-30] MEDS: ESCITALOPRAM OXALATE 10 MG TAB PO SCH (08:16)
[2023-09-30] MEDS: ATORVASTATIN 40 MG TAB PO SCH (08:16)
[2023-09-30] MEDS: SPIRONOLACTONE 25 MG TAB PO SCH ×2 (08:16→20:58)
[2023-09-30] MEDS: PANTOprazole 40 MG TAB PO SCH ×2 (08:16→20:58)
[2023-09-30] MEDS: SACCHAROMYCES BOULARDII 250 MG CAP PO SCH ×2 (08:16→20:58)
[2023-09-30] MEDS: buPROPion XL 300 MG TABCR PO SCH (08:16)
[2023-09-30] MEDS: SENNA 8.6 MG TAB PO SCH (08:16)
[2023-09-30] MEDS: buPROPion XL 150 MG TABCR PO SCH (08:16)
[2023-09-30] MEDS: METOPROLOL TARTRATE 25 MG TAB PO SCH ×2 (08:16→20:58)
--- NOTE | 2023-09-30 10:06 | Hospitalist Progress Note ---
Date of Service September 30, 2023 Assessment & Plan (1) Closed trimalleolar fracture of ankle: Plan: - Patient's leg gave out while she was getting in the car, and she collapsed on her right ankle - No LOC or dizziness, no blood thinners - Hx of bimalleolar fracture and repair with Dr. Lizarraga on 03/19/2023 - Tibial/fibula x-ray showed an acute trimalleolar right ankle fracture - 09/26: ORIF R ankle for trimalleolar ankle fx with autologous bone grafting DVT proph - ASA 81mg BID + SCDs Right LE nonweightbearing PT/OT Vit D supplement started (pt reports she does take this at home) Acetaminophen 650 mg p.o. and oxycodone 5mg prn for pain Daily miralax + Senna for bowel regiment, PRN ducolax suppository Encouraged Incentive spirometer Covid negative 09/28 (2) Anxiety and depression: Plan: Continue bupropion, escitalopram (3) HTN (hypertension): Plan: Continue metoprolol and amlodipine - BP elevations reviewed, would not increase dose at this time (4) JESSI on CPAP: Plan: Patient declined CPAP; reports has not been using in the past 6 months since her first ankle injury - Suspect O2 needs inpatient are related to this, wean as able Plan Disposition: continued inpatient stay, medically stable awaiting rehab placement - prefers [facility] AHA diet VTE PPx: ASA Admission and Anticipated Discharge Date Admission Date: September 25, 2023 Supervising Physician Co-Signing Physician Notes Attending Attestation - Chart reviewed, care plan d/w SHEEBA Bales. I agree with the brandon components of her documentation. Dispo planning. DVT proph - asa 81mg BID. Irineo Pryor MD Subjective Patient resting in bed. Feeling well, today reports to me that she really hopes she is accepted at [facility] (yesterday was preferring [facility]). Good appeite, no BM in two days. Cough continues to improve. Pain well controlled. No CP or SOB. Review of Systems Review of Systems: All systems reviewed & are unremarkable except as noted in Subjective Physical Exam Physical Exam: General: WN/WD, NAD, VS as above, sitting up in bed Resp: normal respiratory effort, clear to auscultation, no cough during exam CV: RRR, no murmur, no edema Abd: normal bowel sounds, non tender, no hepatosplenomegaly Extremities: Moves upper arms and left leg, difficulty move right like with snow wrap around dressing R foot/ankle. Neuro: A&O x3, Skin: intact, previous erythema resolved Results & Data Results & Data Vital Signs (Past 12 Hours) Vital Signs Temp Pulse Resp BP Pulse Ox O2 Del Method O2 Flow Rate 09/30/23 06:54 37 C 62 16 148/71 H 96 Room Air 09/30/23 06:23 95 Nasal Cannula 2 09/29/23 22:33 Room Air PG Care Time/CCT Total # of Minutes Spent Total Time Spent with Patient: Total time spent is greater than 50% in coordination of care (as documented) at patient's floor/unit and/or counseling patient: Coding Level of Care Code 72734 SUB INP/OBS CARE 11/29MIN Diagnoses Closed trimalleolar fracture of right ankle, initial encounter S82.851A Encounter type: initial encounter Laterality: right Anxiety and depression F41.9; F32.9 HTN (hypertension) I10 JESSI on CPAP G47.33 (1) Closed trimalleolar fracture of ankle Encounter type: initial encounter Laterality: right Qualified Code(s): S82.851A - Displaced trimalleolar fracture of right lower leg, initial encounter for closed fracture
[2023-09-30] MEDS: oxyCODONE HCL IR 5 MG TAB (IMMEDIATE RELEASE) PO PRN (11:03)
[2023-09-30] MEDS: DONEPEZIL HCL 5 MG TAB PO SCH (20:58)
[2023-09-30] MEDS: amLODIPine BESYLATE 5 MG TAB PO SCH (20:58)
[2023-09-30] MEDS: QUEtiapine FUMARATE 25 MG TABLET PO SCH (20:58)
[2023-09-30] MEDS: COUGH DROP (SUGAR FREE) LOZ 24 LOZ/1 BOX BUCCAL PRN (21:00)
[2023-10-01] MEDS: LEVOTHYROXINE SODIUM 125 MCG TABLET PO SCH (05:33)
[2023-10-01] MEDS: POLYETHYLENE (MIRALAX) 17 GM PACK PO SCH (09:01)
[2023-10-01] MEDS: ATORVASTATIN 40 MG TAB PO SCH (09:01)
[2023-10-01] MEDS: ESCITALOPRAM OXALATE 10 MG TAB PO SCH (09:01)
[2023-10-01] MEDS: SACCHAROMYCES BOULARDII 250 MG CAP PO SCH ×2 (09:01→20:06)
[2023-10-01] MEDS: CHOLECALCIFEROL 5,000 UNITS 125 MCG TAB PO SCH (09:02)
[2023-10-01] MEDS: SENNA 8.6 MG TAB PO SCH (09:02)
[2023-10-01] MEDS: buPROPion XL 300 MG TABCR PO SCH (09:02)
[2023-10-01] MEDS: PANTOprazole 40 MG TAB PO SCH ×2 (09:02→20:07)
[2023-10-01] MEDS: METOPROLOL TARTRATE 25 MG TAB PO SCH ×2 (09:02→20:07)
[2023-10-01] MEDS: buPROPion XL 150 MG TABCR PO SCH (09:03)
[2023-10-01] MEDS: oxyBUTYnin chloride 5 MG TAB PO SCH ×2 (09:03→20:07)
[2023-10-01] MEDS: ASPIRIN 81 MG ECTAB PO SCH ×2 (09:03→20:07)
[2023-10-01] MEDS: KETOCONAZOLE 2% CR 15 GM TUBE EXT PRN (09:04)
[2023-10-01] MEDS: SPIRONOLACTONE 25 MG TAB PO SCH ×2 (09:04→20:07)
[2023-10-01 11:54] LABS: Hematocrit (blood only) 35.5 % (37.0-47.0); Hemoglobin 11.9 g/dl (12.0-16.0); Mean Corpuscular Hemoglobin 30.4 pg (25.0-34.0); Mean Corpuscular Hgb Conc 33.5 g/dL (32.0-36.0); Mean Corpuscular Volume 90.6 fL (80.0-100.0); Mean Platelet Volume 10.2 fL (9.4-12.4); Platelet Count 241 K/uL (130-400); RDW Coefficient of Variation 13.4 % (11.5-14.5); RDW Standard Deviation 44.5 fL (36.4-46.3); Red Blood Count 3.92 M/uL (4.20-5.40)
[2023-10-01 12:12] LABS: BUN Creatinine Ratio 24.2 (10-20); Calcium 9.5 mg/dl (8.6-10.3); Creatinine Clr Calc Pharmacy 42.6 ml/min; Est GFR (African American) 44.1 ml/min; Potassium 4.7 mmol/L (3.5-5.1)
[2023-10-01] MEDS: COUGH DROP (SUGAR FREE) LOZ 24 LOZ/1 BOX BUCCAL PRN ×3 (14:51→20:10)
[2023-10-01] MEDS: DONEPEZIL HCL 5 MG TAB PO SCH (20:07)
[2023-10-01] MEDS: amLODIPine BESYLATE 5 MG TAB PO SCH (20:07)
[2023-10-01] MEDS: QUEtiapine FUMARATE 25 MG TABLET PO SCH (20:07)
--- NOTE | 2023-10-01 22:04 | Hospitalist Progress Note ---
Date of Service October 01, 2023 Assessment & Plan (1) Closed trimalleolar fracture of ankle: Plan: RIGHT Patient's leg gave out while she was getting in a car, and she collapsed on her right ankle - No LOC or dizziness Unfortunate as she already had prior h/o bimalleolar fracture and repair of SAME ankle by Dr. Lizarraga - 03/19/2023 POD #5 - s/p ORIF R trimalleolar ankle fx with autologous bone grafting DVT proph - ASA 81mg BID x 6 week + SCDs Right LE nonweightbearing PT/OT Vit D supplement started (pt reports she does take this at home) - last 25-OH vit D level in March 2023 was 42 Acetaminophen + oxycodone 5mg prn for pain Daily miralax + Senna for bowel regimen Covid negative 09/28 (2) Anxiety and depression: Plan: Continue bupropion, escitalopram (3) HTN (hypertension): Plan: Continue metoprolol and amlodipine SBP range 120s to 160s More than 1/2 of readings are reasonably controlled hold off any med adjustments trend for now (4) JESSI on CPAP: Plan: Patient declined CPAP; reports has not been using in the past 6 months since her first ankle injury (5) Morbid obesity with BMI of 50.0-59.9, adult: Plan: BMI 56 (6) Chronic cough: Plan: present x 6 weeks most recent cxr wnl last chest CT was 2019 - negative except small nodules no evidence of CHF on exam not on YOLANDA inhibitor GERD history but denies recent GERD symptoms no post-nasal drip symptoms faint end-exp wheeze with coughing during my lung exam will start Breo 1 puff daily and recommend referral to pulmonary post-d/c for work-up including PFTs, etc could have obstructive lung disease perhaps from prior, heavy 2nd hand smoke exposure from (2-3 ppd smoker) Plan awaiting rehab placement - [facility] program? VTE PPx: ASA 81mg BID Admission and Anticipated Discharge Date Admission Date: September 25, 2023 Subjective patient lying flat in bed comfortably does have pain in R ankle at times main complaint is that of a dry cough, present for 6+ months states it started at [facility] in March 2023 following her right ankle fracture she will be cough-free for 2-3 days, then cough returns and is present for days/weeks at a time no prior h/o asthma or COPD although her was a 2-3 ppd smoker does have SIEGEL at baseline having nearly daily bowel movements Review of Systems Review of Systems: cv - no orthopnea or chest pain pulm - no sputum; no frequent throat clearing GI - denies recent GERD symptoms Physical Exam Physical Exam: gen - obese, coughing (Bronchial sounding), otherwise NAD mouth - MMM neck - no JVD heart - RRR, s1 s2, no murmur lungs - with coughing FAINT end-exp wheeze, no rales abd - soft NT ND BS+ ext - right foot/ankle in splint; left foot/ankle wnl; pulses 2+ b/l psych - a/o x 3 Results & Data Results & Data Vital Signs (Past 12 Hours) Vital Signs Temp Pulse Pulse Resp BP BP Pulse Ox 10/01/23 20:22 10/01/23 20:02 36.7 C 72 20 157/70 H 92 10/01/23 15:45 36.9 C 59 L 16 150/71 H 96 10/01/23 13:14 36.8 C 62 13 145/73 H 92 O2 Del Method 10/01/23 20:22 Room Air 10/01/23 20:02 Room Air 10/01/23 15:45 Room Air 10/01/23 13:14 Room Air Laboratory Results Laboratory Results - last 24 hr 10/01/23 11:30 WBC 7.60 RBC 3.92 L Hgb 11.9 L Hct 35.5 L MCV 90.6 MCH 30.4 MCHC 33.5 RDW Std Deviation 44.5 RDW Coeff of Randy 13.4 Plt Count 241 MPV 10.2 Sodium 137 Potassium 4.7 Chloride 103 Carbon Dioxide 26 Anion Gap 8 BUN 32 H Creatinine 1.32 H Est Cr Clr Drug Dosing 42.6 Est GFR ( Amer) 44.1 Est GFR (Non-Af Amer) 38.0 BUN/Creatinine Ratio 24.2 H Glucose 101 H Calcium 9.5 PG Care Time/CCT Total # of Minutes Spent Total Time Spent with Patient: Total time spent is greater than 50% in coordination of care (as documented) at patient's floor/unit and/or counseling patient: Coding Level of Care Code 68136 SUB INP/OBS CARE 11/29MIN Diagnoses Closed trimalleolar fracture of right ankle, initial encounter S82.851A Encounter type: initial encounter Laterality: right Anxiety and depression F41.9; F32.9 HTN (hypertension) I10 JESSI on CPAP G47.33 Morbid obesity with BMI of 50.0-59.9, adult E66.01; Z68.43 Chronic cough R05.3 (1) Closed trimalleolar fracture of ankle Encounter type: initial encounter Laterality: right Qualified Code(s): S82.851A - Displaced trimalleolar fracture of right lower leg, initial encounter for closed fracture
[2023-10-02] MEDS: COUGH DROP (SUGAR FREE) LOZ 24 LOZ/1 BOX BUCCAL PRN ×4 (01:44→20:44)
[2023-10-02] MEDS: LEVOTHYROXINE SODIUM 125 MCG TABLET PO SCH (05:30)
[2023-10-02] MEDS: PANTOprazole 40 MG TAB PO SCH ×2 (08:26→20:42)
[2023-10-02] MEDS: ATORVASTATIN 40 MG TAB PO SCH (08:26)
[2023-10-02] MEDS: METOPROLOL TARTRATE 25 MG TAB PO SCH ×2 (08:26→20:42)
[2023-10-02] MEDS: oxyBUTYnin chloride 5 MG TAB PO SCH ×2 (08:26→20:42)
[2023-10-02] MEDS: POLYETHYLENE (MIRALAX) 17 GM PACK PO SCH (08:26)
[2023-10-02] MEDS: ESCITALOPRAM OXALATE 10 MG TAB PO SCH (08:26)
[2023-10-02] MEDS: CHOLECALCIFEROL 5,000 UNITS 125 MCG TAB PO SCH (08:26)
[2023-10-02] MEDS: SENNA 8.6 MG TAB PO SCH (08:26)
[2023-10-02] MEDS: ASPIRIN 81 MG ECTAB PO SCH ×2 (08:26→20:42)
[2023-10-02] MEDS: SACCHAROMYCES BOULARDII 250 MG CAP PO SCH ×2 (08:27→20:41)
[2023-10-02] MEDS: buPROPion XL 300 MG TABCR PO SCH (08:27)
[2023-10-02] MEDS: SPIRONOLACTONE 25 MG TAB PO SCH ×2 (08:27→20:41)
[2023-10-02] MEDS: buPROPion XL 150 MG TABCR PO SCH (08:27)
[2023-10-02] MEDS: FLUTICASONE/VILANTEROL 100/25MCG 14 PUFFS/INHALER INH SCH (17:34)
--- NOTE | 2023-10-02 19:22 | Hospitalist Progress Note ---
Date of Service October 02, 2023 Assessment & Plan (1) Closed trimalleolar fracture of ankle: Plan: RIGHT Patient's leg gave out while she was getting in a car, and she collapsed on her right ankle - No LOC or dizziness Unfortunate as she already had prior h/o bimalleolar fracture and repair of SAME ankle by Dr. Lizarraga - 03/19/2023 s/p ORIF R trimalleolar ankle fx with autologous bone grafting 09/26 Dr. Smith DVT proph - ASA 81mg BID x 6 week + SCDs Right LE nonweightbearing PT/OT Vit D supplement started (pt reports she does take this at home) - last 25-OH vit D level in March 2023 was 42 Acetaminophen + oxycodone 5mg prn for pain Daily miralax + Senna for bowel regimen Covid negative 09/28 (2) Anxiety and depression: Plan: Continue bupropion, escitalopram (3) HTN (hypertension): Plan: Continue metoprolol and amlodipine SBP range 150s to 160s consider dose increase (4) JESSI on CPAP: Plan: Patient declined CPAP; reports has not been using in the past 6 months since her first ankle injury (5) Morbid obesity with BMI of 50.0-59.9, adult: Plan: BMI 56 (6) Chronic cough: Plan: present x 6 weeks most recent cxr wnl last chest CT was 2019 - negative except small nodules no evidence of CHF on exam not on YOLANDA inhibitor GERD history but denies recent GERD symptoms no post-nasal drip symptoms faint end-exp wheeze with coughing during lung exam, clear today will start Breo 1 puff daily - ordered 10/02, assess response to therapy recommend outpatient PFTs could have obstructive lung disease perhaps from prior, heavy 2nd hand smoke exposure from (2-3 ppd smoker) Plan awaiting rehab placement - VTE PPx: ASA 81mg BID Admission and Anticipated Discharge Date Admission Date: September 25, 2023 Subjective right ankle pain controlled, not using opioids, eating well and moving her bowels. Participating in PT and OT with slow steady progress Physical Exam Physical Exam: PHYSICAL EXAMINATION Last 24h vital signs reviewed, see documentation in flowsheet General: comfortable appearing, no distress, lying in bed HEENT: Normocephalic, atraumatic, pupils round and equal, sclerae anicteric, no conjunctival injection, moist mucus membranes Lungs: Normal respiratory effort. Clear to auscultation bilaterally. No RRW Heart: Regular rate and rhythm, no murmurs. No JVD Abdomen: Soft, nondistended. Bowel sounds present. Extremities: Warm, dry, well-perfused. No extremity edema. right ankle and foot in surgical dressing Neuro: Alert and oriented x 4, face symmetric, moves 4 extremities well Psych: Normal affect and behavior Results & Data Results & Data Vital Signs (Past 12 Hours) Vital Signs Temp Pulse Resp BP BP Pulse Ox O2 Del Method 10/02/23 16:20 Room Air 10/02/23 14:47 36.8 C 60 18 154/70 H 93 Room Air 10/02/23 08:45 Room Air 10/02/23 08:24 36.8 C 60 19 167/62 H 94 Room Air PG Care Time/CCT Total # of Minutes Spent Total Time Spent with Patient: Total time spent is greater than 50% in coordination of care (as documented) at patient's floor/unit and/or counseling patient: Coding Level of Care Code 29746 SUB INP/OBS CARE 2/35MIN Diagnoses Closed trimalleolar fracture of right ankle, initial encounter S82.851A Encounter type: initial encounter Laterality: right Anxiety and depression F41.9; F32.9 HTN (hypertension) I10 JESSI on CPAP G47.33 Morbid obesity with BMI of 50.0-59.9, adult E66.01; Z68.43 Chronic cough R05.3 (1) Closed trimalleolar fracture of ankle Encounter type: initial encounter Laterality: right Qualified Code(s): S8 2.851A - Displaced trimalleolar fracture of right lower leg, initial encounter for closed fracture
[2023-10-02] MEDS: amLODIPine BESYLATE 5 MG TAB PO SCH (20:41)
[2023-10-02] MEDS: DONEPEZIL HCL 5 MG TAB PO SCH (20:42)
[2023-10-02] MEDS: QUEtiapine FUMARATE 25 MG TABLET PO SCH (20:42)
[2023-10-03] MEDS: LEVOTHYROXINE SODIUM 125 MCG TABLET PO SCH (05:41)
[2023-10-03] MEDS: COUGH DROP (SUGAR FREE) LOZ 24 LOZ/1 BOX BUCCAL PRN (05:41)
[2023-10-03] MEDS: FLUTICASONE/VILANTEROL 100/25MCG 14 PUFFS/INHALER INH SCH (08:13)
[2023-10-03] MEDS: buPROPion XL 150 MG TABCR PO SCH (08:14)
[2023-10-03] MEDS: METOPROLOL TARTRATE 25 MG TAB PO SCH ×2 (08:14→21:11)
[2023-10-03] MEDS: PANTOprazole 40 MG TAB PO SCH ×2 (08:14→21:11)
[2023-10-03] MEDS: ATORVASTATIN 40 MG TAB PO SCH (08:14)
[2023-10-03] MEDS: SPIRONOLACTONE 25 MG TAB PO SCH (08:14)
[2023-10-03] MEDS: CHOLECALCIFEROL 5,000 UNITS 125 MCG TAB PO SCH (08:14)
[2023-10-03] MEDS: SENNA 8.6 MG TAB PO SCH (08:14)
[2023-10-03] MEDS: ASPIRIN 81 MG ECTAB PO SCH ×2 (08:14→21:12)
[2023-10-03] MEDS: ESCITALOPRAM OXALATE 10 MG TAB PO SCH (08:14)
[2023-10-03] MEDS: SACCHAROMYCES BOULARDII 250 MG CAP PO SCH ×2 (08:15→21:11)
[2023-10-03] MEDS: buPROPion XL 300 MG TABCR PO SCH (08:15)
[2023-10-03] MEDS: oxyBUTYnin chloride 5 MG TAB PO SCH ×2 (08:15→21:12)
[2023-10-03] MEDS: POLYETHYLENE (MIRALAX) 17 GM PACK PO SCH (08:16)
[2023-10-03] MEDS ORDERED: FLUTICASONE/VILANTEROL 100/25MCG 14 PUFFS/INHALER INH SCH (09:00)
--- NOTE | 2023-10-03 16:05 | Hospitalist Progress Note ---
Date of Service October 03, 2023 Assessment & Plan (1) Closed trimalleolar fracture of ankle: Plan: - Patient's leg gave out while she was getting in the car, and she collapsed on her right ankle - No LOC or dizziness, no blood thinners - Hx of bimalleolar fracture and repair with Dr. Lizarraga on 03/19/2023 - Tibial/fibula x-ray showed an acute trimalleolar right ankle fracture - 09/26: ORIF R ankle for trimalleolar ankle fx with autologous bone grafting DVT proph - ASA 81mg BID + SCDs Right LE nonweightbearing PT/OT Vit D supplement started (pt reports she does take this at home) Acetaminophen 650 mg p.o. and oxycodone 5mg prn for pain Daily miralax + Senna for bowel regiment, PRN ducolax suppository Encouraged Incentive spirometer Covid negative 09/28 10/03 no changes to plan, mobility slowly progressing with therapies (2) Anxiety and depression: Plan: Continue bupropion, escitalopram (3) HTN (hypertension): Plan: Continue metoprolol and amlodipine - BP elevations reviewed - change spironolactone from 50 q12h to 100 mg qAM for comfort reasons and add losartan 25 mg qAM, has CKD-3 - need to monitor BMP for K/Cr with this change - will check in a few days (4) JESSI on CPAP: Plan: Patient declined CPAP; reports has not been using in the past 6 months since her first ankle injury - Suspect O2 needs inpatient are related to this, wean as able Plan Disposition: continued inpatient stay, medically stable awaiting rehab placement Yoshi kwon 10/03, discussed with patient VTE PPx: ASA 81 bid Admission and Anticipated Discharge Date Admission Date: September 25, 2023 Subjective stood with therapy today. RLE cast is heavy so hard to move around. Has catheter "because I pee a lot" denies having had retention. No shortness of breath chronic cough unchanged. Physical Exam Physical Exam: PHYSICAL EXAMINATION Last 24h vital signs reviewed, see documentation in flowsheet Exam unchanged 10/03 General: comfortable appearing, no distress, lying in bed HEENT: Normocephalic, atraumatic, pupils round and equal, sclerae anicteric, no conjunctival injection, moist mucus membranes Lungs: Normal respiratory effort. Clear to auscultation bilaterally. No RRW. dry cough Heart: Regular rate and rhythm, no murmurs. No JVD Abdomen: Soft, nondistended. Bowel sounds present. Extremities: Warm, dry, well-perfused. No extremity edema. right ankle and f oot in surgical dressing : kwon catheter clear yellow urine Neuro: Alert and oriented x 4, face symmetric, moves 4 extremities well Psych: Normal affect and behavior Results & Data Results & Data Vital Signs (Past 12 Hours) Vital Signs Temp Pulse Resp BP Pulse Ox O2 Del Method 10/03/23 14:47 36.7 C 57 L 18 150/69 H 93 Room Air 10/03/23 09:02 36.6 C 62 18 155/65 H 94 Room Air PG Care Time/CCT Total # of Minutes Spent Total Time Spent with Patient: Total time spent is greater than 50% in coordination of care (as documented) at patient's floor/unit and/or counseling patient: Coding Level of Care Code 84785 SUB INP/OBS CARE 2/35MIN Diagnoses Closed trimalleolar fracture of right ankle, initial encounter S82.851A Encounter type: initial encounter Laterality: right Anxiety and depression F41.9; F32.9 HTN (hypertension) I10 JESSI on CPAP G47.33 (1) Closed trimalleolar fracture of ankle Encounter type: initial encounter Laterality: right Qualified Code(s): S82.851A - Displaced trimalleolar fracture of right lower leg, initial encounter for closed fracture
[2023-10-03] MEDS: QUEtiapine FUMARATE 25 MG TABLET PO SCH (21:11)
[2023-10-03] MEDS: amLODIPine BESYLATE 5 MG TAB PO SCH (21:12)
[2023-10-03] MEDS: DONEPEZIL HCL 5 MG TAB PO SCH (21:12)
[2023-10-03] MEDS: MELATONIN 3 MG TAB PO PRN (21:17)
[2023-10-04] MEDS: LEVOTHYROXINE SODIUM 125 MCG TABLET PO SCH (05:22)
[2023-10-04] MEDS: LOSARTAN POTASSIUM 25 MG TAB PO SCH (07:39)
[2023-10-04] MEDS: SPIRONOLACTONE 100 MG TAB PO SCH (07:39)
[2023-10-04] MEDS: ESCITALOPRAM OXALATE 10 MG TAB PO SCH (07:39)
[2023-10-04] MEDS: buPROPion XL 150 MG TABCR PO SCH (07:39)
[2023-10-04] MEDS: SENNA 8.6 MG TAB PO SCH (07:40)
[2023-10-04] MEDS: CHOLECALCIFEROL 5,000 UNITS 125 MCG TAB PO SCH (07:40)
[2023-10-04] MEDS: PANTOprazole 40 MG TAB PO SCH ×2 (07:40→20:01)
[2023-10-04] MEDS: buPROPion XL 300 MG TABCR PO SCH (07:40)
[2023-10-04] MEDS: METOPROLOL TARTRATE 25 MG TAB PO SCH ×2 (07:40→20:01)
[2023-10-04] MEDS: SACCHAROMYCES BOULARDII 250 MG CAP PO SCH ×2 (07:40→20:02)
[2023-10-04] MEDS: ATORVASTATIN 40 MG TAB PO SCH (07:40)
[2023-10-04] MEDS: FLUTICASONE/VILANTEROL 100/25MCG 14 PUFFS/INHALER INH SCH (07:41)
[2023-10-04] MEDS: oxyBUTYnin chloride 5 MG TAB PO SCH ×2 (07:41→20:01)
[2023-10-04] MEDS: ASPIRIN 81 MG ECTAB PO SCH ×2 (07:41→20:00)
[2023-10-04] MEDS: POLYETHYLENE (MIRALAX) 17 GM PACK PO SCH (07:46)
--- NOTE | 2023-10-04 18:02 | Hospitalist Progress Note ---
Date of Service October 04, 2023 Assessment & Plan (1) Closed trimalleolar fracture of ankle: Plan: - Patient's leg gave out while she was getting in the car, and she collapsed on her right ankle - No LOC or dizziness, no blood thinners - Hx of bimalleolar fracture and repair with Dr. Lizarraga on 03/19/2023 - Tibial/fibula x-ray showed an acute trimalleolar right ankle fracture - 09/26: ORIF R ankle for trimalleolar ankle fx with autologous bone grafting DVT proph - ASA 81mg BID + SCDs Right LE nonweightbearing PT/OT Vit D supplement started (pt reports she does take this at home) Acetaminophen 650 mg p.o. and oxycodone 5mg prn for pain Daily miralax + Senna for bowel regiment, PRN ducolax suppository Encouraged Incentive spirometer Covid negative 09/28 mobility slowly progressing with therapies ready for discharge to SNF (2) Anxiety and depression: Plan: Continue bupropion, escitalopram (3) HTN (hypertension): Plan: Continue metoprolol and amlodipine - 10/03: changed spironolactone from 50 q12h to 100 mg qAM for comfort reasons and added losartan 25 mg qAM, has CKD-3 - need to monitor BMP for K/Cr with this change - will check in a few days - 10/04 BPs normalized (4) JESSI on CPAP: Plan: Patient declined CPAP; reports has not been using in the past 6 months since her first ankle injury - Suspect O2 needs inpatient are related to this, wean as able Plan Disposition: continued inpatient stay, medically stable awaiting rehab placement Discontinued kwon 10/03 VTE PPx: ASA 81 bid Admission and Anticipated Discharge Date Admission Date: September 25, 2023 Subjective doing fine, kwon was removed but purewick kept falling off, R ankle pain controlled, working on her mobility Physical Exam Physical Exam: PHYSICAL EXAMINATION Last 24h vital signs reviewed, see documentation in flowsheet Exam unchanged 10/04 except kwon removed General: comfortable appearing, no distress, lying in bed HEENT: Normocephalic, atraumatic, pupils round and equal, sclerae anicteric, no conjunctival injection, moist mucus membranes Lungs: Normal respiratory effort. Clear to auscultation bilaterally. No RRW. dry cough Heart: Regular rate and rhythm, no murmurs. No JVD Abdomen: Soft, nondistended. Bowel sounds present. Extremities: Warm, dry, well-perfused. No extremity edema. right ankle and foot in cast Neuro: Alert and oriented x 4, face symmetric, moves 4 extremities well Psych: Normal affect and behavior Results & Data Results & Data Vital Signs (Past 12 Hours) Vital Signs Temp Pulse Resp BP Pulse Ox O2 Del Method 10/04/23 15:40 36.8 C 57 L 16 127/62 94 Room Air 10/04/23 07:29 36.5 C 57 L 18 139/71 94 Room Air PG Care Time/CCT Total # of Minutes Spent Total Time Spent with Patient: Total time spent is greater than 50% in coordination of care (as documented) at patient's floor/unit and/or counseling patient: Coding Level of Care Code 01478 SUB INP/OBS CARE 11/29MIN Diagnoses Closed trimalleolar fracture of right ankle, initial encounter S82.851A Encounter type: initial encounter Laterality: right Anxiety and depression F41.9; F32.9 HTN (hypertension) I10 JESSI on CPAP G47.33 (1) Closed trimalleolar fracture of ankle Encounter type: initial encounter Laterality: right Qualified Code(s): S82.851A - Displaced trimalleolar fracture of right lower leg, initial encounter for closed fracture
[2023-10-04] MEDS: QUEtiapine FUMARATE 25 MG TABLET PO SCH (20:00)
[2023-10-04] MEDS: amLODIPine BESYLATE 5 MG TAB PO SCH (20:00)
[2023-10-04] MEDS: DONEPEZIL HCL 5 MG TAB PO SCH (20:02)
[2023-10-04] MEDS: COUGH DROP (SUGAR FREE) LOZ 24 LOZ/1 BOX BUCCAL PRN (21:52)
[2023-10-05] MEDS: LEVOTHYROXINE SODIUM 125 MCG TABLET PO SCH (06:02)
[2023-10-05] MEDS: ATORVASTATIN 40 MG TAB PO SCH (07:37)
[2023-10-05] MEDS: SACCHAROMYCES BOULARDII 250 MG CAP PO SCH ×2 (07:37→20:47)
[2023-10-05] MEDS: CHOLECALCIFEROL 5,000 UNITS 125 MCG TAB PO SCH (07:38)
[2023-10-05] MEDS: ESCITALOPRAM OXALATE 10 MG TAB PO SCH (07:39)
[2023-10-05] MEDS: LOSARTAN POTASSIUM 25 MG TAB PO SCH (07:39)
[2023-10-05] MEDS: SPIRONOLACTONE 100 MG TAB PO SCH (07:40)
[2023-10-05] MEDS: oxyBUTYnin chloride 5 MG TAB PO SCH ×2 (07:40→20:46)
[2023-10-05] MEDS: SENNA 8.6 MG TAB PO SCH (07:40)
[2023-10-05] MEDS: METOPROLOL TARTRATE 25 MG TAB PO SCH ×2 (07:41→20:47)
[2023-10-05] MEDS: ASPIRIN 81 MG ECTAB PO SCH ×2 (07:41→20:46)
[2023-10-05] MEDS: buPROPion XL 300 MG TABCR PO SCH (07:41)
[2023-10-05] MEDS: PANTOprazole 40 MG TAB PO SCH ×2 (07:42→20:46)
[2023-10-05] MEDS: buPROPion XL 150 MG TABCR PO SCH (07:42)
[2023-10-05] MEDS: POLYETHYLENE (MIRALAX) 17 GM PACK PO SCH (07:43)
[2023-10-05] MEDS: FLUTICASONE/VILANTEROL 100/25MCG 14 PUFFS/INHALER INH SCH (07:43)
--- NOTE | 2023-10-05 17:28 | Hospitalist Progress Note ---
Date of Service October 05, 2023 Assessment & Plan (1) Closed trimalleolar fracture of ankle: Plan: - Patient's leg gave out while she was getting in the car, and she collapsed on her right ankle - No LOC or dizziness, no blood thinners - Hx of bimalleolar fracture and repair with Dr. Lizarraga on 03/19/2023 - Tibial/fibula x-ray showed an acute trimalleolar right ankle fracture - 09/26: ORIF R ankle for trimalleolar ankle fx with autologous bone grafting DVT proph - ASA 81mg BID + SCDs Right LE nonweightbearing PT/OT Vit D supplement started (pt reports she does take this at home) Acetaminophen 650 mg p.o. and oxycodone 5mg prn for pain Daily miralax + Senna for bowel regiment, PRN ducolax suppository Encouraged Incentive spirometer Covid negative 09/28 mobility slowly progressing with therapies ready for discharge to SNF (2) Anxiety and depression: Plan: Continue bupropion, escitalopram (3) HTN (hypertension): Plan: Continue metoprolol and amlodipine - 10/03: changed spironolactone from 50 q12h to 100 mg qAM for comfort reasons and added losartan 25 mg qAM, has CKD-3 - need to monitor BMP for K/Cr with this change - will check in a few days - 10/05 BPs normalized (4) JESSI on CPAP: Plan: Patient declined CPAP; reports has not been using in the past 6 months since her first ankle injury - Suspect O2 needs inpatient are related to this, wean as able Plan Disposition: continued inpatient stay, medically stable awaiting SNF placement - [facility]/ to [place]? Discontinued doyle 10/03 VTE PPx: ASA 81 bid Admission and Anticipated Discharge Date Admission Date: September 25, 2023 Subjective RLE not painful just heavy to move around in cast. No change in chronic cough after starting inhaler few days No heartburn, no postnasal drip Physical Exam Physical Exam: PHYSICAL EXAMINATION Last 24h vital signs reviewed, see documentation in flowsheet Exam unchanged 10/05: General: comfortable appearing, no distress, lying in bed HEENT: Normocephalic, atraumatic, pupils round and equal, sclerae anicteric, no conjunctival injection, moist mucus membranes Lungs: Normal respiratory effort. Clear to auscultation bilaterally. No RRW. dry infrequent cough Heart: Regular rate and rhythm, no murmurs. No JVD Abdomen: Soft, nondistended. Bowel sounds present. Extremities: Warm, dry, well-perfused. No extremity edema. right ankle and foot in cast. toes warm. L pedal edema Neuro: Alert and oriented x 4, face symmetric, moves 4 extremities well Psych: Normal affect and behavior Results & Data Results & Data Vital Signs (Past 12 Hours) Vital Signs Temp Pulse Resp BP Pulse Ox O2 Del Method 10/05/23 14:58 36.9 C 57 L 18 127/71 95 Room Air 10/05/23 09:14 Room Air 10/05/23 07:15 36.4 C L 60 18 138/70 95 Room Air PG Care Time/CCT Total # of Minutes Spent Total Time Spent with Patient: Total time spent is greater than 50% in coordination of care (as documented) at patient's floor/unit and/or counseling patient: Coding Level of Care Code 37817 SUB INP/OBS CARE 11/29MIN Diagnoses Closed trimalleolar fracture of right ankle, initial encounter S82.851A Encounter type: initial encounter Laterality: right Anxiety and depression F41.9; F32.9 HTN (hypertension) I10 JESSI on CPAP G47.33 (1) Closed trimalleolar fracture of ankle Encounter type: initial encounter Laterality: right Qualified Code(s): S82.851A - Displaced trimalleolar fracture of right lower leg, initial encounter for closed fracture
[2023-10-05] MEDS: MELATONIN 3 MG TAB PO PRN (20:44)
[2023-10-05] MEDS: DONEPEZIL HCL 5 MG TAB PO SCH (20:44)
[2023-10-05] MEDS: QUEtiapine FUMARATE 25 MG TABLET PO SCH (20:44)
[2023-10-05] MEDS: amLODIPine BESYLATE 5 MG TAB PO SCH (20:46)
[2023-10-06] MEDS: LEVOTHYROXINE SODIUM 125 MCG TABLET PO SCH (05:42)
[2023-10-06] MEDS: POLYETHYLENE (MIRALAX) 17 GM PACK PO SCH (08:25)
[2023-10-06] MEDS: SPIRONOLACTONE 100 MG TAB PO SCH (08:26)
[2023-10-06] MEDS: SENNA 8.6 MG TAB PO SCH (08:26)
[2023-10-06] MEDS: oxyBUTYnin chloride 5 MG TAB PO SCH ×2 (08:26→20:34)
[2023-10-06] MEDS: SACCHAROMYCES BOULARDII 250 MG CAP PO SCH ×2 (08:26→20:34)
[2023-10-06] MEDS: ASPIRIN 81 MG ECTAB PO SCH ×2 (08:26→20:34)
[2023-10-06] MEDS: buPROPion XL 150 MG TABCR PO SCH (08:26)
[2023-10-06] MEDS: ESCITALOPRAM OXALATE 10 MG TAB PO SCH (08:26)
[2023-10-06] MEDS: buPROPion XL 300 MG TABCR PO SCH (08:26)
[2023-10-06] MEDS: CHOLECALCIFEROL 5,000 UNITS 125 MCG TAB PO SCH (08:26)
[2023-10-06] MEDS: METOPROLOL TARTRATE 25 MG TAB PO SCH ×2 (08:26→20:34)
[2023-10-06] MEDS: LOSARTAN POTASSIUM 25 MG TAB PO SCH (08:26)
[2023-10-06] MEDS: ATORVASTATIN 40 MG TAB PO SCH (08:26)
[2023-10-06] MEDS: FLUTICASONE/VILANTEROL 100/25MCG 14 PUFFS/INHALER INH SCH (08:27)
[2023-10-06] MEDS: PANTOprazole 40 MG TAB PO SCH ×2 (10:15→20:34)
--- NOTE | 2023-10-06 17:41 | Hospitalist Progress Note ---
Date of Service October 06, 2023 Assessment & Plan (1) Closed trimalleolar fracture of ankle: Plan: - Patient's leg gave out while she was getting in the car, and she collapsed on her right ankle - No LOC or dizziness, no blood thinners - Hx of bimalleolar fracture and repair with Dr. Lizarraga on 03/19/2023 - Tibial/fibula x-ray showed an acute trimalleolar right ankle fracture - 09/26: ORIF R ankle for trimalleolar ankle fx with autologous bone grafting DVT proph - ASA 81mg BID + SCDs Right LE nonweightbearing PT/OT Vit D supplement started (pt reports she does take this at home) Acetaminophen 650 mg p.o. and oxycodone 5mg prn for pain Daily miralax + Senna for bowel regiment, PRN ducolax suppository Encouraged Incentive spirometer Covid negative 09/28 -AM CBC mobility slowly progressing with therapies ready for discharge to SNF (2) Anxiety and depression: Plan: Continue bupropion, escitalopram (3) HTN (hypertension): Plan: Continue metoprolol and amlodipine - 10/03: changed spironolactone from 50 q12h to 100 mg qAM for comfort reasons and added losartan 25 mg qAM, has CKD-3 - need to monitor BMP for K/Cr with this change - will check in AM - 10/05 BPs normalized (4) JESSI on CPAP: Plan: Patient declined CPAP; reports has not been using in the past 6 months since her first ankle injury - no longer requiring supp O2 (5) Chronic cough: Plan: Has GERD but on treatment, was not on YOLANDA (ARB started after cough), trial asthma control inhaler since 10/02 has not seemed to help yet At risk for HF - check BNP Update CXR - was clear on 09/24 Plan Disposition: continued inpatient stay, medically stable awaiting SNF placement - [facility]/ to [place]? Discontinued doyle 10/03 VTE PPx: ASA 81 bid Admission and Anticipated Discharge Date Admission Date: September 25, 2023 Subjective Sleeping, woke up, no R ankle pain, RLE swelling seems less cast is looser, no dyspnea, dry cough not improved Physical Exam Physical Exam: PHYSICAL EXAMINATION Last 24h vital signs reviewed, see documentation in flowsheet Exam unchanged 10/06: General: comfortable appearing, no distress, lying in bed, woke up to voice HEENT: Normocephalic, atraumatic, pupils round and equal, sclerae anicteric, no conjunctival injection, moist mucus membranes Lungs: Normal respiratory effort. Clear to auscultation bilaterally. No RRW. +cough Heart: Regular rate and rhythm, no murmurs. No JVD Abdomen: Soft, nondistended. Bowel sounds present. Extremities: Warm, dry, well-perfused. No extremity edema. right ankle and f oot in cast seems looser. toes warm. L pedal edema Neuro: Alert and oriented x 4, face symmetric, moves 4 extremities well Psych: Normal affect and behavior Results & Data Results & Data Vital Signs (Past 12 Hours) Vital Signs Temp Pulse Pulse Resp BP Pulse Ox O2 Del Method 10/06/23 15:48 36.7 C 57 L 16 131/65 95 Room Air 10/06/23 09:55 Room Air 10/06/23 07:33 36.6 C 61 16 129/66 95 Room Air PG Care Time/CCT Total # of Minutes Spent Total Time Spent with Patient: Total time spent is greater than 50% in coordination of care (as documented) at patient's floor/unit and/or counseling patient: Coding Level of Care Code 07164 SUB INP/OBS CARE 2/35MIN Diagnoses Closed trimalleolar fracture of right ankle, initial encounter S82.851A Encounter type: initial encounter Laterality: right Anxiety and depression F41.9; F32.9 HTN (hypertension) I10 JESSI on CPAP G47.33 Chronic cough R05.3 (1) Closed trimalleolar fracture of ankle Encounter type: initial encounter Laterality: right Qualified Code(s): S82.851A - Displaced trimalleolar fracture of right lower leg, initial encounter for closed fracture
--- NOTE | 2023-10-06 19:10 | XRay Report ---
XR chest 1V portable CLINICAL HISTORY: Persistent cough. COMPARISON STUDY: Chest CT June 19, 2019. Chest radiograph September 24, 2023. 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 There is no pneumothorax or pleur al effusion. Lung volumes are normal. There is no consolidation to suggest pneumonia. Cardiomegaly is unchanged. No evidence for pulmonary edema. IMPRESSION: No acute cardiopulmonary findings. No change in appearance of the chest. ACT 112: Negative or not required by law. Electronically signed by: Amor Berger M.D. 10/06/2023 7:09 PM
[2023-10-06] MEDS: MELATONIN 3 MG TAB PO PRN (20:33)
[2023-10-06] MEDS: DONEPEZIL HCL 5 MG TAB PO SCH (20:34)
[2023-10-06] MEDS: QUEtiapine FUMARATE 25 MG TABLET PO SCH (20:34)
[2023-10-06] MEDS: amLODIPine BESYLATE 5 MG TAB PO SCH (20:35)
[2023-10-07] MEDS: LEVOTHYROXINE SODIUM 125 MCG TABLET PO SCH (05:39)
[2023-10-07 07:35] LABS: Hematocrit (blood only) 37.6 % (37.0-47.0); Mean Corpuscular Hemoglobin 29.4 pg (25.0-34.0); Mean Corpuscular Hgb Conc 31.9 g/dL (32.0-36.0); Mean Corpuscular Volume 92.2 fL (80.0-100.0); Mean Platelet Volume 10.4 fL (9.4-12.4); Platelet Count 308 K/uL (130-400); RDW Coefficient of Variation 13.3 % (11.5-14.5); RDW Standard Deviation 45.3 fL (36.4-46.3); Red Blood Count 4.08 M/uL (4.20-5.40); White Blood Count 7.08 K/ul (4.8-10.8)
[2023-10-07 07:57] LABS: Calcium 8.9 mg/dl (8.6-10.3); Est GFR (African American) 38.4 ml/min; Est GFR (Non-African American) 33.1 ml/min; Potassium 4.3 mmol/L (3.5-5.1)
[2023-10-07] MEDS: METOPROLOL TARTRATE 25 MG TAB PO SCH ×2 (08:41→20:06)
[2023-10-07] MEDS: SACCHAROMYCES BOULARDII 250 MG CAP PO SCH ×2 (08:41→20:07)
[2023-10-07] MEDS: PANTOprazole 40 MG TAB PO SCH ×2 (08:41→20:06)
[2023-10-07] MEDS: ESCITALOPRAM OXALATE 10 MG TAB PO SCH (08:41)
[2023-10-07] MEDS: ASPIRIN 81 MG ECTAB PO SCH ×2 (08:41→20:06)
[2023-10-07] MEDS: CHOLECALCIFEROL 5,000 UNITS 125 MCG TAB PO SCH (08:42)
[2023-10-07] MEDS: SPIRONOLACTONE 100 MG TAB PO SCH (08:42)
[2023-10-07] MEDS: LOSARTAN POTASSIUM 25 MG TAB PO SCH (08:42)
[2023-10-07] MEDS: buPROPion XL 300 MG TABCR PO SCH (08:42)
[2023-10-07] MEDS: oxyBUTYnin chloride 5 MG TAB PO SCH ×2 (08:42→20:06)
[2023-10-07] MEDS: buPROPion XL 150 MG TABCR PO SCH (08:42)
[2023-10-07] MEDS: ATORVASTATIN 40 MG TAB PO SCH (08:42)
[2023-10-07] MEDS: FLUTICASONE/VILANTEROL 100/25MCG 14 PUFFS/INHALER INH SCH (08:43)
[2023-10-07] MEDS: SENNA 8.6 MG TAB PO SCH (08:46)
[2023-10-07] MEDS: POLYETHYLENE (MIRALAX) 17 GM PACK PO SCH (08:46)
--- NOTE | 2023-10-07 17:50 | Hospitalist Progress Note ---
Date of Service October 07, 2023 Assessment & Plan (1) Closed trimalleolar fracture of ankle: Plan: - Patient's leg gave out while she was getting in the car, and she collapsed on her right ankle - No LOC or dizziness, no blood thinners - Hx of bimalleolar fracture and repair with Dr. Lizarraga on 03/19/2023 - Tibial/fibula x-ray showed an acute trimalleolar right ankle fracture - 09/26: ORIF R ankle for trimalleolar ankle fx with autologous bone grafting DVT proph - ASA 81mg BID + SCDs Right LE nonweightbearing PT/OT Vit D supplement started (pt reports she does take this at home) Acetaminophen 650 mg p.o. and oxycodone 5mg prn for pain Daily miralax + Senna for bowel regimen, PRN ducolax suppository -CBC reviewed today and stable, unremarkable. Mild postop anemia was mobility slowly progressing with therapies ready for discharge to SNF (2) Anxiety and depression: Plan: Continue bupropion, escitalopram (3) HTN (hypertension): Plan: Continue metoprolol and amlodipine - 10/03: changed spironolactone from 50 q12h to 100 mg qAM for comfort reasons and added losartan 25 mg qAM, has CKD-3 - need to monitor BMP for K/Cr with this change -on labs 10/07 potassium is normal and creatinine is stable at her baseline 1.48 - 10/05-3 BPs normalized -Would consider increase in ARB cautiously if necessary Would check BMP in 1 to 2 weeks (4) JESSI on CPAP: Plan: Patient declined CPAP; reports has not been using in the past 6 months since her first ankle injury - no longer requiring supp O2 (5) Chronic cough: Plan: Has GERD but on treatment, was not on YOLANDA (ARB started after cough), trial asthma control inhaler since 10/02 possibly helping a little bit At risk for HF - check BNP -only very mildly elevated but can be falsely low in obesity. She appears euvolemic we will not increase diuretic right now. She is on spironolactone and ARB Update CXR - was clear on 09/24, 10/06 remains clear and unremarkable Plan Disposition: continued inpatient stay, medically stable awaiting SNF placement - Sun/ to [facility]? Discontinued kwon 10/03 VTE PPx: ASA 81 bid Admission and Anticipated Discharge Date Admission Date: September 25, 2023 Subjective Pat is doing fine, she is sitting up in the chair has been napping. I think her overall mobility is improving. No complaints about right ankle pain. Chronic cough is unchanged she thinks it may be a little better than earlier in the week. Remains nonproductive no chest pain Physical Exam 2 Physical Exam: PHYSICAL EXAMINATION Last 24h vital signs reviewed, see documentation in flowsheet General: Sitting up in chair by window napping, aroused easily to voice HEENT: Normocephalic, atraumatic, pupils round and equal, sclerae anicteric, no conjunctival injection, moist mucus membranes Lungs: Normal respiratory effort. Clear to auscultation bilaterally. No RRW. +cough. Exam unchanged today Heart: Regular rate and rhythm, no murmurs. No JVD Abdomen: Soft, nondistended. Bowel sounds present. Extremities: Warm, dry, well-perfused. No extremity edema. right ankle and foot in cast. toes warm. L pedal edema seems improved Neuro: Alert and oriented x 4, face symmetric, moves 4 extremities well Psych: Normal affect and behavior Results & Data Results & Data Vital Signs (Past 12 Hours) Vital Signs Temp Pulse Resp BP Pulse Ox O2 Del Method 10/07/23 14:37 36.6 C 55 L 16 119/56 L 95 Room Air 10/07/23 09:50 Room Air 10/07/23 07:50 36.7 C 60 16 144/63 H 94 Room Air Laboratory Results 10/07/23 06:51 10/07/23 06:51 PG Care Time/CCT Total # of Minutes Spent Total Time Spent with Patient: Total time spent is greater than 50% in coordination of care (as documented) at patient's floor/unit and/or counseling patient: Coding Level of Care Code 98248 SUB INP/OBS CARE 2/35MIN Diagnoses Closed trimalleolar fracture of right ankle, initial encounter S82.851A Encounter type: initial encounter Laterality: right Anxiety and depression F41.9; F32.9 HTN (hypertension) I10 JESSI on CPAP G47.33 Chronic cough R05.3 (1) Closed trimalleolar fracture of ankle Encounter type: initial encounter Laterality: right Qualified Code(s): S 82.851A - Displaced trimalleolar fracture of right lower leg, initial encounter for closed fracture
[2023-10-07] MEDS: DONEPEZIL HCL 5 MG TAB PO SCH (20:06)
[2023-10-07] MEDS: amLODIPine BESYLATE 5 MG TAB PO SCH (20:07)
[2023-10-07] MEDS: QUEtiapine FUMARATE 25 MG TABLET PO SCH (20:07)
[2023-10-08] MEDS: LEVOTHYROXINE SODIUM 125 MCG TABLET PO SCH (05:41)
[2023-10-08] MEDS: oxyBUTYnin chloride 5 MG TAB PO SCH ×2 (07:45→19:53)
[2023-10-08] MEDS: SENNA 8.6 MG TAB PO SCH (07:45)
[2023-10-08] MEDS: LOSARTAN POTASSIUM 25 MG TAB PO SCH (07:46)
[2023-10-08] MEDS: PANTOprazole 40 MG TAB PO SCH ×2 (07:46→19:53)
[2023-10-08] MEDS: CHOLECALCIFEROL 5,000 UNITS 125 MCG TAB PO SCH (07:46)
[2023-10-08] MEDS: SPIRONOLACTONE 100 MG TAB PO SCH (07:46)
[2023-10-08] MEDS: SACCHAROMYCES BOULARDII 250 MG CAP PO SCH ×2 (07:46→19:53)
[2023-10-08] MEDS: buPROPion XL 150 MG TABCR PO SCH (07:46)
[2023-10-08] MEDS: METOPROLOL TARTRATE 25 MG TAB PO SCH ×2 (07:46→19:53)
[2023-10-08] MEDS: buPROPion XL 300 MG TABCR PO SCH (07:46)
[2023-10-08] MEDS: ASPIRIN 81 MG ECTAB PO SCH ×2 (07:47→19:53)
[2023-10-08] MEDS: ATORVASTATIN 40 MG TAB PO SCH (07:47)
[2023-10-08] MEDS: POLYETHYLENE (MIRALAX) 17 GM PACK PO SCH (07:47)
[2023-10-08] MEDS: ESCITALOPRAM OXALATE 10 MG TAB PO SCH (07:47)
[2023-10-08] MEDS: FLUTICASONE/VILANTEROL 100/25MCG 14 PUFFS/INHALER INH SCH (07:48)
--- NOTE | 2023-10-08 19:43 | Hospitalist Progress Note ---
Date of Service October 08, 2023 Assessment & Plan (1) Closed trimalleolar fracture of ankle: Plan: - Patient's leg gave out while she was getting in the car, and she collapsed on her right ankle - No LOC or dizziness, no blood thinners - Hx of previous bimalleolar fracture of LEFT ankle and repair with Dr. Lizarraga on 03/19/2023 - Tibial/fibula x-ray showed an acute trimalleolar right ankle fracture - 09/26: ORIF R ankle for trimalleolar ankle fx with autologous bone grafting DVT proph - ASA 81mg BID Right LE nonweightbearing x 8 weeks PT/OT Vit D supplement started (pt reports she does take this at home) Acetaminophen 650 mg p.o. prn for pain - no opioids needed for few weeks Daily miralax + Senna for bowel regimen, PRN ducolax suppository -CBC reviewed 10/07 and stable, unremarkable. Mild postop anemia improved mobility slowly progressing with therapies ready for discharge to SNF, tomorrow AM to [facility] (2) Anxiety and depression: Plan: Continue bupropion, escitalopram. stable/controlled. (3) HTN (hypertension): Plan: Continue metoprolol and amlodipine - 10/03: changed spironolactone from 50 q12h to 100 mg qAM for comfort reasons and added losartan 25 mg qAM, has CKD-3 - need to monitor BMP for K/Cr with this change -on labs 10/07 potassium is normal and creatinine is stable at her baseline 1.48 - 10/05-3 BPs normalized -Would consider increase in ARB cautiously if necessary Would check BMP in 1 to 2 weeks (4) JESSI on CPAP: Plan: Patient declined CPAP; reports has not been using in the past 6 months since her first ankle injury - no longer requiring supp O2 (5) Chronic cough: Plan: Has GERD but on treatment, was not on YOLANDA (ARB was started after cough and did not worsen it), trial asthma control inhaler since 10/02 possibly helping a little bit At risk for HF - check BNP -only very mildly elevated but can be falsely low in obesity. She appears euvolemic we will not increase diuretic right now. She is on spironolactone and ARB started Update CXR - was clear on 09/24, 10/06 remains clear and unremarkable Her cough has definitely improved with starting the inhaler and the ARB. Could be asthma or mild HFpEF without overt volume overload Plan Disposition: continued inpatient stay, medically stable awaiting SNF placement Discontinued kwon 10/03 VTE PPx: ASA 81 bid Admission and Anticipated Discharge Date Admission Date: September 25, 2023 Subjective Doing well, has been doing more physically up to chair every day last 3. No RLE pain. No leg edema. Thinks chronic cough improved Physical Exam Physical Exam: PHYSICAL EXAMINATION Last 24h vital signs reviewed, see documentation in flowsheet General: Sitting up in chair by window awake HEENT: Normocephalic, atraumatic, pupils round and equal, sclerae anicteric, no conjunctival injection, moist mucus membranes Lungs: Normal respiratory effort. Clear to auscultation bilaterally. No RRW. not cough right now. Exam unchanged today Heart: Regular rate and rhythm, no murmurs. No JVD Abdomen: Soft, nondistended. Bowel sounds present. Extremities: Warm, dry, well-perfused. No extremity edema. right ankle and foot in cast. toes warm. L pedal edema resolved Neuro: Alert and oriented x 4, face symmetric, moves 4 extremities well Psych: Normal affect and behavior Results & Data Results & Data Vital Signs (Past 12 Hours) Vital Signs Temp Pulse Pulse Resp BP Pulse Ox O2 Del Method 10/08/23 15:37 37.3 C 71 18 146/61 H 96 Room Air 10/08/23 11:30 37.1 C 64 19 130/71 97 Room Air 10/08/23 09:49 Room Air PG Care Time/CCT Total # of Minutes Spent Total Time Spent with Patient: Total time spent on clinical care today 35-40 minutes mostly coordinating care for anticipated discharge Coding Level of Care Code 69774 SUB INP/OBS CARE 2/35MIN Diagnoses Closed trimalleolar fracture of right ankle, initial encounter S82.851A Encounter type: initial encounter Laterality: right Anxiety and depression F41.9; F32.9 HTN (hypertension) I10 JESSI on CPAP G47.33 Chronic cough R05.3 (1) Closed trimalleolar fracture of ankle Encounter type: initial encounter Laterality: right Qualified Code(s): S82.851A - Displaced trimalleolar fracture of right lower leg, initial encounter for closed fracture
[2023-10-08] MEDS: QUEtiapine FUMARATE 25 MG TABLET PO SCH (19:53)
[2023-10-08] MEDS: DONEPEZIL HCL 5 MG TAB PO SCH (19:53)
[2023-10-08] MEDS: amLODIPine BESYLATE 5 MG TAB PO SCH (19:53)
[2023-10-09 01:21] LABS: Appearance Urine Turbid (Clear); Bacteria Urine Automated 2+ (Negative); Bilirubin Urine Negative (Negative); Blood Urine 1+ (Negative); Cast Urine Automated 0 /lpf (0-5); Color Urine Yellow; Epithelial Cell Urine Auto 0-5 /lpf (0-5); Glucose Urine UA Negative (Negative); Ketones Urine Negative (Negative); Leukocyte Esterase Urine 3+ (Negative); Nitrite Urine Negative (Negative); Protein Urine Trace (Negative); RBC Urine Automated 0-4 /hpf (0-4); Specific Gravity Urine 1.007 (1.000-1.030); Urobilinogen Urine Negative (Negative); WBC Urine Automated >30 /hpf (0-5); pH Urine 6.5 (4.5-7.5)
[2023-10-09] MEDS: LEVOTHYROXINE SODIUM 125 MCG TABLET PO SCH (05:30)
[2023-10-09] MEDS: oxyBUTYnin chloride 5 MG TAB PO SCH (08:41)
[2023-10-09] MEDS: LOSARTAN POTASSIUM 25 MG TAB PO SCH (08:42)
[2023-10-09] MEDS: SENNA 8.6 MG TAB PO SCH (08:42)
[2023-10-09] MEDS: SPIRONOLACTONE 100 MG TAB PO SCH (08:42)
[2023-10-09] MEDS: METOPROLOL TARTRATE 25 MG TAB PO SCH (08:42)
[2023-10-09] MEDS: buPROPion XL 300 MG TABCR PO SCH (08:42)
[2023-10-09] MEDS: buPROPion XL 150 MG TABCR PO SCH (08:42)
[2023-10-09] MEDS: PANTOprazole 40 MG TAB PO SCH (08:42)
[2023-10-09] MEDS: SACCHAROMYCES BOULARDII 250 MG CAP PO SCH (08:42)
[2023-10-09] MEDS: ATORVASTATIN 40 MG TAB PO SCH (08:42)
[2023-10-09] MEDS: CHOLECALCIFEROL 5,000 UNITS 125 MCG TAB PO SCH (08:42)
[2023-10-09] MEDS: ESCITALOPRAM OXALATE 10 MG TAB PO SCH (08:42)
[2023-10-09] MEDS: FLUTICASONE/VILANTEROL 100/25MCG 14 PUFFS/INHALER INH SCH (08:43)
[2023-10-09] MEDS: ASPIRIN 81 MG ECTAB PO SCH (08:43)
[2023-10-09] MEDS: POLYETHYLENE (MIRALAX) 17 GM PACK PO SCH (08:43)
[2023-10-09] MEDS ORDERED: ERTAPENEM SODIUM 1,000 MG in SYRINGE 0 ML IV SCH (10:00)
--- NOTE | 2023-10-09 13:01 | Discharge Summary ---
Date of Service date of admission - September 24, 2023 date of discharge - October 09, 2023 Admission HPI Per Admitting Provider Sara is an 78-year-old female with PMH of bimalleolar right ankle fracture, dementia, JESSI, and LBP. She presented for a fall with right ankle injury on . Patient was previously following with Dr. Lizarraga for a bimalleolar fracture that was fixed 6 months ago; however, tibia/tibial x-ray today showed new trimalleolar right ankle fracture associated with lateral dislocation/subluxation after the fall. Patient declines pain medication and reports she did not take anything at home for pain. Pain in the right ankle. Radiates from the ankle to the mid-way point between ankle and knee. She describes it as a dull achy pain that is worse with movement. 0/10 pain at present. She did not hear a "pop" when she fell. Patient exhibits mild hyper tension on arrival; vitals otherwise stable. ROS: Patient endorses RLE pain/soreness, numbness/tingling from knee to ankle, and frequent urination. Patient denies fever, chills, night-sweats, CP, SOB, abdominal pain, burning with urination. No PMH of [place], DVT/PE, diabetes, cancer Principal Diagnosis 1. Right trimalleolar ankle fracture s/p ORIF by Dr Tommy Smith - 09/26/23 2. E.coli UTI 3. Chronic cough 4. Hypertension 5. Morbid obesity - BMI 56 6. JESSI 7. Pre-diabetes Discharge Exam gen - obese, NAD, lying comfortably in bed mouth - MMM neck - no JVD heart - RRR, s1 s2, no murmur lungs - scattered, faint, end-exp wheezes (scattered) abd - soft NT ND BS+ ext - right foot/ankle in splint; left foot/ankle wnl; pulses 2+ b/l psych - a/o x 3 Discharge Data Allergies Allergy/AdvReac Type Severity Reaction Status Date / Time baclofen Allergy Mild FLUSHED Verified 09/24/23 17:03 FACE Consultations Orthopedic Surgery - Tommy Smith DO PT, OT Procedures Performed Operation Date: 09/26/23 11:15 Actual Procedures p Open reduction internal fixation right closed displaced trimalleolar ankle fracture dislocation, autologous bone grafting(Right) - Richard Smith DO s Removal Hardware(Right) - Richard Smith DO Ordered Studies Foot X-Ray 09/24/23 14:35 XR foot RT min 3V routine CLINICAL HISTORY: dorsal pain fall TECHNIQUE: 3 views of the right foot were obtained. Comparison: Comparison is made to right ankle radiographs 03/19/2023 FINDINGS: Plate and screw fixation hardware about the fibula is seen. Degenerative changes are seen. Achilles and plantar enthesophytes are seen with calcific densities associated. Soft tissue swelling is seen most prominent about the dorsal foot. IMPRESSION: Soft tissue swelling is seen about the dorsal foot without acute abnormalities. Degenerative changes are seen in the foot. ACT 112: Negative or not required by law. Electronically signed by: Calvin Blood M.D. 09/24/2023 3:05 PM Tibia/Fibula X-Ray 09/24/23 15:07 XR tibia fibula RT 2V CLINICAL HISTORY: fall. Right lower leg pain. COMPARISON STUDY: None. FINDINGS: Soft tissue edema/swelling seen within the right lower leg. There is an acute spiral fracture involving the distal shaft of the right fibula. This demonstrates up to 1 cm of lateral displacement. This results in deformity of the overlying cortical plate. Comminuted fractures of the medial malleolus is also noted. There is widening of the ankle mortise with up to 8 mm of lateral displacement/dislocation of the talus in relation to the distal tibia. The proximal tibia and proximal fibula appear intact. There is a right total knee arthroplasty noted. Plantar and posterior calcaneal spurs are present. Probable small fracture involving the posterior malleolus. IMPRESSION: There is an acute trimalleolar right ankle fracture with associated lateral dislocation/subluxation at the tibiotalar joint. ACT 112: Negative or not required by law. Electronically signed by: Daniel Bryant M.D. 09/24/2023 3:30 PM Chest X-Ray 09/24/23 18:10 XR chest 1V portable CLINICAL HISTORY: pre-op TECHNIQUE: Single frontal radiograph of the chest was obtained. Comparison: Comparison is made to chest radiograph 06/29/2023 FINDINGS: Bilateral stable total shoulder arthroplasties. Cardiomegaly is noted. The lungs are clear. No evidence of pleural effusion or pneumothorax. IMPRESSION: No acute chest disease. Cardiomegaly is noted. ACT 112: Negative or not required by law. Electronically signed by: Calvin Blood M.D. 09/24/2023 6:50 PM Ankle X-Ray 09/26/23 00:00 FL ankle RT min 3V RTN CLINICAL HISTORY: RIGHT ORIF ANKLE TECHNIQUE: 5 views were obtained with the C-arm in the OR with the above procedure. Total fluoroscopy time was 61.2 seconds. Radiation dose was 4.07 mGy. Comparison: Comparison is made to right ankle radiograph 03/19/2023 FINDINGS/IMPRESSION: Intraoperative images were obtained of right ankle open reduction and internal fixation. Please correlate with intraoperative fluoroscopy and operative report. ACT 112: Negative or not required by law. Electronically signed by: Calvin Blood M.D. 09/26/2023 4:15 PM Ankle X-Ray 09/26/23 17:29 RIGHT ANKLE 3 VIEWS CLINICAL HISTORY: Postoperative examination. FINDINGS: 3 views of the right ankle are correlated with radiographs of the right tibia and fibula dated 09/24/2023. The examination is performed through a splint, obscuring fine bony detail. The skeletal structures are osteopenic. There has been buttress plate fixation of a distal fibular shaft fracture with mu-ism of near-anatomic alignment. Numerous cortical lag screw transfix the plate. At least 4 of these screws also transfix the distal tibia. The orthopedic hardware appears intact. Overlying soft tissue edema and subcutaneous gas are expected postsurgical findings. The ankle mortise is intact. There are large dorsal and plantar heel spurs. IMPRESSION: 1. Expected postsurgical findings status post buttress plate fixation of a distal fibular fracture. 2. The orthopedic hardware appears intact. Electronically signed by: Da Bhardwaj M.D. 09/26/2023 7:15 PM Chest X-Ray 10/06/23 17:36 XR chest 1V portable CLINICAL HISTORY: Persistent cough. COMPARISON STUDY: Chest CT June 19, 2019. Chest radiograph September 24, 2023. 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 There is no pneumothorax or pleural effusion. Lung volumes are normal. There is no consolidation to suggest pneumonia. Cardiomegaly is unchanged. No evidence for pulmonary edema. IMPRESSION: No acute cardiopulmonary findings. No change in appearance of the chest. ACT 112: Negative or not required by law. Electronically signed by: Amor Berger M.D. 10/06/2023 7:09 PM Hospital Course (1) Closed trimalleolar fracture of ankle: - Patient's leg gave out while she was getting in a car, and she collapsed on her right ankle - No dizziness preceding the fall; No loss of consciousness - Hx of bimalleolar fracture and repair with Dr. Oscar Lizarraga on 03/19/2023 - Tibial/fibula x-rays showed an acute trimalleolar right ankle fracture - 09/26/23 - s/p ORIF R ankle for trimalleolar ankle fx with autologous bone grafting by Dr Tommy Smith DVT proph - ASA 81mg BID + SCDs; recommended the aspirin twice daily for at least 4 weeks; consider lengthening the course if mobility is still severely impaired Right LE nonweightbearing Cont PT/OT Vit D supplement started (pt reports she does take this at home) Acetaminophen prn pain Daily miralax + Senna for bowel regimen along with PRN dulcolax suppository Covid negative 09/28/23 patient will have follow-up with Dr Smith on 10/16/23 for recheck of the R ankle (2) Anxiety and depression: Continue bupropion, escitalopram (3) HTN (hypertension): Continue metoprolol and amlodipine Continue aldactone daily (4) JESSI on CPAP: Patient declined CPAP during the hospitalization She reported she had not been using her home CPAP in the past 6 months since her first ankle injury Outpatient pulmonary consultation advised for her chronic cough Perhaps during that outpatient consultation arrangements can be made for nasal CPAP to help with compliance? (5) Morbid obesity with BMI of 50.0-59.9, adult: BMI 56 (6) Chronic cough: Patient reports chronic dry cough for at least 6 months or longer. Intermittent wheezing heard during the visit. No prior h/o PFTs. No prior h/o asthma or other obstructive lung disease. She did not examine in CHF while here. CXR wnl. O2 sats wnl prior to discharge. She did have improvement in her symptoms with once daily Breo. Continue albuterol prn. Again advise outpatient pulmonary follow-up to address these issues. (7) E. coli UTI: Urine culture prior to discharge showed e.coli UTI. s/p ertapenem on day of discharge. Followed by 6 additional days of oral antibiotics. (8) Impaired fasting glucose: Hba1c 5.9% in March 2023. c/w very mild pre-DM. outpatient follow-up needed for surveillance. (9) DVT prophylaxis: aspirin 81mg BID x 4 weeks minimum Total Time Total Time Spent Total Time Spent (In Minutes): 40 Discharge Plan Discharge Items Patient Disposition: Transfer Alf Fac Reason For Visit: FALL Discharge Diagnosis: 1. Right trimalleolar ankle fracture s/p ORIF by Dr Tommy Smith - 09/26/23 2. Suspected UTI - urine culture pending 3. Chronic cough 4. Hypertension Activity: Per Instructions section Weightbearing: Right non-weightbearing Non-emergency contact: Primary Care Provider and Surgeon Call non-emergency contact if: you have any medication questions, your symptoms worsen, your pain is worsening, your wound has increased redness and your wound has increased drainage Follow-up/Referrals: [facility] Sew[facility], [facility] [Physician] - (first available appointment; diagnosis - chronic cough) Alexy Mathur DO [Primary Care Provider] - Richard Smith DO [Surgeon] - 10/16/23 11:30 am (recheck of R ankle fracture) Diet: Heart Healthy Add Attending Provider Instructions: Continue Aspirin 81 bid for DVT prophylaxis through at least 10/31/23, but may need to extend if mobility continues to be significantly impaired Please check CBC, BMP, and Magnesium level in 3-4 days; results to medical aides teacher PT and OT - Eval and Rx 100% non-weight bearing status to right leg Addtl Senior Staff Psychologist Provider Instructions: Recommendations from Dr Tommy Smith's progress note 09/27/23: Closed trimalleolar fracture of ankle: status post ORIF right closed displaced trimalleolar ankle fracture dislocation, removal of hardware, ORIF nonunion lateral malleolus and autologous bone grafting, ORIF syndesmotic disruption, autologous bone graft harvest calcaneus. Continue VTE prophylaxis with aspirin 81 mg 1 p.o. twice daily x4 weeks PT/OT Patient to be nonweightbearing right lower extremity for approximately 8 weeks Follow-up appointment in his [place] office --- 10/16/23 at 1130am Richard Smith DO [facility] [place] [phone] Pending Studies at Discharge: No Stand-Alone Forms: [facility] Skilled Items Patient informed of condition?: Yes DNR: No Discharge Level of Care: Skilled Communicable Disease: No Discharge Prognosis: Improving Lines: None Urinary Catheter: No Medications and DC Order Prescriptions: New acetaminophen 325 mg Tablet 650 mg PO Q4H PRN (Reason: fever or pain) Qty: 0 0RF spironolactone 100 mg Tablet 100 mg PO DAILY Qty: 0 0RF aspirin 81 mg Tablet,Delayed Release (Dr/Ec) 81 mg PO BID Qty: 0 0RF bisacodyl 10 mg Suppository 10 mg MI DAILY PRN (Reason: constipation) Qty: 0 0RF polyethylene glycol 3350 [Miralax] 17 gram Powder In Packet 17 g PO DAILY Qty: 0 0RF sennosides [Senokot] 8.6 mg Tablet 8.6 mg PO QAM Qty: 0 0RF fluticasone furoate-vilanterol [Breo Ellipta] 100-25 mcg/dose Blister With Device 1 inh inhalation DAILY Qty: 0 0RF Rx Instructions: rinse mouth with water after each use albuterol sulfate [Ventolin HFA] 90 mcg/actuation HFA aerosol inhaler 2 inh inhalation Q4H PRN (Reason: shortness of breath or wheezing or cough) Qty: 8.5 0RF Rx Instructions: use with a spacer device Continued cholecalciferol (vitamin D3) [Vitamin D3] 25 mcg (1,000 unit) capsule 5,000 unit PO QPM amlodipine 10 mg tablet 10 mg PO HS Qty: 90 3RF donepezil 5 mg tablet 5 mg PO QPM Qty: 90 3RF pantoprazole 40 mg tablet,delayed release (DR/EC) 40 mg PO BID Qty: 180 3RF metoprolol tartrate 25 mg tablet 25 mg PO BID Qty: 180 3RF oxybutynin chloride 5 mg tablet 5 mg PO BID Qty: 180 3RF nystatin 100,000 unit/gram cream 1 applic TOPICAL BID PRN (Reason: yeast) Qty: 120 5RF atorvastatin 40 mg tablet 40 mg PO QAM Qty: 90 3RF multivitamin Tablet 1 tab PO QAM bupropion HCl 150 mg tablet extended release 24 hr 150 mg PO QAM Rx Instructions: Take w/ 300mg tablet to equal 450mg by mouth once in the morning bupropion HCl 300 mg tablet extended release 24 hr 300 mg PO QAM Rx Instructions: Take w/ 150mg tablet to equal 450mg by mouth once in the morning omega-3 fatty acids 1,000 mg Capsule 1,000 mg PO QAM cranberry 450 mg Tablet 450 mg PO QAM Rx Instructions: administer with a meal Saccharomyces boulardii [Florastor] 250 mg capsule 250 mg PO BID Qty: 20 0RF Rx Instructions: swallow whole quetiapine [Seroquel] 25 mg tablet 25 mg PO HS melatonin 3 mg tablet 3 mg PO HS PRN (Reason: Sleep) levothyroxine 125 mcg tablet 125 mcg PO QAM escitalopram oxalate 10 mg tablet 10 mg PO QAM Discontinued spironolactone 50 mg tablet 50 mg PO Q12 Qty: 180 3RF Discharge Orders: Discharge Order (Routine); Ordered 10/09/23 Ordered By: Irineo Pryor Admission Data Admit Date/Time: 09/25/23 17:47 Attending Provider: Irineo Pryor Admit Provider: Irineo Jara Primary Care Provider: Alexy Mathur Other Providers: Sukhdeep Marquez; [facility]; [facility]; [facility] Other Interventions: Discharge Summary Assessment (RN) Last Done: 10/09/23 13:03 Coding Level of Care Code 44802 INP/OBS DISCH >30 MIN Diagnoses Closed trimalleolar fracture of right ankle, initial encounter S82.851A Encounter type: initial encounter Laterality: right Anxiety and depression F41.9; F32.9 HTN (hypertension) I10 JESSI on CPAP G47.33 Morbid obesity with BMI of 50.0-59.9, adult E66.01; Z68.43 Chronic cough R05.3 E. coli UTI N39.0; B96.20 Impaired fasting glucose R73.01 DVT prophylaxis Z29.9
== END 2023-10-09 15:20 | DRG 493 ==
LOC: ED 14:07 → EDINP 14:07 → SUATTDRO 18:46 → EDINP 20:40 → 3N 21:22 → SUATTDRO 09-25 17:47
DX: G47.33 Obstructive sleep apnea (adult) (pediatric); F41.9 Anxiety disorder, unspecified; Z88.8 Allergy status to other drugs, medicaments and biological substances; I10 Essential (primary) hypertension; Z79.899 Other long term (current) drug therapy; S82.64XK Nondisplaced fracture of lateral malleolus of right fibula, subsequent encounter for closed fracture with nonunion; Z79.890 Hormone replacement therapy; S82.851A Displaced trimalleolar fracture of right lower leg, initial encounter for closed fracture; E66.01 Morbid (severe) obesity due to excess calories; Z68.43 Body mass index [BMI] 50.0-59.9, adult; R05.3 Chronic cough; V48.4XXA Person boarding or alighting a car injured in noncollision transport accident, initial encounter; F32.A Depression, unspecified

== ENCOUNTER 2025-01-22 08:58 | Inpatient (IN) ==
[2025-01-22] MEDS: SODIUM CHLORIDE 0.9% 500 ML IV ONE (09:34)
[2025-01-22 09:36] LABS: Bacteria Urine Automated 4+ (None Seen); Cast Urine Automated 0-2 /lpf (0-2); Epithelial Cell Urine Auto 0-2 /hpf (0-2); RBC Urine Automated 0-2 /hpf (0-2); WBC Urine Automated >50 /hpf (0-5)
[2025-01-22 09:41] LABS: Basophils # (auto) 0.05 K/uL (0.00-0.20); Basophils % (auto) 0.3 %; Hematocrit (blood only) 44.7 % (37.0-47.0); Immature Granulocytes % (auto) 0.6 %; Lymphocytes # (auto) 0.87 K/uL (1.20-3.40); Lymphocytes % (auto) 5.3 %; Mean Corpuscular Hemoglobin 30.4 pg (25.0-34.0); Mean Corpuscular Hgb Conc 33.6 g/dL (32.0-36.0); Mean Corpuscular Volume 90.7 fL (80.0-100.0); Mean Platelet Volume 10.5 fL (9.4-12.4); Monocytes # (auto) 1.15 K/uL (0.11-0.59); Neutrophils # (auto) 14.18 K/uL (1.40-6.50); Neutrophils % (auto) 86.8 %; Platelet Count 246 K/uL (130-400); RDW Coefficient of Variation 12.9 % (11.5-14.5); Red Blood Count 4.93 M/uL (4.20-5.40); White Blood Count 16.35 K/ul (4.8-10.8)
[2025-01-22 09:57] LABS: Bilirubin Urine Negative (Negative); Blood Urine Negative (Negative); Color Urine Yellow; Glucose Urine UA Negative (Negative); Ketones Urine Negative (Negative); Leukocyte Esterase Urine 3+ (Negative); Nitrite Urine Positive (Negative); Protein Urine 1+ (Negative); Specific Gravity Urine 1.017 (1.000-1.030); Urobilinogen Urine Negative (Negative)
--- NOTE | 2025-01-22 09:58 | CT Scan Report ---
CT head/brain wo con CLINICAL HISTORY: confused, fall. TECHNIQUE: Multiple axial CT images of the head were obtained without contrast. A dose lowering tech nique was utilized adhering to the principles of ALARA. CT DOSE: 1250.21 mGy.cm COMPARISON: 06/29/2023 FINDINGS: There is motion artifact despite multiple acquisitions. There is interval small area of hyp odensity posterior left centrum semiovale in the parietal lobe which likely represents recent subacut e infarction. Stable moderate chronic small vessel ischemic changes. No intracranial hemorrhage seen. No mass effect, midline shift, or hydrocephalus. No skull fracture seen. Visualized paranasal sinuse s and mastoid air cells are clear. IMPRESSION: 1. Motion limited exam. 2. No intracranial hemorrhage seen. 3. 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 ACT 112: Negative or not required by law. The above report was generated using voice recognition software. It may contain grammatical, syntax o r spelling errors. Electronically signed by: Girish Murphy M.D. 01/22/2025 9:56 AM
[2025-01-22 09:59] LABS: Albumin Globulin Ratio 1.3 (0.9-2); Albumin Level 4.5 gm/dl (3.4-5.0); BUN Creatinine Ratio 21.7 (10-20); Bilirubin,Total 0.8 mg/dl (0.2-1.0); Calcium 10.9 mg/dl (8.6-10.3); Creatinine Clr Calc Pharmacy 22.5 ml/min; Globulin 3.4 gm/dl (2.5-4.0); Magnesium 1.5 mg/dl (1.7-2.4); Potassium 4.8 mmol/L (3.5-5.1); Total Protein 7.9 gm/dl (6.0-8.3)
[2025-01-22 10:08] LABS: Appearance Urine Clear (Clear)
[2025-01-22 10:12] LABS: Thyroid Stimulating Hormone 1.512 uIu/ml (0.300-4.500)
[2025-01-22] MEDS: cefTRIAXone SODIUM 2,000 MG/50 ML BAG IV STA (10:22)
[2025-01-22] MEDS: SODIUM CHLORIDE 0.9% 1,000 ML IV ONE (10:23)
--- NOTE | 2025-01-22 10:25 | XRay Report ---
XR chest 1V portable CLINICAL HISTORY: weakness COMPARISON STUDY: 10/06/2023 FINDINGS: Stable cardiomegaly with mild pulmonary vascular congestion. No effusion, consolidation, or pneumothorax. IMPRESSION: Stable mild CHF. ACT 112: Negative or not required by law. Electronically signed by: Girish Murphy M.D. 01/22/2025 10:23 AM
[2025-01-22] MEDS: MAGNESIUM SULFATE / D5W 1 GM/100 ML BAG IV STA (10:43)
--- NOTE | 2025-01-22 10:57 | Emergency Department Note ---
Impression & Plan Weakness, Fall, LINH (acute kidney injury), Acute UTI, Leukocytosis, Acute CVA (cerebrovascular accident), Hypomagnesemia ED Provider Note NAME: DEBBIE THOMPSON AGE: 80 SEX: F : 1945 ARRIVES VIA: Ambulance INFORMANT: [Patient][ems] ED PROVIDER(S): [Da Wetzel MD] CHIEF COMPLAINT: Fall HISTORY OF PRESENT ILLNESS: The patient is an 80-year-old female who presents to the ER after being found by home health on the floor. She is unsure how long she was on the floor. She was last seen 2 days ago by family. By report, the patient is being treated for a UTI, she states that that was diagnosed earlier in the week. The patient is not on blood thinning agents. She currently complains of being thirsty, she denies any headache or neck pain or chest pain. No back pain or abdominal pain. No one-sided weakness. As per our nursing staff, the patient's confusion seems to be clearing the longer she is here in the ED. PMHx/PSHx/Social Hx: See Below PHYSICAL EXAM: GENERAL: Patient is in no acute distress. HEENT: No acute trauma, normocephalic atraumatic, mucous membranes dry, no nasal congestion. NECK: No stridor, no adenopathy, nontender cervical spine, trachea is midline. LUNGS: Clear to auscultation bilaterally, no wheeze, no rhonchi, breath sounds equal. HEART: Without murmurs gallops or rubs, regular rate and rhythm. ABDOMEN: Soft, nontender, no peritonitis. Obese. EXTREMITIES: No cyanosis, full range of motion of all the joints without pain or difficulty. NEUROLOGIC: Awake and alert, no speech slur, moving all extremities equally. No facial droop. SKIN: No jaundice, no diaphoresis. DIFFERENTIAL DIAGNOSIS: Dehydration, renal or liver failure, intracranial bleeding, stroke, UTI, HI, among others. EMERGENCY DEPARTMENT PROCEDURES: MEDICAL DECISION MAKING: There is a moderate leukocytosis, this could be consistent with infection. There was no anemia. There was a normal platelet count. Renal panel testing shows some acute kidney injury/dehydration with a creatinine of 2.21. Magnesium is low at 1.5. No concerning liver enzyme elevation. Total CK mildly elevated consistent with her time down but certainly not consistent with significant rhabdomyolysis. Patient appeared to be in a euthyroid state. Urinalysis does suggest infection. Chest x-ray showed some parenchymal congestion consistent with some mild CHF or changes just from her body habitus. A brain CT showed a potential subacute infarct. No acute intracranial bleeding. ECG showed a sinus rhythm, no ST elevation or evidence for acute HI. On exam, the patient appeared dehydrated. She had no complaints. The patient was aggressively managed given the circumstances. She received IV saline, 1.5 L. She received IV magnesium. She was given IV ceftriaxone for the UTI. Despite the findings on brain CT imaging, the patient was clearly not a candidate for TNK. She deserves more of a stroke workup while in the hospital but, her last known well time was unknown and given her other findings, it is unclear as to whether her stroke findings on CT imaging were responsible for her fall or, if the fall was from her dehydration and urinary infection. I spoke with the patient, I did speak with the assistant case manager. The patient is currently resting comfortably with no complaints. Prior/Outside records/notes reviewed: Today's EMS notes describing her presentation and transport to this hospital. ECG per my interpretation: Indication was weakness. The ECG shows a normal sinus rhythm with a rate of 68. LVH is present. There is no ST elevation, no PVCs. The QTc was 438. Continuous Cardiac Monitoring per my interpretation: An order was placed for continuous cardiac monitoring. The monitor shows a rate of 77 with normal sinus rhythm. Imaging/x-ray results per my interpretation: Chest x-ray shows potential mild CHF versus changes from her large body habitus. There is no pneumonia. Chronic Medical/Social conditions affecting care: Advanced age. Care/Management discussed with: Case management, the on-call hospitalist. Level of care consideration(s): After review of the information above and other included data: --I believe the patient requires escalation of care to admission Critical Care Note: I have personally spent 47 minutes of critical care time in the direct management of this patient. This includes bedside care, interpretation of diagnostic studies, and testing, discussion with consultants, patient, and family members, and other required patient management activities. This 47 minutes is in excess of all separately billable procedures. DISPOSITION: Admission Past Med/Surg History Problem List (Updated 01/22/25 @ 15:14 by Da Wetzel MD) Hypomagnesemia (Acute) Acute CVA (cerebrovascular accident) (Acute) Leukocytosis (Acute) Acute UTI (Acute) LINH (acute kidney injury) (Acute) Fall (Acute) Weakness (Acute) LINH (acute kidney injury) Altered mental status Parietal lobe infarction Yeast infection Hypothyroidism Hyperlipemia DVT prophylaxis E. coli UTI Chronic cough Morbid obesity with BMI of 50.0-59.9, adult HTN (hypertension) Anxiety and depression Closed trimalleolar fracture of ankle (Acute) Ankle fracture, right Urinary symptom or sign JESSI on CPAP Bimalleolar fracture of right ankle (Acute) Fall (Acute) Hypoxia (Acute) UTI (urinary tract infection) Orthostatic hypotension Neck pain Impaired fasting glucose Dyspnea Weakness (Acute) Chronic diarrhea Lumbar discitis Rectocele Dementia (Acute) Proteinuria Lumbar back pain Medical History Acute respiratory failure with hypoxia History of fracture of right ankle Chronic renal failure, stage 3a Pneumonia due to COVID-19 virus Electrolyte imbalance SIRS (systemic inflammatory response syndrome) Fever Nausea Osteoarthritis History of kidney stones Hernia, incisional Hypokalemia Hypomagnesemia Hypophosphatemia Insomnia Moderate obstructive sleep apnea Acid reflux disease Surgical History History of total hysterectomy with bilateral salpingo-oophorectomy (BSO) History of dilatation and curettage History of bilateral tubal ligation History of repair of right rotator cuff History of repair of left rotator cuff History of total right knee replacement (TKR) History of total left knee replacement (TKR) History of cystoscopy History of colonoscopy History of wisdom tooth extraction History of bilateral cataract extraction History of colon surgery Hx of cholecystectomy Family History Father Family history of diabetes mellitus Myocardial infarction Cancer Grandmother (Paternal) Family history of diabetes mellitus Other Coronary heart disease Family history non-contributory No family history of adverse response to anesthesia Denies family history of Ovarian cancer Prostate cancer Breast cancer Colorectal cancer Social History Smoking Status: Never smoker Second Hand Exposure: Yes (was exposed for 50+ years when was alive); Do You Dip or Chew Tobacco: No; Hx Alcohol Use: No Hx Substance Use: No Preferred Language: Nigerian Communication Ability: Effective Visual Impairment: Limited Hearing Ability: Normal Driver Wheelchair Required: No Beliefs That Will Affect Care: None marital status: / Current Living Situation: Alone current occupational status: retired How many Children do You have: 2 Feels Safe at Home: Yes Childhood Exposure to Second-Hand Smoke: No Diet: low salt caffeine: Yes during the past year weight has: remained stable Dental Care, Regularly: Yes Physical Activity Frequency: Does not Exercise Seatbelt Use: never Sunscreen Use: No Do you think of yourself as: straight/heterosexual Sexual Activity: has been sexually active, but not for at least 12 months Gender Identity: Female Assistive Devices: Cane, Walker and Other Allergies Allergies Allergy/AdvReac Type Severity Reaction Status Date / Time baclofen Allergy Mild FLUSHED Verified 01/22/25 11:18 FACE Home Meds Home Medications Medication Instructions Recorded Confirmed multivitamin 1 tab PO QAM 12/01/18 01/22/25 cholecalciferol (vitamin D3) 25 5,000 unit PO QPM 06/06/21 01/22/25 mcg (1,000 unit) capsule (Vitamin D3) omega-3 fatty acids 1,000 mg 1,000 mg PO QAM 12/12/21 01/22/25 capsule cranberry fruit 450 mg tablet 450 mg PO QAM 03/19/23 01/22/25 (cranberry) melatonin 3 mg tablet 3 mg PO HS PRN Sleep 09/24/23 01/22/25 quetiapine 100 mg tablet 100 mg PO DAILY 01/22/25 01/22/25 ramelteon 8 mg tablet 8 mg PO DAILY 01/22/25 01/22/25 Previous Rx's Medication Instructions Recorded Saccharomyces boulardii 250 mg 250 mg PO BID #20 caps 06/29/23 capsule (Florastor) oxybutynin chloride 5 mg tablet 5 mg PO BID #180 tabs 01/16/24 bupropion HCl 150 mg 24 hr tablet, 150 mg PO QAM #30 tabs 01/24/24 extended release bupropion HCl 300 mg 24 hr tablet, 300 mg PO QAM #30 tabs 01/24/24 extended release escitalopram oxalate 10 mg tablet 10 mg PO QAM #90 tabs 02/25/24 metoprolol tartrate 25 mg tablet 25 mg PO BID #180 tabs 06/04/24 amlodipine 10 mg tablet 10 mg PO HS #90 tabs 11/20/24 nystatin 100,000 unit/gram topical 1 applic topical BID PRN yeast 12/05/24 cream #120 grams levothyroxine 137 mcg tablet 137 mcg PO DAILY #90 tabs 12/12/24 spironolactone 50 mg tablet 50 mg PO BID #180 tabs 01/08/25 sulfamethoxazole 800 1 tab PO BID uti 5 days #10 tabs 01/19/25 mg-trimethoprim 160 mg tablet (Bactrim DS) Results & Data (ED) Vital Signs Vital Signs - 24 hr 01/22/25 09:06 01/22/25 09:06 01/22/25 09:06 Temperature 36 C L Temperature Source Oral Pulse Rate 73 Pulse Rate from SpO2 Sensor Respiratory Rate 15 Respiratory Effort / Characteristics Non-Labored Spontaneous Non-Labored Spontaneous Respiratory Depth Normal Normal Blood Pressure 160/72 H 160/72 H Blood Pressure Mean 101 86 Pulse Oximetry 95 Oxygen Delivery Method Room Air Sepsis Recent Fever Within 48 Hours No Sepsis New/Unexplained Change in Mental Status N/A Sepsis Action Taken by Nursing No Action Required 01/22/25 09:06 01/22/25 09:06 01/22/25 09:06 Temperature Temperature Source Pulse Rate Pulse Rate from SpO2 Sensor Respiratory Rate Respiratory Effort / Characteristics Respiratory Depth Blood Pressure 160/72 H 160/72 H 160/72 H Blood Pressure Mean 86 86 86 Pulse Oximetry Oxygen Delivery Method Sepsis Recent Fever Within 48 Hours Sepsis New/Unexplained Change in Mental Status Sepsis Action Taken by Nursing 01/22/25 09:06 01/22/25 09:06 01/22/25 09:06 Temperature Temperature Source Pulse Rate Pulse Rate from SpO2 Sensor Respiratory Rate Respiratory Effort / Characteristics Respiratory Depth Blood Pressure 160/72 H 160/72 H 160/72 H Blood Pressure Mean 86 86 86 Pulse Oximetry Oxygen Delivery Method Sepsis Recent Fever Within 48 Hours Sepsis New/Unexplained Change in Mental Status Sepsis Action Taken by Nursing 01/22/25 09:06 01/22/25 09:06 01/22/25 09:06 Temperature Temperature Source Pulse Rate Pulse Rate from SpO2 Sensor Respiratory Rate Respiratory Effort / Characteristics Respiratory Depth Blood Pressure 160/72 H 160/72 H 160/72 H Blood Pressure Mean 86 86 86 Pulse Oximetry Oxygen Delivery Method Sepsis Recent Fever Within 48 Hours Sepsis New/Unexplained Change in Mental Status Sepsis Action Taken by Nursing 01/22/25 09:06 01/22/25 09:06 01/22/25 09:06 Temperature Temperature Source Pulse Rate Pulse Rate from SpO2 Sensor Respiratory Rate Respiratory Effort / Characteristics Respiratory Depth Blood Pressure 160/72 H 160/72 H 160/72 H Blood Pressure Mean 86 86 86 Pulse Oximetry Oxygen Delivery Method Sepsis Recent Fever Within 48 Hours Sepsis New/Unexplained Change in Mental Status Sepsis Action Taken by Nursing 01/22/25 09:06 01/22/25 09:06 01/22/25 09:06 Temperature Temperature Source Pulse Rate Pulse Rate from SpO2 Sensor Respiratory Rate Respiratory Effort / Characteristics Respiratory Depth Blood Pressure 160/72 H 160/72 H 160/72 H Blood Pressure Mean 86 86 86 Pulse Oximetry Oxygen Delivery Method Sepsis Recent Fever Within 48 Hours Sepsis New/Unexplained Change in Mental Status Sepsis Action Taken by Nursing 01/22/25 09:06 01/22/25 09:06 01/22/25 09:06 Temperature Temperature Source Pulse Rate Pulse Rate from SpO2 Sensor Respiratory Rate Respiratory Effort / Characteristics Respiratory Depth Blood Pressure 160/72 H 160/72 H 160/72 H Blood Pressure Mean 86 86 86 Pulse Oximetry Oxygen Delivery Method Sepsis Recent Fever Within 48 Hours Sepsis New/Unexplained Change in Mental Status Sepsis Action Taken by Nursing 01/22/25 09:06 01/22/25 09:06 01/22/25 09:06 Temperature Temperature Source Pulse Rate Pulse Rate from SpO2 Sensor Respiratory Rate Respiratory Effort / Characteristics Respiratory Depth Blood Pressure 160/72 H 160/72 H 160/72 H Blood Pressure Mean 86 86 86 Pulse Oximetry Oxygen Delivery Method Sepsis Recent Fever Within 48 Hours Sepsis New/Unexplained Change in Mental Status Sepsis Action Taken by Nursing 01/22/25 09:06 01/22/25 09:16 01/22/25 09:21 Temperature Temperature Source Pulse Rate 71 Pulse Rate from SpO2 Sensor Respiratory Rate Respiratory Effort / Characteristics Respiratory Depth Blood Pressure 160/72 H Blood Pressure Mean 86 Pulse Oximetry 95 Oxygen Delivery Method Room Air Sepsis Recent Fever Within 48 Hours Sepsis New/Unexplained Change in Mental Status Sepsis Action Taken by Nursing 01/22/25 10:00 01/22/25 10:00 01/22/25 10:00 Temperature Temperature Source Pulse Rate 74 Pulse Rate from SpO2 Sensor 74 Respiratory Rate 21 Respiratory Effort / Characteristics Respiratory Depth Blood Pressure 67/55 L 67/55 L Blood Pressure Mean 58 58 Pulse Oximetry 93 Oxygen Delivery Method Sepsis Recent Fever Within 48 Hours Sepsis New/Unexplained Change in Mental Status Sepsis Action Taken by Nursing 01/22/25 10:02 01/22/25 10:02 01/22/25 10:02 Temperature Temperature Source Pulse Rate Pulse Rate from SpO2 Sensor Respiratory Rate Respiratory Effort / Characteristics Respiratory Depth Blood Pressure 150/79 H 150/79 H 150/79 H Blood Pressure Mean 110 110 110 Pulse Oximetry Oxygen Delivery Method Sepsis Recent Fever Within 48 Hours Sepsis New/Unexplained Change in Mental Status Sepsis Action Taken by Nursing 01/22/25 10:02 01/22/25 10:02 01/22/25 10:02 Temperature Temperature Source Pulse Rate Pulse Rate from SpO2 Sensor Respiratory Rate Respiratory Effort / Characteristics Respiratory Depth Blood Pressure 150/79 H 150/79 H 150/79 H Blood Pressure Mean 110 110 110 Pulse Oximetry Oxygen Delivery Method Sepsis Recent Fever Within 48 Hours Sepsis New/Unexplained Change in Mental Status Sepsis Action Taken by Nursing 01/22/25 10:02 01/22/25 10:02 01/22/25 10:02 Temperature Temperature Source Pulse Rate Pulse Rate from SpO2 Sensor Respiratory Rate Respiratory Effort / Characteristics Respiratory Depth Blood Pressure 150/79 H 150/79 H 150/79 H Blood Pressure Mean 110 110 110 Pulse Oximetry Oxygen Delivery Method Sepsis Recent Fever Within 48 Hours Sepsis New/Unexplained Change in Mental Status Sepsis Action Taken by Nursing 01/22/25 10:12 01/22/25 10:21 01/22/25 10:30 Temperature Temperature Source Pulse Rate 78 79 77 Pulse Rate from SpO2 Sensor 80 79 77 Respiratory Rate 25 H 19 21 Respiratory Effort / Characteristics Respiratory Depth Blood Pressure Blood Pressure Mean Pulse Oximetry 93 94 94 Oxygen Delivery Method Sepsis Recent Fever Within 48 Hours Sepsis New/Unexplained Change in Mental Status Sepsis Action Taken by Nursing 01/22/25 11:01 01/22/25 11:12 01/22/25 11:24 Temperature Temperature Source Pulse Rate 77 79 Pulse Rate from SpO2 Sensor 77 79 Respiratory Rate 16 22 Respiratory Effort / Characteristics Respiratory Depth Blood Pressure 148/70 H Blood Pressure Mean 123 Pulse Oximetry 95 95 Oxygen Delivery Method Room Air Room Air Sepsis Recent Fever Within 48 Hours Sepsis New/Unexplained Change in Mental Status Sepsis Action Taken by Nursing 01/22/25 11:33 Temperature Temperature Source Pulse Rate 89 Pulse Rate from SpO2 Sensor 77 Respiratory Rate 16 Respiratory Effort / Characteristics Respiratory Depth Blood Pressure Blood Pressure Mean Pulse Oximetry 97 Oxygen Delivery Method Room Air Sepsis Recent Fever Within 48 Hours Sepsis New/Unexplained Change in Mental Status Sepsis Action Taken by Longterm Medications Current Medication List: was personally reviewed by me Laboratory Data Attestation: I reviewed the patient's lab results. 01/22/25 09:10 01/22/25 09:10 Lab Results 01/22/25 01/22/25 Range/Units 09:10 09:13 WBC 16.35 H (4.8-10.8) K/ul RBC 4.93 (4.20-5.40) M/uL Hgb 15.0 (12.0-16.0) g/dl Hct 44.7 (37.0-47.0) % MCV 90.7 (80.0-100.0) fL MCH 30.4 (25.0-34.0) pg MCHC 33.6 (32.0-36.0) g/dL RDW Std Deviation 43.0 (36.4-46.3) fL RDW Coeff of Randy 12.9 (11.5-14.5) % Plt Count 246 (130-400) K/uL MPV 10.5 (9.4-12.4) fL Immature Gran % (Auto) 0.6 % Neut % (Auto) 86.8 % Lymph % (Auto) 5.3 % [place] % (Auto) 7.0 % Eos % (Auto) 0.0 % Baso % (Auto) 0.3 % Neut # (Auto) 14.18 H (1.40-6.50) K/uL Lymph # (Auto) 0.87 L (1.20-3.40) K/uL [place] # (Auto) 1.15 H (0.11-0.59) K/uL Eos # (Auto) 0.00 (0.00-0.50) K/uL Baso # (Auto) 0.05 (0.00-0.20) K/uL Immature Gran # (Auto) 0.10 (0.01-0.20) K/uL Sodium 133 L (136-145) mmol/L Potassium 4.8 (3.5-5.1) mmol/L Chloride 99 (98-107) mmol/L Carbon Dioxide 28 (21-32) mmol/L Anion Gap 6 (3-11) BUN 48 H (6-23) mg/dl Creatinine 2.21 H (0.6-1.2) mg/dl Est Cr Clr Drug Dosing 22.5 ml/min eGFR 21.72 BUN/Creatinine Ratio 21.7 H (10-20) Glucose 118 H (70-99(Fasting)) mg/dl Calcium 10.9 H (8.6-10.3) mg/dl Magnesium 1.5 L (1.7-2.4) mg/dl Total Bilirubin 0.8 (0.2-1.0) mg/dl AST 29 (13-39) U/L ALT 19 (7-52) U/L Alkaline Phosphatase 72 (34-104) U/L Total Creatine Kinase 441 H (26-192) U/L Total Protein 7.9 (6.0-8.3) gm/dl Albumin 4.5 (3.4-5.0) gm/dl Globulin 3.4 (2.5-4.0) gm/dl Albumin/Globulin Ratio 1.3 (0.9-2) Procalcitonin 0.15 (0-0.5) ng/ml TSH 1.512 (0.300-4.500) uIu/ml Urine Color Yellow Urine Appearance Clear (Clear) Urine pH 6.0 (4.5-7.5) Ur Specific [place] 1.017 (1.000-1.030) Urine Protein 1+ H (Negative) Urine Glucose (UA) Negative (Negative) Urine Ketones Negative (Negative) Urine Blood Negative (Negative) Urine Nitrite Positive A (Negative) Urine Bilirubin Negative (Negative) Urine Urobilinogen Negative (Negative) Ur Leukocyte Esterase 3+ H (Negative) Urine WBC (Auto) >50 H (0-5) /hpf Urine RBC (Auto) 0-2 (0-2) /hpf U Hyaline Cast (Auto) 0-2 (0-2) /lpf U Epithel Cells (Auto) 0-2 (0-2) /hpf Urine Bacteria (Auto) 4+ H (None Seen) Administered Medications Discontinued Medications Aspirin (Aspirin 81 Mg Chew) 81 mg PO NOW STA Stop: 01/22/25 14:25 Last Admin: 01/22/25 14:42 Dose: 81 mg Documented By: HINA Clopidogrel Bisulfate (Clopidogrel Bisulfate 300 Mg Tab) 300 mg PO NOW STA Stop: 01/22/25 14:25 Last Admin: 01/22/25 14:42 Dose: 300 mg Documented By: HINA Sodium Chloride (Nss) 500 mls @ 999 mls/hr IV .Q31M ONE Stop: 01/22/25 09:56 Last Infusion: 01/22/25 10:13 Dose: Infused Documented By: Admin: 01/22/25 09:34 Dose: 999 mls/hr Documented By: SOFIE Sodium Chloride (Nss) 1,000 mls @ 999 mls/hr IV .Q1H1M ONE Stop: 01/22/25 11:08 Last Infusion: 01/22/25 11:24 Dose: Infused Documented By: Admin: 01/22/25 10:23 Dose: 999 mls/hr Documented By: SOFIE Magnesium Sulfate/Dextrose (Magnesium Sulfate / D5w) 1 gm in 100 mls @ 100 mls/hr IV NOW STA Stop: 01/22/25 11:07 Last Infusion: 01/22/25 11:42 Dose: Infused Documented By: Admin: 01/22/25 10:43 Dose: 100 mls/hr Documented By: SOFIE Ceftriaxone Sodium (Rocephin) 2,000 mg in 50 mls @ 100 mls/hr IV NOW STA Stop: 01/22/25 10:38 Last Infusion: 01/22/25 10:43 Dose: Infused Documented By: Admin: 01/22/25 10:22 Dose: 100 mls/hr Documented By: SOFIE Lorazepam (Lorazepam 2 Mg/1 Ml Vial) 0.25 mg IV NOW STA Stop: 01/22/25 12:21 Last Admin: 01/22/25 12:57 Dose: 0.25 mg Documented By: HINA Imaging Data Radiologist's Impression: Chest X-Ray 01/22/25 09:21 XR chest 1V portable CLINICAL HISTORY: weakness COMPARISON STUDY: 10/06/2023 FINDINGS: Stable cardiomegaly with mild pulmonary vascular congestion. No effusion, consolidation, or pneumothorax. IMPRESSION: Stable mild CHF. ACT 112: Negative or not required by law. Electronically signed by: Girish Murphy M.D. 01/22/2025 10:[address] 01/22/25 09:26 CT head/brain wo con CLINICAL HISTORY: confused, fall. TECHNIQUE: Multiple axial CT images of the head were obtained without contrast. A dose lowering technique was utilized adhering to the principles of ALARA. CT DOSE: 1250.21 mGy.cm COMPARISON: 06/29/2023 FINDINGS: There is motion artifact despite multiple acquisitions. There is interval small area of hypodensity posterior left centrum semiovale in the parietal lobe which likely represents recent subacute infarction. Stable moderate chronic small vessel ischemic changes. No intracranial hemorrhage seen. No mass effect, midline shift, or hydrocephalus. No skull fracture seen. Visualized paranasal sinuses and mastoid air cells are clear. IMPRESSION: 1. Motion limited exam. 2. No intracranial hemorrhage seen. 3. 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 ACT 112: Negative or not required by law. The above report was generated using voice recognition software. It may contain grammatical, syntax or spelling errors. Electronically signed by: Girish Murphy M.D. 01/22/2025 9:56 AM Discharge Plan Visit Data Chief Complaint: Fall Stated Complaint: FALL, CONFUSED, UTI ED Provider: Da Wetzel Discharge Problem: Weakness, Fall, LINH (acute kidney injury), Acute UTI, Leukocytosis, Acute CVA (cerebrovascular accident), Hypomagnesemia Patient Disposition: Admitted As Inpatient Condition: Fair Discharge Instructions Interventions: ED Discharge Assessment Last Done: 01/22/25 13:55 Discharge Problem: Fall Qualifiers: Encounter type: initial encounter Qualified Code(s): W19.XXXA - Unspecified fall, initial encounter Leukocytosis Qualifiers: Leukocytosis type: unspecified Qualified Code(s): D72.829 - Elevated white blood cell count, unspecified
[2025-01-22] MEDS ORDERED: ACETAMINOPHEN 325 MG TAB PO PRN (11:41)
--- NOTE | 2025-01-22 11:44 | History & Physical Report ---
Date of Service January 22, 2025 Assessment & Plan (1) E. coli UTI: (2) Fall: (3) Parietal lobe infarction: (4) Altered mental status: (5) LINH (acute kidney injury): Plan This is an 80 year old female with past medical history of hypothyroidism, hyperlipidemia, JESSI, orthostatic hypotension, anxiety, depression who presented to the ED on 01/22 following a fall at home. #Fall Unclear etiology as why patient fell, she does not remember anything. CXR: mild CHF Head CT: new likely subacute infarction in left parietal lobe. PT/OT consult appreciation recommendations Fall precautions. #Subacute infarction Parietal lobe Abnormal Head CT w/ likely subacute infarction in left parietal lobe. Patient reports possible history of stroke in 2016, unclear as there is no documentation in her chart Brain MRI: acute to recent subacute left MCA distribution infarction. Discussed w/ Dr. Armenta -> order stroke work up, start Plavix, Consider CTA if renal function okay. Given patient current LINH & GFR of 22, defer CTA until renal function improves for now, will reassess tomorrow. Echo, Lipid panel, A1c Allow for permissive HTN 24-48 hours -> hold amlodipine and spironolactone, continue metoprolol #UTI Urinalysis + for UTI, repeat UC pending but likely same as one from 01/19 WBC w/ leukocytosis of 16.35, procal pending Was on Bactrim outpatient, recent UC w/ E coli resistant to Bactrim s/p IV Rocephin on admission --> continue Hold Oxybutynin Repeat CBC in AM #LINH/hypomagnesmia Creatinine elevated upon admission at 2.21, Mag low at 1.5 Baseline creat ~1.3 - 1.7 s/p 1.5L IVF and 1g Mag in ED Hold Spironolactone until LINH resolves Repeat BMP/Mag in AM Chronic conditions Hypothyroidism: Synthroid, TSH WNL Mental Health: Bupropion, Lexapro, Quetiapine DVT prophylaxis: SCD's, Heparin Code: full Updated daughter by phone at time of admission Case discussed w/ Dr. Rosales at time of admission. History of Present Illness Chief Complaint: fall Primary Care Provider: JHONY Pierson This is an 80 year old female with past medical history of hypothyroidism, hyperlipidemia, JESSI, orthostatic hypotension, anxiety, depression who presented to the ED on 01/22 following a fall at home. Patient seen and examined this morning at bedside. Patient reports that she does not remember anything that happened last night or this morning. She reports her cleaning lady found her on the floor this morning and called her family. Patient states she awoke to people standing around her and that is the first thing she remembers. She does not remember hitting or head or how she fell. She was being treated for an UTI outpatient with Bactrim and had a few days worth however her UC was resistant to Bactrim. Currently the patient was experiencing urinary frequency and urgency. She states that is typical for her when she has a UTI. Patient also with delayed responses and was having difficulty getting her words out when answering questions. She was AxOx3. She denied chest pain, shortness of breath, extremity/back pain, GI issues, or lower extremity edema. Daughter was called upon admission. Daughter states that Sara has been confused since last weekend. Reports that she has been unable to use the phone or figure out how to do things she typically is aware of how to do. Reports she gets this way everytime she has an UTI. While in the ED, patient was found to still have a UTI by urinalysis. Leukocytosis of 16.35. She had an LINH w/ creatinine of 2.21. Magnesium was low at 1.5. CK was mildly elevated at 441. TSH was WNL. She had a CXR revealing mild stable CHF. She also had a CT scan showing a likely subacute infarction in left parietal lobe. MRI is pending. Allergies Allergy/AdvReac Type Severity Reaction Status Date / Time baclofen Allergy Mild FLUSHED Verified 01/22/25 11:18 FACE Home Medications Medication Instructions Recorded Confirmed Type multivitamin 1 tab PO QAM 12/01/18 01/22/25 History cholecalciferol (vitamin D3) 25 5,000 unit PO QPM 06/06/21 01/22/25 History mcg (1,000 unit) capsule (Vitamin D3) omega-3 fatty acids 1,000 mg 1,000 mg PO QAM 12/12/21 01/22/25 History capsule cranberry fruit 450 mg tablet 450 mg PO QAM 03/19/23 01/22/25 History (cranberry) Saccharomyces boulardii 250 mg 250 mg PO BID #20 caps 06/29/23 01/22/25 Rx capsule (Florastor) melatonin 3 mg tablet 3 mg PO HS PRN Sleep 09/24/23 01/22/25 History oxybutynin chloride 5 mg tablet 5 mg PO BID #180 tabs 01/16/24 01/22/25 Rx bupropion HCl 150 mg 24 hr tablet, 150 mg PO QAM #30 tabs 01/24/24 01/22/25 Rx extended release bupropion HCl 300 mg 24 hr tablet, 300 mg PO QAM #30 tabs 01/24/24 01/22/25 Rx extended release escitalopram oxalate 10 mg tablet 10 mg PO QAM #90 tabs 02/25/24 01/22/25 Rx metoprolol tartrate 25 mg tablet 25 mg PO BID #180 tabs 06/04/24 01/22/25 Rx amlodipine 10 mg tablet 10 mg PO HS #90 tabs 11/20/24 01/22/25 Rx nystatin 100,000 unit/gram topical 1 applic topical BID PRN yeast 12/05/24 01/22/25 Rx cream #120 grams levothyroxine 137 mcg tablet 137 mcg PO DAILY #90 tabs 12/12/24 01/22/25 Rx spironolactone 50 mg tablet 50 mg PO BID #180 tabs 01/08/25 01/22/25 Rx quetiapine 100 mg tablet 100 mg PO DAILY 01/22/25 01/22/25 History ramelteon 8 mg tablet 8 mg PO DAILY 01/22/25 01/22/25 History aspirin 81 mg capsule 81 mg PO DAILY #30 caps 01/24/25 Rx atorvastatin 40 mg tablet 40 mg PO DAILY #30 tabs 01/24/25 Rx cephalexin 500 mg capsule 500 mg PO TID #6 caps 01/24/25 Rx clopidogrel 75 mg tablet 75 mg PO DAILY #20 tabs 01/24/25 Rx Past Med/Surg History Problem List (Updated 01/22/25 @ 15:14 by Da Wetzel MD) Hypomagnesemia (Acute) Acute CVA (cerebrovascular accident) (Acute) Leukocytosis (Acute) Acute UTI (Acute) LINH (acute kidney injury) (Acute) Fall (Acute) Weakness (Acute) LINH (acute kidney injury) Altered mental status Parietal lobe infarction Yeast infection Hypothyroidism Hyperlipemia DVT prophylaxis E. coli UTI Chronic cough Morbid obesity with BMI of 50.0-59.9, adult HTN (hypertension) Anxiety and depression Closed trimalleolar fracture of ankle (Acute) Ankle fracture, right Urinary symptom or sign JESSI on CPAP Bimalleolar fracture of right ankle (Acute) Fall (Acute) Hypoxia (Acute) UTI (urinary tract infection) Orthostatic hypotension Neck pain Impaired fasting glucose Dyspnea Weakness (Acute) Chronic diarrhea Lumbar discitis Rectocele Dementia (Acute) Proteinuria Lumbar back pain Medical History Acute respiratory failure with hypoxia History of fracture of right ankle Chronic renal failure, stage 3a Pneumonia due to COVID-19 virus Electrolyte imbalance SIRS (systemic inflammatory response syndrome) Fever Nausea Osteoarthritis History of kidney stones Hernia, incisional Hypokalemia Hypomagnesemia Hypophosphatemia Insomnia Moderate obstructive sleep apnea Acid reflux disease Surgical History History of total hysterectomy with bilateral salpingo-oophorectomy (BSO) History of dilatation and curettage History of bilateral tubal ligation History of repair of right rotator cuff History of repair of left rotator cuff History of total right knee replacement (TKR) History of total left knee replacement (TKR) History of cystoscopy History of colonoscopy History of wisdom tooth extraction History of bilateral cataract extraction History of colon surgery Hx of cholecystectomy Family History Father Family history of diabetes mellitus Myocardial infarction Cancer Grandmother (Paternal) Family history of diabetes mellitus Other Coronary heart disease Family history non-contributory No family history of adverse response to anesthesia Denies family history of Ovarian cancer Prostate cancer Breast cancer Colorectal cancer Social History Smoking Status: Never smoker Second Hand Exposure: Yes (was exposed for 50+ years when was alive); Do You Dip or Chew Tobacco: No; Hx Alcohol Use: No Hx Substance Use: No Preferred Language: Omani Communication Ability: Effective Visual Impairment: Limited Hearing Ability: Normal Lunchroom Mother Required: No Beliefs That Will Affect Care: None marital status: / Current Living Situation: Alone current occupational status: retired How many Children do You have: 2 Feels Safe at Home: Yes Childhood Exposure to Second-Hand Smoke: No Diet: low salt caffeine: Yes during the past year weight has: remained stable Dental Care, Regularly: Yes Physical Activity Frequency: Does not Exercise Seatbelt Use: never Sunscreen Use: No Do you think of yourself as: straight/heterosexual Sexual Activity: has been sexually active, but not for at least 12 months Gender Identity: Female Assistive Devices: Walker Review of Systems Review of Systems: All systems reviewed & are unremarkable except as noted in HPI & below Physical Exam Constitutional: + obese and + disheveled Eyes: PERRL, conjunctivae normal, anicteric sclerae Respiratory: normal respiratory effort, lungs clear to auscultation Cardiovascular: RRR, no murmur, no edema Musculoskeletal: no cyanosis or clubbing, extremities motor strength 5/5 Neurologic: PERRL, EOMI, accommodation nl, no face palsy, no dysarthria Psychiatric: AxOx3 w/ periods of confusion about PMH Results & Data Results & Data Vital Signs (Past 12 Hours) Vital Signs Temp Pulse Resp BP Pulse Ox O2 Del Method 01/22/25 10:30 77 21 94 01/22/25 10:21 79 19 94 01/22/25 10:12 78 25 H 93 01/22/25 10:02 150/79 H 01/22/25 10:02 150/79 H 01/22/25 10:02 150/79 H 01/22/25 10:02 150/79 H 01/22/25 10:02 150/79 H 01/22/25 10:02 150/79 H 01/22/25 10:02 150/79 H 01/22/25 10:02 150/79 H 01/22/25 10:02 150/79 H 01/22/25 10:00 67/55 L 01/22/25 10:00 67/55 L 01/22/25 10:00 74 21 93 01/22/25 09:21 95 Room Air 01/22/25 09:16 71 01/22/25 09:06 160/72 H 01/22/25 09:06 160/72 H 01/22/25 09:06 160/72 H 01/22/25 09:06 160/72 H 01/22/25 09:06 160/72 H 01/22/25 09:06 160/72 H 01/22/25 09:06 160/72 H 01/22/25 09:06 160/72 H 01/22/25 09:06 160/72 H 01/22/25 09:06 160/72 H 01/22/25 09:06 160/72 H 01/22/25 09:06 160/72 H 01/22/25 09:06 160/72 H 01/22/25 09:06 160/72 H 01/22/25 09:06 160/72 H 01/22/25 09:06 160/72 H 01/22/25 09:06 160/72 H 01/22/25 09:06 160/72 H 01/22/25 09:06 160/72 H 01/22/25 09:06 160/72 H 01/22/25 09:06 160/72 H 01/22/25 09:06 160/72 H 01/22/25 09:06 160/72 H 01/22/25 09:06 36 C L 73 15 160/72 H 95 Room Air Supervising Physician Co-Signing Physician Notes During face to face encounter, I obtained a history physical examination, discussed plan of carewith patient. I discussed plan of care with EVELIO Wilks. I reviewed above note and agree with it except for the following: Patient admitted for a fall. Will further evaluate for subacute stroke. Will place on plavix. will continue to treat for UTI with IV rocephin PG Care Time/CCT Total # of Minutes Spent Total Time Spent with Patient: Total time spent is greater than 50% in coordination of care (as documented) at patient's floor/unit and/or counseling patient: Coding Level of Care Code 01539 INT INP/OBS CARE 3/75MIN Diagnoses E. coli UTI N39.0; B96.20 Fall W19.XXXA Parietal lobe infarction I63.89 Altered mental status R41.82 LINH (acute kidney injury) N17.9
[2025-01-22] MEDS: LORazepam 2 MG/1 ML VIAL IV STA (12:57)
[2025-01-22] MEDS ORDERED: NYSTATIN CR 15 GM TUBE EXT PRN (13:55)
[2025-01-22] MEDS ORDERED: MELATONIN 3 MG TAB PO PRN (13:55)
--- NOTE | 2025-01-22 14:14 | Magnetic Resonance Report ---
MR brain wo con CLINICAL HISTORY: subacute infarct on CT COMPARISON STUDY: CT scan earlier today FINDINGS: There is motion artifact. There is patchy restricted diffusion scattered throughout the lef t parietal lobe with associated increased FLAIR signal intensity consistent with acute to recent suba cute left MCA distribution infarction. No mass effect, midline shift, or hydrocephalus. There is mode rate patchy periventricular increased FLAIR signal intensity which usually represents chronic small v essel ischemic changes. IMPRESSION: Acute to recent subacute left MCA distribution infarction. ACT 112: Negative or not required by law. Electronically signed by: Girish Murphy M.D. 01/22/2025 2:12 PM
--- NOTE | 2025-01-22 14:34 | Electrocardiogram Report ---
Test Reason : Blood Pressure : */* mmHG Vent. Rate : 68 BPM Atrial Rate : 68 BPM P-R Int : 170 ms QRS Dur : 82 ms QT Int : 412 ms P-R-T Axes : 46 -10 21 degrees QTcB Int : 438 ms Normal sinus rhythm Minimal voltage criteria for LVH, may be normal variant Nonspecific ST abnormality Abnormal ECG When compared with ECG of 24-Sep-2023 18:21, Nonspecific T wave abnormality, improved in Inferior leads Confirmed by Evin Ly ([id number]) on 01/22/2025 2:34:05 PM Referred By: REFERRED SELF Confirmed By: Evin Ly
[2025-01-22] MEDS: ASPIRIN 81 MG CHEW PO STA (14:42)
[2025-01-22] MEDS: CLOPIDOGREL BISULFATE 300 MG TAB PO STA (14:42)
--- NOTE | 2025-01-22 16:25 | XCELERA ---
[id number] [id number]
[2025-01-22] MEDS: CHOLECALCIFEROL 25 MCG (1000 UNITS) TAB PO SCH (20:39)
[2025-01-22] MEDS: METOPROLOL TARTRATE 25 MG TAB PO SCH (20:39)
[2025-01-22] MEDS: HEPARIN SOD 5,000 UNIT/0.5 ML VIAL SQ SCH (20:39)
[2025-01-22] MEDS: MELATONIN 3 MG TAB PO PRN (20:40)
[2025-01-23] MEDS: LEVOTHYROXINE SODIUM 137 MCG TABLET PO SCH (06:14)
[2025-01-23 06:58] LABS: Chol HDL Ratio 4.9 (0-5); Magnesium 1.7 mg/dl (1.7-2.4)
[2025-01-23 08:19] LABS: Estimated Average Glucose 123 mg/dl; Hemoglobin A1C 5.9 % (4.5-5.6)
[2025-01-23] MEDS: OMEGA-3 (PURIFIED FISH OIL) 1 GM CAP PO SCH (08:53)
[2025-01-23] MEDS: buPROPion XL 300 MG TABCR PO SCH (08:53)
[2025-01-23] MEDS: buPROPion XL 150 MG TABCR PO SCH (08:53)
[2025-01-23] MEDS: CLOPIDOGREL BISULFATE 75 MG TAB PO SCH (08:53)
[2025-01-23] MEDS: QUEtiapine FUMARATE 100 MG TABLET PO SCH (08:53)
[2025-01-23] MEDS: ESCITALOPRAM OXALATE 10 MG TAB PO SCH (08:54)
[2025-01-23] MEDS: MULTIVITAMIN TAB PO SCH (08:54)
[2025-01-23] MEDS ORDERED: NON-FORMULARY MEDICATION (Ramelteon 8 mg tablet) PO SCH (09:00)
[2025-01-23 09:09] LABS: Basophils # (auto) 0.04 K/uL (0.00-0.20); Basophils % (auto) 0.5 %; Eosinophils # (auto) 0.13 K/uL (0.00-0.50); Eosinophils % (auto) 1.5 %; Hematocrit (blood only) 41.1 % (37.0-47.0); Hemoglobin 13.8 g/dl (12.0-16.0); Immature Granulocytes # (auto) 0.02 K/uL (0.01-0.20); Immature Granulocytes % (auto) 0.2 %; Lymphocytes # (auto) 2.53 K/uL (1.20-3.40); Lymphocytes % (auto) 29.4 %; Mean Corpuscular Hemoglobin 30.5 pg (25.0-34.0); Mean Corpuscular Hgb Conc 33.6 g/dL (32.0-36.0); Mean Corpuscular Volume 90.7 fL (80.0-100.0); Mean Platelet Volume 10.7 fL (9.4-12.4); Monocytes # (auto) 0.85 K/uL (0.11-0.59); Monocytes % (auto) 9.9 %; Neutrophils # (auto) 5.03 K/uL (1.40-6.50); Neutrophils % (auto) 58.5 %; Platelet Count 231 K/uL (130-400); RDW Coefficient of Variation 13.3 % (11.5-14.5); RDW Standard Deviation 43.5 fL (36.4-46.3); Red Blood Count 4.53 M/uL (4.20-5.40)
[2025-01-23] MEDS: ATORVASTATIN 40 MG TAB PO SCH (09:16)
[2025-01-23 09:24] LABS: BUN Creatinine Ratio 20.1 (10-20); Calcium 9.6 mg/dl (8.6-10.3); Creatinine Clr Calc Pharmacy 28.6 ml/min; Potassium 4.3 mmol/L (3.5-5.1)
[2025-01-23] MEDS: cefTRIAXone SODIUM 2,000 MG/50 ML BAG IV SCH (10:26)
--- NOTE | 2025-01-23 12:35 | Ultrasound Report ---
CAROTID ARTERY ULTRASOUND CLINICAL HISTORY: Stroke. COMPARISON STUDY: None. TECHNIQUE: Real-time, grayscale, and color Doppler sonography of the carotid and vertebral arteries w as performed. Images were viewed in the transverse and longitudinal planes. FINDINGS: There is mild atherosclerotic plaque. Velocity measurements are listed below. COMMON CAROTID PEAK SYSTOLIC VELOCITY (CM/S): RIGHT 71 LEFT 63 ICA PEAK SYSTOLIC VELOCITY (CM/S): RIGHT 55 LEFT 46 Systolic ratios between the internal to common carotid arteries were normal. Antegrade flow is seen in the vertebral arteries. The external carotid arteries are patent. IMPRESSION: No evidence for a hemodynamically significant stenosis. ACT 112: Negative or not required by law. Electronically signed by: Amor Berger M.D. 01/23/2025 12:33 PM
--- NOTE | 2025-01-23 16:18 | Hospitalist Progress Note ---
Date of Service January 23, 2025 Assessment & Plan (1) E. coli UTI: (2) Fall: (3) Parietal lobe infarction: (4) Altered mental status: (5) LINH (acute kidney injury): Plan This is an 80 year old female with past medical history of hypothyroidism, hyperlipidemia, JESSI, orthostatic hypotension, anxiety, depression who presented to the ED on 01/22 following a fall at home. #Stroke Abnormal Head CT w/ likely subacute infarction in left parietal lobe. Patient reports possible history of stroke in 2016, unclear as there is no documentation in her chart Brain MRI: acute to recent subacute left MCA distribution infarction. Discussed w/ Dr. Armenta -> order stroke work up, start Plavix, Consider CTA if renal function okay. Given patient current LNIH & GFR of 22, defer CTA, Carotid Doppler 01/23 negative for stenosis Echo: study technically limited but LV systolic function normal and RV systolic pressure normal Lipid panel: TG 109, Cholesterol 180, LDL 121, HDL 37 A1c: 5.9% Allow for permissive HTN 24-48 hours -> continue metoprolol, resume amlodipine and spironolactone in AM PT/OT recommending home w/ home health, per CM patient declines HH or rehab #UTI Urinalysis + for UTI, repeat UC + for E. Coli, sensitivities pending Leukocytosis resolved. CBC stable Was on Bactrim outpatient, recent UC w/ E coli resistant to Bactrim Continue IV Rocephin Hold Oxybutynin Repeat CBC in AM #Fall Unclear etiology as why patient fell, she does not remember anything. CXR: mild CHF Fall precautions. PT/OT recs as above #LINH/hypomagnesmia Creatinine elevated upon admission at 2.21, Mag low at 1.5 Baseline creat ~1.3 - 1.7 Creatinine improved to 1.74, Mag stable Repeat BMP/Mag in AM Chronic conditions Hypothyroidism: Synthroid, TSH WNL Mental Health: Bupropion, Lexapro, Quetiapine DVT prophylaxis: SCD's, Heparin Code: full Anticipate discharge home 01/24. Admission and Anticipated Discharge Date Admission Date: January 22, 2025 Subjective Patient seen and examined this morning. Patient reports to be feeling better to day but she reports she is fatigued. She denies any extremity weakness/numbness, changes in vision/hearing. Denies CP or SOB. Physical Exam Constitutional: WD/WN, vitals as above Eyes: PERRL, conjunctivae normal, anicteric sclerae Respiratory: normal respiratory effort, lungs clear to auscultation Cardiovascular: RRR, no murmur, no edema Neurologic: PERRL, EOMI, accommodation nl, no face palsy, no dysarthria Psychiatric: A+Ox3, euthymic affect Results & Data Results & Data Vital Signs (Past 12 Hours) Vital Signs Temp Pulse Pulse Resp BP BP Pulse Ox 01/23/25 15:55 36.5 C 49 L 18 154/77 H 94 01/23/25 13:23 62 01/23/25 11:49 36.7 C 65 18 146/79 H 96 01/23/25 07:51 36.5 C 63 17 178/70 H 94 01/23/25 05:38 59 L O2 Del Method 01/23/25 15:55 Room Air 01/23/25 13:23 01/23/25 11:49 Room Air 01/23/25 07:51 Room Air 01/23/25 05:38 PG Care Time/CCT Total # of Minutes Spent Total Time Spent with Patient: Total time spent is greater than 50% in coordination of care (as documented) at patient's floor/unit and/or counseling patient: Coding Level of Care Code 32672 SUB INP/OBS CARE 3/50MIN Diagnoses E. coli UTI N39.0; B96.20 Fall W19.XXXA Parietal lobe infarction I63.89 Altered mental status R41.82 LINH (acute kidney injury) N17.9
[2025-01-24 07:04] LABS: Hematocrit (blood only) 41.8 % (37.0-47.0); Hemoglobin 14.2 g/dl (12.0-16.0); Mean Corpuscular Hemoglobin 30.9 pg (25.0-34.0); Mean Corpuscular Volume 91.1 fL (80.0-100.0); Mean Platelet Volume 10.6 fL (9.4-12.4); Platelet Count 240 K/uL (130-400); RDW Coefficient of Variation 13.3 % (11.5-14.5); RDW Standard Deviation 43.8 fL (36.4-46.3); Red Blood Count 4.59 M/uL (4.20-5.40); White Blood Count 8.12 K/ul (4.8-10.8)
[2025-01-24 07:39] LABS: Anion Gap 6 (3-11); BUN Creatinine Ratio 20.6 (10-20); Blood Urea Nitrogen 39 mg/dl (6-23); Calcium 9.2 mg/dl (8.6-10.3); Carbon Dioxide 26 mmol/L (21-32); Chloride 103 mmol/L (98-107); Creatinine Clr Calc Pharmacy 26.4 ml/min; Glucose 92 mg/dl (70-99(Fasting)); Magnesium 1.8 mg/dl (1.7-2.4); Sodium 135 mmol/L (136-145)
[2025-01-24] MEDS: SODIUM CHLORIDE 0.9% 500 ML IV SCH (09:16)
[2025-01-24] MEDS: SPIRONOLACTONE 25 MG TAB PO SCH (09:21)
--- NOTE | 2025-01-24 09:34 | Discharge Summary ---
Discharge Summary Date of Service January 24, 2025 Principal Dx & Hospital Course #1 = Principal Diagnosis (1) E. coli UTI: (2) Fall: (3) Parietal lobe infarction: (4) Altered mental status: (5) LINH (acute kidney injury): Plan This is an 80 year old female with past medical history of hypothyroidism, hyperlipidemia, JESSI, orthostatic hypotension, anxiety, depression who presented to the ED on 01/22 following a fall at home. #Stroke Abnormal Head CT w/ likely subacute infarction in left parietal lobe. Patient reports possible history of stroke in 2016, unclear as there is no documentation in her chart Brain MRI: acute to recent subacute left MCA distribution infarction. Discussed w/ Dr. Armenta -> order stroke work up, start Plavix, Consider CTA if renal function okay. Given patient current LINH & GFR of 22, defer CTA, Carotid Doppler 01/23 negative for stenosis Echo: study technically limited but LV systolic function normal and RV systolic pressure normal Lipid panel: TG 109, Cholesterol 180, LDL 121, HDL 37 A1c: 5.9% Allow for permissive HTN 24-48 hours -> continue metoprolol, resumed amlodipine and spironolactone DAPT x 21 days PT/OT recommending home w/ home health, per CM patient declines HH or rehab Follow up w/ PCP, referral for neurology outpatient visit on discharge. #UTI/ Metabolic encephalopathy Urinalysis + for UTI, repeat UC + for E. Coli, sensitivities pending Leukocytosis resolved. CBC stable Was on Bactrim outpatient, recent UC w/ E coli resistant to Bactrim Continue IV Rocephin --. transition to Keflex PO on discharge for additional 2 days to complete course. Oxybutynin resumed on discharge. #Fall Unclear etiology as why patient fell, she does not remember anything. CXR: mild CHF PT/OT recs as above #LINH/hypomagnesmia Creatinine elevated upon admission at 2.21, Mag low at 1.5 Baseline creat ~1.3 - 1.7 Creatinine improved to 1.89, Mag stable 500cc IV NSS 01/24 prior to dc - patient reports she has had poor PO hydration while inpatient but typically does drink an adequate amount of fluids daily at home. Chronic conditions Hypothyroidism: Synthroid, TSH WNL Mental Health: Bupropion, Lexapro, Quetiapine Morbid obesity with BMI 49 Updated daughter 01/24 that patient was stable for discharge, daughter to transport this evening. Admission HPI Per Admitting Provider This is an 80 year old female with past medical history of hypothyroidism, hyperlipidemia, JESIS, orthostatic hypotension, anxiety, depression who presented to the ED on 01/22 following a fall at home. Patient seen and examined this morning at bedside. Patient reports that she does not remember anything that happened last night or this morning. She reports her cleaning lady found her on the floor this morning and called her family. Patient states she awoke to people standing around her and that is the first thing she remembers. She does not remember hitting or head or how she fell. She was being treated for an UTI outpatient with Bactrim and had a few days worth however her UC was resistant to Bactrim. Currently the patient was experiencing urinary frequency and urgency. She states that is typical for her when she has a UTI. Patient also with delayed responses and was having difficulty getting her words out when answering questions. She was AxOx3. She denied chest pain, shortness of breath, extremity/back pain, GI issues, or lower extremity edema. Daughter was called upon admission. Daughter states that Sara has been confused since last weekend. Reports that she has been unable to use the phone or figure out how to do things she typically is aware of how to do. Reports she gets this way everytime she has an UTI. While in the ED, patient was found to still have a UTI by urinalysis. Leukocytosis of 16.35. She had an LINH w/ creatinine of 2.21. Magnesium was low at 1.5. CK was mildly elevated at 441. TSH was WNL. She had a CXR revealing mild stable CHF. She also had a CT scan showing a likely subacute infarction in left parietal lobe. MRI is pending. Discharge Exam Constitutional WD/WN, vitals as above Eyes PERRL, conjunctivae normal, anicteric sclerae Respiratory breathing unlabored Cardiovascular well perfused Psychiatric A+Ox3, euthymic affect Discharge Plan Discharge Items Patient Disposition: Home - Self-Care Reason For Visit: FALL Discharge Diagnosis: Stroke/UTI Condition on Discharge: Fair Activity: Resume your previous activity Non-emergency contact: Primary Care Provider Call non-emergency contact if: you have any medication questions, your symptoms worsen and you have a fever Follow-up/Referrals: Mercedes Asif CRNP [Primary Care Provider] - 03/28/25 10:30 am Darion Armenta MD [Physician] - Diet: Heart Healthy Addtl Attending Provider Instructions: Ms. Powell, You were recently hospitalized for a fall at your home and an ongoing UTI. You were found to have a UTI that was resistance to your outpatient antibiotic along with a recent stroke. You were treated appropriately with IV antibiotics for your UTI and also underwent a stroke workup including an echocardiogram and labs. The echocardiogram of your heart looked okay. Please see recommendations below regarding your discharge. Please take a 81mg Aspirin and Plavix daily for the next 21 days starting 01/25. After the 21 days, please obtain further recommendations from your PCP on which of the medications to continue. You have been started on Atorvastatin 40mg once daily, please continue this at home starting 01/25. Please take Keflex three times daily for the next 2 days. This will start manuel morning, 01/25. You have declined home health therapy but if you decide you would like this or outpatient therapy, please refer to your PCP. Please follow up with your PCP within 1-2 weeks. You may follow up with a neurologist outpatient if you choose to. Dr. Armenta's office phone number is above and a referral will be sent to their office. Please resume the remainder of your outpatient medications. If you develop any fevers, chills, weakness/numbness of your extremities, chest pain, shortness of breath please report back to the ED for further care. Sincerely, Alda Wilks PA-C Pending Studies at Discharge: No Stand-Alone Forms: My [facility], Smoking Cessation Medications and DC Order Prescriptions: New cephalexin 500 mg capsule 500 mg PO TID Qty: 6 0RF atorvastatin 40 mg tablet 40 mg PO DAILY Qty: 30 0RF clopidogrel 75 mg tablet 75 mg PO DAILY Qty: 20 0RF aspirin 81 mg capsule 81 mg PO DAILY Qty: 30 0RF Continued cholecalciferol (vitamin D3) [Vitamin D3] 25 mcg (1,000 unit) capsule 5,000 unit PO QPM oxybutynin chloride 5 mg tablet 5 mg PO BID Qty: 180 3RF bupropion HCl 300 mg tablet extended release 24 hr 300 mg PO QAM Qty: 30 1RF Rx Instructions: Take w/ 150mg tablet to equal 450mg by mouth once in the morning bupropion HCl 150 mg tablet extended release 24 hr 150 mg PO QAM Qty: 30 1RF Rx Instructions: Take w/ 300mg tablet to equal 450mg by mouth once in the morning escitalopram oxalate 10 mg tablet 10 mg PO QAM Qty: 90 3RF metoprolol tartrate 25 mg tablet 25 mg PO BID Qty: 180 3RF amlodipine 10 mg tablet 10 mg PO HS Qty: 90 1RF nystatin 100,000 unit/gram cream 1 applic TOPICAL BID PRN (Reason: yeast) Qty: 120 5RF levothyroxine 137 mcg tablet 137 mcg PO DAILY Qty: 90 3RF spironolactone 50 mg tablet 50 mg PO BID Qty: 180 1RF multivitamin Tablet 1 tab PO QAM omega-3 fatty acids 1,000 mg Capsule 1,000 mg PO QAM cranberry 450 mg Tablet 450 mg PO QAM Rx Instructions: administer with a meal Saccharomyces boulardii [Florastor] 250 mg capsule 250 mg PO BID Qty: 20 0RF Rx Instructions: swallow whole melatonin 3 mg tablet 3 mg PO HS PRN (Reason: Sleep) quetiapine 100 mg tablet 100 mg PO DAILY ramelteon 8 mg tablet 8 mg PO DAILY Discontinued sulfamethoxazole-trimethoprim [Bactrim DS] 800-160 mg tablet 1 tab PO BID 5 Days Qty: 10 0RF Rx Instructions: Start Date 01/20/25 x5 day supply Discharge Orders: Discharge Order (Routine); Ordered 01/24/25 Ordered By: Alda Wilks Admission Data Admit Date/Time: 01/22/25 11:41 Attending Provider: Munir Rosales Admit Provider: Munir Rosales Primary Care Provider: Mercedes Asif Other Interventions: Discharge Summary Assessment (RN) Last Done: 01/24/25 17:48 Hospital Stay Data Consultations 01/22/25 11:22 ED Decision to Admit Stat Diagnostic Imagining Performed 01/22/25 09:26 CT head/brain wo con Stat 01/22/25 11:41 MRI Brain [MR brain wo con] Stat 01/23/25 09:59 US carotid doppler BI Urgent Pending Results Patient Have Any Pending Studies at Discharge: No Discharge Instructions Given to Patient (Per Discharging Provider) Ms. Powell, You were recently hospitalized for a fall at your home and an ongoing UTI. You were found to have a UTI that was resistance to your outpatient antibiotic along with a recent stroke. You were treated appropriately with IV antibiotics for your UTI and also underwent a stroke workup including an echocardiogram and labs. The echocardiogram of your heart looked okay. Please see recommendations below regarding your discharge. Please take a 81mg Aspirin and Plavix daily for the next 21 days starting 01/25. After the 21 days, please obtain further recommendations from your PCP on which of the medications to continue. You have been started on Atorvastatin 40mg once daily, please continue this at home starting 01/25. Please take Keflex three times daily for the next 2 days. This will start tomorrow morning, 01/25. You have declined home health therapy but if you decide you would like this or outpatient therapy, please refer to your PCP. Please follow up with your PCP within 1-2 weeks. You may follow up with a neurologist outpatient if you choose to. Dr. Armenta's office phone number is above and a referral will be sent to their office. Please resume the remainder of your outpatient medications. If you develop any fevers, chills, weakness/numbness of your extremities, chest pain, shortness of breath please report back to the ED for further care. Sincerely, Alda Wilks PA-C Total Time Total Time Spent Total Time Spent (In Minutes): 50 Total Time Includes: Examination of the Patient, Discharge Planning and Medication Reconciliation Coding Level of Care Code 62426 INP/OBS DISCH >30 MIN Diagnoses E. coli UTI N39.0; B96.20 Fall W19.XXXA Parietal lobe infarction I63.89 Altered mental status R41.82 LINH (acute kidney injury) N17.9
[2025-01-24 15:32] VITALS: PULSE 66; RESP 16; TEMP 97.7; O2SAT 95
[2025-01-24 17:53] VITALS: BP 145/84
[2025-01-24] MEDS ORDERED: amLODIPine BESYLATE 5 MG TAB PO SCH (21:00)
== END 2025-01-24 18:41 | disposition home or self-care (01) | DRG 64 ==
LOC: ED 08:58 → EDINP 11:41 → 2N 16:37
DX: F32.A Depression, unspecified; Z16.29 Resistance to other single specified antibiotic; N39.0 Urinary tract infection, site not specified; I63.512 Cerebral infarction due to unspecified occlusion or stenosis of left middle cerebral artery; R29.6 Repeated falls; E03.9 Hypothyroidism, unspecified; Z88.8 Allergy status to other drugs, medicaments and biological substances; G93.41 Metabolic encephalopathy; Z79.899 Other long term (current) drug therapy; B96.20 Unspecified Escherichia coli [E. coli] as the cause of diseases classified elsewhere; E83.42 Hypomagnesemia; F41.9 Anxiety disorder, unspecified; N17.9 Acute kidney failure, unspecified; Z79.890 Hormone replacement therapy